=== PATIENT | male | born 1940 | race Caucasian/White ===

== ENCOUNTER 2017-04-08 10:11 | Inpatient (IN) ==
[2017-04-08] MEDS ORDERED: cefOXitin 2,000 MG in Water for inj. (sterile) 10 ML IVP ONE (10:42)
[2017-04-08] MEDS ORDERED: Lidocaine -MPF 1% 2 ML VIAL ID ONE (10:42)
--- NOTE | 2017-04-08 10:49 | History & Physical Report ---
Date of Encounter: 04/08/17 Time of Encounter: 10:48 24 Hour HP Update - Instructions Instructions: If the History and Physical is less than 30 days old and was completed prior to A.M. admission and or procedure and has NOT been updated on calendar day of procedure please complete this update prior to performing procedure. - Update Patient reports changes in Medical Condition: No Changes in examination, assessment, or condition: No Changes in Medication: No Preop tests/diagnostics Reviewed: Yes Surgery Remains Indicated: Yes Consent for Planned Operative Procedure(s) Verified: Yes - Pre-Operative Checklist Preoperative Checklist Indicated: Yes Prophylactic Antibiotic Ordered: Yes Home Medications Include Beta Joaquín: No
--- NOTE | 2017-04-08 10:55 | Anesthesia Evaluation PreOp ---
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 INSPECTOR History: Denies Any Significant HX Other Medical History: GERD (hiatal hernia) Anesthesia History: No Prior Anesthetic Complications, Past Anesthesia Alcohol Use: occasionally Drug use: none Medications and Allergies Travoprost [Travatan Z] 1 drop OP DAILY 12/31/14 [History] Ezetimibe [Zetia] 10 mg PO DAILY 03/01/17 [History] Fluticasone Propionate Nasal [Flonase] 50 mcg NS DAILY 03/01/17 [History] Timolol Maleate 0.5% [Timolol Maleate 0.5%] 1 drop LEFT EYE BID 03/01/17 [ History] 3 Allergy/AdvReac Type Severity Reaction Status Date / Time Pneumococcal Vaccine Allergy Redness of Verified 04/08/17 10:51 [From Pneumovax 23] Skin - Meds/Allergy Pre-op Review Medications Reviewed: Yes Allergies Reviewed: Yes Beta Blockers on Current Med List: No Anesthesia Results - Labs Laboratory Tests 04/01/17 04/01/17 09:53 09:53 WBC 5.6 Hgb 15.5 Hct 48.1 Plt Count 173 Sodium 138 Potassium 4.4 BUN 13 Creatinine 0.87 - Imaging EKG: report reviewed (04/08/2017 SR, borderline LAD IRBBB 11/13/2013 Sinus rhythm Leftward axis Borderline ECG) Anesthesia Exam O2 Sat Height 1.73 m Height 1.73 m Weight 97.069 kg Weight 97.069 kg O2 Sat by Pulse Oximetry 95 Vital Signs Temp Pulse Resp BP Pulse Ox 97.7 F 58 18 130/92 95 04/08/17 10:44 04/08/17 10:44 04/08/17 10:44 04/08/17 10:44 04/08/17 10:44 Height: 5'8''/1.73 m Weight: 214 lbs/97 kg NPO (# of Hours): 8 Pain Scale: 0 Pain Scale Used: Numeric (1 - 10) - HEENT Pupil (Motor): EOMI Mallampati: II Teeth: Edentulous Denture Type: Upper: Complete, Lower: Complete Oral Opening: Greater than 3 - OPTICAL INSTRUMENT INSPECTOR LOC: Oriented OPTICAL INSTRUMENT INSPECTOR Motor: Normal RUE, Normal LUE, Normal RLE, Normal LLE, Normal Face OPTICAL INSTRUMENT INSPECTOR Sensory: Normal: RUE, LUE, RLE, LLE, Face - Cardiac Rhythm: Regular Murmur: None - Pulmonary Breath Sounds: bilateral Clear Respiratory Effort: Symmetrical Anesthesia Assess/Plan ASA Score: 2 Modified Pushpa Scale for Level of Consciousness: Cooperative, oriented, and tranquil Anesthetic Plan: General Monitoring Plan: Standard Monitors Recovery Plan: PACU
[2017-04-08] MEDS: Ringers Solution, Lactated 1,000 ML IVC SCH ×2 (10:58→16:30)
[2017-04-08] MEDS ORDERED: *HR* Midazolam HCl 2 MG/2 ML VIAL ONE (11:41)
[2017-04-08] MEDS ORDERED: Lidocaine -MPF 2% 2 ML VIAL ONE (11:41)
[2017-04-08] MEDS ORDERED: Ketorolac 30 MG/ML VIAL ONE (11:41)
[2017-04-08] MEDS ORDERED: *HR* Propofol 200 MG/20 ML VIAL IVP ONE (11:41)
[2017-04-08] MEDS ORDERED: Ondansetron 4 MG/2 ML VIAL ONE (11:41)
[2017-04-08] MEDS ORDERED: *HR* FentaNYL (PF) 100 MCG/2 ML VIAL ONE ×2 (11:41→13:26)
[2017-04-08] MEDS ORDERED: *HR* Rocuronium Bromide 50 MG/5 ML VIAL ONE ×2 (11:41→13:42)
[2017-04-08] MEDS ORDERED: Dexamethasone 4 MG/ML VIAL ONE (11:41)
--- NOTE | 2017-04-08 15:15 | Operative Note ---
Date of procedure: 04/08/17 Pre-op diagnosis: large hiatal hernia and esophogeal reflux Post-op diagnosis: same Procedure: Robotic hiatal hernia repair and Clayton fundoplication Anesthesia: CRISTAL Surgeon: Angel Hein Estimated blood loss (cc): 15 Condition: stable Disposition: same day Procedure in Detail: After informed consent this patient was taken the operating room placed supine position. After adequate sedation anesthesia and was prepped and draped. A proper timeout was then performed. Two towel clamps were placed the umbilicus and a Veres needle was inserted. Incision was made between the umbilicus and subxiphoid port just left of the midline. Under direct visualization a 12 mm cannula was then placed into the abdomen. An 8 mm cannula was placed in left upper quadrant to individual 8 mm cannulas were placed in the right upper quadrant at the subxiphoid region and in the midclavicular line. Another 5 mm cannula was placed in the right lower quadrant. Once this port was placed a pretzel retractor was placed underneath of the left lobe of the liver and it was retracted anteriorly. An additional 5 mm cannulas placed in the left lower quadrant. Once all ports were in place robotic was docked over the patient's head. The stomach was delivered out of the hernia. A grasper was then able to identify the pars flaccida and it was opened with a vessel sealer. The right ana was then identified and the peritoneum was incised again with the vessel sealer. Posterior to the stomach a window was created. The esophagus was easily identified with the lighted bougie. The hiatal hernia defect was then sutured with 0 Ethibond sutures in U stitch type fashion utilizing a pledget. At this point the short gastrics were taken down on the greater curvature stomach and fundus. The fundus was then passed through the retroesophageal window. 3 individual 0 Ethibond sutures were placed in U stitch type fashion in the fundus and the body of the stomach to create short floppy [place] was created. The bougie was removed and found to have no blood. Once completed the ports are removed and pneumoperitoneum was evacuated. The 12 mm cannula site was closed with an 0 Vicryl suture. Skin incisions were closed with 4-0 Vicryl suture and Dermabond.
[2017-04-08] MEDS ORDERED: Ondansetron 4 MG/2 ML VIAL IVP PRN ×2 (15:33→17:50)
[2017-04-08] MEDS ORDERED: Albuterol 2.5 MG/3 ML NEBULIZER IH PRN (15:33)
[2017-04-08] MEDS ORDERED: *HR* HYDROmorphone (PF) 1 MG/ML SYRINGE ONE (16:06)
[2017-04-08] MEDS: *HR* HYDROmorphone (PF) 1 MG/ML SYRINGE IVP PRN ×2 (16:08→16:20)
--- NOTE | 2017-04-08 16:35 | Discharge Summary ---
Date of Encounter: 04/08/17 Time of Encounter: 07:00 - Discharge Diagnosis (1) Hiatal hernia Priority: Primary Status: Acute (2) Status post Clayton fundoplication Priority: Secondary Status: Acute - Discharge Medications Prescriptions: Ondansetron ODT [Zofran ODT] 4 mg SL Q4HR #15 tab.rapdis OxyCODONE/APAP 5/325 [Percocet 5/325 MG] 1 each PO Q6HR PRN #28 tablet PRN Reason: Pain Docusate [Colace] 100 mg PO BID PRN #30 capsule PRN Reason: Constipation Lactose-Reduced Food [Ensure Enlive] 237 ml PO TID #90 liquid Home Medications: Travoprost [Travatan Z] 1 drop OP HS 12/31/14 [History] Ezetimibe [Zetia] 10 mg PO DAILY 03/01/17 [History] Fluticasone Propionate Nasal [Flonase] 50 mcg NS DAILY PRN 03/01/17 [History] Timolol Maleate 0.5% 1 drop RIGHT EYE BID 03/01/17 [History] Docusate [Colace] 100 mg PO BID PRN #30 capsule 04/08/17 [Rx] Lactose-Reduced Food [Ensure Enlive] 237 ml PO TID #90 liquid 04/08/17 [Rx] Ondansetron ODT [Zofran ODT] 4 mg SL Q4HR #15 tab.rapdis 04/08/17 [Rx] OxyCODONE/APAP 5/325 [Percocet 5/325 MG] 1 each PO Q6HR PRN #28 tablet 04/08/17 [Rx] Allergies/Adverse Reactions: 3 Allergy/AdvReac Type Severity Reaction Status Date / Time Pneumococcal Vaccine Allergy Redness of Verified 04/08/17 10:51 [From Pneumovax 23] Skin General Surgery Exam Initial Vital Signs Temp Pulse Resp BP Pulse Ox 97.7 F 58 18 130/92 95 04/08/17 10:44 04/08/17 10:44 04/08/17 10:44 04/08/17 10:44 04/08/17 10:44 Date of admission: 04/08/2017 Primary care physician: Rodri Day MD Discharging clinician: Wilman Crow) Anticipated date of discharge: 04/09/17 - Patient Status Disposition: Home, Self-Care Condition: Good Functional capacity at discharge: independent ambulation Overall status at discharge: patient is progressing back to baseline - Discharge Instructions Instructions: Adult Laparoscopic Clayton Fundoplication (DC) Follow Up With: Rodri Day MD [Primary Care Provider] - Kristel Crow CNP [Advanced Practice Nurse] - 04/22/17 8:20 am Forms: Inpatient Work/School Release Additional Instructions: General Instructions After Clayton Surgery 1. No pushing, pulling, or lifting greater than 15 lbs for FOUR weeks. 2. You may shower beginning today, but no tub baths, soaking, or swimming for 2 weeks. 3. You may resume driving when you are off narcotics and are safe to react in a car. 4. Take ibuprofen every 8 hours if needed for discomfort. If this does not relieve the discomfort, you may take oxycodone for breakthrough pain. Take narcotics as directed. Do not take more narcotics then directed and do not share your narcotics with any other person. Do not drink alcohol while on narcotics. 5. Take stool softeners (Colace) or a water based laxative (Miramax) while taking narcotics. You may hold for loose stools. 6. Report any fevers greater than 100.5F, increase abdominal discomfort, drainage that looks like pus, increased redness or pain at the surgical site, or any vomiting. 7. Report any pain in the calves, shortness of breath, or rapid heartbeat. 8. Continue to take your heartburn medications until directed to stop. Do not stop them abruptly as this can cause symptoms of reflux. 9. Do not drink alcohol or carbonated beverages. 10. Do not deviate from the recommended Clayton diet below. Doing so can affect your outcomes. [facility] Diet After Clayton Fundoplication Surgery This diet information is for patients who have recently had Clayton Fundoplication Surgery to correct reflux disease or to repair various types of hernias, such as hiatal hernia and intrathoracic stomach. This diet may also be used for other gastrointestinal surgeries, such as Heller myotomy and repair of achalasia. The diet will help control diarrhea, excess gas and swallowing problems, which may occur after this type of surgery. Important Steps to Keep Your Stomach From Stretching Eat small, frequent meals (six to eight per day). This will help you consume the majority of the nutrients you need without causing your stomach to feel full or distended. Drinking large amounts of fluids with meals can stretch your stomach. You may drink fluids between meals as often as you like, but limit fluids to 1/2 cup (4 fluid ounces) with meals and one cup (8 fluid ounces) with snacks. Sit upright while eating, and stay upright for 30 minutes after each meal. [place] can help food move through your digestive tract. Do not lie down after eating. Sit upright for 2 hours after your last meal or snack of the day. Eat very slowly. Take your time when eating. Take small bites and chew your food well to solar installation helper in swallowing and digestion. Avoid crusty breads and sticky, gummy foods, such as bananas, fresh doughy breads, rolls and doughnuts. These types of foods become sticky and difficult to swallow. Toasted breads tend to be better tolerated. Lastly, if you eat sweets, consume them at the end of your meal to avoid a group of symptoms referred to as dumping syndrome. This describes the rapid emptying of foods from the stomach to the small intestine. Sweetened beverages, candy and desserts move more rapidly and dump quickly into the intestines. This can cause symptoms of nausea, weakness, cold sweats, cramps, diarrhea and dizzy spells. Important Steps to Avoid Gas Do not drink through a straw, chew gum, or chew tobacco. These actions cause you to swallow air, which will produce excess gas in your stomach. Chew with your mouth closed and chew your food thoroughly. Avoid foods that cause stomach gas and distention. The foods include corn, dried beans, peas, lentils, onions, broccoli, cauliflower, and any food item from the cabbage family. Do not drink carbonated drinks, alcohol, citrus, or tomato products. What Will I Be Able To Eat and Drink After Surgery After Clayton Fundoplication Surgery, your diet will be advanced slowly by your surgeon. Generally, you will be on a thin/clear liquid diet for the first 10 days. Then you will advance to the full liquid diet for 4 days and eventually to a Clayton soft diet for 7 days. After any surgery, protein consumption is important for healing. To get enough protein, drink 3-4 [place] Instant Breakfast, Ensure, or equivalent daily. Reminder: Carbonated beverages (such as sodas, energy drinks, flavored carbonated water), and alcohol are not permitted for the 1st 6 to 8 weeks after surgery. After this time you may attempt to reintroduce them in small amounts. Please note: Dairy products such as milk, ice cream, and pudding may cause diarrhea in some people after surgery. You may need to avoid milk products. If so you may substitute them with lactose free beverages, such as soy, rice, lactate, or almond milk. Please be aware that each patient's tolerance to food is different. Your doctor will advance your diet depending on how well you progress after surgery. Thin Liquid Diet The first diet after Clayton Fundoplication Surgery is the thin liquids diet. Follow this diet for postoperative days 1-10 04/09/2017- 04/08/2017. Thin liquids include: Apple, Cranberry, or Grape Juice (no citrus juice) Chicken Broth Beef Broth Flavored Gelatin (Jell-O) Decaffeinated Tea or Coffee Popsicles or Czech Ice Caffeinated Beverages Will Be Permitted Based upon Tolerance and at a later date Dairy if tolerated Thin Milkshakes (strawberry or vanilla flavored- No chocolate) Drink 3-4 [place] instant breakfast, Ensure, or equivalent daily. May be mixed with dairy for thin milkshakes Full Liquid Diet Follow this diet for postoperative days 11-14106/20/2016 - 04/22/2017. Full liquid diet includes anything in the thin liquid diet plus: Milk: Dairy, Soy, Rice, and [place] (No Chocolate) Cream of Wheat, Cream of Rice, Grits Strained Creamed Soups (No Tomato or Broccoli) Vanilla and [place] Flavored Ice Cream Sherbet Vanilla and Butterscotch Pudding (No Chocolate or Coconut) Continue 3-4 [place] Instant Breakfast, Ensure, or an Equivalent Daily. May be mixed with Dairy for Thin Milkshakes. Clayton Soft Diet Follow this diet for postoperative days 15-20 04/23/2017 - 04/28/2017. (If you are consuming enough protein, you may stop the protein supplements). Please note: You will need extra fluids throughout the day to meet your fluid needs. - Diet and Activity Activity: increase activity as tolerated Diet: other (Clayton diet. Do not deviate from this diet.) - Hospital Course Hospital course: Mr. Pool is a 76 year old male who presented on 04/08/2017 for an elective medicine fundoplication. He had an upper G.I. completed on 04/09/2017 which revealed . He is tolerating a thin liquid diet without nausea or vomiting. His vital signs are stable. He has afebrile. He is emulating avoiding without difficulty. We will begin discharge planning to home with the follow-up in the office in approximately 2 weeks. - Time Spent with Patient Total time spent providing and/or coordinating discharge services:
--- NOTE | 2017-04-08 16:49 | Anesthesia Evaluation Post Op ---
Date of Encounter: 04/08/17 Time of Encounter: 16:51 - Vital Signs Vital Signs: Vital Signs - Last 8 Hours Temp Pulse Resp BP Pulse Ox 04/08/17 16:39 97.0 F L 72 14 142/90 92 04/08/17 16:29 60 12 151/96 91 04/08/17 16:19 97.3 F L 65 14 153/95 92 04/08/17 16:09 65 18 158/99 94 04/08/17 15:59 75 18 152/91 95 04/08/17 15:49 97.0 F L 73 16 146/117 93 04/08/17 10:52 97.7 F 58 18 130/92 95 04/08/17 10:44 97.7 F 58 18 130/92 95 Intake and Output 04/08/17 04/08/17 04/08/17 07:59 15:59 23:59 Intake Total 975 / 975 Output Total Balance -5 / -5 975 / 975 Intake: IV Fluids 975 / 975 Lactated Ringers 1,000 ML @ 25 975 / 975 mls/hr IVC .Q24H RODERICK Rx#: [id number] Mefoxin 2,000 MG In Water for inj. (sterile) 10 ML @ 150 mls/ hr IVP PREOP ONE Rx#:[id number] Output: Estimated Blood Loss Other: Weight 97.069 kg Patient Weight 04/08/17 23:59 Weight 97.069 kg - Lungs Lungs: Clear Ascult./Percussion - Airway Airway: Non-obstructed - Cardiovascular Regular Rate, Baseline Rhythm - Mental Status Mental Status: Alert & Oriented, Answers Appropriately - Pain Pain Scale: 5 (TOLERABLE ) Pain Scale used: Numeric (1 - 10) - Nausea Vomiting Nausea Vomiting: Not Present - Hydration Hydration: Ice chips - Discharge PostOp Status: Transfer Patient to floor
[2017-04-08] MEDS ORDERED: Naloxone 0.4 MG/ML INJ IVP PRN (17:50)
[2017-04-08] MEDS ORDERED: Ibuprofen 600 MG TABLET PO PRN (17:50)
[2017-04-08] MEDS ORDERED: *HR* OxyCODONE/APAP 5/325 TABLET PO PRN (17:50)
[2017-04-08] MEDS ORDERED: *HR* Promethazine 25 MG/ML VIAL IVP PRN (17:50)
[2017-04-08] MEDS ORDERED: Fluticasone Propionate Nasal 50 MCG/SPRAY BOTTLE NS PRN (17:50)
[2017-04-08] MEDS: *HR* Morphine 2 MG/ML SYRINGE IVP PRN (18:20)
[2017-04-08] MEDS ORDERED: NON-FORMULARY MEDICATION 1 EACH EACH (Travoprost [Travatan Z] 1 DROP) OP SCH (21:00)
[2017-04-08] MEDS: 0.9 % Sodium Chloride 1,000 ML IVC SCH (22:01)
[2017-04-08] MEDS: Ketorolac 15 MG/ML VIAL IVP PRN (22:01)
[2017-04-08] MEDS: Latanoprost 2.5 ML BOTTLE BOTH EYES SCH (22:02)
[2017-04-09] MEDS: *HR* Morphine 2 MG/ML SYRINGE IVP PRN ×2 (04:17→10:14)
[2017-04-09] MEDS: Pantoprazole 40 MG VIAL IVP SCH (09:00)
[2017-04-09] MEDS: 0.9 % Sodium Chloride 1,000 ML IVC SCH ×2 (09:01→17:07)
[2017-04-09] MEDS: (Ezetimibe [Zetia] 10 MG) PO SCH (09:03)
[2017-04-09] MEDS: Ketorolac 15 MG/ML VIAL IVP PRN ×2 (12:41→18:56)
--- NOTE | 2017-04-09 14:52 | General Surgery Progress Note ---
<Brad Ruiz - Last Filed: 04/09/17 14:50> Date of Encounter: 04/09/17 Time of Encounter: 09:00 - Assessment and Plan (1) Status post Clayton fundoplication Current Visit: Yes Status: Acute Postoperative day #1 following Clayton fundoplication - Patient reports decreased reflux symptoms however is experiencing a large amount of pain, nausea, difficulty swallowing. This is possibly secondary to inflammation in the area however upper GI series morning revealed decreased transit of the contrast indicating possible persisting large hiatal hernia versus inflammation that may resolve. We will allow ice chips today and considering a CT of the chest and abdomen tomorrow for better 3-D evaluation. We will reevaluate in the morning for improvement of symptoms (2) Hiatal hernia Current Visit: Yes Status: Acute As above Subjective Patient reports: still having pain, nausea Narrative: Patient seen and examined at bedside this morning. He admits that he is still experiencing significant abdominal pain and occasional nausea. He denies any episodes of emesis. He does state his reflux is greatly improved. He does however admit that he is having difficulty swallowing his morning medications as well as sips of water. Upper GI series this morning showed persistence of moderate to large sliding scale hernia is retention of contrast in the esophagus for greater than 10 minutes. Objective Vital Signs - Last 8 Hours Temp Pulse Resp BP Pulse Ox 04/09/17 07:30 98.1 F 70 18 129/84 94 Intake and Output 04/08/17 04/09/17 04/09/17 23:59 07:59 15:59 Intake Total 975 / 975 50 / 50 1000 / 1000 Output Total 100 / 100 300 / 300 225 / 225 Balance 875 / 875 -250 / -250 775 / 775 Intake: IV Fluids 975 / 975 1000 / 1000 0.9 % Sodium Chloride 1,000 ML 1000 / 1000 @ 125 mls/hr IVC .Q8H [facility] Rx#: [id number] Lactated Ringers 1,000 ML @ 25 975 / 975 mls/hr IVC .Q24H [facility] Rx#: [id number] Oral 50 / 50 Output: Urine 100 / 100 300 / 300 225 / 225 Other: Weight 97.432 kg Patient Weight 04/09/17 23:59 Weight 97.432 kg - General physical appearance well developed, well nourished, no distress - Respiratory normal expansion, normal respiratory effort, clear to auscultation - Cardiovascular Cardiovascular exam: Present: RRR, no murmurs/rubs/gallops - Abdomen Abdomen: Present: bowel sounds present, soft, tender Abdominal Tenderness: diffusely - Incision Incision: Present: clean and dry, intact. Absent: erythema - VTE Documentation of Mechanical Device: Intermittent pneumatic compression device Consult Discharge Plan - Plan Instructions: Adult Laparoscopic [place] Fundoplication (DC) Additional Instructions: General Instructions After Clayton Surgery 1. No pushing, pulling, or lifting greater than 15 lbs for FOUR weeks. 2. You may shower beginning today, but no tub baths, soaking, or swimming for 2 weeks. 3. You may resume driving when you are off narcotics and are safe to react in a car. 4. Take ibuprofen every 8 hours if needed for discomfort. If this does not relieve the discomfort, you may take oxycodone for breakthrough pain. Take narcotics as directed. Do not take more narcotics then directed and do not share your narcotics with any other person. Do not drink alcohol while on narcotics. 5. Take stool softeners (Colace) or a water based laxative (Miramax) while taking narcotics. You may hold for loose stools. 6. Report any fevers greater than 100.5F, increase abdominal discomfort, drainage that looks like pus, increased redness or pain at the surgical site, or any vomiting. 7. Report any pain in the calves, shortness of breath, or rapid heartbeat. 8. Continue to take your heartburn medications until directed to stop. Do not stop them abruptly as this can cause symptoms of reflux. 9. Do not drink alcohol or carbonated beverages. 10. Do not deviate from the recommended Clayton diet below. Doing so can affect your outcomes. [facility] Diet After [place] Fundoplication Surgery This diet information is for patients who have recently had [place] Fundoplication Surgery to correct reflux disease or to repair various types of hernias, such as hiatal hernia and intrathoracic stomach. This diet may also be used for other gastrointestinal surgeries, such as Heller myotomy and repair of achalasia. The diet will help control diarrhea, excess gas and swallowing problems, which may occur after this type of surgery. Important Steps to Keep Your Stomach From Stretching Eat small, frequent meals (six to eight per day). This will help you consume the majority of the nutrients you need without causing your stomach to feel full or distended. Drinking large amounts of fluids with meals can stretch your stomach. You may drink fluids between meals as often as you like, but limit fluids to 1/2 cup (4 fluid ounces) with meals and one cup (8 fluid ounces) with snacks. Sit upright while eating, and stay upright for 30 minutes after each meal. [place] can help food move through your digestive tract. Do not lie down after eating. Sit upright for 2 hours after your last meal or snack of the day. Eat very slowly. Take your time when eating. Take small bites and chew your food well to shipwright helper in swallowing and digestion. Avoid crusty breads and sticky, gummy foods, such as bananas, fresh doughy breads, rolls and doughnuts. These types of foods become sticky and difficult to swallow. Toasted breads tend to be better tolerated. Lastly, if you eat sweets, consume them at the end of your meal to avoid a group of symptoms referred to as dumping syndrome. This describes the rapid emptying of foods from the stomach to the small intestine. Sweetened beverages, candy and desserts move more rapidly and dump quickly into the intestines. This can cause symptoms of nausea, weakness, cold sweats, cramps, diarrhea and dizzy spells. Important Steps to Avoid Gas Do not drink through a straw, chew gum, or chew tobacco. These actions cause you to swallow air, which will produce excess gas in your stomach. Chew with your mouth closed and chew your food thoroughly. Avoid foods that cause stomach gas and distention. The foods include corn, dried beans, peas, lentils, onions, broccoli, cauliflower, and any food item from the cabbage family. Do not drink carbonated drinks, alcohol, citrus, or tomato products. What Will I Be Able To Eat and Drink After Surgery After [place] Fundoplication Surgery, your diet will be advanced slowly by your surgeon. Generally, you will be on a thin/clear liquid diet for the first 10 days. Then you will advance to the full liquid diet for 4 days and eventually to a [place] soft diet for 7 days. After any surgery, protein consumption is important for healing. To get enough protein, drink 3-4 [place] Instant Breakfast, Ensure, or equivalent daily. Reminder: Carbonated beverages (such as sodas, energy drinks, flavored carbonated water), and alcohol are not permitted for the 1st 6 to 8 weeks after surgery. After this time you may attempt to reintroduce them in small amounts. Please note: Dairy products such as milk, ice cream, and pudding may cause diarrhea in some people after surgery. You may need to avoid milk products. If so you may substitute them with lactose free beverages, such as soy, rice, lactate, or almond milk. Please be aware that each patient's tolerance to food is different. Your doctor will advance your diet depending on how well you progress after surgery. Thin Liquid Diet The first diet after Clayton Fundoplication Surgery is the thin liquids diet. Follow this diet for postoperative days 1-10 04/09/2017- 04/08/2017. Thin liquids include: Apple, Cranberry, or Grape Juice (no citrus juice) Chicken Broth Beef Broth Flavored Gelatin (Jell-O) Decaffeinated Tea or Coffee Popsicles or [place] Ice Caffeinated Beverages Will Be Permitted Based upon Tolerance and at a later date Dairy if tolerated Thin Milkshakes (strawberry or vanilla flavored- No chocolate) Drink 3-4 [place] instant breakfast, Ensure, or equivalent daily. May be mixed with dairy for thin milkshakes Full Liquid Diet Follow this diet for postoperative days 11-14106/20/2016 - 04/22/2017. Full liquid diet includes anything in the thin liquid diet plus: Milk: Dairy, Soy, Rice, and [place] (No Chocolate) Cream of Wheat, Cream of Rice, Grits Strained Creamed Soups (No Tomato or Broccoli) Vanilla and [place] Flavored Ice Cream Sherbet Vanilla and Butterscotch Pudding (No Chocolate or Coconut) Continue 3-4 [place] Instant Breakfast, Ensure, or an Equivalent Daily. May be mixed with Dairy for Thin Milkshakes. [place] Soft Diet Follow this diet for postoperative days 15-20 04/23/2017 - 04/28/2017. (If you are consuming enough protein, you may stop the protein supplements). Please note: You will need extra fluids throughout the day to meet your fluid needs. Referrals: Rodri Day MD [Primary Care Provider] - Kristel Crow CNP [Advanced Practice Nurse] - 04/22/17 8:20 am Prescriptions: Ondansetron ODT [Zofran ODT] 4 mg SL Q4HR #15 tab.rapdis OxyCODONE/APAP 5/325 [Percocet 5/325 MG] 1 each PO Q6HR PRN #28 tablet PRN Reason: Pain Docusate [Colace] 100 mg PO BID PRN #30 capsule PRN Reason: Constipation Lactose-Reduced Food [Ensure Enlive] 237 ml PO TID #90 liquid <Wilman Childers - Last Filed: 04/10/17 08:04> Date of Encounter: 04/09/17 Objective Vital Signs - Last 8 Hours Temp Pulse Resp BP Pulse Ox 04/10/17 04:39 98.6 F 81 20 119/80 94 04/10/17 00:56 98.2 F 84 20 144/81 93 Intake and Output 04/09/17 04/10/17 04/10/17 23:59 07:59 15:59 Intake Total 1000 / 1000 900 / 900 Output Total 225 / 225 300 / 300 Balance 775 / 775 600 / 600 Intake: IV Fluids 1000 / 1000 900 / 900 0.9 % Sodium Chloride 1,000 ML 1000 / 1000 900 / 900 @ 125 mls/hr IVC .Q8H [facility] Rx#: [id number] Oral 0 / 0 0 / 0 Output: Urine 225 / 225 300 / 300 Other: Meal npo Blood Glucose* 98 100 - Labs 04/10/17 03:25 04/10/17 03:25 Diabetes panel 04/10/17 Range/Units 03:25 Sodium 140 (136-145) mEq/L Potassium 4.1 (3.5-4.5) mEq/L Chloride 111 H (98-109) mEq/L Carbon Dioxide 23 (19-29) mEq/L BUN 20 (8-26) mg/dL Creatinine 0.82 (0.72-1.25) mg/dL Glucose 106 H (70-99) mg/dL Calcium 9.9 (8.6-10.8) mg/dL Calcium panel 04/10/17 Range/Units 03:25 Calcium 9.9 (8.6-10.8) mg/dL Pituitary panel 04/10/17 Range/Units 03:25 Sodium 140 (136-145) mEq/L Potassium 4.1 (3.5-4.5) mEq/L Chloride 111 H (98-109) mEq/L Carbon Dioxide 23 (19-29) mEq/L BUN 20 (8-26) mg/dL Creatinine 0.82 (0.72-1.25) mg/dL Glucose 106 H (70-99) mg/dL Calcium 9.9 (8.6-10.8) mg/dL Adrenal panel 04/10/17 Range/Units 03:25 Sodium 140 (136-145) mEq/L Potassium 4.1 (3.5-4.5) mEq/L Chloride 111 H (98-109) mEq/L Carbon Dioxide 23 (19-29) mEq/L BUN 20 (8-26) mg/dL Creatinine 0.82 (0.72-1.25) mg/dL Glucose 106 H (70-99) mg/dL Calcium 9.9 (8.6-10.8) mg/dL - Attending Attestation I examined this patient and my medical decision-making was reviewed with the Resident Physician. I agree with the documented findings, disposition and treatment plan as described except to the extent set forth below. I reviewed the above assessment and evaluation and agree with the above plan. Will consider CT scan of the chest and abdomen within the next 24 hours to better evaluate the surgical repair.
[2017-04-09] MEDS: Latanoprost 2.5 ML BOTTLE BOTH EYES SCH (20:51)
[2017-04-10] MEDS: Ketorolac 15 MG/ML VIAL IVP PRN ×3 (01:03→18:16)
[2017-04-10] MEDS: 0.9 % Sodium Chloride 1,000 ML IVC SCH ×3 (01:11→18:20)
[2017-04-10 04:26] LABS: BUN/Creatinine Ratio 24 (6-26); Blood Urea Nitrogen 20 mg/dL (8-26); Calcium 9.9 mg/dL (8.6-10.8); Carbon Dioxide 23 mEq/L (19-29); Chloride 111 mEq/L (98-109); Glucose 106 mg/dL (70-99); Osmolality,Calculated 293 (280-300); Potassium 4.1 mEq/L (3.5-4.5); Sodium 140 mEq/L (136-145); eGFR For African Americans > 60 (> 60); eGFR For Non-African Americans > 60 (> 60)
[2017-04-10 04:39] LABS: Basophils % 0.2 %; Eosinophils % 0.1 %; Hematocrit 43.3 % (37.5-50.1); Immature Granulocytes % 0.2 % (0-4); Lymphocytes % 8.2 %; Mean Corpuscular HGB Conc 32.3 g/dL (31.6-35.5); Mean Corpuscular Hemoglobin 29.7 pg (28.0-33.3); Mean Corpuscular Volume 91.9 fL (83.0-100.0); Mean Platelet Volume 11.5 fL (9.4-12.4); Monocytes # 1.6 K/mcL (0.0-1.3); Monocytes % 12.8 %; Neutrophils # 9.8 K/mcL (1.6-8.9); Platelet Count 137 K/mcL (140-400); Red Blood Count 4.71 M/mcL (4.19-5.50); Red Cell Distribution Width 14.1 % (11.5-14.5); Segmented Neutrophils % 78.5 %
[2017-04-10] MEDS: Pantoprazole 40 MG VIAL IVP SCH (08:58)
[2017-04-10] MEDS: (Ezetimibe [Zetia] 10 MG) PO SCH (08:59)
--- NOTE | 2017-04-10 10:27 | General Surgery Progress Note ---
<Brad Ruiz - Last Filed: 04/10/17 14:13> Date of Encounter: 04/10/17 Time of Encounter: 09:35 - Assessment and Plan (1) Status post Clayton fundoplication Current Visit: Yes Status: Acute Postoperative day #2 following Clayton fundoplication - Patient reports decreased reflux symptoms however is experiencing a large amount of pain, nausea, difficulty swallowing. This is possibly secondary to inflammation in the area however upper GI series morning revealed decreased transit of the contrast indicating possible persisting large hiatal hernia versus inflammation that may resolve. Reports minimal improvement today. Will obtain CT abd/pelvis/chest to evaluate for possibility of need for further surgical option. Clear liquids as tolerated. (2) Hiatal hernia Current Visit: Yes Status: Acute As above Subjective Patient reports: no new complaints, still having pain, nausea Narrative: Patient seen and examined at bedside this morning. He states that he feels about the same as he did yesterday. He continues to experience diffuse abdominal pain since his surgery. He has been nothing by mouth since she has to morning except for ice chips and he states that he lets the eyes she smells of his mouth and he is able to tolerate swallowing motion with this without any complaints of nausea or vomiting. He has not attempted to initiate any other swallowing. He denies any further symptoms of reflux. He also denies any flatus or bowel movements. Objective Vital Signs - Last 8 Hours Temp Pulse Resp BP Pulse Ox 04/10/17 08:46 98.1 F 84 18 149/88 94 04/10/17 04:39 98.6 F 81 20 119/80 94 Intake and Output 04/09/17 04/10/17 04/10/17 23:59 07:59 15:59 Intake Total 1000 / 1000 900 / 900 900 / 900 Output Total 225 / 225 300 / 300 0 / 0 Balance 775 / 775 600 / 600 900 / 900 Intake: IV Fluids 1000 / 1000 900 / 900 900 / 900 0.9 % Sodium Chloride 1,000 ML 1000 / 1000 900 / 900 900 / 900 @ 125 mls/hr IVC .Q8H [facility] Rx#: [id number] Oral 0 / 0 0 / 0 0 / 0 Output: Urine 225 / 225 300 / 300 0 / 0 Other: Meal npo NPO Blood Glucose* 98 100 - General physical appearance well developed, well nourished, no distress - Respiratory normal expansion, normal respiratory effort, clear to auscultation - Cardiovascular Cardiovascular exam: Present: RRR, no murmurs/rubs/gallops - Abdomen Abdomen: Present: bowel sounds present, soft, tender Abdominal Tenderness: diffusely - Labs 04/10/17 03:25 04/10/17 03:25 Diabetes panel 04/10/17 Range/Units 03:25 Sodium 140 (136-145) mEq/L Potassium 4.1 (3.5-4.5) mEq/L Chloride 111 H (98-109) mEq/L Carbon Dioxide 23 (19-29) mEq/L BUN 20 (8-26) mg/dL Creatinine 0.82 (0.72-1.25) mg/dL Glucose 106 H (70-99) mg/dL Calcium 9.9 (8.6-10.8) mg/dL Calcium panel 04/10/17 Range/Units 03:25 Calcium 9.9 (8.6-10.8) mg/dL Pituitary panel 04/10/17 Range/Units 03:25 Sodium 140 (136-145) mEq/L Potassium 4.1 (3.5-4.5) mEq/L Chloride 111 H (98-109) mEq/L Carbon Dioxide 23 (19-29) mEq/L BUN 20 (8-26) mg/dL Creatinine 0.82 (0.72-1.25) mg/dL Glucose 106 H (70-99) mg/dL Calcium 9.9 (8.6-10.8) mg/dL Adrenal panel 04/10/17 Range/Units 03:25 Sodium 140 (136-145) mEq/L Potassium 4.1 (3.5-4.5) mEq/L Chloride 111 H (98-109) mEq/L Carbon Dioxide 23 (19-29) mEq/L BUN 20 (8-26) mg/dL Creatinine 0.82 (0.72-1.25) mg/dL Glucose 106 H (70-99) mg/dL Calcium 9.9 (8.6-10.8) mg/dL - VTE Documentation of Mechanical Device: Intermittent pneumatic compression device Consult Discharge Plan - Plan Instructions: Adult Laparoscopic [place] Fundoplication (DC) Additional Instructions: General Instructions After Clayton Surgery 1. No pushing, pulling, or lifting greater than 15 lbs for FOUR weeks. 2. You may shower beginning today, but no tub baths, soaking, or swimming for 2 weeks. 3. You may resume driving when you are off narcotics and are safe to react in a car. 4. Take ibuprofen every 8 hours if needed for discomfort. If this does not relieve the discomfort, you may take oxycodone for breakthrough pain. Take narcotics as directed. Do not take more narcotics then directed and do not share your narcotics with any other person. Do not drink alcohol while on narcotics. 5. Take stool softeners (Colace) or a water based laxative (Miramax) while taking narcotics. You may hold for loose stools. 6. Report any fevers greater than 100.5F, increase abdominal discomfort, drainage that looks like pus, increased redness or pain at the surgical site, or any vomiting. 7. Report any pain in the calves, shortness of breath, or rapid heartbeat. 8. Continue to take your heartburn medications until directed to stop. Do not stop them abruptly as this can cause symptoms of reflux. 9. Do not drink alcohol or carbonated beverages. 10. Do not deviate from the recommended [place] diet below. Doing so can affect your outcomes. [place] [facility] Diet After [place] Fundoplication Surgery This diet information is for patients who have recently had [place] Fundoplication Surgery to correct reflux disease or to repair various types of hernias, such as hiatal hernia and intrathoracic stomach. This diet may also be used for other gastrointestinal surgeries, such as Heller myotomy and repair of achalasia. The diet will help control diarrhea, excess gas and swallowing problems, which may occur after this type of surgery. Important Steps to Keep Your Stomach From Stretching Eat small, frequent meals (six to eight per day). This will help you consume the majority of the nutrients you need without causing your stomach to feel full or distended. Drinking large amounts of fluids with meals can stretch your stomach. You may drink fluids between meals as often as you like, but limit fluids to 1/2 cup (4 fluid ounces) with meals and one cup (8 fluid ounces) with snacks. Sit upright while eating, and stay upright for 30 minutes after each meal. [place] can help food move through your digestive tract. Do not lie down after eating. Sit upright for 2 hours after your last meal or snack of the day. Eat very slowly. Take your time when eating. Take small bites and chew your food well to doughnut machine operator helper in swallowing and digestion. Avoid crusty breads and sticky, gummy foods, such as bananas, fresh doughy breads, rolls and doughnuts. These types of foods become sticky and difficult to swallow. Toasted breads tend to be better tolerated. Lastly, if you eat sweets, consume them at the end of your meal to avoid a group of symptoms referred to as dumping syndrome. This describes the rapid emptying of foods from the stomach to the small intestine. Sweetened beverages, candy and desserts move more rapidly and dump quickly into the intestines. This can cause symptoms of nausea, weakness, cold sweats, cramps, diarrhea and dizzy spells. Important Steps to Avoid Gas Do not drink through a straw, chew gum, or chew tobacco. These actions cause you to swallow air, which will produce excess gas in your stomach. Chew with your mouth closed and chew your food thoroughly. Avoid foods that cause stomach gas and distention. The foods include corn, dried beans, peas, lentils, onions, broccoli, cauliflower, and any food item from the cabbage family. Do not drink carbonated drinks, alcohol, citrus, or tomato products. What Will I Be Able To Eat and Drink After Surgery After [place] Fundoplication Surgery, your diet will be advanced slowly by your surgeon. Generally, you will be on a thin/clear liquid diet for the first 10 days. Then you will advance to the full liquid diet for 4 days and eventually to a [place] soft diet for 7 days. After any surgery, protein consumption is important for healing. To get enough protein, drink 3-4 [place] Instant Breakfast, Ensure, or equivalent daily. Reminder: Carbonated beverages (such as sodas, energy drinks, flavored carbonated water), and alcohol are not permitted for the 1st 6 to 8 weeks after surgery. After this time you may attempt to reintroduce them in small amounts. Please note: Dairy products such as milk, ice cream, and pudding may cause diarrhea in some people after surgery. You may need to avoid milk products. If so you may substitute them with lactose free beverages, such as soy, rice, lactate, or almond milk. Please be aware that each patient's tolerance to food is different. Your doctor will advance your diet depending on how well you progress after surgery. Thin Liquid Diet The first diet after [place] Fundoplication Surgery is the thin liquids diet. Follow this diet for postoperative days 1-10 04/09/2017- 04/08/2017. Thin liquids include: Apple, Cranberry, or Grape Juice (no citrus juice) Chicken Broth Beef Broth Flavored Gelatin (Jell-O) Decaffeinated Tea or Coffee Popsicles or [place] Ice Caffeinated Beverages Will Be Permitted Based upon Tolerance and at a later date Dairy if tolerated Thin Milkshakes (strawberry or vanilla flavored- No chocolate) Drink 3-4 [place] instant breakfast, Ensure, or equivalent daily. May be mixed with dairy for thin milkshakes Full Liquid Diet Follow this diet for postoperative days 11-14106/20/2016 - 04/22/2017. Full liquid diet includes anything in the thin liquid diet plus: Milk: Dairy, Soy, Rice, and [place] (No Chocolate) Cream of Wheat, Cream of Rice, Grits Strained Creamed Soups (No Tomato or Broccoli) Vanilla and [place] Flavored Ice Cream Sherbet Vanilla and Butterscotch Pudding (No Chocolate or Coconut) Continue 3-4 [place] Instant Breakfast, Ensure, or an Equivalent Daily. May be mixed with Dairy for Thin Milkshakes. [place] Soft Diet Follow this diet for postoperative days 15-20 04/23/2017 - 04/28/2017. (If you are consuming enough protein, you may stop the protein supplements). Please note: You will need extra fluids throughout the day to meet your fluid needs. Referrals: Rodri Day MD [Primary Care Provider] - Kristel Crow CNP [Advanced Practice Nurse] - 04/22/17 8:20 am Prescriptions: Ondansetron ODT [Zofran ODT] 4 mg SL Q4HR #15 tab.rapdis OxyCODONE/APAP 5/325 [Percocet 5/325 MG] 1 each PO Q6HR PRN #28 tablet PRN Reason: Pain Docusate [Colace] 100 mg PO BID PRN #30 capsule PRN Reason: Constipation Lactose-Reduced Food [Ensure Enlive] 237 ml PO TID #90 liquid <Alvarado,Wilman M - Last Filed: 04/11/17 07:23> Date of Encounter: 04/10/17 Objective Vital Signs - Last 8 Hours Temp Pulse Resp BP Pulse Ox 04/11/17 06:59 97.7 F 77 16 123/71 93 04/11/17 04:20 98.0 F 73 18 138/83 93 04/11/17 00:08 99.5 F 78 18 129/81 92 Intake and Output 04/10/17 04/10/17 04/11/17 15:59 23:59 07:59 Intake Total 900 / 900 1150 / 1150 950 / 950 Output Total 250 / 250 300 / 300 250 / 250 Balance 650 / 650 850 / 850 700 / 700 Intake: IV Fluids 900 / 900 900 / 900 950 / 950 0.9 % Sodium Chloride 1,000 ML 900 / 900 900 / 900 950 / 950 @ 125 mls/hr IVC .Q8H [facility] Rx#: [id number] Oral 0 / 0 250 / 250 Output: Urine 250 / 250 300 / 300 250 / 250 Other: Meal NPO Dinner # Voids 1 Weight 93.128 kg Patient Weight 04/11/17 23:59 Weight 93.128 kg - Labs 04/11/17 04:51 04/11/17 04:51 Diabetes panel 04/11/17 Range/Units 04:51 Sodium 143 (136-145) mEq/L Potassium 4.1 (3.5-4.5) mEq/L Chloride 113 H (98-109) mEq/L Carbon Dioxide 23 (19-29) mEq/L BUN 18 (8-26) mg/dL Creatinine 0.80 (0.72-1.25) mg/dL Glucose 115 H (70-99) mg/dL Calcium 9.7 (8.6-10.8) mg/dL Calcium panel 04/11/17 Range/Units 04:51 Calcium 9.7 (8.6-10.8) mg/dL Pituitary panel 04/11/17 Range/Units 04:51 Sodium 143 (136-145) mEq/L Potassium 4.1 (3.5-4.5) mEq/L Chloride 113 H (98-109) mEq/L Carbon Dioxide 23 (19-29) mEq/L BUN 18 (8-26) mg/dL Creatinine 0.80 (0.72-1.25) mg/dL Glucose 115 H (70-99) mg/dL Calcium 9.7 (8.6-10.8) mg/dL Adrenal panel 04/11/17 Range/Units 04:51 Sodium 143 (136-145) mEq/L Potassium 4.1 (3.5-4.5) mEq/L Chloride 113 H (98-109) mEq/L Carbon Dioxide 23 (19-29) mEq/L BUN 18 (8-26) mg/dL Creatinine 0.80 (0.72-1.25) mg/dL Glucose 115 H (70-99) mg/dL Calcium 9.7 (8.6-10.8) mg/dL - Attending Attestation I have personally performed a face to face evaluation on this patient. I have reviewed and agree with the care plan. History and Exam by me shows: I reviewed the above assessment and evaluation with the resident as mentioned above. Mild discomfort in the epigastric region. Incisions are clean dry and intact. Will allow ice chips and will order a CT scan of the chest and abdomen today. Continue with IV fluid hydration.
--- NOTE | 2017-04-10 13:23 | Electrocardiograph Report ---
[facility] Test Date: 2017-04-08 Pat Name: Jose Daniel Pool Department: 106 Room: Gender: M Financial Internship: BRISA : 1940 Requested By: Jordan Steele Order Number: [id number] Reading MD: Joanne Srinivasan DO Measurements Intervals [place] Rate: 56 P: 199 RI: 363 QRS: -28 QRSD: 118 T: 9 QT: 409 QTc: 400 Interpretive Statements ELECTRONIC ATRIAL PACEMAKER BORDERLINE LEFT AXIS DEVIATION INCOMPLETE RIGHT BUNDLE BRANCH BLOCK ABNORMAL RHYTHM ECG Electronically Signed On 04-10-2017 13:21:33 EST by Joanne Srinivasan DO
[2017-04-10] MEDS: Latanoprost 2.5 ML BOTTLE BOTH EYES SCH (20:09)
[2017-04-11] MEDS: Ketorolac 15 MG/ML VIAL IVP PRN ×2 (00:17→16:50)
[2017-04-11] MEDS: 0.9 % Sodium Chloride 1,000 ML IVC SCH (03:10)
[2017-04-11 05:37] LABS: Basophils % 0.2 %; Eosinophils % 0.4 %; Hematocrit 41.2 % (37.5-50.1); Immature Granulocytes % 0.3 % (0-4); Lymphocytes % 9.3 %; Mean Corpuscular HGB Conc 31.6 g/dL (31.6-35.5); Mean Corpuscular Hemoglobin 29.3 pg (28.0-33.3); Mean Corpuscular Volume 92.8 fL (83.0-100.0); Mean Platelet Volume 10.8 fL (9.4-12.4); Monocytes # 1.2 K/mcL (0.0-1.3); Monocytes % 11.9 %; Platelet Count 126 K/mcL (140-400); Red Blood Count 4.44 M/mcL (4.19-5.50); Segmented Neutrophils % 77.9 %
[2017-04-11 05:53] LABS: BUN/Creatinine Ratio 23 (6-26); Blood Urea Nitrogen 18 mg/dL (8-26); Calcium 9.7 mg/dL (8.6-10.8); Carbon Dioxide 23 mEq/L (19-29); Chloride 113 mEq/L (98-109); Glucose 115 mg/dL (70-99); Osmolality,Calculated 299 (280-300); Potassium 4.1 mEq/L (3.5-4.5); Sodium 143 mEq/L (136-145); eGFR For African Americans > 60 (> 60); eGFR For Non-African Americans > 60 (> 60)
[2017-04-11] MEDS: (Ezetimibe [Zetia] 10 MG) PO SCH (07:33)
[2017-04-11] MEDS: Pantoprazole 40 MG VIAL IVP SCH (07:33)
--- NOTE | 2017-04-11 10:24 | General Surgery Progress Note ---
Addendum entered and electronically signed by Kristel Crow CNP 04/11/17 14: 39: Given that patient is fluid overloaded today, although NPO, will restart IVF at KVO (50 ml) Original Note: <Kristel Crow - Last Filed: 04/11/17 12:01> Date of Encounter: 04/11/17 Time of Encounter: 10:24 - Assessment and Plan (1) Hiatal hernia Current Visit: No Status: Acute Postoperative day #3 following Robotic Clayton fundoplication Denies reflux symptoms currently, but reports feelings of orthopnea, generally not feeling well, and states he has sat in the chair overnight d/t orthopnea. Pain with swallowing remains. Again, this is possibly secondary to inflammation in the area however upper GI series morning revealed decreased transit of the contrast indicating possible persisting large hiatal hernia versus inflammation that may resolve. A CT of the abdomen/pelvis without contrast was completed on 04/10/2017 which revealed a recurrent moderate sized hiatal hernia, no obvious oral contrast extravasation, esophagus is filled with oral contrast suggesting narrowing at the GE junction, bilateral nonobstructing renal calculi, and diverticulosis. Plan: 1. Stop IV fluids; and give a 40 mg Lasix IV one dose now 2. Chest x-ray PA/LAT-reveals large hiatal hernia, small pleural effusions/ atelectasis incentive spirometry; aggressive pulmonary toileting 3. Bilateral venous Doppler's to rule out DVT 4. NPO 5. Review above with Dr. Childers (2) Status post Clayton fundoplication Current Visit: No Status: Acute See above (3) Orthopnea Current Visit: No Status: Acute Report sitting in the chair overnight due to inability to recline. Left lower lobe with mild inspiratory crackles. Right lower extremity with minimal non- pitting edema. He denies chest pain both at rest or with activity. Plan: 1. 2 view CXR 2. Bilateral venous Doppler's rule out DVT 3. Stop IV fluids; 40 mg IV Lasix times one dose now. Subjective Patient reports: shortness of breath (Reports that he has sat in the chair overnight because he is unable to recline. ) Narrative: Mr. Pool reports "I feel worse than I ever have. I have sat in this chair all night because I can't lay down because I feel like I can't get my breath." He feelings of shortness of breath when attempting to recline only. He states he has sat in the chair bedside overnight because he is unable to recline. He reports some swelling in his right lower extremity. He denies CP, cough, n/v/D. He denies any cardiovascular history of SOB history. Objective Vital Signs - Last 8 Hours Temp Pulse Resp BP Pulse Ox 04/11/17 06:59 97.7 F 77 16 123/71 93 04/11/17 04:20 98.0 F 73 18 138/83 93 Intake and Output 04/10/17 04/11/17 04/11/17 23:59 07:59 15:59 Intake Total 1150 / 1150 950 / 950 240 / 240 Output Total 300 / 300 350 / 350 Balance 850 / 850 600 / 600 240 / 240 Intake: IV Fluids 900 / 900 950 / 950 0.9 % Sodium Chloride 1,000 ML 900 / 900 950 / 950 @ 125 mls/hr IVC .Q8H R[facility]ER[facility] Rx#: [id number] Oral 250 / 250 240 / 240 Output: Urine 300 / 300 350 / 350 Other: Meal Dinner Breakfast Weight 93.128 kg Patient Weight 04/11/17 23:59 Weight 93.128 kg - General physical appearance moderate distress (appears SOB after ambulating to the bathroom), moderate pain - Eyes normal ocular movement - ENT atraumatic, normocephalic - Neck Neck exam: trachea midline, other (minimal venous distention sitting upright) - Respiratory other (Crackles left lower lobe. Otherwise clear, resp rate 22) - Cardiovascular Cardiovascular exam: Present: RRR Addtional Comments: 2+ pulses in all four extremities. Minimal edema (non-pitting RLE) - Abdomen Abdomen: Present: soft, distended, tender (expected postoperative). Absent: bowel sounds present (ABSENT) Hernia: none - Incision Incision: Present: clean and dry, intact - Neurologic normal coordination, normal sensation - Musculoskeletal normal posture - Psychiatric oriented to time, oriented to person, oriented to place, speech is normal, memory intact - Labs 04/11/17 04:51 04/11/17 04:51 Diabetes panel 04/11/17 Range/Units 04:51 Sodium 143 (136-145) mEq/L Potassium 4.1 (3.5-4.5) mEq/L Chloride 113 H (98-109) mEq/L Carbon Dioxide 23 (19-29) mEq/L BUN 18 (8-26) mg/dL Creatinine 0.80 (0.72-1.25) mg/dL Glucose 115 H (70-99) mg/dL Calcium 9.7 (8.6-10.8) mg/dL Calcium panel 04/11/17 Range/Units 04:51 Calcium 9.7 (8.6-10.8) mg/dL Pituitary panel 04/11/17 Range/Units 04:51 Sodium 143 (136-145) mEq/L Potassium 4.1 (3.5-4.5) mEq/L Chloride 113 H (98-109) mEq/L Carbon Dioxide 23 (19-29) mEq/L BUN 18 (8-26) mg/dL Creatinine 0.80 (0.72-1.25) mg/dL Glucose 115 H (70-99) mg/dL Calcium 9.7 (8.6-10.8) mg/dL Adrenal panel 04/11/17 Range/Units 04:51 Sodium 143 (136-145) mEq/L Potassium 4.1 (3.5-4.5) mEq/L Chloride 113 H (98-109) mEq/L Carbon Dioxide 23 (19-29) mEq/L BUN 18 (8-26) mg/dL Creatinine 0.80 (0.72-1.25) mg/dL Glucose 115 H (70-99) mg/dL Calcium 9.7 (8.6-10.8) mg/dL - VTE Documentation of Mechanical Device: Intermittent pneumatic compression device Consult Discharge Plan - Plan Instructions: Adult Laparoscopic Clayton Fundoplication (DC) Additional Instructions: General Instructions After Clayton Surgery 1. No pushing, pulling, or lifting greater than 15 lbs for FOUR weeks. 2. You may shower beginning today, but no tub baths, soaking, or swimming for 2 weeks. 3. You may resume driving when you are off narcotics and are safe to react in a car. 4. Take ibuprofen every 8 hours if needed for discomfort. If this does not relieve the discomfort, you may take oxycodone for breakthrough pain. Take narcotics as directed. Do not take more narcotics then directed and do not share your narcotics with any other person. Do not drink alcohol while on narcotics. 5. Take stool softeners (Colace) or a water based laxative (Miramax) while taking narcotics. You may hold for loose stools. 6. Report any fevers greater than 100.5F, increase abdominal discomfort, drainage that looks like pus, increased redness or pain at the surgical site, or any vomiting. 7. Report any pain in the calves, shortness of breath, or rapid heartbeat. 8. Continue to take your heartburn medications until directed to stop. Do not stop them abruptly as this can cause symptoms of reflux. 9. Do not drink alcohol or carbonated beverages. 10. Do not deviate from the recommended Clayton diet below. Doing so can affect your outcomes. [facility] Diet After Clayton Fundoplication Surgery This diet information is for patients who have recently had Clayton Fundoplication Surgery to correct reflux disease or to repair various types of hernias, such as hiatal hernia and intrathoracic stomach. This diet may also be used for other gastrointestinal surgeries, such as Heller myotomy and repair of achalasia. The diet will help control diarrhea, excess gas and swallowing problems, which may occur after this type of surgery. Important Steps to Keep Your Stomach From Stretching Eat small, frequent meals (six to eight per day). This will help you consume the majority of the nutrients you need without causing your stomach to feel full or distended. Drinking large amounts of fluids with meals can stretch your stomach. You may drink fluids between meals as often as you like, but limit fluids to 1/2 cup (4 fluid ounces) with meals and one cup (8 fluid ounces) with snacks. Sit upright while eating, and stay upright for 30 minutes after each meal. [place] can help food move through your digestive tract. Do not lie down after eating. Sit upright for 2 hours after your last meal or snack of the day. Eat very slowly. Take your time when eating. Take small bites and chew your food well to tumbler machine operator helper in swallowing and digestion. Avoid crusty breads and sticky, gummy foods, such as bananas, fresh doughy breads, rolls and doughnuts. These types of foods become sticky and difficult to swallow. Toasted breads tend to be better tolerated. Lastly, if you eat sweets, consume them at the end of your meal to avoid a group of symptoms referred to as dumping syndrome. This describes the rapid emptying of foods from the stomach to the small intestine. Sweetened beverages, candy and desserts move more rapidly and dump quickly into the intestines. This can cause symptoms of nausea, weakness, cold sweats, cramps, diarrhea and dizzy spells. Important Steps to Avoid Gas Do not drink through a straw, chew gum, or chew tobacco. These actions cause you to swallow air, which will produce excess gas in your stomach. Chew with your mouth closed and chew your food thoroughly. Avoid foods that cause stomach gas and distention. The foods include corn, dried beans, peas, lentils, onions, broccoli, cauliflower, and any food item from the cabbage family. Do not drink carbonated drinks, alcohol, citrus, or tomato products. What Will I Be Able To Eat and Drink After Surgery After Clayton Fundoplication Surgery, your diet will be advanced slowly by your surgeon. Generally, you will be on a thin/clear liquid diet for the first 10 days. Then you will advance to the full liquid diet for 4 days and eventually to a Clayton soft diet for 7 days. After any surgery, protein consumption is important for healing. To get enough protein, drink 3-4 [place] Instant Breakfast, Ensure, or equivalent daily. Reminder: Carbonated beverages (such as sodas, energy drinks, flavored carbonated water), and alcohol are not permitted for the 1st 6 to 8 weeks after surgery. After this time you may attempt to reintroduce them in small amounts. Please note: Dairy products such as milk, ice cream, and pudding may cause diarrhea in some people after surgery. You may need to avoid milk products. If so you may substitute them with lactose free beverages, such as soy, rice, lactate, or almond milk. Please be aware that each patient's tolerance to food is different. Your doctor will advance your diet depending on how well you progress after surgery. Thin Liquid Diet The first diet after Clayton Fundoplication Surgery is the thin liquids diet. Follow this diet for postoperative days 1-10 04/09/2017- 04/08/2017. Thin liquids include: Apple, Cranberry, or Grape Juice (no citrus juice) Chicken Broth Beef Broth Flavored Gelatin (Jell-O) Decaffeinated Tea or Coffee Popsicles or [place] Ice Caffeinated Beverages Will Be Permitted Based upon Tolerance and at a later date Dairy if tolerated Thin Milkshakes (strawberry or vanilla flavored- No chocolate) Drink 3-4 [place] instant breakfast, Ensure, or equivalent daily. May be mixed with dairy for thin milkshakes Full Liquid Diet Follow this diet for postoperative days 11-14106/20/2016 - 04/22/2017. Full liquid diet includes anything in the thin liquid diet plus: Milk: Dairy, Soy, Rice, and [place] (No Chocolate) Cream of Wheat, Cream of Rice, Grits Strained Creamed Soups (No Tomato or Broccoli) Vanilla and [place] Flavored Ice Cream Sherbet Vanilla and Butterscotch Pudding (No Chocolate or Coconut) Continue 3-4 [place] Instant Breakfast, Ensure, or an Equivalent Daily. May be mixed with Dairy for Thin Milkshakes. Clayton Soft Diet Follow this diet for postoperative days 15-20 04/23/2017 - 04/28/2017. (If you are consuming enough protein, you may stop the protein supplements). Please note: You will need extra fluids throughout the day to meet your fluid needs. Referrals: Rodri Day MD [Primary Care Provider] - Kristel Crow CNP [Advanced Practice Nurse] - 04/22/17 8:20 am <Wilman Childers - Last Filed: 04/11/17 13:15> Date of Encounter: 04/11/17 Objective Vital Signs - Last 8 Hours Temp Pulse Resp BP Pulse Ox 04/11/17 10:44 98.1 F 77 14 131/89 96 04/11/17 06:59 97.7 F 77 16 123/71 93 Intake and Output 04/10/17 04/11/17 04/11/17 23:59 07:59 15:59 Intake Total 1150 / 1150 950 / 950 1240 / 1240 Output Total 300 / 300 350 / 350 800 / 800 Balance 850 / 850 600 / 600 440 / 440 Intake: IV Fluids 900 / 900 950 / 950 1000 / 1000 0.9 % Sodium Chloride 1,000 ML 900 / 900 950 / 950 1000 / 1000 @ 125 mls/hr IVC .Q8H [facility] Rx#: [id number] Oral 250 / 250 240 / 240 Output: Urine 300 / 300 350 / 350 800 / 800 Other: Meal Dinner Lunch NPO Weight 93.128 kg Patient Weight 04/11/17 23:59 Weight 93.128 kg - Labs 04/11/17 04:51 04/11/17 04:51 Diabetes panel 04/11/17 Range/Units 04:51 Sodium 143 (136-145) mEq/L Potassium 4.1 (3.5-4.5) mEq/L Chloride 113 H (98-109) mEq/L Carbon Dioxide 23 (19-29) mEq/L BUN 18 (8-26) mg/dL Creatinine 0.80 (0.72-1.25) mg/dL Glucose 115 H (70-99) mg/dL Calcium 9.7 (8.6-10.8) mg/dL Calcium panel 04/11/17 Range/Units 04:51 Calcium 9.7 (8.6-10.8) mg/dL Pituitary panel 04/11/17 Range/Units 04:51 Sodium 143 (136-145) mEq/L Potassium 4.1 (3.5-4.5) mEq/L Chloride 113 H (98-109) mEq/L Carbon Dioxide 23 (19-29) mEq/L BUN 18 (8-26) mg/dL Creatinine 0.80 (0.72-1.25) mg/dL Glucose 115 H (70-99) mg/dL Calcium 9.7 (8.6-10.8) mg/dL Adrenal panel 04/11/17 Range/Units 04:51 Sodium 143 (136-145) mEq/L Potassium 4.1 (3.5-4.5) mEq/L Chloride 113 H (98-109) mEq/L Carbon Dioxide 23 (19-29) mEq/L BUN 18 (8-26) mg/dL Creatinine 0.80 (0.72-1.25) mg/dL Glucose 115 H (70-99) mg/dL Calcium 9.7 (8.6-10.8) mg/dL - Attending Attestation I have personally performed a face to face evaluation on this patient. I have reviewed and agree with the care plan. History and Exam by me shows: I reviewed the above assessment and evaluation with a nurse practitioner present. Noted discomfort and patient has been sleeping while sitting up in the chair due to his discomfort. I reviewed the chest x-ray which demonstrated the presence of a hiatal hernia but no evidence of a pneumonia. Laboratory studies are within normal limits. I will ask one of my colleagues to evaluate the patient due to my concern about the need for reexploration, whether by open technique or by laparoscopic (robotic) technique, and the degree of the CT scan findings showing reherniation of the stomach within the chest (part but not all of the stomach). Will continue to monitor his symptoms at this time.
[2017-04-11] MEDS ORDERED: Furosemide 40 MG/4 ML VIAL IVP ONE (11:00)
[2017-04-11] MEDS ORDERED: Furosemide 40 MG/4 ML VIAL IVP STA (11:01)
[2017-04-11] MEDS ORDERED: 0.9 % Sodium Chloride 1,000 ML IVC SCH (14:45)
--- NOTE | 2017-04-11 15:29 | Event Note ---
Date of Encounter: 04/11/17 Time of Encounter: 12:45 Dr. Childers asked me to see the patient in consultation for second opinion. Mr. Pool is a 76-year-old gentleman who underwent robotic repair of hiatal hernia and Clayton fundoplication. I reviewed his preoperative CAT scan. This appeared to be paraesophageal hernia with a good deal of stomach up in the chest. On postoperative day 1 the patient complained of shortness of breath. On postoperative day 2 the patient continued to complain of shoulder pain back pain and right lower quadrant abdominal discomfort. He also had dysphagia. CAT scan was obtained that demonstrated some stomach above the diaphragm with inflammatory fluid inside the previous hernia location. There is no evidence of pneumothorax. There was no evidence of extravasation of contrast. This does not appear to be esophageal perforation or gastric trauma I personally reviewed the CAT scan and chest x-ray. The chest x-ray from today demonstrated no further contrast in the portion of stomach above the diaphragm. The air- fluid level above the diaphragm is visible. On physical examination he has good breath sounds in all 4 quadrants anteriorly and posteriorly. Cardiac sounds are normal. He does have bowel sounds. He has mild right lower quadrant abdominal discomfort just below when the trocar sites. The patient is not complaining of any epigastric pain. He states that he has some shortness of breath as well as bilateral shoulder pain worse on the left than on the right and some back discomfort. Reviewing his vital signs, I do not find anything concerning for sepsis. The patient asked me a series of questions and at this point I do not think that emergent surgical intervention is indicated. Dr. Hein will return this evening or tomorrow and review the films. He may choose conservative measures or early reoperation to address what appears to be an early recurrence of the hiatal hernia. I shared this information with the patient. And certainly I can assist in any way that Dr. Hein directs
[2017-04-11] MEDS: *HR* Heparin 5,000 UNIT/ML VIAL SQ SCH (16:49)
[2017-04-11] MEDS: *HR* Morphine 2 MG/ML SYRINGE IVP PRN (20:14)
[2017-04-11] MEDS: Latanoprost 2.5 ML BOTTLE BOTH EYES SCH (20:15)
--- NOTE | 2017-04-11 21:02 | Anesthesia Evaluation PreOp ---
Date of Encounter: 04/11/17 Time of Encounter: 21:00 - Past History Planned Operation: Robotic Dx Lap/Hiatal Hernia repair Cardiac History: HTN, Hyperlipidemia Pulmonary History: Snore, NILO Dx THUMB SEWER History: Denies Any Significant HX Other Medical History: GERD (Hiatal hernia repair) Anesthesia History: No Prior Anesthetic Complications, Past Anesthesia (Robotic Clayton 04/08/2017,) Alcohol Use: occasionally Drug use: none Medications and Allergies Travoprost [Travatan Z] 1 drop OP HS 12/31/14 [History] Ezetimibe [Zetia] 10 mg PO DAILY 03/01/17 [History] Fluticasone Propionate Nasal [Flonase] 50 mcg NS DAILY PRN 03/01/17 [History] Timolol Maleate 0.5% 1 drop RIGHT EYE BID 03/01/17 [History] Docusate [Colace] 100 mg PO BID PRN #30 capsule 04/08/17 [Rx] Lactose-Reduced Food [Ensure Enlive] 237 ml PO TID #90 liquid 04/08/17 [Rx] Ondansetron ODT [Zofran ODT] 4 mg SL Q4HR #15 tab.rapdis 04/08/17 [Rx] OxyCODONE/APAP 5/325 [Percocet 5/325 MG] 1 each PO Q6HR PRN #28 tablet 04/08/17 [Rx] 3 Allergy/AdvReac Type Severity Reaction Status Date / Time Pneumococcal Vaccine Allergy Redness of Verified 04/08/17 10:51 [From Pneumovax 23] Skin - Meds/Allergy Pre-op Review Medications Reviewed: Yes Allergies Reviewed: Yes Beta Blockers on Current Med List: No Anesthesia Results - Labs 04/11/17 04:51 04/11/17 04:51 Laboratory Results WBC 10.3 K/mcL (4.3-11.1) 04/11/17 04:51 RBC 4.44 M/mcL (4.19-5.50) 04/11/17 04:51 Hgb 13.0 g/dL (12.9-16.9) 04/11/17 04:51 Hct 41.2 % (37.5-50.1) 04/11/17 04:51 MCV 92.8 fL (83.0-100.0) 04/11/17 04:51 MCH 29.3 pg (28.0-33.3) 04/11/17 04:51 MCHC 31.6 g/dL (31.6-35.5) 04/11/17 04:51 RDW 14.0 % (11.5-14.5) 04/11/17 04:51 Plt Count 126 K/mcL (140-400) L 04/11/17 04:51 MPV 10.8 fL (9.4-12.4) 04/11/17 04:51 Immature Gran % 0.3 % (0-4) 04/11/17 04:51 Seg Neutrophils % 77.9 % 04/11/17 04:51 Lymphocytes % 9.3 % 04/11/17 04:51 Monocytes % 11.9 % 04/11/17 04:51 Eosinophils % 0.4 % 04/11/17 04:51 Basophils % 0.2 % 04/11/17 04:51 Neutrophils # 8.0 K/mcL (1.6-8.9) 04/11/17 04:51 Lymphocytes # 1.0 K/mcL (0.6-4.6) 04/11/17 04:51 Monocytes # 1.2 K/mcL (0.0-1.3) 04/11/17 04:51 Eosinophils # 0.0 K/mcL (0.0-0.6) 04/11/17 04:51 Basophils # 0.0 K/mcL (0.0-0.2) 04/11/17 04:51 Sodium 143 mEq/L (136-145) 04/11/17 04:51 Potassium 4.1 mEq/L (3.5-4.5) 04/11/17 04:51 Chloride 113 mEq/L (98-109) H 04/11/17 04:51 Carbon Dioxide 23 mEq/L (19-29) 04/11/17 04:51 BUN 18 mg/dL (8-26) 04/11/17 04:51 Creatinine 0.80 mg/dL (0.72-1.25) 04/11/17 04:51 Est GFR ( Amer) > 60 (> 60) 04/11/17 04:51 Est GFR (Non-Af Amer) > 60 (> 60) 04/11/17 04:51 BUN/Creatinine Ratio 23 (6-26) 04/11/17 04:51 Glucose 115 mg/dL (70-99) H 04/11/17 04:51 POC Glucose 100 (58-89) H 04/10/17 05:46 Calculated Osmolality 299 (280-300) 04/11/17 04:51 Calcium 9.7 mg/dL (8.6-10.8) 04/11/17 04:51 Impressions Upper GI Series 04/09/17 08:00 IMPRESSION: 1. Suspected changes of Clayton fundoplication. No associated leak. 2. Persistence of a moderate to large sliding hiatal hernia. 3. A few tertiary contractions, potentially due to esophageal dysmotility. 4. Retention of contrast in the esophagus and herniated stomach throughout the majority of the procedure with only a small mild passing into the distal stomach after 10 minutes of waiting. Associated lack of visualization of the duodenum. D/ / Felipe Martel MD / Felipe Martel MD Interpreting Provider: Felipe Martel MD Chest CT 04/10/17 00:00 IMPRESSION: There is a recurrent moderate sized hiatal hernia. Postsurgical changes seen at the GE junction. No obvious oral contrast extravasation. Esophagus is filled with oral contrast, suggesting narrowing at the GE junction. Bilateral nonobstructing renal calculi Diverticulosis. No diverticulitis. D/ / Ralph Conner MD / Ralph Conner MD Interpreting Provider: Ralph Conner MD Abdomen/Pelvis CT 04/10/17 11:22 IMPRESSION: There is a recurrent moderate sized hiatal hernia. Postsurgical changes seen at the GE junction. No obvious oral contrast extravasation. Esophagus is filled with oral contrast, suggesting narrowing at the GE junction. Bilateral nonobstructing renal calculi Diverticulosis. No diverticulitis. D/ / Ralph Conner MD / Ralph Conner MD Interpreting Provider: Ralph Conner MD Chest X-Ray 04/11/17 11:01 IMPRESSION: Small effusion and associated atelectasis. Large hiatus hernia. D/ / Ted Ritter / Ted Ritter Interpreting Provider: Ted Ritter Anesthesia Exam Vital Signs Temp Pulse Resp BP Pulse Ox 04/11/17 19:15 97.5 F L 75 18 114/78 94 04/11/17 14:55 99.4 F 81 14 122/79 94 04/11/17 10:44 98.1 F 77 14 131/89 96 04/11/17 06:59 97.7 F 77 16 123/71 93 04/11/17 04:20 98.0 F 73 18 138/83 93 04/11/17 00:08 99.5 F 78 18 129/81 92 Intake and Output 04/11/17 04/11/17 04/11/17 07:59 15:59 23:59 Intake Total 950 / 950 1240 / 1240 0 / 0 Output Total 350 / 350 0 / 0 350 / 350 Balance 600 / 600 -810 / -810 -350 / -350 Intake: IV Fluids 950 / 950 1000 / 1000 0.9 % Sodium Chloride 1,000 ML 950 / 950 1000 / 1000 @ 125 mls/hr IVC .Q8H [facility] Rx#: [id number] Oral 240 / 240 0 / 0 Output: Urine 350 / 350 2049 / 0 350 / 350 Other: Meal Lunch NPO Dinner Percent of Meal Consumed 0% Weight 93.128 kg Patient Weight 04/11/17 23:59 Weight 93.128 kg Height: 5'8" Weight: 205# BMI = 31 - HEENT Pupil (Motor): Pupils equal, EOMI Mallampati: II Teeth: Edentulous Denture Type: Upper: Complete, Lower: Complete Oral Opening: Greater than 3 - THUMB SEWER LOC: Oriented THUMB SEWER Motor: Normal RUE, Normal LUE, Normal RLE, Normal LLE, Normal Face THUMB SEWER Sensory: Normal: RUE, LUE, RLE, LLE, Face - Cardiac Rhythm: Regular Murmur: None - Pulmonary Breath Sounds: bilateral Clear Respiratory Effort: Symmetrical Anesthesia Assess/Plan ASA Score: 2 Modified [place] Scale for Level of Consciousness: Cooperative, oriented, and tranquil Anesthetic Plan: General Monitoring Plan: Standard Monitors Recovery Plan: PACU Anes Supervising Prov Stmt: Pt seen/evaluated, R&B Discussed, questions answered and consent obtained. Carlos Gracia MD
[2017-04-12] MEDS: Ketorolac 15 MG/ML VIAL IVP PRN ×2 (04:15→10:31)
[2017-04-12] MEDS: *HR* Heparin 5,000 UNIT/ML VIAL SQ SCH (05:18)
[2017-04-12 06:20] LABS: Basophils % 0.2 %; Eosinophils # 0.1 K/mcL (0.0-0.6); Eosinophils % 0.7 %; Hematocrit 38.9 % (37.5-50.1); Hemoglobin 12.6 g/dL (12.9-16.9); Immature Granulocytes % 0.2 % (0-4); Lymphocytes # 0.7 K/mcL (0.6-4.6); Lymphocytes % 8.2 %; Mean Corpuscular HGB Conc 32.4 g/dL (31.6-35.5); Mean Corpuscular Hemoglobin 29.3 pg (28.0-33.3); Mean Corpuscular Volume 90.5 fL (83.0-100.0); Mean Platelet Volume 11.3 fL (9.4-12.4); Monocytes # 0.9 K/mcL (0.0-1.3); Neutrophils # 6.9 K/mcL (1.6-8.9); Platelet Count 127 K/mcL (140-400); Red Cell Distribution Width 13.8 % (11.5-14.5); Segmented Neutrophils % 80.7 %
[2017-04-12 06:27] LABS: INR 1.3; Prothrombin Time 13.8 Seconds (9.4-12.1)
[2017-04-12 06:31] LABS: BUN/Creatinine Ratio 29 (6-26); Blood Urea Nitrogen 20 mg/dL (8-26); Calcium 9.8 mg/dL (8.6-10.8); Carbon Dioxide 22 mEq/L (19-29); Chloride 113 mEq/L (98-109); Glucose 104 mg/dL (70-99); Magnesium 1.7 mg/dL (1.6-2.6); Osmolality,Calculated 299 (280-300); Phosphorous 1.9 mg/dL (2.3-4.7); Potassium 3.6 mEq/L (3.5-4.5); Sodium 143 mEq/L (136-145); eGFR For African Americans > 60 (> 60); eGFR For Non-African Americans > 60 (> 60)
[2017-04-12] MEDS: (Ezetimibe [Zetia] 10 MG) PO SCH (07:24)
[2017-04-12] MEDS ORDERED: 0.9 % Sodium Chloride 1,000 ML IVC SCH ×2 (08:46→14:26)
[2017-04-12] MEDS: Pantoprazole 40 MG VIAL IVP SCH (08:58)
[2017-04-12] MEDS: Ipratropium/Albuterol Neb 3 ML IH SCH ×3 (09:14→19:46)
--- NOTE | 2017-04-12 11:18 | Anesthesia Evaluation PreOp ---
Date of Encounter: 04/12/17 Time of Encounter: 16:54 - Past History Planned Operation: Dx laparoscopy, hiatal hernia repair Cardiac History: HTN, Hyperlipidemia, Pacemaker/ICD Pulmonary History: Snore, NILO Dx LEGAL CLERK History: Denies Any Significant HX Other Medical History: GERD (hiatal hernia) Anesthesia History: No Prior Anesthetic Complications, Past Anesthesia (robo annie 4 days ago) Alcohol Use: occasionally Drug use: none Medications and Allergies Travoprost [Travatan Z] 1 drop OP HS 12/31/14 [History] Ezetimibe [Zetia] 10 mg PO DAILY 03/01/17 [History] Fluticasone Propionate Nasal [Flonase] 50 mcg NS DAILY PRN 03/01/17 [History] Timolol Maleate 0.5% 1 drop RIGHT EYE BID 03/01/17 [History] Docusate [Colace] 100 mg PO BID PRN #30 capsule 04/08/17 [Rx] Lactose-Reduced Food [Ensure Enlive] 237 ml PO TID #90 liquid 04/08/17 [Rx] Ondansetron ODT [Zofran ODT] 4 mg SL Q4HR #15 tab.rapdis 04/08/17 [Rx] OxyCODONE/APAP 5/325 [Percocet 5/325 MG] 1 each PO Q6HR PRN #28 tablet 04/08/17 [Rx] 3 Allergy/AdvReac Type Severity Reaction Status Date / Time Pneumococcal Vaccine Allergy Redness of Verified 04/08/17 10:51 [From Pneumovax 23] Skin - Meds/Allergy Pre-op Review Medications Reviewed: Yes Allergies Reviewed: Yes Beta Blockers on Current Med List: No Anesthesia Results - Labs 04/12/17 05:49 04/12/17 05:49 - Imaging EKG: report reviewed (ELECTRONIC ATRIAL PACEMAKER BORDERLINE LEFT AXIS DEVIATION INCOMPLETE RIGHT BUNDLE BRANCH BLOCK ABNORMAL RHYTHM ECG) Chest x-ray: report reviewed (FINDINGS: Lungs are hypoexpanded. Small pleural effusion and left basilar atelectasis. Additional atelectasis associated with large hiatus hernia which contains an air-fluid level. Normal heart size. Aorta is tortuous in course. No pneumothorax. Intact skeleton.) Additional studies: CT abdo: IMPRESSION: There is a recurrent moderate sized hiatal hernia. Postsurgical changes seen at the GE junction. No obvious oral contrast extravasation. Esophagus is filled with oral contrast, suggesting narrowing at the GE junction. Bilateral nonobstructing renal calculi Anesthesia Exam Selected Entries 04/12/17 09:25 04/12/17 11:05 Temperature 98.0 F Pulse Rate 58 Respiratory Rate 16 Blood Pressure 114/70 O2 Sat by Pulse Oximetry 92 Oxygen Delivery Method Room Air Weight: 93kg - HEENT Pupil (Motor): EOMI Mallampati: II Teeth: Edentulous Oral Opening: Greater than 3 - LEGAL CLERK LOC: Oriented LEGAL CLERK Motor: Normal RUE, Normal LUE, Normal RLE, Normal LLE, Normal Face LEGAL CLERK Sensory: Normal: RUE, LUE, RLE, LLE, Face - Cardiac Rhythm: Regular Murmur: None - Pulmonary Breath Sounds: bilateral Clear Respiratory Effort: Symmetrical Anesthesia Assess/Plan ASA Score: 3 Modified [place] Scale for Level of Consciousness: Cooperative, oriented, and tranquil Anesthetic Plan: General Monitoring Plan: Standard Monitors Recovery Plan: PACU (discusse GA, agrees to proceed. Will do RSI)
[2017-04-12] MEDS ORDERED: *HR* Succinylcholine 200 MG/10 ML VIAL IVP ONE (16:44)
[2017-04-12] MEDS ORDERED: Ondansetron 4 MG/2 ML VIAL ONE (16:44)
[2017-04-12] MEDS ORDERED: Lidocaine -MPF 2% 2 ML VIAL ONE (16:44)
[2017-04-12] MEDS ORDERED: *HR* FentaNYL (PF) 100 MCG/2 ML VIAL ONE (16:45)
[2017-04-12] MEDS ORDERED: *HR* Propofol 200 MG/20 ML VIAL IVP ONE (16:45)
[2017-04-12] MEDS ORDERED: EPHEDrine 50 MG/ML VIAL ONE (17:15)
[2017-04-12] MEDS ORDERED: CefOXitin 2,000 MG VIAL ONE (17:45)
[2017-04-12] MEDS ORDERED: *HR* HYDROmorphone 2 MG/ML SYRINGE ONE (17:49)
[2017-04-12] MEDS ORDERED: Dexamethasone 4 MG/ML VIAL ONE (18:59)
[2017-04-12] MEDS ORDERED: *HR* Labetalol 20 MG/4 ML SYRINGE IVP PRN ×2 (19:02→20:59)
--- NOTE | 2017-04-12 19:46 | Operative Note ---
Date of procedure: 04/12/17 Pre-op diagnosis: Recurrent hiatal hernia Post-op diagnosis: same Procedure: Diagnostic laparoscopy with conversion to laparotomy and gastropexy Anesthesia: CRISTAL Surgeon: Angel Hein Estimated blood loss (cc): 100 Condition: stable Disposition: floor Procedure in Detail: After informed consent, the patient was taken the operating room placed in the supine position. After adequate sedation anesthesia the abdomen was prepped and draped. Same incisions were re-created. All ports were placed. The patient's placed in a head up position the robot was docked over the patient's head. Diagnostic laparoscopy was performed robotically. The stomach had slipped through the hiatus. However the hiatus had been repaired on the previous operation was still intact. While attempting to reduce the stomach I was unable to actually feel the tension on the esophagus therefore I made a decision to perform a laparotomy. Once the abdomen had been opened then a Bookwalter retractor is placed on the table. The abdominal wall was retracted. I was able to fully feel around the esophagus realize that all of the hernia sac of been taken down there were no attachments from these esophagus and/or stomach still remaining in the chest. Once the hiatal repair was intact I then performed a gastropexy in zigzag position anteriorly to the diaphragm and to the shoulders of the Clayton wrap. These were performed with 2-0 silk sutures and pledgets. Once this was completed a 19-[place] Robinson drain was placed in the retroesophageal region. An NG was placed and insufflated under saline to ensure there was no hole in the stomach there is no leak during the leak test. At this point the laps were counted and found to be correct and the abdominal wall was closed with looped PDS suture and cephalad to caudal and caudal cephalad motion. Skin was closed with bin.
[2017-04-12] MEDS ORDERED: *HR* HYDROmorphone 20 MG/20 ML PCA IVC PRN (19:56)
[2017-04-12] MEDS: *HR* Promethazine 25 MG/ML VIAL IVP PRN ×2 (19:58→20:04)
[2017-04-12] MEDS: *HR* HYDROmorphone (PF) 1 MG/ML SYRINGE IVP PRN ×2 (19:58→20:04)
--- NOTE | 2017-04-12 20:55 | Anesthesia Evaluation Post Op ---
Date of Encounter: 04/12/17 Time of Encounter: 20:44 - Vital Signs Vital Signs: Vital Signs/O2 Sat/Glucose, Most Current Temp Pulse Resp BP Pulse Ox 04/12/17 20:31 97.1 F L 86 15 141/86 93 04/12/17 20:18 97.1 F L 90 14 131/90 93 04/12/17 20:08 86 20 126/90 93 04/12/17 19:58 96 20 144/94 93 04/12/17 19:48 97.2 F L 86 16 136/84 93 - Lungs Lungs: Clear Ascult./Percussion - Airway Airway: Non-obstructed - Cardiovascular Baseline Rhythm - Mental Status Mental Status: Asleep with brisk response to light stimulation - Pain Pain Scale: 1 Pain Scale used: Garcia-Pool (Faces) (1) - Nausea Vomiting Nausea Vomiting: Not Present - Hydration Hydration: Ice chips, Has not voided - Discharge PostOp Status: Transfer Patient to floor Anes Supervising Prov Stmt: Pt seen/evaluated, VSS and pt has met criteria for discharge to floor. - MD Basil
[2017-04-12] MEDS ORDERED: Naloxone 0.4 MG/ML INJ IVP PRN (20:59)
[2017-04-12] MEDS ORDERED: *HR* Promethazine 25 MG/ML VIAL IVP PRN (20:59)
[2017-04-12] MEDS ORDERED: Fluticasone Propionate Nasal 50 MCG/SPRAY BOTTLE NS PRN (20:59)
[2017-04-12] MEDS ORDERED: Ondansetron 4 MG/2 ML VIAL IVP PRN (20:59)
[2017-04-12] MEDS ORDERED: *HR* HYDROmorphone (PF) 1 MG/ML SYRINGE IVP PRN (20:59)
[2017-04-12] MEDS: 0.9 % Sodium Chloride 1,000 ML IVC SCH (21:27)
[2017-04-12] MEDS: *HR* Morphine 2 MG/ML SYRINGE IVP PRN (21:29)
[2017-04-13] MEDS: Ipratropium/Albuterol Neb 3 ML IH SCH ×6 (00:06→19:43)
[2017-04-13] MEDS: Latanoprost 2.5 ML BOTTLE BOTH EYES SCH ×2 (00:29→21:28)
[2017-04-13] MEDS: *HR* Morphine 2 MG/ML SYRINGE IVP PRN ×3 (00:32→08:53)
[2017-04-13] MEDS: *HR* Heparin 5,000 UNIT/ML VIAL SQ SCH ×2 (05:00→17:32)
[2017-04-13] MEDS: Pantoprazole 40 MG VIAL IVP SCH (09:35)
[2017-04-13] MEDS: EZETIMIBE 10 MG PO SCH (09:59)
[2017-04-13 12:15] LABS: Basophils % 0.1 %; Hematocrit 39.8 % (37.5-50.1); Hemoglobin 12.9 g/dL (12.9-16.9); Immature Granulocytes % 0.4 % (0-4); Lymphocytes # 0.6 K/mcL (0.6-4.6); Lymphocytes % 5.5 %; Mean Corpuscular HGB Conc 32.4 g/dL (31.6-35.5); Mean Corpuscular Hemoglobin 30.1 pg (28.0-33.3); Mean Corpuscular Volume 92.8 fL (83.0-100.0); Mean Platelet Volume 10.8 fL (9.4-12.4); Monocytes # 1.4 K/mcL (0.0-1.3); Monocytes % 13.2 %; Neutrophils # 8.3 K/mcL (1.6-8.9); Platelet Count 140 K/mcL (140-400); Red Blood Count 4.29 M/mcL (4.19-5.50); Red Cell Distribution Width 13.6 % (11.5-14.5); Segmented Neutrophils % 80.8 %
[2017-04-13] MEDS: 0.9 % Sodium Chloride 1,000 ML IVC SCH (12:21)
[2017-04-13] MEDS: Ketorolac 15 MG/ML VIAL IVP SCH ×2 (12:21→17:32)
[2017-04-13] MEDS: Chloraseptic Spray 177 ML BOTTLE MM PRN (12:21)
[2017-04-13 12:43] LABS: BUN/Creatinine Ratio 23 (6-26); Blood Urea Nitrogen 17 mg/dL (8-26); Calcium 9.4 mg/dL (8.6-10.8); Carbon Dioxide 25 mEq/L (19-29); Chloride 114 mEq/L (98-109); Glucose 126 mg/dL (70-99); Osmolality,Calculated 305 (280-300); Potassium 4.4 mEq/L (3.5-4.5); Sodium 146 mEq/L (136-145); eGFR For African Americans > 60 (> 60); eGFR For Non-African Americans > 60 (> 60)
--- NOTE | 2017-04-13 13:59 | General Surgery Progress Note ---
Date of Encounter: 04/13/17 Time of Encounter: 13:00 - Assessment and Plan (1) Hiatal hernia Current Visit: No Status: Acute Postoperative day #4 following Robotic Clayton fundoplication with recurrent hiatal hernia Postoperative day #1 Diagnostic laparoscopy with conversion to laparotomy and gastroplexy Noted the previous Clayton procedure was intact. The stomach had slipped through the hiatus; however, the hiatus that had been repaired on the previous operation was still intact. While attempting to reduce the stomach unable to actually feel the tension on the esophagus therefore the decision was made to perform a laparotomy followed by a gastropexy in zigzag position anteriorly to the diaphragm and to the shoulders of the Clayton wrap. 04/13/2017: surgical incisions are clean, dry, and intact. His DON drain in the right lower quadrant is with a small amount of SS drainage. There is minimal output (less than 20 ML's) in his NG. Plan: 1. Reduce IV fluids; and give a 40 mg Lasix IV one dose now 2. NPO; NG to LIWS 3. Out of bed to chair at least TID 4. Cover abdominal incisions with a dry dressing. Maintain suction in the DON bulb. 5. Serial abdominal exams 6. Repeat a.m. labs 7. Continued G.I. and DVT prophylaxis 8. Add scheduled Toradol, stop morphine. Start hydromorphone 1 mg Q2 hours PRN for breakthrough pain 9. Continue aggressive pulmonary toileting (2) Status post Clayton fundoplication Current Visit: No Status: Acute See above (3) Orthopnea Current Visit: Yes Status: Resolved Report sitting in the chair overnight due to inability to recline. Left lower lobe with mild inspiratory crackles. Right lower extremity with minimal non- pitting edema. He denies chest pain both at rest or with activity. Plan: 1. 2 view CXR 2. Bilateral venous Doppler's rule out DVT 3. Stop IV fluids; 40 mg IV Lasix times one dose now. Subjective Patient reports: still having pain, voiding w/o difficulty, no flatus, no bowel movement, afebrile Narrative: Denies nausea, vomiting, flatus, or worsening abdominal discomfort. He denies shortness of breath. He reports bilateral shoulder discomfort and neck pain. The bedside RN (Karla), is concerned that there is no output from his NG tube and states patient has told her that morphine is "not working." Objective Vital Signs - Last 8 Hours Temp Pulse Resp BP Pulse Ox 04/13/17 11:28 16 98 04/13/17 10:21 98.0 F 78 16 116/75 94 04/13/17 08:05 16 94 04/13/17 06:49 98.0 F 86 19 126/76 95 Intake and Output 04/12/17 04/13/17 04/13/17 23:59 07:59 15:59 Intake Total 0 / 0 0 / 0 1000 / 1000 Output Total 130 / 130 975 / 975 290 / 290 Balance -130 / -130 -975 / -975 710 / 710 Intake: IV Fluids 1000 / 1000 0.9 % Sodium Chloride 1,000 ML 1000 / 1000 @ 70 mls/hr IVC .[id number] [facility] Rx #:[id number] Oral 0 / 0 0 / 0 0 / 0 Output: Urine 0 / 0 975 / 975 250 / 250 Estimated Blood Loss 100 / 100 Wound Drainage 30 / 30 40 / 40 Right Lower Abdomen 30 / 30 40 / 40 Other: Meal npo NPO for breakfast Weight 92.8 kg Blood Glucose* 108 126 120 Patient Weight 04/13/17 23:59 Weight 92.8 kg - General physical appearance no distress, moderate pain - Eyes normal ocular movement - ENT normal nares (Right NG noted), atraumatic, normocephalic - Neck Neck exam: trachea midline, no venous distension - Respiratory normal expansion, normal respiratory effort, clear to auscultation - Cardiovascular Cardiovascular exam: Present: RRR - Abdomen Abdomen: Present: soft, tender (Expected postoperative), wound (DON drain noted, SS output). Absent: bowel sounds present (ABSENT) Hernia: none - Incision Incision: Present: clean and dry, intact - Integumentary no abnormal pigmentation - Neurologic normal coordination, normal sensation - Musculoskeletal normal posture - Psychiatric oriented to time, oriented to person, oriented to place, speech is normal, memory intact - Labs 04/13/17 12:01 04/13/17 12:01 Diabetes panel 04/13/17 Range/Units 12:01 Sodium 146 H (136-145) mEq/L Potassium 4.4 (3.5-4.5) mEq/L Chloride 114 H (98-109) mEq/L Carbon Dioxide 25 (19-29) mEq/L BUN 17 (8-26) mg/dL Creatinine 0.75 (0.72-1.25) mg/dL Glucose 126 H (70-99) mg/dL Calcium 9.4 (8.6-10.8) mg/dL Calcium panel 04/13/17 Range/Units 12:01 Calcium 9.4 (8.6-10.8) mg/dL Pituitary panel 04/13/17 Range/Units 12:01 Sodium 146 H (136-145) mEq/L Potassium 4.4 (3.5-4.5) mEq/L Chloride 114 H (98-109) mEq/L Carbon Dioxide 25 (19-29) mEq/L BUN 17 (8-26) mg/dL Creatinine 0.75 (0.72-1.25) mg/dL Glucose 126 H (70-99) mg/dL Calcium 9.4 (8.6-10.8) mg/dL Adrenal panel 04/13/17 Range/Units 12:01 Sodium 146 H (136-145) mEq/L Potassium 4.4 (3.5-4.5) mEq/L Chloride 114 H (98-109) mEq/L Carbon Dioxide 25 (19-29) mEq/L BUN 17 (8-26) mg/dL Creatinine 0.75 (0.72-1.25) mg/dL Glucose 126 H (70-99) mg/dL Calcium 9.4 (8.6-10.8) mg/dL - VTE Documentation of Mechanical Device: Intermittent pneumatic compression device Consult Discharge Plan - Plan Instructions: Adult Laparoscopic Clayton Fundoplication (DC) Additional Instructions: General Instructions After Clayton Surgery 1. No pushing, pulling, or lifting greater than 15 lbs for FOUR weeks. 2. You may shower beginning today, but no tub baths, soaking, or swimming for 2 weeks. 3. You may resume driving when you are off narcotics and are safe to react in a car. 4. Take ibuprofen every 8 hours if needed for discomfort. If this does not relieve the discomfort, you may take oxycodone for breakthrough pain. Take narcotics as directed. Do not take more narcotics then directed and do not share your narcotics with any other person. Do not drink alcohol while on narcotics. 5. Take stool softeners (Colace) or a water based laxative (Miramax) while taking narcotics. You may hold for loose stools. 6. Report any fevers greater than 100.5F, increase abdominal discomfort, drainage that looks like pus, increased redness or pain at the surgical site, or any vomiting. 7. Report any pain in the calves, shortness of breath, or rapid heartbeat. 8. Continue to take your heartburn medications until directed to stop. Do not stop them abruptly as this can cause symptoms of reflux. 9. Do not drink alcohol or carbonated beverages. 10. Do not deviate from the recommended Clayton diet below. Doing so can affect your outcomes. [facility] Diet After Clayton Fundoplication Surgery This diet information is for patients who have recently had Clayton Fundoplication Surgery to correct reflux disease or to repair various types of hernias, such as hiatal hernia and intrathoracic stomach. This diet may also be used for other gastrointestinal surgeries, such as Heller myotomy and repair of achalasia. The diet will help control diarrhea, excess gas and swallowing problems, which may occur after this type of surgery. Important Steps to Keep Your Stomach From Stretching Eat small, frequent meals (six to eight per day). This will help you consume the majority of the nutrients you need without causing your stomach to feel full or distended. Drinking large amounts of fluids with meals can stretch your stomach. You may drink fluids between meals as often as you like, but limit fluids to 1/2 cup (4 fluid ounces) with meals and one cup (8 fluid ounces) with snacks. Sit upright while eating, and stay upright for 30 minutes after each meal. [place] can help food move through your digestive tract. Do not lie down after eating. Sit upright for 2 hours after your last meal or snack of the day. Eat very slowly. Take your time when eating. Take small bites and chew your food well to hired help in swallowing and digestion. Avoid crusty breads and sticky, gummy foods, such as bananas, fresh doughy breads, rolls and doughnuts. These types of foods become sticky and difficult to swallow. Toasted breads tend to be better tolerated. Lastly, if you eat sweets, consume them at the end of your meal to avoid a group of symptoms referred to as dumping syndrome. This describes the rapid emptying of foods from the stomach to the small intestine. Sweetened beverages, candy and desserts move more rapidly and dump quickly into the intestines. This can cause symptoms of nausea, weakness, cold sweats, cramps, diarrhea and dizzy spells. Important Steps to Avoid Gas Do not drink through a straw, chew gum, or chew tobacco. These actions cause you to swallow air, which will produce excess gas in your stomach. Chew with your mouth closed and chew your food thoroughly. Avoid foods that cause stomach gas and distention. The foods include corn, dried beans, peas, lentils, onions, broccoli, cauliflower, and any food item from the cabbage family. Do not drink carbonated drinks, alcohol, citrus, or tomato products. What Will I Be Able To Eat and Drink After Surgery After Clayton Fundoplication Surgery, your diet will be advanced slowly by your surgeon. Generally, you will be on a thin/clear liquid diet for the first 10 days. Then you will advance to the full liquid diet for 4 days and eventually to a Clayton soft diet for 7 days. After any surgery, protein consumption is important for healing. To get enough protein, drink 3-4 [place] Instant Breakfast, Ensure, or equivalent daily. Reminder: Carbonated beverages (such as sodas, energy drinks, flavored carbonated water), and alcohol are not permitted for the 1st 6 to 8 weeks after surgery. After this time you may attempt to reintroduce them in small amounts. Please note: Dairy products such as milk, ice cream, and pudding may cause diarrhea in some people after surgery. You may need to avoid milk products. If so you may substitute them with lactose free beverages, such as soy, rice, lactate, or almond milk. Please be aware that each patient's tolerance to food is different. Your doctor will advance your diet depending on how well you progress after surgery. Thin Liquid Diet The first diet after Clayton Fundoplication Surgery is the thin liquids diet. Follow this diet for postoperative days 1-10 04/09/2017- 04/08/2017. Thin liquids include: Apple, Cranberry, or Grape Juice (no citrus juice) Chicken Broth Beef Broth Flavored Gelatin (Jell-O) Decaffeinated Tea or Coffee Popsicles or [place] Ice Caffeinated Beverages Will Be Permitted Based upon Tolerance and at a later date Dairy if tolerated Thin Milkshakes (strawberry or vanilla flavored- No chocolate) Drink 3-4 [place] instant breakfast, Ensure, or equivalent daily. May be mixed with dairy for thin milkshakes Full Liquid Diet Follow this diet for postoperative days 11-14106/20/2016 - 04/22/2017. Full liquid diet includes anything in the thin liquid diet plus: Milk: Dairy, Soy, Rice, and [place] (No Chocolate) Cream of Wheat, Cream of Rice, Grits Strained Creamed Soups (No Tomato or Broccoli) Vanilla and [place] Flavored Ice Cream Sherbet Vanilla and Butterscotch Pudding (No Chocolate or Coconut) Continue 3-4 [place] Instant Breakfast, Ensure, or an Equivalent Daily. May be mixed with Dairy for Thin Milkshakes. Clayton Soft Diet Follow this diet for postoperative days 15-20 04/23/2017 - 04/28/2017. (If you are consuming enough protein, you may stop the protein supplements). Please note: You will need extra fluids throughout the day to meet your fluid needs. Referrals: Rodri Day MD [Primary Care Provider] - Kristel Crow CNP [Advanced Practice Nurse] - 04/22/17 8:20 am
[2017-04-13] MEDS: *HR* HYDROmorphone 2 MG/ML SYRINGE IVP PRN (20:51)
[2017-04-14] MEDS: Ipratropium/Albuterol Neb 3 ML IH SCH ×7 (00:10→23:13)
[2017-04-14] MEDS: Chloraseptic Spray 177 ML BOTTLE MM PRN (00:27)
[2017-04-14] MEDS: Ketorolac 15 MG/ML VIAL IVP SCH ×4 (00:27→17:26)
[2017-04-14] MEDS: 0.9 % Sodium Chloride 1,000 ML IVC SCH ×4 (02:21→19:18)
[2017-04-14] MEDS: *HR* Heparin 5,000 UNIT/ML VIAL SQ SCH ×3 (05:48→19:17)
[2017-04-14 06:24] LABS: BUN/Creatinine Ratio 29 (6-26); Blood Urea Nitrogen 21 mg/dL (8-26); Calcium 9.4 mg/dL (8.6-10.8); Carbon Dioxide 23 mEq/L (19-29); Chloride 117 mEq/L (98-109); Glucose 105 mg/dL (70-99); Osmolality,Calculated 311 (280-300); Potassium 4.1 mEq/L (3.5-4.5); Sodium 149 mEq/L (136-145); eGFR For African Americans > 60 (> 60); eGFR For Non-African Americans > 60 (> 60)
[2017-04-14 06:26] LABS: Basophils % 0.1 %; Hematocrit 39.1 % (37.5-50.1); Hemoglobin 12.4 g/dL (12.9-16.9); Immature Granulocytes % 0.6 % (0-4); Lymphocytes # 0.5 K/mcL (0.6-4.6); Lymphocytes % 4.9 %; Mean Corpuscular HGB Conc 31.7 g/dL (31.6-35.5); Mean Corpuscular Hemoglobin 29.8 pg (28.0-33.3); Mean Platelet Volume 11.4 fL (9.4-12.4); Monocytes # 1.1 K/mcL (0.0-1.3); Monocytes % 11.8 %; Platelet Count 132 K/mcL (140-400); Red Blood Count 4.16 M/mcL (4.19-5.50); Red Cell Distribution Width 13.9 % (11.5-14.5); Segmented Neutrophils % 82.6 %
[2017-04-14] MEDS: Pantoprazole 40 MG VIAL IVP SCH (08:12)
[2017-04-14] MEDS: EZETIMIBE 10 MG PO SCH (08:12)
--- NOTE | 2017-04-14 09:46 | General Surgery Progress Note ---
Date of Encounter: 04/14/17 Time of Encounter: 09:15 - Assessment and Plan (1) Hiatal hernia Current Visit: Yes Status: Acute Postoperative day #6 following Robotic Clayton fundoplication with recurrent hiatal hernia Postoperative day #3 Diagnostic laparoscopy with conversion to laparotomy and gastroplexy Noted the previous Clayton procedure was intact. The stomach had slipped through the hiatus; however, the hiatus that had been repaired on the previous operation was still intact. While attempting to reduce the stomach unable to actually feel the tension on the esophagus therefore the decision was made to perform a laparotomy followed by a gastropexy in zigzag position anteriorly to the diaphragm and to the shoulders of the Clayton wrap. 04/14/2017: surgical incisions are intact. The most superior portion of the midline incision is with a small amount of SS drainage. His DON drain in the right lower quadrant is noted to have minimal output recorded. There is no drainage in the DON drain during assessment. There is minimal output in his NG. He does report feelings of hunger and thirst today. He has faint and hypoactive bowel sounds. He has not passed flatus. Plan: 1. Given that BUN and Na are elevated, he is likely a little dry. Will give 500 ml bolus x1. IV fluids at 70 ml/hr. Titration pending Upper GI results 2. D/c NG and obtain Upper GI study. If this is unremarkable, may start clears 3. Out of bed to chair at least TID; personally assisted patient to chair today. Will consult PT/OT for mobilization and DC planning. 4. Cover abdominal incisions with a dry dressing. Maintain suction in the DON bulb. 5. Serial abdominal exams 6. Repeat a.m. labs 7. Continued G.I. and DVT prophylaxis 8. Continue scheduled Toradol and hydromorphone 1 mg Q2 hours PRN for breakthrough pain 9. Continue aggressive pulmonary toileting and scheduled duonebs per RT (2) Status post Clayton fundoplication Current Visit: Yes Status: Acute See above (3) Orthopnea Current Visit: Yes Status: Resolved Report sitting in the chair overnight due to inability to recline. Left lower lobe with mild inspiratory crackles. Right lower extremity with minimal non- pitting edema. He denies chest pain both at rest or with activity. Plan: 1. 2 view CXR 2. Bilateral venous Doppler's rule out DVT 3. Stop IV fluids; 40 mg IV Lasix times one dose now. (4) Hypernatremia Current Visit: Yes Status: Acute Will bolus 500 ml 0.9 x1; repeat am labs Subjective Narrative: Mr. Pool denies feelings of denies feelings of nausea, vomiting, reflux, or worsening abdominal discomfort. He states that he has back pain and needs to get out of bed. He denies fevers, bowel movement, or flatus. He reports that he feels as if he could get out of bed then that would help him pass gas. He is somewhat concerned about his overall nursing care, stating, "I haven't been out of bed because they always tell me they're going to come back and help me and then they don't." I asked him if he would like to speak to the professor of nursing and he said he would like to speak to Gregg. Objective Vital Signs - Last 8 Hours Temp Pulse Resp BP Pulse Ox 04/14/17 08:06 16 90 04/14/17 07:55 98.7 F 83 18 136/81 89 04/14/17 03:47 97.4 F L 81 15 144/84 93 04/14/17 03:37 16 94 Intake and Output 04/13/17 04/14/17 04/14/17 23:59 07:59 15:59 Intake Total 1000 / 1000 486 / 486 Output Total 675 / 675 460 / 460 0 / 0 Balance -675 / -675 540 / 540 486 / 486 Intake: IV Fluids 1000 / 1000 486 / 486 0.9 % Sodium Chloride 1,000 ML 1000 / 1000 486 / 486 @ 70 mls/hr IVC .[id number] [facility] Rx #:[id number] Oral 0 / 0 Output: Urine 655 / 655 300 / 300 Gastric Drainage 150 / 150 Right Nare 150 / 150 Wound Drainage 20 / 20 10 / 10 0 / 0 Right Lower Abdomen 20 / 20 10 / 10 0 / 0 Other: Weight 93.7 kg Blood Glucose* 96 101 Patient Weight 04/14/17 23:59 Weight 93.7 kg - General physical appearance no distress, moderate pain - Eyes normal ocular movement - ENT normal nares (NG right nares noted), atraumatic, normocephalic - Neck Neck exam: trachea midline, no venous distension - Respiratory other (Decreased bilateral breath sounds) - Cardiovascular Cardiovascular exam: Present: RRR - Abdomen Abdomen: Present: bowel sounds present (Faint and hypoactive), soft, tender ( Expected postoperative tenderness), wound (Midline DON drain is within normal limits. There is minimal amount of drainage noted in the medical record. There is no drainage in the DON bulb at time of assessment.) - Incision Incision: Present: intact, serosanguinous (Small amount of SS drainage noted on the dressing at the most superior portion of midline incision.) - Integumentary other (Eccymosis to the abdomen) - Neurologic normal coordination, normal sensation - Musculoskeletal normal posture - Psychiatric oriented to time, oriented to person, oriented to place, speech is normal, memory intact - Labs 04/14/17 05:40 04/14/17 05:40 Diabetes panel 04/13/17 04/14/17 Range/Units 12:01 05:40 Sodium 146 H 149 H (136-145) mEq/L Potassium 4.4 4.1 (3.5-4.5) mEq/L Chloride 114 H 117 H (98-109) mEq/L Carbon Dioxide 25 23 (19-29) mEq/L BUN 17 21 (8-26) mg/dL Creatinine 0.75 0.72 (0.72-1.25) mg/dL Glucose 126 H 105 H (70-99) mg/dL Calcium 9.4 9.4 (8.6-10.8) mg/dL Calcium panel 04/13/17 04/14/17 Range/Units 12:01 05:40 Calcium 9.4 9.4 (8.6-10.8) mg/dL Pituitary panel 04/13/17 04/14/17 Range/Units 12:01 05:40 Sodium 146 H 149 H (136-145) mEq/L Potassium 4.4 4.1 (3.5-4.5) mEq/L Chloride 114 H 117 H (98-109) mEq/L Carbon Dioxide 25 23 (19-29) mEq/L BUN 17 21 (8-26) mg/dL Creatinine 0.75 0.72 (0.72-1.25) mg/dL Glucose 126 H 105 H (70-99) mg/dL Calcium 9.4 9.4 (8.6-10.8) mg/dL Adrenal panel 04/13/17 04/14/17 Range/Units 12:01 05:40 Sodium 146 H 149 H (136-145) mEq/L Potassium 4.4 4.1 (3.5-4.5) mEq/L Chloride 114 H 117 H (98-109) mEq/L Carbon Dioxide 25 23 (19-29) mEq/L BUN 17 21 (8-26) mg/dL Creatinine 0.75 0.72 (0.72-1.25) mg/dL Glucose 126 H 105 H (70-99) mg/dL Calcium 9.4 9.4 (8.6-10.8) mg/dL - VTE Documentation of Mechanical Device: Intermittent pneumatic compression device Consult Discharge Plan - Plan Instructions: Adult Laparoscopic Clayton Fundoplication (DC) Additional Instructions: General Instructions After Clayton Surgery 1. No pushing, pulling, or lifting greater than 15 lbs for FOUR weeks. 2. You may shower beginning today, but no tub baths, soaking, or swimming for 2 weeks. 3. You may resume driving when you are off narcotics and are safe to react in a car. 4. Take ibuprofen every 8 hours if needed for discomfort. If this does not relieve the discomfort, you may take oxycodone for breakthrough pain. Take narcotics as directed. Do not take more narcotics then directed and do not share your narcotics with any other person. Do not drink alcohol while on narcotics. 5. Take stool softeners (Colace) or a water based laxative (Miramax) while taking narcotics. You may hold for loose stools. 6. Report any fevers greater than 100.5F, increase abdominal discomfort, drainage that looks like pus, increased redness or pain at the surgical site, or any vomiting. 7. Report any pain in the calves, shortness of breath, or rapid heartbeat. 8. Continue to take your heartburn medications until directed to stop. Do not stop them abruptly as this can cause symptoms of reflux. 9. Do not drink alcohol or carbonated beverages. 10. Do not deviate from the recommended Clayton diet below. Doing so can affect your outcomes. [facility] Diet After Clayton Fundoplication Surgery This diet information is for patients who have recently had Clayton Fundoplication Surgery to correct reflux disease or to repair various types of hernias, such as hiatal hernia and intrathoracic stomach. This diet may also be used for other gastrointestinal surgeries, such as Heller myotomy and repair of achalasia. The diet will help control diarrhea, excess gas and swallowing problems, which may occur after this type of surgery. Important Steps to Keep Your Stomach From Stretching Eat small, frequent meals (six to eight per day). This will help you consume the majority of the nutrients you need without causing your stomach to feel full or distended. Drinking large amounts of fluids with meals can stretch your stomach. You may drink fluids between meals as often as you like, but limit fluids to 1/2 cup (4 fluid ounces) with meals and one cup (8 fluid ounces) with snacks. Sit upright while eating, and stay upright for 30 minutes after each meal. [place] can help food move through your digestive tract. Do not lie down after eating. Sit upright for 2 hours after your last meal or snack of the day. Eat very slowly. Take your time when eating. Take small bites and chew your food well to hammerer helper in swallowing and digestion. Avoid crusty breads and sticky, gummy foods, such as bananas, fresh doughy breads, rolls and doughnuts. These types of foods become sticky and difficult to swallow. Toasted breads tend to be better tolerated. Lastly, if you eat sweets, consume them at the end of your meal to avoid a group of symptoms referred to as dumping syndrome. This describes the rapid emptying of foods from the stomach to the small intestine. Sweetened beverages, candy and desserts move more rapidly and dump quickly into the intestines. This can cause symptoms of nausea, weakness, cold sweats, cramps, diarrhea and dizzy spells. Important Steps to Avoid Gas Do not drink through a straw, chew gum, or chew tobacco. These actions cause you to swallow air, which will produce excess gas in your stomach. Chew with your mouth closed and chew your food thoroughly. Avoid foods that cause stomach gas and distention. The foods include corn, dried beans, peas, lentils, onions, broccoli, cauliflower, and any food item from the cabbage family. Do not drink carbonated drinks, alcohol, citrus, or tomato products. What Will I Be Able To Eat and Drink After Surgery After Clayton Fundoplication Surgery, your diet will be advanced slowly by your surgeon. Generally, you will be on a thin/clear liquid diet for the first 10 days. Then you will advance to the full liquid diet for 4 days and eventually to a Clayton soft diet for 7 days. After any surgery, protein consumption is important for healing. To get enough protein, drink 3-4 [place] Instant Breakfast, Ensure, or equivalent daily. Reminder: Carbonated beverages (such as sodas, energy drinks, flavored carbonated water), and alcohol are not permitted for the 1st 6 to 8 weeks after surgery. After this time you may attempt to reintroduce them in small amounts. Please note: Dairy products such as milk, ice cream, and pudding may cause diarrhea in some people after surgery. You may need to avoid milk products. If so you may substitute them with lactose free beverages, such as soy, rice, lactate, or almond milk. Please be aware that each patient's tolerance to food is different. Your doctor will advance your diet depending on how well you progress after surgery. Thin Liquid Diet The first diet after Clayton Fundoplication Surgery is the thin liquids diet. Follow this diet for postoperative days 1-10 04/09/2017- 04/08/2017. Thin liquids include: Apple, Cranberry, or Grape Juice (no citrus juice) Chicken Broth Beef Broth Flavored Gelatin (Jell-O) Decaffeinated Tea or Coffee Popsicles or [place] Ice Caffeinated Beverages Will Be Permitted Based upon Tolerance and at a later date Dairy if tolerated Thin Milkshakes (strawberry or vanilla flavored- No chocolate) Drink 3-4 [place] instant breakfast, Ensure, or equivalent daily. May be mixed with dairy for thin milkshakes Full Liquid Diet Follow this diet for postoperative days - - 04/22/2017. Full liquid diet includes anything in the thin liquid diet plus: Milk: Dairy, Soy, Rice, and [place] (No Chocolate) Cream of Wheat, Cream of Rice, Grits Strained Creamed Soups (No Tomato or Broccoli) Vanilla and [place] Flavored Ice Cream Sherbet Vanilla and Butterscotch Pudding (No Chocolate or Coconut) Continue 3-4 [place] Instant Breakfast, Ensure, or an Equivalent Daily. May be mixed with Dairy for Thin Milkshakes. Clayton Soft Diet Follow this diet for postoperative days 15-20 04/23/2017 - 04/28/2017. (If you are consuming enough protein, you may stop the protein supplements). Please note: You will need extra fluids throughout the day to meet your fluid needs. Referrals: Rodri Day MD [Primary Care Provider] - Kristel Crow CNP [Advanced Practice Nurse] - 04/22/17 8:20 am
[2017-04-14] MEDS ORDERED: 0.9 % Sodium Chloride 500 ML IVC ONE (10:40)
[2017-04-14] MEDS ORDERED: Lidocaine -MPF 1% 5 ML AMPUL INFILT ONE (15:16)
[2017-04-14] MEDS ORDERED: D10% in Water 500 ML IVC PRN (15:20)
[2017-04-14] MEDS ORDERED: 0.9 % Sodium Chloride 1,000 ML IVC SCH (15:21)
[2017-04-14] MEDS: *HR* HYDROmorphone 2 MG/ML SYRINGE IVP PRN ×2 (16:18→21:23)
[2017-04-14] MEDS ORDERED: Clinimix E 5%-15% SOLUTION 2,000 ML with MVI, adult with vitamin K 10 ML IVC SCH (17:00)
[2017-04-14] MEDS: Latanoprost 2.5 ML BOTTLE BOTH EYES SCH (21:25)
[2017-04-15] MEDS: Ketorolac 15 MG/ML VIAL IVP SCH ×4 (00:44→17:08)
[2017-04-15] MEDS: Ipratropium/Albuterol Neb 3 ML IH SCH ×6 (03:34→23:29)
[2017-04-15 05:28] LABS: BUN/Creatinine Ratio 37 (6-26); Blood Urea Nitrogen 25 mg/dL (8-26); Calcium 9.5 mg/dL (8.6-10.8); Carbon Dioxide 24 mEq/L (19-29); Chloride 119 mEq/L (98-109); Glucose 134 mg/dL (70-99); Magnesium 2.1 mg/dL (1.6-2.6); Osmolality,Calculated 318 (280-300); Phosphorous 1.3 mg/dL (2.3-4.7); Potassium 3.6 mEq/L (3.5-4.5); Sodium 151 mEq/L (136-145); Triglycerides 142 mg/dL (< 150); eGFR For African Americans > 60 (> 60); eGFR For Non-African Americans > 60 (> 60)
[2017-04-15] MEDS: *HR* Heparin 5,000 UNIT/ML VIAL SQ SCH ×2 (06:50→17:14)
--- NOTE | 2017-04-15 08:42 | General Surgery Progress Note ---
Date of Encounter: 04/15/17 Time of Encounter: 07:45 - Assessment and Plan (1) Status post Clayton fundoplication Current Visit: Yes Status: Acute Postoperative day #7 following Robotic Clayton fundoplication with recurrent hiatal hernia Postoperative day #4 Diagnostic laparoscopy with conversion to laparotomy and gastroplexy Noted the previous Clayton procedure was intact. The stomach had slipped through the hiatus; however, the hiatus that had been repaired on the previous operation was still intact. While attempting to reduce the stomach unable to actually feel the tension on the esophagus therefore the decision was made to perform a laparotomy followed by a gastropexy in zigzag position anteriorly to the diaphragm and to the shoulders of the Clayton wrap. UGI complete 04/14/17- Small contained collection of contrast suggesting a contained perforation along the posterior aspect of the fundus of the stomach just below the level of the fundoplication. Patient NPO except ice chips sparingly TPN therapy- Total fluid rate will be TPN goal, stop MIV when TPN at goal. [employer] System Administrator for management of TPN Add insulin sliding scale coverage for mild hyperglycemia with start of TPN CT of abdomen today Daily wound care- cleanse midline with soap and water and pat dry, pack 2 open areas with 1/4 inch plain gauze, cover with ABD pad X 2 and tape with medipore tape daily. Supportive care and pain control PPI therapy daily PT/OT daily for mobilization Repeat am labs (2) Hypophosphatemia Current Visit: Yes Status: Acute Replace phosphorus Repeat am labs (3) Hypernatremia Current Visit: Yes Status: Acute Repeat am labs (4) Moderate protein-calorie malnutrition Current Visit: Yes Status: Acute Continue TPN (start 04/14/17) Management of TPN per web marketing manager (5) DVT prophylaxis Current Visit: Yes Status: Acute Heparin 5,000 units SQ twice daily for DVT prophylaxis EPCDs to bilateral lower extremities for DVT prophylaxis Subjective Patient reports: still having pain (Incisional pain unchanged per patient), voiding w/o difficulty, flatus (small amounts), no bowel movement, afebrile Objective Vital Signs - Last 8 Hours Temp Pulse Resp BP Pulse Ox 04/15/17 08:10 16 91 04/15/17 07:01 97.3 F L 66 16 113/69 93 04/15/17 03:34 98.1 F 67 18 115/72 97 Intake and Output 04/14/17 04/15/17 04/15/17 23:59 07:59 15:59 Intake Total 346 / 346 513 / 513 Output Total 380 / 380 270 / 270 Balance -34 / -34 243 / 243 Intake: IV Fluids 246 / 246 513 / 513 0.9 % Sodium Chloride 1,000 ML 246 / 246 263 / 263 @ 70 mls/hr IVC .[id number] [facility] Rx #:[id number] Intralipid 20% 250 ML @ 21 mls/ 250 / 250 hr IVPB DAILY@1700 [facility] Rx#: [id number] Oral 100 / 100 0 / 0 Output: Urine 330 / 330 250 / 250 Wound Drainage 50 / 50 20 / 20 Right Lower Abdomen 50 / 50 20 / 20 Other: Blood Glucose* 155 159 - General physical appearance well developed, no distress, moderate pain - Eyes normal ocular movement - ENT dry mucosa, atraumatic, normocephalic - Neck Neck exam: trachea midline - Respiratory clear to auscultation, other (diminished bibasilar breath sounds, conversational dyspnea noted) - Cardiovascular Cardiovascular exam: Present: RRR - Abdomen Abdomen: Present: bowel sounds present, soft, distended, tender (incisional tenderness (more so at the top of his incision)) - Incision Incision: Present: serosanguinous (Cloudy serousang. drainage noted from the top and mid-incision- no surrounding erythema or induration.) - Neurologic CN 2-12 grossly intact - Musculoskeletal other (moderate deconditioning noted) - Psychiatric oriented to person, oriented to place, speech is normal - Labs 04/14/17 05:40 04/15/17 04:15 Diabetes panel 04/15/17 Range/Units 04:15 Sodium 151 H (136-145) mEq/L Potassium 3.6 (3.5-4.5) mEq/L Chloride 119 H (98-109) mEq/L Carbon Dioxide 24 (19-29) mEq/L BUN 25 (8-26) mg/dL Creatinine 0.68 L (0.72-1.25) mg/dL Glucose 134 H (70-99) mg/dL Calcium 9.5 (8.6-10.8) mg/dL Triglycerides 142 (< 150) mg/dL Calcium panel 04/15/17 Range/Units 04:15 Calcium 9.5 (8.6-10.8) mg/dL Phosphorus 1.3 L (2.3-4.7) mg/dL Pituitary panel 04/15/17 Range/Units 04:15 Sodium 151 H (136-145) mEq/L Potassium 3.6 (3.5-4.5) mEq/L Chloride 119 H (98-109) mEq/L Carbon Dioxide 24 (19-29) mEq/L BUN 25 (8-26) mg/dL Creatinine 0.68 L (0.72-1.25) mg/dL Glucose 134 H (70-99) mg/dL Calcium 9.5 (8.6-10.8) mg/dL Adrenal panel 04/15/17 Range/Units 04:15 Sodium 151 H (136-145) mEq/L Potassium 3.6 (3.5-4.5) mEq/L Chloride 119 H (98-109) mEq/L Carbon Dioxide 24 (19-29) mEq/L BUN 25 (8-26) mg/dL Creatinine 0.68 L (0.72-1.25) mg/dL Glucose 134 H (70-99) mg/dL Calcium 9.5 (8.6-10.8) mg/dL - VTE Documentation of Mechanical Device: Intermittent pneumatic compression device Consult Discharge Plan - Plan Instructions: Adult Laparoscopic Clayton Fundoplication (DC) Additional Instructions: General Instructions After Clayton Surgery 1. No pushing, pulling, or lifting greater than 15 lbs for FOUR weeks. 2. You may shower beginning today, but no tub baths, soaking, or swimming for 2 weeks. 3. You may resume driving when you are off narcotics and are safe to react in a car. 4. Take ibuprofen every 8 hours if needed for discomfort. If this does not relieve the discomfort, you may take oxycodone for breakthrough pain. Take narcotics as directed. Do not take more narcotics then directed and do not share your narcotics with any other person. Do not drink alcohol while on narcotics. 5. Take stool softeners (Colace) or a water based laxative (Miramax) while taking narcotics. You may hold for loose stools. 6. Report any fevers greater than 100.5F, increase abdominal discomfort, drainage that looks like pus, increased redness or pain at the surgical site, or any vomiting. 7. Report any pain in the calves, shortness of breath, or rapid heartbeat. 8. Continue to take your heartburn medications until directed to stop. Do not stop them abruptly as this can cause symptoms of reflux. 9. Do not drink alcohol or carbonated beverages. 10. Do not deviate from the recommended Clayton diet below. Doing so can affect your outcomes. [place] [facility] Diet After Clayton Fundoplication Surgery This diet information is for patients who have recently had Clayton Fundoplication Surgery to correct reflux disease or to repair various types of hernias, such as hiatal hernia and intrathoracic stomach. This diet may also be used for other gastrointestinal surgeries, such as Heller myotomy and repair of achalasia. The diet will help control diarrhea, excess gas and swallowing problems, which may occur after this type of surgery. Important Steps to Keep Your Stomach From Stretching Eat small, frequent meals (six to eight per day). This will help you consume the majority of the nutrients you need without causing your stomach to feel full or distended. Drinking large amounts of fluids with meals can stretch your stomach. You may drink fluids between meals as often as you like, but limit fluids to 1/2 cup (4 fluid ounces) with meals and one cup (8 fluid ounces) with snacks. Sit upright while eating, and stay upright for 30 minutes after each meal. [place] can help food move through your digestive tract. Do not lie down after eating. Sit upright for 2 hours after your last meal or snack of the day. Eat very slowly. Take your time when eating. Take small bites and chew your food well to bag machine helper in swallowing and digestion. Avoid crusty breads and sticky, gummy foods, such as bananas, fresh doughy breads, rolls and doughnuts. These types of foods become sticky and difficult to swallow. Toasted breads tend to be better tolerated. Lastly, if you eat sweets, consume them at the end of your meal to avoid a group of symptoms referred to as dumping syndrome. This describes the rapid emptying of foods from the stomach to the small intestine. Sweetened beverages, candy and desserts move more rapidly and dump quickly into the intestines. This can cause symptoms of nausea, weakness, cold sweats, cramps, diarrhea and dizzy spells. Important Steps to Avoid Gas Do not drink through a straw, chew gum, or chew tobacco. These actions cause you to swallow air, which will produce excess gas in your stomach. Chew with your mouth closed and chew your food thoroughly. Avoid foods that cause stomach gas and distention. The foods include corn, dried beans, peas, lentils, onions, broccoli, cauliflower, and any food item from the cabbage family. Do not drink carbonated drinks, alcohol, citrus, or tomato products. What Will I Be Able To Eat and Drink After Surgery After Clayton Fundoplication Surgery, your diet will be advanced slowly by your surgeon. Generally, you will be on a thin/clear liquid diet for the first 10 days. Then you will advance to the full liquid diet for 4 days and eventually to a [place] soft diet for 7 days. After any surgery, protein consumption is important for healing. To get enough protein, drink 3-4 [place] Instant Breakfast, Ensure, or equivalent daily. Reminder: Carbonated beverages (such as sodas, energy drinks, flavored carbonated water), and alcohol are not permitted for the 1st 6 to 8 weeks after surgery. After this time you may attempt to reintroduce them in small amounts. Please note: Dairy products such as milk, ice cream, and pudding may cause diarrhea in some people after surgery. You may need to avoid milk products. If so you may substitute them with lactose free beverages, such as soy, rice, lactate, or almond milk. Please be aware that each patient's tolerance to food is different. Your doctor will advance your diet depending on how well you progress after surgery. Thin Liquid Diet The first diet after Clayton Fundoplication Surgery is the thin liquids diet. Follow this diet for postoperative days 1-10 04/09/2017- 04/08/2017. Thin liquids include: Apple, Cranberry, or Grape Juice (no citrus juice) Chicken Broth Beef Broth Flavored Gelatin (Jell-O) Decaffeinated Tea or Coffee Popsicles or [place] Ice Caffeinated Beverages Will Be Permitted Based upon Tolerance and at a later date Dairy if tolerated Thin Milkshakes (strawberry or vanilla flavored- No chocolate) Drink 3-4 [place] instant breakfast, Ensure, or equivalent daily. May be mixed with dairy for thin milkshakes Full Liquid Diet Follow this diet for postoperative days 11-14106/20/2016 - 04/22/2017. Full liquid diet includes anything in the thin liquid diet plus: Milk: Dairy, Soy, Rice, and [place] (No Chocolate) Cream of Wheat, Cream of Rice, Grits Strained Creamed Soups (No Tomato or Broccoli) Vanilla and [place] Flavored Ice Cream Sherbet Vanilla and Butterscotch Pudding (No Chocolate or Coconut) Continue 3-4 [place] Instant Breakfast, Ensure, or an Equivalent Daily. May be mixed with Dairy for Thin Milkshakes. [place] Soft Diet Follow this diet for postoperative days 15-20 04/23/2017 - 04/28/2017. (If you are consuming enough protein, you may stop the protein supplements). Please note: You will need extra fluids throughout the day to meet your fluid needs. Referrals: Rodri Day MD [Primary Care Provider] - Kristel Crow CNP [Advanced Practice Nurse] - 04/22/17 8:20 am - Attending Attestation For this encounter, I have reviewed the DIRECTOR OF DEMENTIA OPERATIONS or PA documentation, treatment plan, and medical decision making; and I have had face to face time with this patient.
[2017-04-15] MEDS ORDERED: Potassium Phosphate 44 MEQ in 0.9 % Sodium Chloride 250 ML IVPB ONE (08:44)
[2017-04-15] MEDS ORDERED: D5% in Water 1,000 ML IVC PRN (08:53)
[2017-04-15] MEDS ORDERED: *HR* Dextrose 50 % in Water (Syg) 50 ML SYRINGE IVP PRN (08:53)
[2017-04-15] MEDS ORDERED: Dextrose Gel 15 GM PO PRN ×2 (08:53)
[2017-04-15] MEDS: *HR* HYDROmorphone 2 MG/ML SYRINGE IVP PRN ×3 (09:31→20:43)
[2017-04-15] MEDS: Pantoprazole 40 MG VIAL IVP SCH (09:32)
[2017-04-15 10:04] LABS: Basophils % 0.1 %; Eosinophils % 0.4 %; Hematocrit 35.8 % (37.5-50.1); Hemoglobin 11.3 g/dL (12.9-16.9); Immature Granulocytes % 0.5 % (0-4); Lymphocytes # 0.5 K/mcL (0.6-4.6); Lymphocytes % 6.6 %; Mean Corpuscular HGB Conc 31.6 g/dL (31.6-35.5); Mean Corpuscular Hemoglobin 29.7 pg (28.0-33.3); Mean Corpuscular Volume 94.2 fL (83.0-100.0); Monocytes # 0.8 K/mcL (0.0-1.3); Neutrophils # 6.2 K/mcL (1.6-8.9); Platelet Count 126 K/mcL (140-400); Segmented Neutrophils % 81.4 %
[2017-04-15 10:13] LABS: BUN/Creatinine Ratio 37 (6-26); Blood Urea Nitrogen 25 mg/dL (8-26); Calcium 9.4 mg/dL (8.6-10.8); Carbon Dioxide 25 mEq/L (19-29); Chloride 118 mEq/L (98-109); Glucose 139 mg/dL (70-99); Osmolality,Calculated 315 (280-300); Potassium 3.4 mEq/L (3.5-4.5); Sodium 149 mEq/L (136-145); eGFR For African Americans > 60 (> 60); eGFR For Non-African Americans > 60 (> 60)
[2017-04-15] MEDS: EZETIMIBE 10 MG PO SCH (14:36)
[2017-04-15] MEDS: Insulin LISPRO 300 UNITS/3 ML VIAL SQ SCH ×2 (14:40→18:16)
[2017-04-15] MEDS ORDERED: Clinimix E 5%-15% SOLUTION 2,000 ML with MVI, adult with vitamin K 10 ML IVC SCH (17:00)
[2017-04-15] MEDS ORDERED: Piperacillin/Tazobactam 3.375 GM/200 ML BAG IVPB SCH (20:00)
[2017-04-15 20:11] LABS: Basophils % 0.5 %; Eosinophils % 0.7 %; Hematocrit 40.6 % (37.5-50.1); Hemoglobin 12.6 g/dL (12.9-16.9); Immature Granulocytes % 1.7 % (0-4); Lymphocytes # 0.5 K/mcL (0.6-4.6); Mean Corpuscular Hemoglobin 29.3 pg (28.0-33.3); Mean Corpuscular Volume 94.4 fL (83.0-100.0); Mean Platelet Volume 11.3 fL (9.4-12.4); Monocytes # 0.2 K/mcL (0.0-1.3); Monocytes % 4.2 %; Neutrophils # 3.4 K/mcL (1.6-8.9); Platelet Count 158 K/mcL (140-400); Segmented Neutrophils % 81.9 %
[2017-04-15 20:13] LABS: ABG Base Excess 0 mEq/L (-2 to 3); ABG HCO3 26 mEq/L (21-27); ABG Oxygen Saturation 93 % (95-98); ABG PCO2 44 mmHg (35-45); ABG PH 7.37 pH Units (7.32-7.45); ABG PO2 71 mmHg (85-104); ABG TCO2 27 mEq/L (20-26)
[2017-04-15] MEDS ORDERED: 0.9 % Sodium Chloride 1,000 ML IVC SCH (20:15)
[2017-04-15 20:25] LABS: BUN/Creatinine Ratio 36 (6-26); Blood Urea Nitrogen 25 mg/dL (8-26); Carbon Dioxide 24 mEq/L (19-29); Chloride 119 mEq/L (98-109); Glucose 107 mg/dL (70-99); Osmolality,Calculated 313 (280-300); Sodium 149 mEq/L (136-145); eGFR For African Americans > 60 (> 60); eGFR For Non-African Americans > 60 (> 60)
[2017-04-15] MEDS ORDERED: Lidocaine -MPF 2% 2 ML VIAL ONE (21:47)
[2017-04-15] MEDS ORDERED: *HR* FentaNYL (PF) 100 MCG/2 ML VIAL ONE (21:47)
[2017-04-15] MEDS ORDERED: *HR* Succinylcholine 200 MG/10 ML VIAL IVP ONE (21:47)
[2017-04-15] MEDS ORDERED: *HR* Propofol 200 MG/20 ML VIAL IVP ONE (21:47)
[2017-04-15] MEDS ORDERED: *HR* Rocuronium Bromide 50 MG/5 ML VIAL ONE (21:47)
--- NOTE | 2017-04-15 22:07 | Anesthesia Evaluation PreOp ---
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 Other Medical History: GERD (S/P hiatal hernia repair this admission) Anesthesia History: No Prior Anesthetic Complications, Past Anesthesia Alcohol Use: occasionally Drug use: none Medications and Allergies Travoprost [Travatan Z] 1 drop OP HS 12/31/14 [History] Ezetimibe [Zetia] 10 mg PO DAILY 03/01/17 [History] Fluticasone Propionate Nasal [Flonase] 50 mcg NS DAILY PRN 03/01/17 [History] Timolol Maleate 0.5% 1 drop RIGHT EYE BID 03/01/17 [History] Docusate [Colace] 100 mg PO BID PRN #30 capsule 04/08/17 [Rx] Lactose-Reduced Food [Ensure Enlive] 237 ml PO TID #90 liquid 04/08/17 [Rx] Ondansetron ODT [Zofran ODT] 4 mg SL Q4HR #15 tab.rapdis 04/08/17 [Rx] OxyCODONE/APAP 5/325 [Percocet 5/325 MG] 1 each PO Q6HR PRN #28 tablet 04/08/17 [Rx] 3 Allergy/AdvReac Type Severity Reaction Status Date / Time Pneumococcal Vaccine Allergy Redness of Verified 04/08/17 10:51 [From Pneumovax 23] Skin - Meds/Allergy Pre-op Review Medications Reviewed: Yes Allergies Reviewed: Yes Beta Blockers on Current Med List: No Anesthesia Results - Labs 04/15/17 20:01 04/15/17 20:01 - Imaging EKG: report reviewed (04/08/2017 ELECTRONIC ATRIAL PACEMAKER BORDERLINE LEFT AXIS DEVIATION INCOMPLETE RIGHT BUNDLE BRANCH BLOCK ABNORMAL RHYTHM ECG) Anesthesia Exam Vital Signs/O2 Sat/Glucose, Most Recent Temp Pulse Resp BP Pulse Ox 98.0 F 101 21 144/84 96 04/15/17 20:30 04/15/17 21:30 04/15/17 21:30 04/15/17 21:30 04/15/17 21:30 Blood Glucose* 84 Height: 5'8''/1/73 m Weight: 209 lbs/95 kg NPO (# of Hours): 8 - HEENT Pupil (Motor): EOMI Mallampati: II Teeth: Edentulous Denture Type: Upper: Complete, Lower: Complete Oral Opening: Greater than 3 - 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
[2017-04-15] MEDS ORDERED: Dexamethasone 4 MG/ML VIAL ONE (23:10)
[2017-04-15] MEDS ORDERED: Ondansetron 4 MG/2 ML VIAL ONE (23:10)
--- NOTE | 2017-04-15 23:36 | Operative Note ---
Date of procedure: 04/15/17 Pre-op diagnosis: Perforated viscus Post-op diagnosis: same Procedure: Exploratory laparotomy with partial gastrectomy and gastropexy Anesthesia: CRISTAL Surgeon: Angel Hein Estimated blood loss (cc): 25 Specimen: Gastric fundus Condition: stable Disposition: ICU Procedure in Detail: After informed consent, the patient was taken to the operating room placed in a supine position. After adequate sedation and anesthesia the abdomen was prepped and draped. Previous bindu a been removed. The midline suture was removed from the midline. Abdominal wall was opened. A Bookwalter retractor was placed on the table. The abdominal wall was retracted laterally. The fluid in the left upper quadrant resection. There is no foul smell. There is no purulence. The stomach was evaluated. Previous gastropexy sutures were taken down and removed. I was able to identify an area from one of the gastropexy sutures which had torn through the stomach. It was in a position that I did not believe was amenable to a repair without taking down the wrap. Therefore the Clayton fundoplication wrap was taken down. A partial gastrectomy was performed with an echelon stapler utilizing a green load. Once this tissue had been removed it was passed off the table. A repeat gastropexy was performed with 3 sutures along the anterior gastric body and antrum. This was sewn to the anterior abdominal wall. Once this is completed the drain was repositioned underneath the esophagus and in the left upper quadrant. Abdominal wall was then closed with looped PDS suture and cephalad, caudal cephalad motion. Bindu were placed in the skin and packing was placed in the midline. The patient was extubated in the operating room and taken back to the ICU
[2017-04-15] MEDS ORDERED: SUGAMMADEX SODIUM 500 MG/5 ML VIAL IV ONE (23:48)
[2017-04-15] MEDS ORDERED: Albuterol 2.5 MG/3 ML NEBULIZER ONE (23:54)
[2017-04-15] MEDS ORDERED: Racepinephrine Neb 0.5 ML VIAL IH ONE (23:59)
[2017-04-16] MEDS: *HR* HYDROmorphone (PF) 1 MG/ML SYRINGE IVP PRN ×4 (00:25→14:45)
[2017-04-16] MEDS: Insulin LISPRO 300 UNITS/3 ML VIAL SQ SCH ×4 (00:48→18:28)
[2017-04-16] MEDS: Latanoprost 2.5 ML BOTTLE BOTH EYES SCH ×2 (00:48→21:23)
[2017-04-16] MEDS: Ipratropium/Albuterol Neb 3 ML IH SCH ×6 (03:21→20:58)
[2017-04-16] MEDS ORDERED: *HR* Dextrose 50 % in Water (Syg) 50 ML SYRINGE IVP PRN (03:35)
[2017-04-16] MEDS ORDERED: *HR* Labetalol 20 MG/4 ML SYRINGE IVP PRN (03:35)
[2017-04-16] MEDS ORDERED: D5% in Water 1,000 ML IVC PRN (03:35)
[2017-04-16] MEDS ORDERED: D10% in Water 500 ML IVC PRN (03:35)
[2017-04-16] MEDS ORDERED: *HR* Promethazine 25 MG/ML VIAL IVP PRN (03:35)
[2017-04-16] MEDS ORDERED: Fluticasone Propionate Nasal 50 MCG/SPRAY BOTTLE NS PRN (03:35)
[2017-04-16] MEDS ORDERED: Dextrose Gel 15 GM PO PRN ×2 (03:35)
[2017-04-16] MEDS ORDERED: Clinimix E 5%-15% SOLUTION 2,000 ML with MVI, adult with vitamin K 10 ML IVC SCH ×3 (03:35→17:00)
[2017-04-16] MEDS ORDERED: Naloxone 0.4 MG/ML INJ IVP PRN (03:35)
[2017-04-16] MEDS ORDERED: Ondansetron 4 MG/2 ML VIAL IVP PRN (03:35)
[2017-04-16] MEDS ORDERED: Chloraseptic Spray 177 ML BOTTLE MM PRN (03:35)
[2017-04-16] MEDS: 0.9 % Sodium Chloride 1,000 ML IVC SCH ×2 (04:53→18:28)
[2017-04-16] MEDS: Pantoprazole 40 MG VIAL IVP SCH (04:54)
[2017-04-16] MEDS: *HR* Heparin 5,000 UNIT/ML VIAL SQ SCH ×2 (04:54→18:28)
[2017-04-16] MEDS: Piperacillin/Tazobactam 3.375 GM/200 ML BAG IVPB SCH ×3 (04:54→19:48)
[2017-04-16 05:19] LABS: Hematocrit 42.7 % (37.5-50.1); Hemoglobin 12.9 g/dL (12.9-16.9); Lymphocytes # 0.5 K/mcL (0.6-4.6); Mean Corpuscular HGB Conc 30.2 g/dL (31.6-35.5); Mean Corpuscular Hemoglobin 29.1 pg (28.0-33.3); Mean Corpuscular Volume 96.4 fL (83.0-100.0); Mean Platelet Volume 11.3 fL (9.4-12.4); Platelet Count 162 K/mcL (140-400); Red Blood Count 4.43 M/mcL (4.19-5.50); Red Cell Distribution Width 14.1 % (11.5-14.5)
[2017-04-16 05:21] LABS: BUN/Creatinine Ratio 30 (6-26); Blood Urea Nitrogen 24 mg/dL (8-26); Calcium 9.4 mg/dL (8.6-10.8); Carbon Dioxide 24 mEq/L (19-29); Chloride 119 mEq/L (98-109); Glucose 136 mg/dL (70-99); Magnesium 1.7 mg/dL (1.6-2.6); Osmolality,Calculated 318 (280-300); Potassium 4.4 mEq/L (3.5-4.5); Sodium 151 mEq/L (136-145); eGFR For African Americans > 60 (> 60); eGFR For Non-African Americans > 60 (> 60)
[2017-04-16 05:33] LABS: Phosphorous 3.9 mg/dL (2.3-4.7)
[2017-04-16 05:46] LABS: Anisocytosis 1+ (Not Present); Monocytes # 0.8 K/mcL (0.0-1.3); Neutrophils # 11.7 K/mcL (1.6-8.9); Platelet Estimate Normal (Normal); Reactive Lymphocytes Present (Not Present)
--- NOTE | 2017-04-16 10:53 | General Surgery Progress Note ---
<IsauraBrad wells - Last Filed: 04/16/17 11:50> Date of Encounter: 04/16/17 Time of Encounter: 10:53 - Assessment and Plan (1) Status post Clayton fundoplication Current Visit: Yes Status: Acute Postoperative day #8 following Clayton fundoplication Postoperative day #5 for gastroplexy Postoperative day #1 for exploratory lap with partial gastrectomy and gastroplexy NG tube with 100 output yesterday Wound output 250 mL Per operative note, Clayton was taken down Plan: NPO Zofran, protonix, phenegran, dilaudid IVF at 70/hr, TPN at 83.3 (2) Hiatal hernia Current Visit: Yes Status: Acute As above Subjective Patient reports: still having pain, voiding w/o difficulty Narrative: Pt was seen and examined at bedside this morning. He states that he is feeling about the same and is quite sore following surgery yesterday. He is otherwise just tired. Objective Vital Signs - Last 8 Hours Temp Pulse Resp BP Pulse Ox 04/16/17 10:00 94 22 122/87 96 04/16/17 09:00 98 30 120/82 96 04/16/17 08:14 16 98 04/16/17 08:00 98 18 119/71 89 04/16/17 07:00 98.7 F 97 18 113/76 96 04/16/17 06:00 103 18 108/77 93 04/16/17 05:00 108 16 113/79 91 04/16/17 04:05 101 16 109/77 94 04/16/17 03:36 97.9 F 04/16/17 03:23 20 93 04/16/17 03:00 101 18 113/75 95 Intake and Output 04/15/17 04/16/17 04/16/17 23:59 07:59 15:59 Intake Total 200 / 200 Output Total 500 / 500 1105 / 1105 0 / 0 Balance -500 / -500 -905 / -905 0 / 0 Intake: IV Fluids 200 / 200 Zosyn Premix 3.375 GM/200 ML 3. 200 / 200 375 gm In 200 ml @ 50 mls/hr IVPB Q8H [facility] Rx#:[id number] Output: Urine 400 / 400 Estimated Blood Loss 50 / 50 Catheter 825 / 825 Gastric Drainage 100 / 100 0 / 0 0 / 0 Right Nare 0 / 0 0 / 0 Wound Drainage 230 / 230 Right Lower Abdomen 230 / 230 Other: Meal NPO for lunch Stool Size Smear Stool Consistency liquid Stool Color Brown Weight 95 kg 95 kg Blood Glucose* 84 104 Patient Weight 04/16/17 23:59 Weight 95 kg - General physical appearance well developed, well nourished, no distress, moderate pain - Respiratory normal expansion, normal respiratory effort, clear to auscultation - Cardiovascular Cardiovascular exam: Present: RRR, no murmurs/rubs/gallops - Abdomen Abdomen: Present: distended, tender - Labs 04/16/17 05:00 04/16/17 05:00 Diabetes panel 04/15/17 04/16/17 Range/Units 20:01 05:00 Sodium 149 H 151 H (136-145) mEq/L Potassium 4.0 4.4 (3.5-4.5) mEq/L Chloride 119 H 119 H (98-109) mEq/L Carbon Dioxide 24 24 (19-29) mEq/L BUN 25 24 (8-26) mg/dL Creatinine 0.70 L 0.79 (0.72-1.25) mg/dL Glucose 107 H 136 H (70-99) mg/dL Calcium 10.0 9.4 (8.6-10.8) mg/dL Calcium panel 04/15/17 04/16/17 Range/Units 20:01 05:00 Calcium 10.0 9.4 (8.6-10.8) mg/dL Phosphorus 3.9 D (2.3-4.7) mg/dL Pituitary panel 04/15/17 04/16/17 Range/Units 20:01 05:00 Sodium 149 H 151 H (136-145) mEq/L Potassium 4.0 4.4 (3.5-4.5) mEq/L Chloride 119 H 119 H (98-109) mEq/L Carbon Dioxide 24 24 (19-29) mEq/L BUN 25 24 (8-26) mg/dL Creatinine 0.70 L 0.79 (0.72-1.25) mg/dL Glucose 107 H 136 H (70-99) mg/dL Calcium 10.0 9.4 (8.6-10.8) mg/dL Adrenal panel 12/15/17 12/16/17 Range/Units 20:01 05:00 Sodium 149 H 151 H (136-145) mEq/L Potassium 4.0 4.4 (3.5-4.5) mEq/L Chloride 119 H 119 H (98-109) mEq/L Carbon Dioxide 24 24 (19-29) mEq/L BUN 25 24 (8-26) mg/dL Creatinine 0.70 L 0.79 (0.72-1.25) mg/dL Glucose 107 H 136 H (70-99) mg/dL Calcium 10.0 9.4 (8.6-10.8) mg/dL - VTE Documentation of Mechanical Device: Intermittent pneumatic compression device Consult Discharge Plan - Plan Instructions: Adult Laparoscopic Clayton Fundoplication (DC) Additional Instructions: General Instructions After Clayton Surgery 1. No pushing, pulling, or lifting greater than 15 lbs for FOUR weeks. 2. You may shower beginning today, but no tub baths, soaking, or swimming for 2 weeks. 3. You may resume driving when you are off narcotics and are safe to react in a car. 4. Take ibuprofen every 8 hours if needed for discomfort. If this does not relieve the discomfort, you may take oxycodone for breakthrough pain. Take narcotics as directed. Do not take more narcotics then directed and do not share your narcotics with any other person. Do not drink alcohol while on narcotics. 5. Take stool softeners (Colace) or a water based laxative (Miramax) while taking narcotics. You may hold for loose stools. 6. Report any fevers greater than 100.5F, increase abdominal discomfort, drainage that looks like pus, increased redness or pain at the surgical site, or any vomiting. 7. Report any pain in the calves, shortness of breath, or rapid heartbeat. 8. Continue to take your heartburn medications until directed to stop. Do not stop them abruptly as this can cause symptoms of reflux. 9. Do not drink alcohol or carbonated beverages. 10. Do not deviate from the recommended Clayton diet below. Doing so can affect your outcomes. [facility] Diet After Clayton Fundoplication Surgery This diet information is for patients who have recently had Clayton Fundoplication Surgery to correct reflux disease or to repair various types of hernias, such as hiatal hernia and intrathoracic stomach. This diet may also be used for other gastrointestinal surgeries, such as Heller myotomy and repair of achalasia. The diet will help control diarrhea, excess gas and swallowing problems, which may occur after this type of surgery. Important Steps to Keep Your Stomach From Stretching Eat small, frequent meals (six to eight per day). This will help you consume the majority of the nutrients you need without causing your stomach to feel full or distended. Drinking large amounts of fluids with meals can stretch your stomach. You may drink fluids between meals as often as you like, but limit fluids to 1/2 cup (4 fluid ounces) with meals and one cup (8 fluid ounces) with snacks. Sit upright while eating, and stay upright for 30 minutes after each meal. [place] can help food move through your digestive tract. Do not lie down after eating. Sit upright for 2 hours after your last meal or snack of the day. Eat very slowly. Take your time when eating. Take small bites and chew your food well to monorail helper in swallowing and digestion. Avoid crusty breads and sticky, gummy foods, such as bananas, fresh doughy breads, rolls and doughnuts. These types of foods become sticky and difficult to swallow. Toasted breads tend to be better tolerated. Lastly, if you eat sweets, consume them at the end of your meal to avoid a group of symptoms referred to as dumping syndrome. This describes the rapid emptying of foods from the stomach to the small intestine. Sweetened beverages, candy and desserts move more rapidly and dump quickly into the intestines. This can cause symptoms of nausea, weakness, cold sweats, cramps, diarrhea and dizzy spells. Important Steps to Avoid Gas Do not drink through a straw, chew gum, or chew tobacco. These actions cause you to swallow air, which will produce excess gas in your stomach. Chew with your mouth closed and chew your food thoroughly. Avoid foods that cause stomach gas and distention. The foods include corn, dried beans, peas, lentils, onions, broccoli, cauliflower, and any food item from the cabbage family. Do not drink carbonated drinks, alcohol, citrus, or tomato products. What Will I Be Able To Eat and Drink After Surgery After Clayton Fundoplication Surgery, your diet will be advanced slowly by your surgeon. Generally, you will be on a thin/clear liquid diet for the first 10 days. Then you will advance to the full liquid diet for 4 days and eventually to a Clayton soft diet for 7 days. After any surgery, protein consumption is important for healing. To get enough protein, drink 3-4 [place] Instant Breakfast, Ensure, or equivalent daily. Reminder: Carbonated beverages (such as sodas, energy drinks, flavored carbonated water), and alcohol are not permitted for the 1st 6 to 8 weeks after surgery. After this time you may attempt to reintroduce them in small amounts. Please note: Dairy products such as milk, ice cream, and pudding may cause diarrhea in some people after surgery. You may need to avoid milk products. If so you may substitute them with lactose free beverages, such as soy, rice, lactate, or almond milk. Please be aware that each patient's tolerance to food is different. Your doctor will advance your diet depending on how well you progress after surgery. Thin Liquid Diet The first diet after Clayton Fundoplication Surgery is the thin liquids diet. Follow this diet for postoperative days 1-10 04/09/2017- 04/08/2017. Thin liquids include: Apple, Cranberry, or Grape Juice (no citrus juice) Chicken Broth Beef Broth Flavored Gelatin (Jell-O) Decaffeinated Tea or Coffee Popsicles or [place] Ice Caffeinated Beverages Will Be Permitted Based upon Tolerance and at a later date Dairy if tolerated Thin Milkshakes (strawberry or vanilla flavored- No chocolate) Drink 3-4 [place] instant breakfast, Ensure, or equivalent daily. May be mixed with dairy for thin milkshakes Full Liquid Diet Follow this diet for postoperative days 11-14106/20/2016 - 04/22/2017. Full liquid diet includes anything in the thin liquid diet plus: Milk: Dairy, Soy, Rice, and [place] (No Chocolate) Cream of Wheat, Cream of Rice, Grits Strained Creamed Soups (No Tomato or Broccoli) Vanilla and [place] Flavored Ice Cream Sherbet Vanilla and Butterscotch Pudding (No Chocolate or Coconut) Continue 3-4 [place] Instant Breakfast, Ensure, or an Equivalent Daily. May be mixed with Dairy for Thin Milkshakes. Clayton Soft Diet Follow this diet for postoperative days 15-20 04/23/2017 - 04/28/2017. (If you are consuming enough protein, you may stop the protein supplements). Please note: You will need extra fluids throughout the day to meet your fluid needs. Referrals: Rodri Day MD [Primary Care Provider] - Kristel Crow CNP [Advanced Practice Nurse] - 04/22/17 8:20 am <Angel Hein Yeny - Last Filed: 04/16/17 14:44> Date of Encounter: 04/16/17 - Assessment and Plan (1) Status post Clayton fundoplication Current Visit: Yes Status: Acute Patient is now postoperative day 1 from exploratory laparotomy and partial gastrectomy and gastropexy. He is doing much better today as compared to last night. His drain is clear. His pain is under reasonable control. We will add a Dilaudid SCHOOL CROSSING GUARD. We will also plan to perform chest x-ray and acute abdominal series in the morning to evaluate his bowel gas pattern. His NG tube will stay until he has bowel function. Objective Vital Signs - Last 8 Hours Temp Pulse Resp BP Pulse Ox 04/16/17 13:00 91 20 109/71 92 04/16/17 12:00 90 19 110/78 95 04/16/17 11:11 16 100 04/16/17 11:00 99.6 F 101 16 121/73 94 04/16/17 10:00 94 22 122/87 96 04/16/17 09:00 98 30 120/82 96 04/16/17 08:14 16 98 04/16/17 08:00 98 18 119/71 89 04/16/17 07:00 98.7 F 97 18 113/76 96 Intake and Output 04/15/17 04/16/17 04/16/17 23:59 07:59 15:59 Intake Total 200 / 200 200 / 200 Output Total 500 / 500 1105 / 1105 270 / 270 Balance -500 / -500 -905 / -905 -70 / -70 Intake: IV Fluids 200 / 200 200 / 200 Zosyn Premix 3.375 GM/200 ML 3. 200 / 200 200 / 200 375 gm In 200 ml @ 50 mls/hr IVPB Q8H [facility] Rx#:[id number] Output: Urine 400 / 400 Estimated Blood Loss 50 / 50 Catheter 825 / 825 250 / 250 Gastric Drainage 100 / 100 0 / 0 0 / 0 Right Nare 0 / 0 0 / 0 Wound Drainage 230 / 230 20 / 20 Right Lower Abdomen 230 / 230 Other: Meal NPO for lunch Stool Size Smear Stool Consistency liquid Stool Color Brown Weight 95 kg 95 kg Blood Glucose* 84 104 131 Patient Weight 04/16/17 23:59 Weight 95 kg - Labs 04/16/17 05:00 04/16/17 05:00 Diabetes panel 04/15/17 04/16/17 Range/Units 20:01 05:00 Sodium 149 H 151 H (136-145) mEq/L Potassium 4.0 4.4 (3.5-4.5) mEq/L Chloride 119 H 119 H (98-109) mEq/L Carbon Dioxide 24 24 (19-29) mEq/L BUN 25 24 (8-26) mg/dL Creatinine 0.70 L 0.79 (0.72-1.25) mg/dL Glucose 107 H 136 H (70-99) mg/dL Calcium 10.0 9.4 (8.6-10.8) mg/dL Calcium panel 04/15/17 04/16/17 Range/Units 20:01 05:00 Calcium 10.0 9.4 (8.6-10.8) mg/dL Phosphorus 3.9 D (2.3-4.7) mg/dL Pituitary panel 04/15/17 04/16/17 Range/Units 20:01 05:00 Sodium 149 H 151 H (136-145) mEq/L Potassium 4.0 4.4 (3.5-4.5) mEq/L Chloride 119 H 119 H (98-109) mEq/L Carbon Dioxide 24 24 (19-29) mEq/L BUN 25 24 (8-26) mg/dL Creatinine 0.70 L 0.79 (0.72-1.25) mg/dL Glucose 107 H 136 H (70-99) mg/dL Calcium 10.0 9.4 (8.6-10.8) mg/dL Adrenal panel 04/15/17 04/16/17 Range/Units 20:01 05:00 Sodium 149 H 151 H (136-145) mEq/L Potassium 4.0 4.4 (3.5-4.5) mEq/L Chloride 119 H 119 H (98-109) mEq/L Carbon Dioxide 24 24 (19-29) mEq/L BUN 25 24 (8-26) mg/dL Creatinine 0.70 L 0.79 (0.72-1.25) mg/dL Glucose 107 H 136 H (70-99) mg/dL Calcium 10.0 9.4 (8.6-10.8) mg/dL
[2017-04-16] MEDS: EZETIMIBE 10 MG PO SCH (11:26)
[2017-04-16] MEDS ORDERED: *HR* HYDROmorphone 20 MG/20 ML PCA IVC PRN (13:46)
[2017-04-16] MEDS ORDERED: Clinimix 5%-20% SOLUTION 2,000 ML with MVI, adult with vitamin K 10 ML, Potassium Pho... IVC SCH (17:00)
[2017-04-17] MEDS: Insulin LISPRO 300 UNITS/3 ML VIAL SQ SCH ×5 (00:08→23:25)
[2017-04-17] MEDS: Ipratropium/Albuterol Neb 3 ML IH SCH ×7 (00:32→23:46)
[2017-04-17] MEDS: Piperacillin/Tazobactam 3.375 GM/200 ML BAG IVPB SCH ×3 (03:00→19:21)
[2017-04-17] MEDS: *HR* HYDROmorphone (PF) 1 MG/ML SYRINGE IVP PRN ×4 (03:00→23:43)
[2017-04-17 03:44] LABS: Basophils % 0.3 %; Hematocrit 39.2 % (37.5-50.1); Lymphocytes # 0.4 K/mcL (0.6-4.6); Lymphocytes % 2.6 %; Mean Corpuscular HGB Conc 30.6 g/dL (31.6-35.5); Mean Corpuscular Hemoglobin 30.1 pg (28.0-33.3); Mean Corpuscular Volume 98.2 fL (83.0-100.0); Mean Platelet Volume 11.9 fL (9.4-12.4); Monocytes # 0.6 K/mcL (0.0-1.3); Neutrophils # 14.4 K/mcL (1.6-8.9); Platelet Count 114 K/mcL (140-400); Red Blood Count 3.99 M/mcL (4.19-5.50); Red Cell Distribution Width 14.5 % (11.5-14.5); Segmented Neutrophils % 92.1 %
[2017-04-17 03:46] LABS: Basophils # 0.1 K/mcL (0.0-0.2)
[2017-04-17 03:56] LABS: BUN/Creatinine Ratio 31 (6-26); Blood Urea Nitrogen 23 mg/dL (8-26); Calcium 9.5 mg/dL (8.6-10.8); Carbon Dioxide 25 mEq/L (19-29); Chloride 122 mEq/L (98-109); Glucose 150 mg/dL (70-99); Magnesium 2.3 mg/dL (1.6-2.6); Osmolality,Calculated 323 (280-300); Phosphorous 1.4 mg/dL (2.3-4.7); Potassium 3.8 mEq/L (3.5-4.5); Sodium 153 mEq/L (136-145); eGFR For African Americans > 60 (> 60); eGFR For Non-African Americans > 60 (> 60)
[2017-04-17 04:04] LABS: Platelet Estimate Slight Decrease (Normal); Toxic Granulation Present (Not Present)
[2017-04-17] MEDS ORDERED: Magnesium Sulfate 2 GM in D5% in Water 100 ML IVPB ONE (05:25)
[2017-04-17] MEDS ORDERED: Potassium Phosphate 44 MEQ in 0.9 % Sodium Chloride 250 ML IVPB ONE (05:26)
[2017-04-17] MEDS: *HR* Heparin 5,000 UNIT/ML VIAL SQ SCH ×2 (05:43→17:28)
[2017-04-17] MEDS: Pantoprazole 40 MG VIAL IVP SCH (05:44)
[2017-04-17] MEDS ORDERED: D5% in Water 500 ML IVC SCH (05:45)
[2017-04-17] MEDS ORDERED: Fluconazole 100 MG/50 ML 100 MG/50 ML BAG IVPB SCH (07:00)
[2017-04-17] MEDS: EZETIMIBE 10 MG PO SCH (08:32)
[2017-04-17] MEDS: *HR* FentaNYL (PF) 100 MCG/2 ML VIAL IVP PRN ×4 (08:34→14:39)
--- NOTE | 2017-04-17 10:24 | General Surgery Progress Note ---
Date of Encounter: 04/17/17 Time of Encounter: 07:55 - Assessment and Plan (1) Status post Clayton fundoplication Current Visit: Yes Status: Acute Postoperative day #9 following Clayton fundoplication Postoperative day #6 for gastroplexy Postoperative day #2 for exploratory lap with partial gastrectomy and gastroplexy NG tube with 500 output yesterday Wound output 40 mL Plan: NPO Zofran, protonix, phenegran, fentanyl IVF at 70/hr, TPN at 83.3 (2) Hiatal hernia Current Visit: Yes Status: Acute As above Subjective Patient reports: still having pain, flatus, bowel movement, diarrhea Narrative: Patient seen and examined at bedside this morning. He states that he feels "terrible" and is experiencing increased pain from yesterday all over his body. He has been experiencing flatus and multiple bowel movements which are loose in nature and normal color. Family notes at bedside that he appears more confused from yesterday. Objective Vital Signs - Last 8 Hours Temp Pulse Resp BP Pulse Ox 04/17/17 10:00 95 34 139/71 95 04/17/17 09:00 96 30 136/89 95 04/17/17 08:00 91 15 126/79 92 04/17/17 07:42 16 94 04/17/17 07:00 90 24 129/79 95 04/17/17 05:41 93 14 138/86 95 04/17/17 05:00 85 14 112/70 95 04/17/17 04:26 100.6 F H 04/17/17 04:19 17 96 04/17/17 04:00 84 14 109/77 95 04/17/17 02:49 103 18 150/132 95 04/17/17 02:43 103 Intake and Output 04/16/17 04/17/17 04/17/17 23:59 07:59 15:59 Intake Total 400 / 400 250 / 250 Output Total 515 / 515 590 / 590 0 / 0 Balance -115 / -115 -340 / -340 0 / 0 Intake: IV Fluids 400 / 400 250 / 250 Intralipid 20% 250 ML @ 21 mls/ 250 / 250 hr IVPB DAILY@1700 [facility] Rx#: [id number] Zosyn Premix 3.375 GM/200 ML 3. 400 / 400 375 gm In 200 ml @ 50 mls/hr IVPB Q8H [facility] Rx#:[id number] Oral 0 / 0 0 / 0 Output: Catheter 475 / 475 550 / 550 Gastric Drainage 0 / 0 0 / 0 0 / 0 Right Nare 0 / 0 0 / 0 0 / 0 Wound Drainage 40 / 40 40 / 40 Right Lower Abdomen 40 / 40 40 / 40 Other: Weight 98.9 kg 98.9 kg Blood Glucose* 138 172 Patient Weight 04/17/17 23:59 Weight 98.9 kg - General physical appearance well developed, well nourished, no distress - Respiratory normal expansion, normal respiratory effort wheezing: bilateral - Cardiovascular Cardiovascular exam: Present: RRR, no murmurs/rubs/gallops - Abdomen Abdomen: Present: bowel sounds present, tympanic, distended, tender Abdominal Tenderness: diffusely - Incision Incision: Present: intact, serosanguinous - Labs 04/17/17 03:30 04/17/17 03:30 Diabetes panel 04/17/17 Range/Units 03:30 Sodium 153 H (136-145) mEq/L Potassium 3.8 (3.5-4.5) mEq/L Chloride 122 H (98-109) mEq/L Carbon Dioxide 25 (19-29) mEq/L BUN 23 (8-26) mg/dL Creatinine 0.74 (0.72-1.25) mg/dL Glucose 150 H (70-99) mg/dL Calcium 9.5 (8.6-10.8) mg/dL Calcium panel 04/17/17 Range/Units 03:30 Calcium 9.5 (8.6-10.8) mg/dL Phosphorus 1.4 L D (2.3-4.7) mg/dL Pituitary panel 04/17/17 Range/Units 03:30 Sodium 153 H (136-145) mEq/L Potassium 3.8 (3.5-4.5) mEq/L Chloride 122 H (98-109) mEq/L Carbon Dioxide 25 (19-29) mEq/L BUN 23 (8-26) mg/dL Creatinine 0.74 (0.72-1.25) mg/dL Glucose 150 H (70-99) mg/dL Calcium 9.5 (8.6-10.8) mg/dL Adrenal panel 04/17/17 Range/Units 03:30 Sodium 153 H (136-145) mEq/L Potassium 3.8 (3.5-4.5) mEq/L Chloride 122 H (98-109) mEq/L Carbon Dioxide 25 (19-29) mEq/L BUN 23 (8-26) mg/dL Creatinine 0.74 (0.72-1.25) mg/dL Glucose 150 H (70-99) mg/dL Calcium 9.5 (8.6-10.8) mg/dL - VTE Documentation of Mechanical Device: Intermittent pneumatic compression device Consult Discharge Plan - Plan Instructions: Adult Laparoscopic Clayton Fundoplication (DC) Additional Instructions: General Instructions After Clayton Surgery 1. No pushing, pulling, or lifting greater than 15 lbs for FOUR weeks. 2. You may shower beginning today, but no tub baths, soaking, or swimming for 2 weeks. 3. You may resume driving when you are off narcotics and are safe to react in a car. 4. Take ibuprofen every 8 hours if needed for discomfort. If this does not relieve the discomfort, you may take oxycodone for breakthrough pain. Take narcotics as directed. Do not take more narcotics then directed and do not share your narcotics with any other person. Do not drink alcohol while on narcotics. 5. Take stool softeners (Colace) or a water based laxative (Miramax) while taking narcotics. You may hold for loose stools. 6. Report any fevers greater than 100.5F, increase abdominal discomfort, drainage that looks like pus, increased redness or pain at the surgical site, or any vomiting. 7. Report any pain in the calves, shortness of breath, or rapid heartbeat. 8. Continue to take your heartburn medications until directed to stop. Do not stop them abruptly as this can cause symptoms of reflux. 9. Do not drink alcohol or carbonated beverages. 10. Do not deviate from the recommended Clayton diet below. Doing so can affect your outcomes. [place] [facility] Diet After Clayton Fundoplication Surgery This diet information is for patients who have recently had Clayton Fundoplication Surgery to correct reflux disease or to repair various types of hernias, such as hiatal hernia and intrathoracic stomach. This diet may also be used for other gastrointestinal surgeries, such as Heller myotomy and repair of achalasia. The diet will help control diarrhea, excess gas and swallowing problems, which may occur after this type of surgery. Important Steps to Keep Your Stomach From Stretching Eat small, frequent meals (six to eight per day). This will help you consume the majority of the nutrients you need without causing your stomach to feel full or distended. Drinking large amounts of fluids with meals can stretch your stomach. You may drink fluids between meals as often as you like, but limit fluids to 1/2 cup (4 fluid ounces) with meals and one cup (8 fluid ounces) with snacks. Sit upright while eating, and stay upright for 30 minutes after each meal. [place] can help food move through your digestive tract. Do not lie down after eating. Sit upright for 2 hours after your last meal or snack of the day. Eat very slowly. Take your time when eating. Take small bites and chew your food well to solar installation helper in swallowing and digestion. Avoid crusty breads and sticky, gummy foods, such as bananas, fresh doughy breads, rolls and doughnuts. These types of foods become sticky and difficult to swallow. Toasted breads tend to be better tolerated. Lastly, if you eat sweets, consume them at the end of your meal to avoid a group of symptoms referred to as dumping syndrome. This describes the rapid emptying of foods from the stomach to the small intestine. Sweetened beverages, candy and desserts move more rapidly and dump quickly into the intestines. This can cause symptoms of nausea, weakness, cold sweats, cramps, diarrhea and dizzy spells. Important Steps to Avoid Gas Do not drink through a straw, chew gum, or chew tobacco. These actions cause you to swallow air, which will produce excess gas in your stomach. Chew with your mouth closed and chew your food thoroughly. Avoid foods that cause stomach gas and distention. The foods include corn, dried beans, peas, lentils, onions, broccoli, cauliflower, and any food item from the cabbage family. Do not drink carbonated drinks, alcohol, citrus, or tomato products. What Will I Be Able To Eat and Drink After Surgery After Clayton Fundoplication Surgery, your diet will be advanced slowly by your surgeon. Generally, you will be on a thin/clear liquid diet for the first 10 days. Then you will advance to the full liquid diet for 4 days and eventually to a [place] soft diet for 7 days. After any surgery, protein consumption is important for healing. To get enough protein, drink 3-4 [place] Instant Breakfast, Ensure, or equivalent daily. Reminder: Carbonated beverages (such as sodas, energy drinks, flavored carbonated water), and alcohol are not permitted for the 1st 6 to 8 weeks after surgery. After this time you may attempt to reintroduce them in small amounts. Please note: Dairy products such as milk, ice cream, and pudding may cause diarrhea in some people after surgery. You may need to avoid milk products. If so you may substitute them with lactose free beverages, such as soy, rice, lactate, or almond milk. Please be aware that each patient's tolerance to food is different. Your doctor will advance your diet depending on how well you progress after surgery. Thin Liquid Diet The first diet after Clayton Fundoplication Surgery is the thin liquids diet. Follow this diet for postoperative days 1-10 04/09/2017- 04/08/2017. Thin liquids include: Apple, Cranberry, or Grape Juice (no citrus juice) Chicken Broth Beef Broth Flavored Gelatin (Jell-O) Decaffeinated Tea or Coffee Popsicles or Czech Ice Caffeinated Beverages Will Be Permitted Based upon Tolerance and at a later date Dairy if tolerated Thin Milkshakes (strawberry or vanilla flavored- No chocolate) Drink 3-4 [place] instant breakfast, Ensure, or equivalent daily. May be mixed with dairy for thin milkshakes Full Liquid Diet Follow this diet for postoperative days 11-14106/20/2016 - 04/22/2017. Full liquid diet includes anything in the thin liquid diet plus: Milk: Dairy, Soy, Rice, and [place] (No Chocolate) Cream of Wheat, Cream of Rice, Grits Strained Creamed Soups (No Tomato or Broccoli) Vanilla and [place] Flavored Ice Cream Sherbet Vanilla and Butterscotch Pudding (No Chocolate or Coconut) Continue 3-4 [place] Instant Breakfast, Ensure, or an Equivalent Daily. May be mixed with Dairy for Thin Milkshakes. Clayton Soft Diet Follow this diet for postoperative days 15-20 04/23/2017 - 04/28/2017. (If you are consuming enough protein, you may stop the protein supplements). Please note: You will need extra fluids throughout the day to meet your fluid needs. Referrals: Rodri Day MD [Primary Care Provider] - Kristel Crow CNP [Advanced Practice Nurse] - 04/22/17 8:20 am
[2017-04-17] MEDS ORDERED: Clinimix 5%-20% SOLUTION 2,000 ML with MVI, adult with vitamin K 10 ML, Potassium Pho... IVC SCH ×2 (11:39→17:00)
[2017-04-17] MEDS ORDERED: Ipratropium/Albuterol Neb 3 ML IH PRN (12:15)
[2017-04-17] MEDS ORDERED: Furosemide 20 MG/2 ML VIAL IVP ONE ×2 (15:59→22:00)
--- NOTE | 2017-04-17 16:39 | Anesthesia Evaluation Post Op ---
Date of Encounter: 04/17/17 Time of Encounter: 16:37 - Vital Signs Vital Signs: Vital Signs/O2 Sat/Glucose, Most Recent Temp Pulse Resp BP Pulse Ox 100.6 F H 103 16 183/97 95 04/17/17 04:26 04/17/17 14:00 04/17/17 15:41 04/17/17 14:00 04/17/17 15:41 Blood Glucose* 172 - Lungs Lungs: Wheezes - Airway Airway: Non-obstructed - Cardiovascular Regular Rate - Mental Status Mental Status: Confused - Nausea Vomiting Nausea Vomiting: Not Present - Hydration Hydration: NPO (receiving TPN), Fuentes catheter
--- NOTE | 2017-04-17 16:56 | Event Note ---
Date of Encounter: 04/17/17 Time of Encounter: 16:00 Resident physician called the patient's bedside at 1505 for patient with elevated heart rate and suspected atrial fibrillation with rapid ventricular response. EKG was reviewed by resident confirmed diagnosis of atrial fibrillation RVR. He received a bolus of Cardizem 10 mg and converted back to normal sinus rhythm with a rate in the 90s.
[2017-04-17] MEDS ORDERED: Clinimix E 5%-15% SOLUTION 2,000 ML with MVI, adult with vitamin K 10 ML IVC SCH ×2 (17:00)
[2017-04-17] MEDS: Clinimix 5%-20% SOLUTION 2,000 ML with MVI, adult with vitamin K 10 ML, Potassium Pho... IVC SCH (17:28)
[2017-04-17] MEDS: dilTIAZem HCl 100 MG in D5% in Water 50 ML IVC SCH (19:08)
[2017-04-17] MEDS: Latanoprost 2.5 ML BOTTLE BOTH EYES SCH (19:22)
[2017-04-18 02:42] LABS: Basophils % 0.2 %; Eosinophils % 0.3 %; Hematocrit 37.7 % (37.5-50.1); Hemoglobin 11.4 g/dL (12.9-16.9); Immature Granulocytes % 1.3 % (0-4); Lymphocytes # 0.6 K/mcL (0.6-4.6); Lymphocytes % 4.8 %; Mean Corpuscular HGB Conc 30.2 g/dL (31.6-35.5); Mean Corpuscular Hemoglobin 29.4 pg (28.0-33.3); Mean Corpuscular Volume 97.2 fL (83.0-100.0); Mean Platelet Volume 12.6 fL (9.4-12.4); Monocytes # 0.5 K/mcL (0.0-1.3); Monocytes % 4.1 %; Neutrophils # 11.6 K/mcL (1.6-8.9); Nucleated Red Blood Cells 0.2 /100 WBC (0); Platelet Count 112 K/mcL (140-400); Red Blood Count 3.88 M/mcL (4.19-5.50); Red Cell Distribution Width 14.7 % (11.5-14.5); Segmented Neutrophils % 89.3 %
[2017-04-18 02:52] LABS: BUN/Creatinine Ratio 25 (6-26); Blood Urea Nitrogen 18 mg/dL (8-26); Calcium 9.3 mg/dL (8.6-10.8); Carbon Dioxide 25 mEq/L (19-29); Chloride 118 mEq/L (98-109); Glucose 186 mg/dL (70-99); Magnesium 2.1 mg/dL (1.6-2.6); Osmolality,Calculated 317 (280-300); Phosphorous 1.5 mg/dL (2.3-4.7); Potassium 3.3 mEq/L (3.5-4.5); Sodium 150 mEq/L (136-145); eGFR For African Americans > 60 (> 60); eGFR For Non-African Americans > 60 (> 60)
[2017-04-18] MEDS: *HR* HYDROmorphone (PF) 1 MG/ML SYRINGE IVP PRN ×8 (02:58→22:28)
[2017-04-18] MEDS: Piperacillin/Tazobactam 3.375 GM/200 ML BAG IVPB SCH ×3 (02:59→20:01)
[2017-04-18] MEDS: Ipratropium/Albuterol Neb 3 ML IH SCH ×5 (04:02→20:29)
[2017-04-18 04:27] LABS: Platelet Estimate Decreased (Normal); Toxic Granulation Present (Not Present)
[2017-04-18] MEDS: Pantoprazole 40 MG VIAL IVP SCH (05:12)
[2017-04-18] MEDS: Insulin LISPRO 300 UNITS/3 ML VIAL SQ SCH ×4 (05:12→23:22)
[2017-04-18] MEDS: *HR* Heparin 5,000 UNIT/ML VIAL SQ SCH ×2 (05:12→17:33)
--- NOTE | 2017-04-18 08:30 | General Surgery Progress Note ---
Date of Encounter: 04/18/17 Time of Encounter: 08:27 - Assessment and Plan (1) Status post Clayton fundoplication Current Visit: Yes Status: Acute POD #10 following robotic medicine fundoplication POD #7 diagnostic laparotomy with gastroplexy (Clayton fundoplication noted to be intact at that time) POD #3 exploratory laparotomy with partial gastrectomy and gastroplexy NG tube with 75 ML in the last 24 hours, DON drain with 125 ML's in the last 24 hours, Fuentes with 1150 ML's output today. His WBC is downtrending 15.6>>13.0 and without bandemia. Noted toxic granulation present (currently on Zosyn), his creatinine is 0.73, BUN is 18, sodium 150, K 3.3 and diflucan Acute abdominal series on 04/17/2017 reveals hyper aeration with basilar atelectasis and not obstructed bowel gas pattern within the midline skin bin. Negative chest CTA 04/15, negative Adriane duplex 04/11 his vital signs include (heart rate 84 and regular rate and rhythm, BP 111/67) he has hypoxic requiring 10 L-low oxygen mask which has decreased to 4 L at this time. Acute confusion and restless. States, "I can't breathe." Given these findings, a Critical care consult placed. Spoke with Dr. Rea. CC will manage patient's fluid and pulmonary status at this time. Plan: Continue supportive care and discomfort management. Out of bed to chair at least 3 times daily with assistance and abdominal splinting. Critical care consult as detailed above (management of pulmonary status, a fib, and fluid status) Plans for upper G.I. on 04/19/2017 Continue supportive care and discomfort management Continue G.I. and DVT prophylaxis (2) Hiatal hernia Current Visit: Yes Status: Acute See above (3) Hypernatremia Current Visit: Yes Status: Acute Management per critical care (4) Orthopnea Current Visit: Yes Status: Resolved Report sitting in the chair overnight due to inability to recline. Left lower lobe with mild inspiratory crackles. Right lower extremity with minimal non- pitting edema. He denies chest pain both at rest or with activity. Plan: 1. 2 view CXR 2. Bilateral venous Doppler's rule out DVT 3. Stop IV fluids; 40 mg IV Lasix times one dose now. (5) New onset atrial fibrillation Current Visit: Yes Status: Acute Management for critical care (6) Shortness of breath Current Visit: Yes Status: Acute Consulted Pulmonary/CC. noted recommendations for intermittent BiPAP, aggressive diuresis (Lasix 40 mg BID) free water per PIV, aggressive pulmonary toileting, out of bed to chair at least TID. Noted patient has conned out of bed this afternoon per RN and PCT. Subjective Narrative: Received page from Alea bedside RN that patient was restless, stating SOB, confused, and edematous. at bedside. Is tearful. States, "He says he can't breath, he is restless, I just don't know what to do. Are you sure you can take care of him here or should we go to [place]." Objective Vital Signs - Last 8 Hours Temp Pulse Resp BP Pulse Ox 04/18/17 07:31 84 04/18/17 07:17 98.7 F 04/18/17 07:00 86 24 111/67 92 04/18/17 05:45 71 22 118/68 96 04/18/17 05:00 70 26 115/68 96 04/18/17 04:02 18 134/97 98 04/18/17 04:00 98.3 F 73 33 135/84 95 04/18/17 02:57 73 28 140/70 95 04/18/17 02:51 69 04/18/17 02:00 71 29 128/74 95 04/18/17 01:00 70 25 127/68 95 Intake and Output 04/17/17 04/18/17 04/18/17 23:59 07:59 15:59 Intake Total 200 / 200 0 / 0 Output Total 1320 / 1320 1250 / 1250 Balance -1120 / -1120 -1250 / -1250 Intake: IV Fluids 200 / 200 Zosyn Premix 3.375 GM/200 ML 3. 200 / 200 375 gm In 200 ml @ 50 mls/hr IVPB Q8H [facility] Rx#:[id number] Oral 0 / 0 0 / 0 Output: Catheter 1300 / 1300 1150 / 1150 Gastric Drainage 0 / 0 75 / 75 Right Nare 0 / 0 0 / 0 Wound Drainage 20 / 20 25 / 25 Right Lower Abdomen 20 / 20 25 / 25 Other: Weight 99.7 kg Blood Glucose* 164 172 Patient Weight 12/18/17 23:59 Weight 99.7 kg - General physical appearance moderate distress, other (Restless) - Eyes other (does not follow commands for assessment) - ENT normal nares, atraumatic, normocephalic - Neck Neck exam: trachea midline, other (+ JVD) - Respiratory other (Decreased, of course, inspiratory wheezing bilateral) - Cardiovascular Cardiovascular exam: Present: RRR, murmurs - Abdomen Abdomen: Present: soft, distended (3rd spacing edema noted), tender, wound (DON drain is without drainage.). Absent: bowel sounds present (Absent) Hernia: none - Incision Incision: Present: draining, open (Open areas with packing in place. The remaining areas are clean and dry. No surrounding erythema noted.) - Integumentary no abnormal pigmentation - Neurologic confused, disoriented - Musculoskeletal other (Confused; reclined in bed) - Psychiatric other (Acutely confused) - Labs 04/18/17 02:35 04/18/17 02:35 Diabetes panel 04/18/17 Range/Units 02:35 Sodium 150 H (136-145) mEq/L Potassium 3.3 L (3.5-4.5) mEq/L Chloride 118 H (98-109) mEq/L Carbon Dioxide 25 (19-29) mEq/L BUN 18 (8-26) mg/dL Creatinine 0.73 (0.72-1.25) mg/dL Glucose 186 H (70-99) mg/dL Calcium 9.3 (8.6-10.8) mg/dL Calcium panel 04/18/17 Range/Units 02:35 Calcium 9.3 (8.6-10.8) mg/dL Phosphorus 1.5 L (2.3-4.7) mg/dL Pituitary panel 04/18/17 Range/Units 02:35 Sodium 150 H (136-145) mEq/L Potassium 3.3 L (3.5-4.5) mEq/L Chloride 118 H (98-109) mEq/L Carbon Dioxide 25 (19-29) mEq/L BUN 18 (8-26) mg/dL Creatinine 0.73 (0.72-1.25) mg/dL Glucose 186 H (70-99) mg/dL Calcium 9.3 (8.6-10.8) mg/dL Adrenal panel 04/18/17 Range/Units 02:35 Sodium 150 H (136-145) mEq/L Potassium 3.3 L (3.5-4.5) mEq/L Chloride 118 H (98-109) mEq/L Carbon Dioxide 25 (19-29) mEq/L BUN 18 (8-26) mg/dL Creatinine 0.73 (0.72-1.25) mg/dL Glucose 186 H (70-99) mg/dL Calcium 9.3 (8.6-10.8) mg/dL - VTE Documentation of Mechanical Device: Intermittent pneumatic compression device Consult Discharge Plan - Plan Instructions: Adult Laparoscopic Clayton Fundoplication (DC) Additional Instructions: General Instructions After Clayton Surgery 1. No pushing, pulling, or lifting greater than 15 lbs for FOUR weeks. 2. You may shower beginning today, but no tub baths, soaking, or swimming for 2 weeks. 3. You may resume driving when you are off narcotics and are safe to react in a car. 4. Take ibuprofen every 8 hours if needed for discomfort. If this does not relieve the discomfort, you may take oxycodone for breakthrough pain. Take narcotics as directed. Do not take more narcotics then directed and do not share your narcotics with any other person. Do not drink alcohol while on narcotics. 5. Take stool softeners (Colace) or a water based laxative (Miramax) while taking narcotics. You may hold for loose stools. 6. Report any fevers greater than 100.5F, increase abdominal discomfort, drainage that looks like pus, increased redness or pain at the surgical site, or any vomiting. 7. Report any pain in the calves, shortness of breath, or rapid heartbeat. 8. Continue to take your heartburn medications until directed to stop. Do not stop them abruptly as this can cause symptoms of reflux. 9. Do not drink alcohol or carbonated beverages. 10. Do not deviate from the recommended Clayton diet below. Doing so can affect your outcomes. [place] [facility] Diet After Clayton Fundoplication Surgery This diet information is for patients who have recently had Clayton Fundoplication Surgery to correct reflux disease or to repair various types of hernias, such as hiatal hernia and intrathoracic stomach. This diet may also be used for other gastrointestinal surgeries, such as Heller myotomy and repair of achalasia. The diet will help control diarrhea, excess gas and swallowing problems, which may occur after this type of surgery. Important Steps to Keep Your Stomach From Stretching Eat small, frequent meals (six to eight per day). This will help you consume the majority of the nutrients you need without causing your stomach to feel full or distended. Drinking large amounts of fluids with meals can stretch your stomach. You may drink fluids between meals as often as you like, but limit fluids to 1/2 cup (4 fluid ounces) with meals and one cup (8 fluid ounces) with snacks. Sit upright while eating, and stay upright for 30 minutes after each meal. [place] can help food move through your digestive tract. Do not lie down after eating. Sit upright for 2 hours after your last meal or snack of the day. Eat very slowly. Take your time when eating. Take small bites and chew your food well to front office help in swallowing and digestion. Avoid crusty breads and sticky, gummy foods, such as bananas, fresh doughy breads, rolls and doughnuts. These types of foods become sticky and difficult to swallow. Toasted breads tend to be better tolerated. Lastly, if you eat sweets, consume them at the end of your meal to avoid a group of symptoms referred to as dumping syndrome. This describes the rapid emptying of foods from the stomach to the small intestine. Sweetened beverages, candy and desserts move more rapidly and dump quickly into the intestines. This can cause symptoms of nausea, weakness, cold sweats, cramps, diarrhea and dizzy spells. Important Steps to Avoid Gas Do not drink through a straw, chew gum, or chew tobacco. These actions cause you to swallow air, which will produce excess gas in your stomach. Chew with your mouth closed and chew your food thoroughly. Avoid foods that cause stomach gas and distention. The foods include corn, dried beans, peas, lentils, onions, broccoli, cauliflower, and any food item from the cabbage family. Do not drink carbonated drinks, alcohol, citrus, or tomato products. What Will I Be Able To Eat and Drink After Surgery After Clayton Fundoplication Surgery, your diet will be advanced slowly by your surgeon. Generally, you will be on a thin/clear liquid diet for the first 10 days. Then you will advance to the full liquid diet for 4 days and eventually to a [place] soft diet for 7 days. After any surgery, protein consumption is important for healing. To get enough protein, drink 3-4 [place] Instant Breakfast, Ensure, or equivalent daily. Reminder: Carbonated beverages (such as sodas, energy drinks, flavored carbonated water), and alcohol are not permitted for the 1st 6 to 8 weeks after surgery. After this time you may attempt to reintroduce them in small amounts. Please note: Dairy products such as milk, ice cream, and pudding may cause diarrhea in some people after surgery. You may need to avoid milk products. If so you may substitute them with lactose free beverages, such as soy, rice, lactate, or almond milk. Please be aware that each patient's tolerance to food is different. Your doctor will advance your diet depending on how well you progress after surgery. Thin Liquid Diet The first diet after Clayton Fundoplication Surgery is the thin liquids diet. Follow this diet for postoperative days 1-10 04/09/2017- 04/08/2017. Thin liquids include: Apple, Cranberry, or Grape Juice (no citrus juice) Chicken Broth Beef Broth Flavored Gelatin (Jell-O) Decaffeinated Tea or Coffee Popsicles or [place] Ice Caffeinated Beverages Will Be Permitted Based upon Tolerance and at a later date Dairy if tolerated Thin Milkshakes (strawberry or vanilla flavored- No chocolate) Drink 3-4 [place] instant breakfast, Ensure, or equivalent daily. May be mixed with dairy for thin milkshakes Full Liquid Diet Follow this diet for postoperative days - - 04/22/2017. Full liquid diet includes anything in the thin liquid diet plus: Milk: Dairy, Soy, Rice, and [place] (No Chocolate) Cream of Wheat, Cream of Rice, Grits Strained Creamed Soups (No Tomato or Broccoli) Vanilla and [place] Flavored Ice Cream Sherbet Vanilla and Butterscotch Pudding (No Chocolate or Coconut) Continue 3-4 [place] Instant Breakfast, Ensure, or an Equivalent Daily. May be mixed with Dairy for Thin Milkshakes. [place] Soft Diet Follow this diet for postoperative days 15-20 04/23/2017 - 04/28/2017. (If you are consuming enough protein, you may stop the protein supplements). Please note: You will need extra fluids throughout the day to meet your fluid needs. Referrals: Rodri Day MD [Primary Care Provider] - Kristel Crow CNP [Advanced Practice Nurse] - 04/22/17 8:20 am
[2017-04-18] MEDS ORDERED: Potassium Chloride 40 MEQ, Lidocaine 1% 2 ML in D5% in Water 500 ML IVPB ONE (08:39)
[2017-04-18 08:48] LABS: ABG Base Excess 4 mEq/L (-2 to 3); ABG HCO3 31 mEq/L (21-27); ABG Oxygen Saturation 94 % (95-98); ABG PCO2 58 mmHg (35-45); ABG PH 7.34 pH Units (7.32-7.45); ABG PO2 77 mmHg (85-104); ABG TCO2 33 mEq/L (20-26)
[2017-04-18 09:15] LABS: Albumin/Globulin Ratio 0.4 (1.1-2.2); Globulin 3.7 g/dL (2.4-3.5); Total Protein 5.3 g/dL (6.0-8.3)
[2017-04-18 09:17] LABS: Albumin 1.6 g/dL (3.5-5.0)
--- NOTE | 2017-04-18 09:41 | Pulmonology Consult Note ---
<Brad Ruiz - Last Filed: 04/18/17 13:40> Date of Encounter: 04/18/17 Time of Encounter: 09:37 Assessment and Plan (1) Hypernatremia Current Visit: Yes Status: Acute Na of 150 this morning, decreased from 153 yesterday Possible etiologies are volume depletion vs third spacing Free water deficit of 0.8 L Plan: D5 Free water at 50 mL/hr with goal of 145 Na. Monitor with AM labs. (2) Acute respiratory failure Current Visit: Yes Status: Acute Pt currently tolerating 4L via oxymask No reported home O2 usage. Likely secondary to fluid overload with continuous fluid replacement since his surgery ABG shows respiratory acidosis with partial metabolic compensation CXR on 04/17/17 showing hyperaeration with bilateral atelectasis Received 20 lasix last evening -1250 mL since yesterday Plan Lasix 40 IV BID, strict I/Os Monitor fluid status Intermittent BiPAP at 10/15 for encouraging fluid back into vasculature. Encourage seated position Qualifiers: Respiratory failure complication: hypercapnia Qualified Code(s): J96.02 - Acute respiratory failure with hypercapnia (3) Status post Clayton fundoplication Current Visit: Yes Status: Acute Postoperative day #10 following Clayton fundoplication Postoperative day #7 for gastroplexy Postoperative day #3 for exploratory lap with partial gastrectomy and gastroplexy Plan: Further management per general surgery (4) Hypokalemia Current Visit: Yes Status: Acute K of 3.3 Likely related to decreased oral intake Mg of 2.1 Plan 40 mEq replacement this AM Will continue to monitor with AM labs Electrolyte protocol added (5) Moderate protein-calorie malnutrition Current Visit: Yes Status: Acute Pt remains NPO per surgical team Albumin 1.6, total serum protein 5.3 this AM ext js developer following TPN at 65/ hr (6) New onset atrial fibrillation Current Visit: Yes Status: Acute Pt went into AFIb RVR yesterday afternoon then reverted back to NSR with 1 dose of 10mg Cardizem Currently remains in NSR Likely secondary to pulmonary disease as above. (7) Peritonitis Current Visit: Yes Status: Acute In the setting of multiple recent abdominal surgeries. WBC of 13.0, downtrending from 15.6 Plan Continue zosyn, fluconazole management per surgical team (8) DVT prophylaxis Current Visit: Yes Status: Acute - Heparin 5000 units q12 hours History of Present Illness Consult date: 04/18/17 Requesting physician: Angel Hein Reason for consult: hypoxemia, other (hypernatremia, confusion) Chief complaint: Post operative following clayton fundoplication and gastroplexy History of present illness: Mr. Pool is a 76-year-old man who is postoperative day #10 following Clayton fundoplication which is complicated by gastropexy 2 most recently on 04/16/17. Neurology critical care was consulted due to increased confusion, shortness of breath, hypernatremia following his surgeries. Patient as well as is present at bedside reports that at baseline patient is alert and oriented 3. Patient is well-known to this interviewer who is following him on the surgical service for the past week. Patient has been certainly is having increased right -sided pain. Patient's states that he has been calling out saying that the staff and his family are "doing things to him". During time of interview, patient is alert and appears more calm. Past Med Surg Social Fam HX - Past Medical History Medical history: glaucoma, hyperlipidemia, kidney stones Psychiatric history: no psych history - Past Surgical History Surgical History: prostatectomy - Social History Smoking Status: Never smoker Smokeless Tobacco Status: No Alcohol use: occasionally Drug use: none Medications and Allergies Travoprost [Travatan Z] 1 drop OP HS 12/31/14 [History] Ezetimibe [Zetia] 10 mg PO DAILY 03/01/17 [History] Fluticasone Propionate Nasal [Flonase] 50 mcg NS DAILY PRN 03/01/17 [History] Timolol Maleate 0.5% 1 drop RIGHT EYE BID 03/01/17 [History] Docusate [Colace] 100 mg PO BID PRN #30 capsule 04/08/17 [Rx] Lactose-Reduced Food [Ensure Enlive] 237 ml PO TID #90 liquid 04/08/17 [Rx] Ondansetron ODT [Zofran ODT] 4 mg SL Q4HR #15 tab.rapdis 04/08/17 [Rx] OxyCODONE/APAP 5/325 [Percocet 5/325 MG] 1 each PO Q6HR PRN #28 tablet 04/08/17 [Rx] 3 Allergy/AdvReac Type Severity Reaction Status Date / Time Pneumococcal Vaccine Allergy Redness of Verified 04/08/17 10:51 [From Pneumovax 23] Skin All Systems: A 10-system review of systems was performed and is negative for pertinent findings except as documented above in the HPI. - Constitutional Constitutional: lethargy, no anorexia, no chills, no fever(s), no weakness - Cardiovascular Cardiovascular: dyspnea, no chest pain, no dyspnea on exertion, no edema - Respiratory Respiratory: dyspnea, no cough, no dyspnea on exertion - Gastrointestinal Gastrointestinal: abdominal pain, no diarrhea Physical Examination Vital Signs: Vital Signs, Last 4 Hours Temp Pulse Resp BP Pulse Ox 04/18/17 07:31 84 04/18/17 07:17 98.7 F 04/18/17 07:00 86 24 111/67 92 04/18/17 05:45 71 22 118/68 96 General appearance: no acute distress, lethargic, agitated Gastrointestinal: absent bowel sounds, soft, tender Integumentary: normal normal mental status Results - Laboratory Findings CBC and BMP: 04/18/17 02:35 04/18/17 02:35 ABG ABG pH 7.34 pH Units (7.32-7.45) 04/18/17 08:42 ABG pCO2 58 mmHg (35-45) H 04/18/17 08:42 ABG pO2 77 mmHg (85-104) L 04/18/17 08:42 ABG O2 Saturation 94 % (95-98) L 04/18/17 08:42 PT/INR, D-dimer PT 13.8 Seconds (9.4-12.1) H 04/12/17 05:49 Abnormal lab findings: Abnormal lab results WBC 13.0 K/mcL (4.3-11.1) H 04/18/17 02:35 RBC 3.88 M/mcL (4.19-5.50) L 04/18/17 02:35 Hgb 11.4 g/dL (12.9-16.9) L 04/18/17 02:35 MCHC 30.2 g/dL (31.6-35.5) L 04/18/17 02:35 RDW 14.7 % (11.5-14.5) H 04/18/17 02:35 Plt Count 112 K/mcL (140-400) L 04/18/17 02:35 MPV 12.6 fL (9.4-12.4) H 04/18/17 02:35 Band Neutrophils % 8.0 % (0-4) H 04/16/17 05:00 Neutrophils # 11.6 K/mcL (1.6-8.9) H 04/18/17 02:35 Nucleated RBCs/100 WBC 0.2 /100 WBC (0) H 04/18/17 02:35 Reactive Lymphocytes Present (Not Present) A 04/16/17 05:00 Toxic Granulation Present (Not Present) A 04/18/17 02:35 Platelet Estimate Decreased (Normal) L 04/18/17 02:35 Anisocytosis 1+ (Not Present) A 04/16/17 05:00 PT 13.8 Seconds (9.4-12.1) H 04/12/17 05:49 ABG pCO2 58 mmHg (35-45) H 04/18/17 08:42 ABG pO2 77 mmHg (85-104) L 04/18/17 08:42 ABG HCO3 31 mEq/L (21-27) H 04/18/17 08:42 ABG Total CO2 33 mEq/L (20-26) H 04/18/17 08:42 ABG O2 Saturation 94 % (95-98) L 04/18/17 08:42 ABG Base Excess 4 mEq/L (-2 to 3) H 04/18/17 08:42 Sodium 150 mEq/L (136-145) H 04/18/17 02:35 Potassium 3.3 mEq/L (3.5-4.5) L 04/18/17 02:35 Chloride 118 mEq/L (98-109) H 04/18/17 02:35 Glucose 186 mg/dL (70-99) H 04/18/17 02:35 POC Glucose 172 (58-89) H 04/18/17 05:11 Calculated Osmolality 317 (280-300) H 04/18/17 02:35 Phosphorus 1.5 mg/dL (2.3-4.7) L 04/18/17 02:35 Serum Total Protein 5.3 g/dL (6.0-8.3) L 04/18/17 08:55 Albumin 1.6 g/dL (3.5-5.0) L 04/18/17 08:55 Globulin 3.7 g/dL (2.4-3.5) H 04/18/17 08:55 Albumin/Globulin Ratio 0.4 (1.1-2.2) L 04/18/17 08:55 Prealbumin 6.0 mg/dL (18.0-45.0) L 04/15/17 04:15 - Clinical Findings Intake & Output: Intake & Output 04/17/17 04/18/17 04/18/17 23:59 07:59 15:59 Intake Total 200 / 200 0 / 0 Output Total 1320 / 1320 1250 / 1250 Balance -1120 / -1120 -1250 / -1250 Weight 99.7 kg Consult Discharge Plan - Plan Instructions: Adult Laparoscopic Clayton Fundoplication (DC) Additional Instructions: General Instructions After Clayton Surgery 1. No pushing, pulling, or lifting greater than 15 lbs for FOUR weeks. 2. You may shower beginning today, but no tub baths, soaking, or swimming for 2 weeks. 3. You may resume driving when you are off narcotics and are safe to react in a car. 4. Take ibuprofen every 8 hours if needed for discomfort. If this does not relieve the discomfort, you may take oxycodone for breakthrough pain. Take narcotics as directed. Do not take more narcotics then directed and do not share your narcotics with any other person. Do not drink alcohol while on narcotics. 5. Take stool softeners (Colace) or a water based laxative (Miramax) while taking narcotics. You may hold for loose stools. 6. Report any fevers greater than 100.5F, increase abdominal discomfort, drainage that looks like pus, increased redness or pain at the surgical site, or any vomiting. 7. Report any pain in the calves, shortness of breath, or rapid heartbeat. 8. Continue to take your heartburn medications until directed to stop. Do not stop them abruptly as this can cause symptoms of reflux. 9. Do not drink alcohol or carbonated beverages. 10. Do not deviate from the recommended Clayton diet below. Doing so can affect your outcomes. [facility] Diet After Clayton Fundoplication Surgery This diet information is for patients who have recently had Clayton Fundoplication Surgery to correct reflux disease or to repair various types of hernias, such as hiatal hernia and intrathoracic stomach. This diet may also be used for other gastrointestinal surgeries, such as Heller myotomy and repair of achalasia. The diet will help control diarrhea, excess gas and swallowing problems, which may occur after this type of surgery. Important Steps to Keep Your Stomach From Stretching Eat small, frequent meals (six to eight per day). This will help you consume the majority of the nutrients you need without causing your stomach to feel full or distended. Drinking large amounts of fluids with meals can stretch your stomach. You may drink fluids between meals as often as you like, but limit fluids to 1/2 cup (4 fluid ounces) with meals and one cup (8 fluid ounces) with snacks. Sit upright while eating, and stay upright for 30 minutes after each meal. [place] can help food move through your digestive tract. Do not lie down after eating. Sit upright for 2 hours after your last meal or snack of the day. Eat very slowly. Take your time when eating. 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 Avoid crusty breads and sticky, gummy foods, such as bananas, fresh doughy breads, rolls and doughnuts. These types of foods become sticky and difficult to swallow. Toasted breads tend to be better tolerated. Lastly, if you eat sweets, consume them at the end of your meal to avoid a group of symptoms referred to as dumping syndrome. This describes the rapid emptying of foods from the stomach to the small intestine. Sweetened beverages, candy and desserts move more rapidly and dump quickly into the intestines. This can cause symptoms of nausea, weakness, cold sweats, cramps, diarrhea and dizzy spells. Important Steps to Avoid Gas Do not drink through a straw, chew gum, or chew tobacco. These actions cause you to swallow air, which will produce excess gas in your stomach. Chew with your mouth closed and chew your food thoroughly. Avoid foods that cause stomach gas and distention. The foods include corn, dried beans, peas, lentils, onions, broccoli, cauliflower, and any food item from the cabbage family. Do not drink carbonated drinks, alcohol, citrus, or tomato products. What Will I Be Able To Eat and Drink After Surgery After Clayton Fundoplication Surgery, your diet will be advanced slowly by your surgeon. Generally, you will be on a thin/clear liquid diet for the first 10 days. Then you will advance to the full liquid diet for 4 days and eventually to a Clayton soft diet for 7 days. After any surgery, protein consumption is important for healing. To get enough protein, drink 3-4 [place] Instant Breakfast, Ensure, or equivalent daily. Reminder: Carbonated beverages (such as sodas, energy drinks, flavored carbonated water), and alcohol are not permitted for the 1st 6 to 8 weeks after surgery. After this time you may attempt to reintroduce them in small amounts. Please note: Dairy products such as milk, ice cream, and pudding may cause diarrhea in some people after surgery. You may need to avoid milk products. If so you may substitute them with lactose free beverages, such as soy, rice, lactate, or almond milk. Please be aware that each patient's tolerance to food is different. Your doctor will advance your diet depending on how well you progress after surgery. Thin Liquid Diet The first diet after Clayton Fundoplication Surgery is the thin liquids diet. Follow this diet for postoperative days 1-10 04/09/2017- 04/08/2017. Thin liquids include: Apple, Cranberry, or Grape Juice (no citrus juice) Chicken Broth Beef Broth Flavored Gelatin (Jell-O) Decaffeinated Tea or Coffee Popsicles or Hungarian Ice Caffeinated Beverages Will Be Permitted Based upon Tolerance and at a later date Dairy if tolerated Thin Milkshakes (strawberry or vanilla flavored- No chocolate) Drink 3-4 [place] instant breakfast, Ensure, or equivalent daily. May be mixed with dairy for thin milkshakes Full Liquid Diet Follow this diet for postoperative days 11-14106/20/2016 - 04/22/2017. Full liquid diet includes anything in the thin liquid diet plus: Milk: Dairy, Soy, Rice, and [place] (No Chocolate) Cream of Wheat, Cream of Rice, Grits Strained Creamed Soups (No Tomato or Broccoli) Vanilla and [place] Flavored Ice Cream Sherbet Vanilla and Butterscotch Pudding (No Chocolate or Coconut) Continue 3-4 [place] Instant Breakfast, Ensure, or an Equivalent Daily. May be mixed with Dairy for Thin Milkshakes. Clayton Soft Diet Follow this diet for postoperative days 15-20 04/23/2017 - 04/28/2017. (If you are consuming enough protein, you may stop the protein supplements). Please note: You will need extra fluids throughout the day to meet your fluid needs. Referrals: Rodri Day MD [Primary Care Provider] - Kristel Crow CNP [Advanced Practice Nurse] - 04/22/17 8:20 am <Parul Rea - Last Filed: 04/18/17 21:38> Date of Encounter: 04/18/17 All Systems: A 10-system review of systems was performed and is negative for pertinent findings except as documented above in the HPI. Physical Examination Vital Signs: Vital Signs, Last 4 Hours Temp Pulse Resp BP Pulse Ox 04/18/17 18:00 72 16 150/82 95 04/18/17 16:00 97.5 F L 72 13 135/83 95 04/18/17 15:26 18 97 Results - Laboratory Findings CBC and BMP: 04/18/17 02:35 04/18/17 20:55 ABG ABG pH 7.34 pH Units (7.32-7.45) 04/18/17 08:42 ABG pCO2 58 mmHg (35-45) H 04/18/17 08:42 ABG pO2 77 mmHg (85-104) L 04/18/17 08:42 ABG O2 Saturation 94 % (95-98) L 04/18/17 08:42 PT/INR, D-dimer PT 13.8 Seconds (9.4-12.1) H 04/12/17 05:49 Abnormal lab findings: Abnormal lab results WBC 13.0 K/mcL (4.3-11.1) H 04/18/17 02:35 RBC 3.88 M/mcL (4.19-5.50) L 04/18/17 02:35 Hgb 11.4 g/dL (12.9-16.9) L 04/18/17 02:35 MCHC 30.2 g/dL (31.6-35.5) L 04/18/17 02:35 RDW 14.7 % (11.5-14.5) H 04/18/17 02:35 Plt Count 112 K/mcL (140-400) L 04/18/17 02:35 MPV 12.6 fL (9.4-12.4) H 04/18/17 02:35 Band Neutrophils % 8.0 % (0-4) H 04/16/17 05:00 Neutrophils # 11.6 K/mcL (1.6-8.9) H 04/18/17 02:35 Nucleated RBCs/100 WBC 0.2 /100 WBC (0) H 04/18/17 02:35 Reactive Lymphocytes Present (Not Present) A 04/16/17 05:00 Toxic Granulation Present (Not Present) A 04/18/17 02:35 Platelet Estimate Decreased (Normal) L 04/18/17 02:35 Anisocytosis 1+ (Not Present) A 04/16/17 05:00 PT 13.8 Seconds (9.4-12.1) H 04/12/17 05:49 ABG pCO2 58 mmHg (35-45) H 04/18/17 08:42 ABG pO2 77 mmHg (85-104) L 04/18/17 08:42 ABG HCO3 31 mEq/L (21-27) H 04/18/17 08:42 ABG Total CO2 33 mEq/L (20-26) H 04/18/17 08:42 ABG O2 Saturation 94 % (95-98) L 04/18/17 08:42 ABG Base Excess 4 mEq/L (-2 to 3) H 04/18/17 08:42 Sodium 150 mEq/L (136-145) H 04/18/17 02:35 Potassium 3.3 mEq/L (3.5-4.5) L 04/18/17 02:35 Chloride 118 mEq/L (98-109) H 04/18/17 02:35 Glucose 186 mg/dL (70-99) H 04/18/17 02:35 POC Glucose 147 (58-89) H 04/18/17 17:24 Calculated Osmolality 317 (280-300) H 04/18/17 02:35 Phosphorus 1.5 mg/dL (2.3-4.7) L 04/18/17 02:35 Serum Total Protein 5.3 g/dL (6.0-8.3) L 04/18/17 08:55 Albumin 1.6 g/dL (3.5-5.0) L 04/18/17 08:55 Globulin 3.7 g/dL (2.4-3.5) H 04/18/17 08:55 Albumin/Globulin Ratio 0.4 (1.1-2.2) L 04/18/17 08:55 Prealbumin 6.0 mg/dL (18.0-45.0) L 04/15/17 04:15 Urine Glucose (UA) 100 mg/dL (Normal) H 04/18/17 13:49 Urine Blood Moderate (Negative) H 04/18/17 13:49 Urine Microscopic RBC 15-30 per hpf (0-3) H 04/18/17 13:49 Ur Squamous Epith Cells Moderate per lpf (None-Few) H 04/18/17 13:49 - Clinical Findings Intake & Output: Intake & Output 04/18/17 04/18/17 04/18/17 07:59 15:59 23:59 Intake Total 450 / 450 522 / 522 Output Total 1250 / 1250 2650 / 2650 0 / 0 Balance -800 / -800 -2128 / -2128 0 / 0 Weight 99.7 kg - Attending Attestation I saw the patient with the resident agree with History and Physical exam findings. 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 SOLE SCOURER: Patient is conscious oriented x3 following commands on my exam NECK : No JVD appreciated Pulmonary : Patient has hypoxic respiratory failure the V/Q mismatch is most likely due to postoperative bibasilar atelectasis , encourage him to sit and do incentive spirometry , to continue the antibiotics Cardiac : Hemodynamically stable , to continue diuresis Nutrition/GI: To encourage PO PPI prophylaxis Renal : Labs reviewed , hypernatremia will correct the free water deficit Heme onc : No acute issues ID : Peritonitis antibiotics according to surgery Musculo skeletal / skin issues : No acute issues Disposition : to remain the ICU disposition according to surgery Code status: Full Code Family/POA:
[2017-04-18] MEDS: Fluconazole 200 MG/100 ML 100 MG/50 ML BAG IVPB SCH (10:32)
[2017-04-18] MEDS: Furosemide 40 MG/4 ML VIAL IVP SCH ×2 (10:33→17:33)
[2017-04-18] MEDS: EZETIMIBE 10 MG PO SCH (10:33)
[2017-04-18] MEDS: D5% in Water 1,000 ML IVC SCH (10:51)
[2017-04-18 14:34] LABS: Bilirubin,Urine Negative (Negative); Blood,Urine Moderate (Negative); Clarity,Urine Clear (Clear); Color,Urine Yellow (Yellow); Glucose,Urine (UA) 100 mg/dL (Normal); Ketones,Urine Negative (Negative); Leukocyte Esterase,Urine Negative (Negative); Nitrite,Urine Negative (Negative); Protein,Urine Negative (Neg-Trace); Specific Gravity,Urine 1.016 (1.010-1.025); Urobilinogen,Urine Normal (Normal)
[2017-04-18 14:37] LABS: Bacteria,Urine None Seen per hpf (None-Few); Hyaline Casts,Urine None Seen per lpf (None-Few); RBC,Urine 15-30 per hpf (0-3); Squamous Epithelial Cell,Urine Moderate per lpf (None-Few); WBC,Urine 0-3 per hpf (0-3)
[2017-04-18] MEDS ORDERED: Clinimix 5%-20% SOLUTION 2,000 ML with MVI, adult with vitamin K 10 ML, Potassium Pho... IVC SCH (17:00)
--- NOTE | 2017-04-18 17:01 | Electrocardiograph Report ---
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
[2017-04-18] MEDS: Clinimix 5%-20% SOLUTION 2,000 ML with MVI, adult with vitamin K 10 ML, Potassium Pho... IVC SCH (17:59)
[2017-04-18] MEDS: dilTIAZem HCl 100 MG in D5% in Water 50 ML IVC SCH (19:57)
[2017-04-18] MEDS: Latanoprost 2.5 ML BOTTLE BOTH EYES SCH (20:05)
[2017-04-18 21:16] LABS: BUN/Creatinine Ratio 21 (6-26); Blood Urea Nitrogen 15 mg/dL (8-26); Calcium 9.4 mg/dL (8.6-10.8); Carbon Dioxide 34 mEq/L (19-29); Chloride 109 mEq/L (98-109); Glucose 196 mg/dL (70-99); Osmolality,Calculated 310 (280-300); Potassium 3.1 mEq/L (3.5-4.5); Sodium 147 mEq/L (136-145); eGFR For African Americans > 60 (> 60); eGFR For Non-African Americans > 60 (> 60)
[2017-04-18] MEDS: Potassium Phosphate 44 MEQ in 0.9 % Sodium Chloride 250 ML IVPB PRN (22:28)
[2017-04-19] MEDS: Ipratropium/Albuterol Neb 3 ML IH SCH ×7 (00:25→23:43)
[2017-04-19] MEDS: *HR* HYDROmorphone (PF) 1 MG/ML SYRINGE IVP PRN ×9 (00:32→21:43)
[2017-04-19] MEDS: Piperacillin/Tazobactam 3.375 GM/200 ML BAG IVPB SCH ×3 (03:36→19:44)
[2017-04-19] MEDS: D5% in Water 1,000 ML IVC SCH (05:16)
[2017-04-19] MEDS: Pantoprazole 40 MG VIAL IVP SCH (05:16)
[2017-04-19] MEDS: dilTIAZem HCl 100 MG in D5% in Water 50 ML IVC SCH ×2 (05:16→23:41)
[2017-04-19] MEDS: *HR* Heparin 5,000 UNIT/ML VIAL SQ SCH (05:16)
[2017-04-19] MEDS: Insulin LISPRO 300 UNITS/3 ML VIAL SQ SCH ×4 (05:19→23:36)
[2017-04-19 06:42] LABS: Basophils % 0.4 %; Eosinophils # 0.2 K/mcL (0.0-0.6); Hematocrit 36.7 % (37.5-50.1); Hemoglobin 11.2 g/dL (12.9-16.9); Lymphocytes # 0.6 K/mcL (0.6-4.6); Lymphocytes % 7.7 %; Mean Corpuscular HGB Conc 30.5 g/dL (31.6-35.5); Mean Corpuscular Volume 95.1 fL (83.0-100.0); Mean Platelet Volume 13.2 fL (9.4-12.4); Monocytes # 0.6 K/mcL (0.0-1.3); Monocytes % 7.9 %; Neutrophils # 6.2 K/mcL (1.6-8.9); Red Blood Count 3.86 M/mcL (4.19-5.50); Red Cell Distribution Width 14.5 % (11.5-14.5)
[2017-04-19 06:43] LABS: Platelet Count 99 K/mcL (140-400)
--- NOTE | 2017-04-19 08:44 | Pulmonology Progress Note ---
<KinseysammyDakota - Last Filed: 04/19/17 14:42> Date of Encounter: 04/19/17 Time of Encounter: 08:00 Assessment and Plan (1) Hypernatremia Current Visit: Yes Status: Acute Current Na 144 down from 150 yesterday Likely secondary to Dehydration Stopped D5 Free Water as Na now at goal Plan: Continue to monitor with AM labs (2) Acute respiratory failure Current Visit: Yes Status: Acute Pt improved respirations on 4L via oxymask Likely secondary to volume overload ABG showed respiratory acidosis with partial metabolic compensation CXR on 04/17 showed hyperaeration with bilateral atelectasis Pt out 4,608 since yesterday Pt's R foot is noticeably cooler than Left, pulses intact, but primary team ordering dopplers to investigate. Plan: Continue Lasix 40mg IV BID Continue strict Is&Os Encourage seated position Continue intermittent BiPAP Qualifiers: Respiratory failure complication: hypercapnia Qualified Code(s): J96.02 - Acute respiratory failure with hypercapnia (3) Status post Clayton fundoplication Current Visit: Yes Status: Acute Postoperative day #11 following Clayton fundoplication Postoperative day #8 for gastroplexy Postoperative day #4 for exploratory lap with partial gastrectomy and gastroplexy Pt had Upper GI series today which showed no leak Plan: Further management per general surgery (4) Hypokalemia Current Visit: Yes Status: Acute K of 3.4 today up rom 3.1 yesterday Likely 2/2 decreased PO Plan: Continue to monitor Continue electrolyte protocol (5) Moderate protein-calorie malnutrition Current Visit: Yes Status: Acute Pt NPO per surgery team Pt on TPN Nutrition following Plan: Continue management per surgery and nutrition (6) New onset atrial fibrillation Current Visit: Yes Status: Acute Pt went into A fib c RVR on 04/17 then reverted to NSR after 1 dose of Cardizem 10mg Pt has remained in NSR since. Likely 2/2 pulmonary disease. Plan: Continue to monitor (7) Peritonitis Current Visit: Yes Status: Acute s/p multiple abd surgeries WBC down to 7.6 today from a high of 15.6 Plan: Management per surgery Continue zyosyn, diflucan (8) Hypophosphatemia Current Visit: Yes Status: Acute Pt on electrolyte protocol Phis 2.2 today up from 1.5 yesterday Plan: Replete per protocol continue to monitor (9) DVT prophylaxis Current Visit: Yes Status: Acute Heparin 5,000 units q 12H GI PPx: PPI Subjective Principal diagnosis: Hypernatremia, Acute respiratory failure Interval history: Mr. Pool is a 76-year-old man who is postoperative day #10 following Clayton fundoplication which is complicated by gastropexy 2 most recently on 04/16/17. Course complicated by hypernatremia, respiratory failure. Patient with improved mentation today. Patient reports breathing is improved as well. Na back within normal range today. Discontinued IV fluids. Objective PUL Vital signs: Last Vital Signs Temp 98.5 F 04/19/17 07:26 Pulse 64 04/19/17 07:00 Resp 12 04/19/17 07:00 BP 118/75 04/19/17 07:00 Pulse Ox 96 04/19/17 07:00 General appearance: no acute distress Eyes: nonicteric ENT: oropharynx moist Neck: supple Effort: mildly labored Auscultation: left: diminished breath sounds (base) Cardiovascular: regular rate and rhythm Gastrointestinal: normoactive bowel sounds, soft, tender Integumentary: normal Extremities: cool (R foot), edema (b/l) normal mental status, non-focal exam Results - Laboratory Findings CBC and BMP: 04/19/17 06:20 04/19/17 13:27 ABG ABG pH 7.34 pH Units (7.32-7.45) 04/18/17 08:42 ABG pCO2 58 mmHg (35-45) H 04/18/17 08:42 ABG pO2 77 mmHg (85-104) L 04/18/17 08:42 ABG O2 Saturation 94 % (95-98) L 04/18/17 08:42 PT/INR, D-dimer PT 13.8 Seconds (9.4-12.1) H 04/12/17 05:49 Abnormal lab findings: Abnormal lab results RBC 3.86 M/mcL (4.19-5.50) L 04/19/17 06:20 Hgb 11.2 g/dL (12.9-16.9) L 04/19/17 06:20 Hct 36.7 % (37.5-50.1) L 04/19/17 06:20 MCHC 30.5 g/dL (31.6-35.5) L 04/19/17 06:20 Plt Count 99 K/mcL (140-400) L 04/19/17 06:20 MPV 13.2 fL (9.4-12.4) H 04/19/17 06:20 Band Neutrophils % 8.0 % (0-4) H 04/16/17 05:00 Nucleated RBCs/100 WBC 0.2 /100 WBC (0) H 04/18/17 02:35 Reactive Lymphocytes Present (Not Present) A 04/16/17 05:00 Toxic Granulation Present (Not Present) A 04/18/17 02:35 Platelet Estimate Decreased (Normal) L 04/18/17 02:35 Anisocytosis 1+ (Not Present) A 04/16/17 05:00 PT 13.8 Seconds (9.4-12.1) H 04/12/17 05:49 ABG pCO2 58 mmHg (35-45) H 04/18/17 08:42 ABG pO2 77 mmHg (85-104) L 04/18/17 08:42 ABG HCO3 31 mEq/L (21-27) H 04/18/17 08:42 ABG Total CO2 33 mEq/L (20-26) H 04/18/17 08:42 ABG O2 Saturation 94 % (95-98) L 04/18/17 08:42 ABG Base Excess 4 mEq/L (-2 to 3) H 04/18/17 08:42 Sodium 147 mEq/L (136-145) H 04/18/17 20:55 Potassium 3.1 mEq/L (3.5-4.5) L 04/18/17 20:55 Carbon Dioxide 34 mEq/L (19-29) H 04/18/17 20:55 Glucose 196 mg/dL (70-99) H 04/18/17 20:55 POC Glucose 176 (58-89) H 04/19/17 05:19 Calculated Osmolality 310 (280-300) H 04/18/17 20:55 Phosphorus 2.2 mg/dL (2.3-4.7) L 04/19/17 06:20 Serum Total Protein 5.3 g/dL (6.0-8.3) L 04/18/17 08:55 Albumin 1.6 g/dL (3.5-5.0) L 04/18/17 08:55 Globulin 3.7 g/dL (2.4-3.5) H 04/18/17 08:55 Albumin/Globulin Ratio 0.4 (1.1-2.2) L 04/18/17 08:55 Prealbumin 6.0 mg/dL (18.0-45.0) L 04/15/17 04:15 Urine Glucose (UA) 100 mg/dL (Normal) H 04/18/17 13:49 Urine Blood Moderate (Negative) H 04/18/17 13:49 Urine Microscopic RBC 15-30 per hpf (0-3) H 04/18/17 13:49 Ur Squamous Epith Cells Moderate per lpf (None-Few) H 04/18/17 13:49 - Clinical Findings Intake & Output: Intake & Output 04/18/17 04/19/17 04/19/17 23:59 07:59 15:59 Intake Total 200 / 200 1550 / 1550 Output Total 2815 / 2815 665 / 665 Balance -2615 / -2615 885 / 885 - VTE Documentation of Mechanical Device: Intermittent pneumatic compression device Consult Discharge Plan - Plan Instructions: Adult Laparoscopic Clayton Fundoplication (DC) Additional Instructions: General Instructions After Clayton Surgery 1. No pushing, pulling, or lifting greater than 15 lbs for FOUR weeks. 2. You may shower beginning today, but no tub baths, soaking, or swimming for 2 weeks. 3. You may resume driving when you are off narcotics and are safe to react in a car. 4. Take ibuprofen every 8 hours if needed for discomfort. If this does not relieve the discomfort, you may take oxycodone for breakthrough pain. Take narcotics as directed. Do not take more narcotics then directed and do not share your narcotics with any other person. Do not drink alcohol while on narcotics. 5. Take stool softeners (Colace) or a water based laxative (Miramax) while taking narcotics. You may hold for loose stools. 6. Report any fevers greater than 100.5F, increase abdominal discomfort, drainage that looks like pus, increased redness or pain at the surgical site, or any vomiting. 7. Report any pain in the calves, shortness of breath, or rapid heartbeat. 8. Continue to take your heartburn medications until directed to stop. Do not stop them abruptly as this can cause symptoms of reflux. 9. Do not drink alcohol or carbonated beverages. 10. Do not deviate from the recommended Clayton diet below. Doing so can affect your outcomes. [facility] Diet After Clayton Fundoplication Surgery This diet information is for patients who have recently had Clayton Fundoplication Surgery to correct reflux disease or to repair various types of hernias, such as hiatal hernia and intrathoracic stomach. This diet may also be used for other gastrointestinal surgeries, such as Heller myotomy and repair of achalasia. The diet will help control diarrhea, excess gas and swallowing problems, which may occur after this type of surgery. Important Steps to Keep Your Stomach From Stretching Eat small, frequent meals (six to eight per day). This will help you consume the majority of the nutrients you need without causing your stomach to feel full or distended. Drinking large amounts of fluids with meals can stretch your stomach. You may drink fluids between meals as often as you like, but limit fluids to 1/2 cup (4 fluid ounces) with meals and one cup (8 fluid ounces) with snacks. Sit upright while eating, and stay upright for 30 minutes after each meal. [place] can help food move through your digestive tract. Do not lie down after eating. Sit upright for 2 hours after your last meal or snack of the day. Eat very slowly. Take your time when eating. Take small bites and chew your food well to technician helper instrument in swallowing and digestion. Avoid crusty breads and sticky, gummy foods, such as bananas, fresh doughy breads, rolls and doughnuts. These types of foods become sticky and difficult to swallow. Toasted breads tend to be better tolerated. Lastly, if you eat sweets, consume them at the end of your meal to avoid a group of symptoms referred to as dumping syndrome. This describes the rapid emptying of foods from the stomach to the small intestine. Sweetened beverages, candy and desserts move more rapidly and dump quickly into the intestines. This can cause symptoms of nausea, weakness, cold sweats, cramps, diarrhea and dizzy spells. Important Steps to Avoid Gas Do not drink through a straw, chew gum, or chew tobacco. These actions cause you to swallow air, which will produce excess gas in your stomach. Chew with your mouth closed and chew your food thoroughly. Avoid foods that cause stomach gas and distention. The foods include corn, dried beans, peas, lentils, onions, broccoli, cauliflower, and any food item from the cabbage family. Do not drink carbonated drinks, alcohol, citrus, or tomato products. What Will I Be Able To Eat and Drink After Surgery After Clayton Fundoplication Surgery, your diet will be advanced slowly by your surgeon. Generally, you will be on a thin/clear liquid diet for the first 10 days. Then you will advance to the full liquid diet for 4 days and eventually to a Clayton soft diet for 7 days. After any surgery, protein consumption is important for healing. To get enough protein, drink 3-4 [place] Instant Breakfast, Ensure, or equivalent daily. Reminder: Carbonated beverages (such as sodas, energy drinks, flavored carbonated water), and alcohol are not permitted for the 1st 6 to 8 weeks after surgery. After this time you may attempt to reintroduce them in small amounts. Please note: Dairy products such as milk, ice cream, and pudding may cause diarrhea in some people after surgery. You may need to avoid milk products. If so you may substitute them with lactose free beverages, such as soy, rice, lactate, or almond milk. Please be aware that each patient's tolerance to food is different. Your doctor will advance your diet depending on how well you progress after surgery. Thin Liquid Diet The first diet after Clayton Fundoplication Surgery is the thin liquids diet. Follow this diet for postoperative days 1-10 04/09/2017- 04/08/2017. Thin liquids include: Apple, Cranberry, or Grape Juice (no citrus juice) Chicken Broth Beef Broth Flavored Gelatin (Jell-O) Decaffeinated Tea or Coffee Popsicles or [place] Ice Caffeinated Beverages Will Be Permitted Based upon Tolerance and at a later date Dairy if tolerated Thin Milkshakes (strawberry or vanilla flavored- No chocolate) Drink 3-4 [place] instant breakfast, Ensure, or equivalent daily. May be mixed with dairy for thin milkshakes Full Liquid Diet Follow this diet for postoperative days 11- - 04/22/2017. Full liquid diet includes anything in the thin liquid diet plus: Milk: Dairy, Soy, Rice, and [place] (No Chocolate) Cream of Wheat, Cream of Rice, Grits Strained Creamed Soups (No Tomato or Broccoli) Vanilla and [place] Flavored Ice Cream Sherbet Vanilla and Butterscotch Pudding (No Chocolate or Coconut) Continue 3-4 [place] Instant Breakfast, Ensure, or an Equivalent Daily. May be mixed with Dairy for Thin Milkshakes. Clayton Soft Diet Follow this diet for postoperative days 15-20 04/23/2017 - 04/28/2017. (If you are consuming enough protein, you may stop the protein supplements). Please note: You will need extra fluids throughout the day to meet your fluid needs. Referrals: Rodri Day MD [Primary Care Provider] - Kristel Crow CNP [Advanced Practice Nurse] - 04/22/17 8:20 am <Parul Rea - Last Filed: 04/19/17 23:06> Date of Encounter: 04/19/17 Objective PUL Vital signs: Last Vital Signs Temp 98.7 F 04/19/17 20:00 Pulse 78 04/19/17 22:00 Resp 22 04/19/17 22:00 BP 138/75 04/19/17 22:00 Pulse Ox 94 04/19/17 22:00 Results - Laboratory Findings CBC and BMP: 04/19/17 06:20 04/19/17 13:27 ABG ABG pH 7.34 pH Units (7.32-7.45) 04/18/17 08:42 ABG pCO2 58 mmHg (35-45) H 04/18/17 08:42 ABG pO2 77 mmHg (85-104) L 04/18/17 08:42 ABG O2 Saturation 94 % (95-98) L 04/18/17 08:42 PT/INR, D-dimer PT 13.8 Seconds (9.4-12.1) H 04/12/17 05:49 Abnormal lab findings: Abnormal lab results RBC 3.86 M/mcL (4.19-5.50) L 04/19/17 06:20 Hgb 11.2 g/dL (12.9-16.9) L 04/19/17 06:20 Hct 36.7 % (37.5-50.1) L 04/19/17 06:20 MCHC 30.5 g/dL (31.6-35.5) L 04/19/17 06:20 Plt Count 99 K/mcL (140-400) L 04/19/17 06:20 MPV 13.2 fL (9.4-12.4) H 04/19/17 06:20 Band Neutrophils % 8.0 % (0-4) H 04/16/17 05:00 Nucleated RBCs/100 WBC 0.2 /100 WBC (0) H 04/18/17 02:35 Reactive Lymphocytes Present (Not Present) A 04/16/17 05:00 Toxic Granulation Present (Not Present) A 04/18/17 02:35 Platelet Estimate Decreased (Normal) L 04/18/17 02:35 Anisocytosis 1+ (Not Present) A 04/16/17 05:00 PT 13.8 Seconds (9.4-12.1) H 04/12/17 05:49 ABG pCO2 58 mmHg (35-45) H 04/18/17 08:42 ABG pO2 77 mmHg (85-104) L 04/18/17 08:42 ABG HCO3 31 mEq/L (21-27) H 04/18/17 08:42 ABG Total CO2 33 mEq/L (20-26) H 04/18/17 08:42 ABG O2 Saturation 94 % (95-98) L 04/18/17 08:42 ABG Base Excess 4 mEq/L (-2 to 3) H 04/18/17 08:42 Potassium 3.4 mEq/L (3.5-5.1) L 04/19/17 13:27 Carbon Dioxide 33 mEq/L (23-29) H 04/19/17 13:27 Creatinine 0.68 mg/dL (0.70-1.30) L 04/19/17 13:27 Glucose 201 mg/dL (70-105) H 04/19/17 13:27 POC Glucose 162 (58-89) H 04/19/17 18:06 Calculated Osmolality 305 (280-300) H 04/19/17 13:27 Phosphorus 2.2 mg/dL (2.3-4.7) L 04/19/17 06:20 Serum Total Protein 5.3 g/dL (6.0-8.3) L 04/18/17 08:55 Albumin 1.6 g/dL (3.5-5.0) L 04/18/17 08:55 Globulin 3.7 g/dL (2.4-3.5) H 04/18/17 08:55 Albumin/Globulin Ratio 0.4 (1.1-2.2) L 04/18/17 08:55 Prealbumin 6.0 mg/dL (18.0-45.0) L 04/15/17 04:15 Urine Glucose (UA) 100 mg/dL (Normal) H 04/18/17 13:49 Urine Blood Moderate (Negative) H 04/18/17 13:49 Urine Microscopic RBC 15-30 per hpf (0-3) H 04/18/17 13:49 Ur Squamous Epith Cells Moderate per lpf (None-Few) H 04/18/17 13:49 - Clinical Findings Intake & Output: Intake & Output 04/19/17 04/19/17 04/19/17 07:59 15:59 23:59 Intake Total 1810 / 1810 860 / 860 Output Total 665 / 665 2515 / 2515 2465 / 2465 Balance 1145 / 1145 -2515 / -2515 -1605 / -1605 - Attending Attestation I saw the patient with the resident agree with History and Physical exam findings. Labs and Radiology were reviewed CERTIFIED [place]: Patient is conscious following commands today oriented times x 2 NECK : No JVD appreciated Pulmonary : Patient has hypoxic respiratory failure the V/Q mismatch is most likely due to postoperative bibasilar atelectasis , encourage him to sit and do incentive spirometry , to continue the antibiotics Cardiac : Hemodynamically stable , to continue diuresis Nutrition/GI: To encourage PO according to surgery but nowon TPN PPI prophylaxis Renal : Labs reviewed , hypernatremia corrected as we corrected free water deficit Heme onc : No acute issues ID : Peritonitis antibiotics according to surgery Musculo skeletal / skin issues : No acute issues Disposition : to remain the ICU disposition according to surgery Code status: Full Code Family/POA:
[2017-04-19] MEDS: Furosemide 40 MG/4 ML VIAL IVP SCH ×2 (09:35→17:48)
[2017-04-19] MEDS: Fluconazole 200 MG/100 ML 100 MG/50 ML BAG IVPB SCH (09:35)
--- NOTE | 2017-04-19 09:42 | General Surgery Progress Note ---
Date of Encounter: 04/19/17 Time of Encounter: 08:45 - Assessment and Plan (1) Status post Clayton fundoplication Current Visit: Yes Status: Acute POD #11 following robotic medicine fundoplication POD #8 diagnostic laparotomy with gastroplexy (Clayton fundoplication noted to be intact at that time) POD #4 exploratory laparotomy with partial gastrectomy and gastroplexy NG tube with no output in the last 24 hours, DON drain with 55 ML's in the last 24 hours, Fuentes with ~7L output in 24 hours. His WBC is normalized 15.6>>13.0>> 7.6. Noted toxic granulation resolved (currently on Zosyn 04/16/2017), and Diflucan (04/17/2017)his creatinine is 0.73, BUN is 18, sodium 150, K 3.3 and diflucan Acute abdominal series on 04/17/2017 reveals hyper aeration with basilar atelectasis and not obstructed bowel gas pattern within the midline skin bin. Negative chest CTA 04/15, negative Adriane duplex 04/11; UGI 04/18/2017 reveals after injection of gastric acid and there was no evidence of beak. A small amount of contrast reflux into the esophagus. A small amount of contrast was seen entering the proximal duodenum. Vital signs are stable. His heart rate is 67, his respirations have improved. He's on an oxygen mask at 2 L with fats in the 97%. He is noted to have a cool right lower extremity. Bilateral pedal pulses are intact. Plan: Continue supportive care and discomfort management. Out of bed to chair at least 3 times daily with assistance and abdominal splinting. Critical care following. We appreciate your input and (management of pulmonary status, a fib, and fluid status) Repeat bilateral venous Doppler's Aggressive pulmonary toileting Continue G.I. and DVT prophylaxis (2) Hiatal hernia Current Visit: Yes Status: Acute See above (3) Hypernatremia Current Visit: Yes Status: Acute Management per critical care; labs for 04/19 pending (4) New onset atrial fibrillation Current Visit: Yes Status: Acute Management for critical care; currently in SR (5) Shortness of breath Current Visit: Yes Status: Acute Fluid status per CC. Out of bed at least TID Aggressive pulmonary toileting (6) Orthopnea Current Visit: Yes Status: Resolved Report sitting in the chair overnight due to inability to recline. Left lower lobe with mild inspiratory crackles. Right lower extremity with minimal non- pitting edema. He denies chest pain both at rest or with activity. Plan: 1. 2 view CXR 2. Bilateral venous Doppler's rule out DVT 3. Stop IV fluids; 40 mg IV Lasix times one dose now. Subjective Patient reports: still having pain, voiding w/o difficulty (per Fuentes catheter) , no flatus, no bowel movement, afebrile Narrative: Per chart review, patient was confused and restless this a.m. at approximately 0530. He was pulling out lines and removed his abdominal binder. He would not permit the RN to replace the abdominal binder. He was medicated for pain control and became less restless however he still did not permit the replacement of the abdominal binder. He is drowsy but reports that he remains in "[facility], and I don't want the binder on because my belly hurts." Objective Vital Signs - Last 8 Hours Temp Pulse Resp BP Pulse Ox 04/19/17 09:00 67 12 97 04/19/17 08:00 60 10 121/73 98 04/19/17 07:26 98.5 F 04/19/17 07:00 64 12 118/75 96 04/19/17 06:00 67 12 109/74 95 04/19/17 05:00 70 12 146/90 95 04/19/17 04:00 72 15 136/89 94 04/19/17 03:30 70 04/19/17 03:00 73 16 116/74 92 04/19/17 02:00 68 12 128/84 97 Intake and Output 04/18/17 04/19/17 04/19/17 23:59 07:59 15:59 Intake Total 200 / 200 1550 / 1550 Output Total 2815 / 2815 665 / 665 Balance -2615 / -2615 885 / 885 Intake: IV Fluids 200 / 200 1550 / 1550 Dextrose 5% 1,000 ML @ 50 mls/ 1000 / 1000 hr IVC .Q20H [facility] Rx#:[id number] Intralipid 20% 250 ML @ 21 mls/ 250 / 250 hr IVPB DAILY@1700 [facility] Rx#: [id number] Zosyn Premix 3.375 GM/200 ML 3. 200 / 200 300 / 300 375 gm In 200 ml @ 50 mls/hr IVPB Q8H [facility] Rx#:[id number] Oral 0 / 0 Output: Catheter 2800 / 2800 650 / 650 Gastric Drainage 0 / 0 0 / 0 Right Nare 0 / 0 0 / 0 Wound Drainage Right Lower Abdomen Other: Blood Glucose* 171 - General physical appearance no distress - ENT atraumatic, normocephalic - Neck Neck exam: trachea midline, no venous distension - Respiratory other (Decreased bilateral breath sounds. Course breath sounds.) - Cardiovascular Cardiovascular exam: Present: RRR, murmurs Addtional Comments: 2+ bilateral pedal pulses noted however there is a significant temp difference in the right lower extremity (cool), but without discoloration or significant difference in edema. 2+ pitting edema noted BLLE. - Abdomen Abdomen: Present: bowel sounds present, soft, distended, tender Hernia: none Additional Comments: Abdominal binder is off. Patient refuses replacement but is willing to trial a larger size. He is noted to have active bowel sounds in all 4 quadrants. He has just returned from his upper G.I. and his NG tube has not been replaced to suction at this time. He is noted to have continued 3rd spacing in his abdomen but is improved since yesterday. His incisions are overall intact with the exception of previously mechanically opened areas with gauze packing in place. His abdominal dressing is where moderate amount of SS drainage in the superior regions. His DON drain is maintaining suction and without drainage noted at this time. - Incision Incision: Present: open (see abd assessment above) - Integumentary no rash - Neurologic normal sensation, other (drwosy, but oriented X3) - Musculoskeletal normal posture - Psychiatric oriented to time, oriented to person, oriented to place - Labs 04/19/17 06:20 04/18/17 20:55 Diabetes panel 04/18/17 Range/Units 20:55 Sodium 147 H (136-145) mEq/L Potassium 3.1 L (3.5-4.5) mEq/L Chloride 109 (98-109) mEq/L Carbon Dioxide 34 H (19-29) mEq/L BUN 15 (8-26) mg/dL Creatinine 0.72 (0.72-1.25) mg/dL Glucose 196 H (70-99) mg/dL Calcium 9.4 (8.6-10.8) mg/dL Calcium panel 04/18/17 04/19/17 Range/Units 20:55 06:20 Calcium 9.4 (8.6-10.8) mg/dL Phosphorus 2.2 L (2.3-4.7) mg/dL Pituitary panel 04/18/17 Range/Units 20:55 Sodium 147 H (136-145) mEq/L Potassium 3.1 L (3.5-4.5) mEq/L Chloride 109 (98-109) mEq/L Carbon Dioxide 34 H (19-29) mEq/L BUN 15 (8-26) mg/dL Creatinine 0.72 (0.72-1.25) mg/dL Glucose 196 H (70-99) mg/dL Calcium 9.4 (8.6-10.8) mg/dL Adrenal panel 04/18/17 Range/Units 20:55 Sodium 147 H (136-145) mEq/L Potassium 3.1 L (3.5-4.5) mEq/L Chloride 109 (98-109) mEq/L Carbon Dioxide 34 H (19-29) mEq/L BUN 15 (8-26) mg/dL Creatinine 0.72 (0.72-1.25) mg/dL Glucose 196 H (70-99) mg/dL Calcium 9.4 (8.6-10.8) mg/dL - VTE Documentation of Mechanical Device: Intermittent pneumatic compression device Consult Discharge Plan - Plan Instructions: Adult Laparoscopic Clayton Fundoplication (DC) Additional Instructions: General Instructions After Clayton Surgery 1. No pushing, pulling, or lifting greater than 15 lbs for FOUR weeks. 2. You may shower beginning today, but no tub baths, soaking, or swimming for 2 weeks. 3. You may resume driving when you are off narcotics and are safe to react in a car. 4. Take ibuprofen every 8 hours if needed for discomfort. If this does not relieve the discomfort, you may take oxycodone for breakthrough pain. Take narcotics as directed. Do not take more narcotics then directed and do not share your narcotics with any other person. Do not drink alcohol while on narcotics. 5. Take stool softeners (Colace) or a water based laxative (Miramax) while taking narcotics. You may hold for loose stools. 6. Report any fevers greater than 100.5F, increase abdominal discomfort, drainage that looks like pus, increased redness or pain at the surgical site, or any vomiting. 7. Report any pain in the calves, shortness of breath, or rapid heartbeat. 8. Continue to take your heartburn medications until directed to stop. Do not stop them abruptly as this can cause symptoms of reflux. 9. Do not drink alcohol or carbonated beverages. 10. Do not deviate from the recommended Clayton diet below. Doing so can affect your outcomes. [place] [facility] Diet After Clayton Fundoplication Surgery This diet information is for patients who have recently had Clayton Fundoplication Surgery to correct reflux disease or to repair various types of hernias, such as hiatal hernia and intrathoracic stomach. This diet may also be used for other gastrointestinal surgeries, such as Heller myotomy and repair of achalasia. The diet will help control diarrhea, excess gas and swallowing problems, which may occur after this type of surgery. Important Steps to Keep Your Stomach From Stretching Eat small, frequent meals (six to eight per day). This will help you consume the majority of the nutrients you need without causing your stomach to feel full or distended. Drinking large amounts of fluids with meals can stretch your stomach. You may drink fluids between meals as often as you like, but limit fluids to 1/2 cup (4 fluid ounces) with meals and one cup (8 fluid ounces) with snacks. Sit upright while eating, and stay upright for 30 minutes after each meal. [place] can help food move through your digestive tract. Do not lie down after eating. Sit upright for 2 hours after your last meal or snack of the day. Eat very slowly. Take your time when eating. Take small bites and chew your food well to still operator helper in swallowing and digestion. Avoid crusty breads and sticky, gummy foods, such as bananas, fresh doughy breads, rolls and doughnuts. These types of foods become sticky and difficult to swallow. Toasted breads tend to be better tolerated. Lastly, if you eat sweets, consume them at the end of your meal to avoid a group of symptoms referred to as dumping syndrome. This describes the rapid emptying of foods from the stomach to the small intestine. Sweetened beverages, candy and desserts move more rapidly and dump quickly into the intestines. This can cause symptoms of nausea, weakness, cold sweats, cramps, diarrhea and dizzy spells. Important Steps to Avoid Gas Do not drink through a straw, chew gum, or chew tobacco. These actions cause you to swallow air, which will produce excess gas in your stomach. Chew with your mouth closed and chew your food thoroughly. Avoid foods that cause stomach gas and distention. The foods include corn, dried beans, peas, lentils, onions, broccoli, cauliflower, and any food item from the cabbage family. Do not drink carbonated drinks, alcohol, citrus, or tomato products. What Will I Be Able To Eat and Drink After Surgery After Clayton Fundoplication Surgery, your diet will be advanced slowly by your surgeon. Generally, you will be on a thin/clear liquid diet for the first 10 days. Then you will advance to the full liquid diet for 4 days and eventually to a Clayton soft diet for 7 days. After any surgery, protein consumption is important for healing. To get enough protein, drink 3-4 [place] Instant Breakfast, Ensure, or equivalent daily. Reminder: Carbonated beverages (such as sodas, energy drinks, flavored carbonated water), and alcohol are not permitted for the 1st 6 to 8 weeks after surgery. After this time you may attempt to reintroduce them in small amounts. Please note: Dairy products such as milk, ice cream, and pudding may cause diarrhea in some people after surgery. You may need to avoid milk products. If so you may substitute them with lactose free beverages, such as soy, rice, lactate, or almond milk. Please be aware that each patient's tolerance to food is different. Your doctor will advance your diet depending on how well you progress after surgery. Thin Liquid Diet The first diet after Clayton Fundoplication Surgery is the thin liquids diet. Follow this diet for postoperative days 1-10 04/09/2017- 04/08/2017. Thin liquids include: Apple, Cranberry, or Grape Juice (no citrus juice) Chicken Broth Beef Broth Flavored Gelatin (Jell-O) Decaffeinated Tea or Coffee Popsicles or Bengali Ice Caffeinated Beverages Will Be Permitted Based upon Tolerance and at a later date Dairy if tolerated Thin Milkshakes (strawberry or vanilla flavored- No chocolate) Drink 3-4 [place] instant breakfast, Ensure, or equivalent daily. May be mixed with dairy for thin milkshakes Full Liquid Diet Follow this diet for postoperative days 11-14106/20/2016 - 04/22/2017. Full liquid diet includes anything in the thin liquid diet plus: Milk: Dairy, Soy, Rice, and [place] (No Chocolate) Cream of Wheat, Cream of Rice, Grits Strained Creamed Soups (No Tomato or Broccoli) Vanilla and [place] Flavored Ice Cream Sherbet Vanilla and Butterscotch Pudding (No Chocolate or Coconut) Continue 3-4 [place] Instant Breakfast, Ensure, or an Equivalent Daily. May be mixed with Dairy for Thin Milkshakes. Clayton Soft Diet Follow this diet for postoperative days 15-20 04/23/2017 - 04/28/2017. (If you are consuming enough protein, you may stop the protein supplements). Please note: You will need extra fluids throughout the day to meet your fluid needs. Referrals: Rodri Day MD [Primary Care Provider] - Kristel Crow CNP [Advanced Practice Nurse] - 04/22/17 8:20 am
--- NOTE | 2017-04-19 10:24 | Electrocardiograph Report ---
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
[2017-04-19] MEDS: Potassium Phosphate 44 MEQ in 0.9 % Sodium Chloride 250 ML IVPB PRN (11:06)
[2017-04-19 14:22] LABS: BUN/Creatinine Ratio 24 (6-26); Blood Urea Nitrogen 16 mg/dL (8-23); Calcium 9.3 mg/dL (8.6-10.3); Carbon Dioxide 33 mEq/L (23-29); Chloride 106 mEq/L (98-107); Glucose 201 mg/dL (70-105); Osmolality,Calculated 305 (280-300); Potassium 3.4 mEq/L (3.5-5.1); Sodium 144 mEq/L (136-145); eGFR For African Americans > 60 (> 60); eGFR For Non-African Americans > 60 (> 60)
[2017-04-19 16:23] LABS: Magnesium 2.5 mg/dL (1.6-2.6)
[2017-04-19] MEDS ORDERED: Clinimix 5%-20% SOLUTION 2,000 ML with MVI, adult with vitamin K 10 ML, Potassium Pho... IVC SCH (17:00)
[2017-04-19] MEDS ORDERED: Heparin 25,000 UNIT/500 ML D5W 25,000 UNIT/500 ML BAG IVC SCH (17:45)
[2017-04-19] MEDS: Latanoprost 2.5 ML BOTTLE BOTH EYES SCH (19:48)
[2017-04-20] MEDS: *HR* HYDROmorphone (PF) 1 MG/ML SYRINGE IVP PRN ×2 (00:46→06:36)
[2017-04-20] MEDS: Potassium Phosphate 44 MEQ in 0.9 % Sodium Chloride 250 ML IVPB PRN (01:59)
[2017-04-20] MEDS ORDERED: *HR* Heparin 5,000 UNIT/ML VIAL ONE (02:40)
[2017-04-20] MEDS: Ipratropium/Albuterol Neb 3 ML IH SCH ×5 (03:24→20:21)
[2017-04-20] MEDS: Piperacillin/Tazobactam 3.375 GM/200 ML BAG IVPB SCH ×3 (03:48→20:20)
[2017-04-20 04:22] LABS: BUN/Creatinine Ratio 27 (6-26); Blood Urea Nitrogen 17 mg/dL (8-23); Calcium 9.1 mg/dL (8.6-10.3); Carbon Dioxide 29 mEq/L (23-29); Chloride 106 mEq/L (98-107); Glucose 172 mg/dL (70-105); Osmolality,Calculated 296 (280-300); Potassium 3.8 mEq/L (3.5-5.1); Sodium 140 mEq/L (136-145); eGFR For African Americans > 60 (> 60); eGFR For Non-African Americans > 60 (> 60)
[2017-04-20] MEDS: Insulin LISPRO 300 UNITS/3 ML VIAL SQ SCH ×3 (05:49→19:02)
[2017-04-20] MEDS: Pantoprazole 40 MG VIAL IVP SCH (05:50)
--- NOTE | 2017-04-20 08:36 | Pulmonology Progress Note ---
<Dakota Grey - Last Filed: 04/20/17 17:59> Date of Encounter: 04/20/17 Time of Encounter: 08:36 Assessment and Plan (1) Hypernatremia Current Visit: Yes Status: Resolved Current Na 144 down from 150 yesterday Likely secondary to Dehydration Stopped D5 Free Water as Na now at goal Plan: Continue to monitor with AM labs (2) Acute respiratory failure Current Visit: Yes Status: Acute Pt improved respirations on 2L via oxymask Likely secondary to volume overload ABG showed respiratory acidosis with partial metabolic compensation CXR on 04/17 showed hyperaeration with bilateral atelectasis Pt out cumulative -75 Doppler showed L Pop and gastroc DVTs Per primary team patient stable for transfer out of ICU and I agree Plan: Continue Lasix 40mg IV BID Continue strict Is&Os Encourage seated position Continue intermittent BiPAP Qualifiers: Respiratory failure complication: hypercapnia Qualified Code(s): J96.02 - Acute respiratory failure with hypercapnia (3) Status post Clayton fundoplication Current Visit: Yes Status: Acute Postoperative day #12 following Clayton fundoplication Postoperative day #9 for gastroplexy Postoperative day #5 for exploratory lap with partial gastrectomy and gastroplexy Pt had Upper GI series yesterday which showed no leak Plan: Further management per general surgery (4) Hypokalemia Current Visit: Yes Status: Acute K of 3.5 today up from 3.4 yesterday Likely 2/2 decreased PO Plan: Continue to monitor Continue electrolyte protocol (5) Moderate protein-calorie malnutrition Current Visit: Yes Status: Acute Pt NPO per surgery team Pt on TPN Nutrition following Plan: Continue management per surgery and nutrition (6) New onset atrial fibrillation Current Visit: Yes Status: Acute Pt went into A fib c RVR on 04/17 then reverted to NSR after 1 dose of Cardizem 10mg Pt has remained in NSR since. Likely 2/2 pulmonary disease. Plan: Continue to monitor (7) Peritonitis Current Visit: Yes Status: Acute s/p multiple abd surgeries WBC down to 7.6 from a high of 15.6 Plan: Management per surgery Continue zyosyn, diflucan (8) Hypophosphatemia Current Visit: Yes Status: Acute Pt on electrolyte protocol Plan: Replete per protocol continue to monitor (9) Acute deep vein thrombosis (DVT) of left lower extremity Current Visit: Yes Status: Acute DVT found in Left Pop and Gastroc Veins on Doppler yesterday Started on Heparin Drip Yesterday afternoon. Plan: Continue Heparin Drip Qualifiers: Affected thrombotic vein of extremity: popliteal Qualified Code(s): I82.432 - Acute embolism and thrombosis of left popliteal vein (10) DVT prophylaxis Current Visit: Yes Status: Acute Heparin Drip GI PPx: PPI Subjective Principal diagnosis: Hypernatremia, Acute respiratory failure Interval history: Mr. Pool is a 76-year-old man who is postoperative day #10 following Clayton fundoplication which is complicated by gastropexy 2 most recently on 04/16/17. Course complicated by hypernatremia, respiratory failure. Patient with improved mentation today. Patient reports breathing is improved as well. Na back within normal range today. Discontinued IV fluids. Objective PUL Vital signs: Last Vital Signs Temp 97.9 F 04/20/17 07:46 Pulse 70 04/20/17 07:46 Resp 18 04/20/17 07:51 BP 124/79 04/20/17 07:51 Pulse Ox 96 04/20/17 07:51 Results - Laboratory Findings CBC and BMP: 04/20/17 12:20 04/20/17 12:20 ABG ABG pH 7.34 pH Units (7.32-7.45) 04/18/17 08:42 ABG pCO2 58 mmHg (35-45) H 04/18/17 08:42 ABG pO2 77 mmHg (85-104) L 04/18/17 08:42 ABG O2 Saturation 94 % (95-98) L 04/18/17 08:42 PT/INR, D-dimer PT 13.8 Seconds (9.4-12.1) H 04/12/17 05:49 Abnormal lab findings: Abnormal lab results RBC 3.86 M/mcL (4.19-5.50) L 04/19/17 06:20 Hgb 11.2 g/dL (12.9-16.9) L 04/19/17 06:20 Hct 36.7 % (37.5-50.1) L 04/19/17 06:20 MCHC 30.5 g/dL (31.6-35.5) L 04/19/17 06:20 Plt Count 99 K/mcL (140-400) L 04/19/17 06:20 MPV 13.2 fL (9.4-12.4) H 04/19/17 06:20 Band Neutrophils % 8.0 % (0-4) H 04/16/17 05:00 Nucleated RBCs/100 WBC 0.2 /100 WBC (0) H 04/18/17 02:35 Reactive Lymphocytes Present (Not Present) A 04/16/17 05:00 Toxic Granulation Present (Not Present) A 04/18/17 02:35 Platelet Estimate Decreased (Normal) L 04/18/17 02:35 Anisocytosis 1+ (Not Present) A 04/16/17 05:00 PT 13.8 Seconds (9.4-12.1) H 04/12/17 05:49 APTT 52.4 Seconds (26.0-36.0) H 04/20/17 01:58 ABG pCO2 58 mmHg (35-45) H 04/18/17 08:42 ABG pO2 77 mmHg (85-104) L 04/18/17 08:42 ABG HCO3 31 mEq/L (21-27) H 04/18/17 08:42 ABG Total CO2 33 mEq/L (20-26) H 04/18/17 08:42 ABG O2 Saturation 94 % (95-98) L 04/18/17 08:42 ABG Base Excess 4 mEq/L (-2 to 3) H 04/18/17 08:42 Creatinine 0.63 mg/dL (0.70-1.30) L 04/20/17 03:40 BUN/Creatinine Ratio 27 (6-26) H 04/20/17 03:40 Glucose 172 mg/dL (70-105) H 04/20/17 03:40 POC Glucose 166 (58-89) H 04/20/17 05:31 Phosphorus 2.2 mg/dL (2.7-4.5) L 04/19/17 22:55 Serum Total Protein 5.3 g/dL (6.0-8.3) L 04/18/17 08:55 Albumin 1.6 g/dL (3.5-5.0) L 04/18/17 08:55 Globulin 3.7 g/dL (2.4-3.5) H 04/18/17 08:55 Albumin/Globulin Ratio 0.4 (1.1-2.2) L 04/18/17 08:55 Prealbumin 6.0 mg/dL (18.0-45.0) L 04/15/17 04:15 Urine Glucose (UA) 100 mg/dL (Normal) H 04/18/17 13:49 Urine Blood Moderate (Negative) H 04/18/17 13:49 Urine Microscopic RBC 15-30 per hpf (0-3) H 04/18/17 13:49 Ur Squamous Epith Cells Moderate per lpf (None-Few) H 04/18/17 13:49 - Clinical Findings Intake & Output: Intake & Output 04/19/17 04/20/17 04/20/17 23:59 07:59 15:59 Intake Total 1160 / 1160 516 / 516 Output Total 2465 / 2465 1275 / 1275 Balance -1305 / -1305 -759 / -759 - VTE Documentation of Mechanical Device: Intermittent pneumatic compression device Consult Discharge Plan - Plan Instructions: Adult Laparoscopic Clayton Fundoplication (DC) Additional Instructions: General Instructions After Clayton Surgery 1. No pushing, pulling, or lifting greater than 15 lbs for FOUR weeks. 2. You may shower beginning today, but no tub baths, soaking, or swimming for 2 weeks. 3. You may resume driving when you are off narcotics and are safe to react in a car. 4. Take ibuprofen every 8 hours if needed for discomfort. If this does not relieve the discomfort, you may take oxycodone for breakthrough pain. Take narcotics as directed. Do not take more narcotics then directed and do not share your narcotics with any other person. Do not drink alcohol while on narcotics. 5. Take stool softeners (Colace) or a water based laxative (Miramax) while taking narcotics. You may hold for loose stools. 6. Report any fevers greater than 100.5F, increase abdominal discomfort, drainage that looks like pus, increased redness or pain at the surgical site, or any vomiting. 7. Report any pain in the calves, shortness of breath, or rapid heartbeat. 8. Continue to take your heartburn medications until directed to stop. Do not stop them abruptly as this can cause symptoms of reflux. 9. Do not drink alcohol or carbonated beverages. 10. Do not deviate from the recommended Clayton diet below. Doing so can affect your outcomes. [facility] Diet After Clayton Fundoplication Surgery This diet information is for patients who have recently had Clayton Fundoplication Surgery to correct reflux disease or to repair various types of hernias, such as hiatal hernia and intrathoracic stomach. This diet may also be used for other gastrointestinal surgeries, such as Heller myotomy and repair of achalasia. The diet will help control diarrhea, excess gas and swallowing problems, which may occur after this type of surgery. Important Steps to Keep Your Stomach From Stretching Eat small, frequent meals (six to eight per day). This will help you consume the majority of the nutrients you need without causing your stomach to feel full or distended. Drinking large amounts of fluids with meals can stretch your stomach. You may drink fluids between meals as often as you like, but limit fluids to 1/2 cup (4 fluid ounces) with meals and one cup (8 fluid ounces) with snacks. Sit upright while eating, and stay upright for 30 minutes after each meal. [place] can help food move through your digestive tract. Do not lie down after eating. Sit upright for 2 hours after your last meal or snack of the day. Eat very slowly. Take your time when eating. Take small bites and chew your food well to service station helper in swallowing and digestion. Avoid crusty breads and sticky, gummy foods, such as bananas, fresh doughy breads, rolls and doughnuts. These types of foods become sticky and difficult to swallow. Toasted breads tend to be better tolerated. Lastly, if you eat sweets, consume them at the end of your meal to avoid a group of symptoms referred to as dumping syndrome. This describes the rapid emptying of foods from the stomach to the small intestine. Sweetened beverages, candy and desserts move more rapidly and dump quickly into the intestines. This can cause symptoms of nausea, weakness, cold sweats, cramps, diarrhea and dizzy spells. Important Steps to Avoid Gas Do not drink through a straw, chew gum, or chew tobacco. These actions cause you to swallow air, which will produce excess gas in your stomach. Chew with your mouth closed and chew your food thoroughly. Avoid foods that cause stomach gas and distention. The foods include corn, dried beans, peas, lentils, onions, broccoli, cauliflower, and any food item from the cabbage family. Do not drink carbonated drinks, alcohol, citrus, or tomato products. What Will I Be Able To Eat and Drink After Surgery After Clayton Fundoplication Surgery, your diet will be advanced slowly by your surgeon. Generally, you will be on a thin/clear liquid diet for the first 10 days. Then you will advance to the full liquid diet for 4 days and eventually to a Clayton soft diet for 7 days. After any surgery, protein consumption is important for healing. To get enough protein, drink 3-4 [place] Instant Breakfast, Ensure, or equivalent daily. Reminder: Carbonated beverages (such as sodas, energy drinks, flavored carbonated water), and alcohol are not permitted for the 1st 6 to 8 weeks after surgery. After this time you may attempt to reintroduce them in small amounts. Please note: Dairy products such as milk, ice cream, and pudding may cause diarrhea in some people after surgery. You may need to avoid milk products. If so you may substitute them with lactose free beverages, such as soy, rice, lactate, or almond milk. Please be aware that each patient's tolerance to food is different. Your doctor will advance your diet depending on how well you progress after surgery. Thin Liquid Diet The first diet after Clayton Fundoplication Surgery is the thin liquids diet. Follow this diet for postoperative days 1-10 04/09/2017- 04/08/2017. Thin liquids include: Apple, Cranberry, or Grape Juice (no citrus juice) Chicken Broth Beef Broth Flavored Gelatin (Jell-O) Decaffeinated Tea or Coffee Popsicles or [place] Ice Caffeinated Beverages Will Be Permitted Based upon Tolerance and at a later date Dairy if tolerated Thin Milkshakes (strawberry or vanilla flavored- No chocolate) Drink 3-4 [place] instant breakfast, Ensure, or equivalent daily. May be mixed with dairy for thin milkshakes Full Liquid Diet Follow this diet for postoperative days 11-14106/20/2016 - 04/22/2017. Full liquid diet includes anything in the thin liquid diet plus: Milk: Dairy, Soy, Rice, and [place] (No Chocolate) Cream of Wheat, Cream of Rice, Grits Strained Creamed Soups (No Tomato or Broccoli) Vanilla and [place] Flavored Ice Cream Sherbet Vanilla and Butterscotch Pudding (No Chocolate or Coconut) Continue 3-4 [place] Instant Breakfast, Ensure, or an Equivalent Daily. May be mixed with Dairy for Thin Milkshakes. Clayton Soft Diet Follow this diet for postoperative days 15-20 04/23/2017 - 04/28/2017. (If you are consuming enough protein, you may stop the protein supplements). Please note: You will need extra fluids throughout the day to meet your fluid needs. Referrals: Rodri Day MD [Primary Care Provider] - (SENT WEB REQUEST ON 04-20-17 @ [phone]) Kristel Crow CNP [Advanced Practice Nurse] - 04/22/17 8:20 am <Parul Rea - Last Filed: 04/20/17 21:15> Date of Encounter: 04/20/17 Objective PUL Vital signs: Last Vital Signs Temp 97.8 F 04/20/17 19:35 Pulse 57 04/20/17 19:35 Resp 16 04/20/17 20:21 BP 120/78 04/20/17 19:35 Pulse Ox 97 04/20/17 20:21 Results - Laboratory Findings CBC and BMP: 04/20/17 12:20 04/20/17 12:20 ABG ABG pH 7.34 pH Units (7.32-7.45) 04/18/17 08:42 ABG pCO2 58 mmHg (35-45) H 04/18/17 08:42 ABG pO2 77 mmHg (85-104) L 04/18/17 08:42 ABG O2 Saturation 94 % (95-98) L 04/18/17 08:42 PT/INR, D-dimer PT 13.8 Seconds (9.4-12.1) H 04/12/17 05:49 Abnormal lab findings: Abnormal lab results WBC 11.3 K/mcL (4.3-11.1) H 04/20/17 12:20 MPV 14.0 fL (9.4-12.4) H 04/20/17 12:20 Band Neutrophils % 8.0 % (0-4) H 04/16/17 05:00 Neutrophils # 9.3 K/mcL (1.6-8.9) H 04/20/17 12:20 Nucleated RBCs/100 WBC 0.2 /100 WBC (0) H 04/18/17 02:35 Reactive Lymphocytes Present (Not Present) A 04/16/17 05:00 Toxic Granulation Present (Not Present) A 04/18/17 02:35 Platelet Estimate Decreased (Normal) L 04/18/17 02:35 Anisocytosis 1+ (Not Present) A 04/16/17 05:00 PT 13.8 Seconds (9.4-12.1) H 04/12/17 05:49 APTT 84.2 Seconds (26.0-36.0) H 04/20/17 15:57 ABG pCO2 58 mmHg (35-45) H 04/18/17 08:42 ABG pO2 77 mmHg (85-104) L 04/18/17 08:42 ABG HCO3 31 mEq/L (21-27) H 04/18/17 08:42 ABG Total CO2 33 mEq/L (20-26) H 04/18/17 08:42 ABG O2 Saturation 94 % (95-98) L 04/18/17 08:42 ABG Base Excess 4 mEq/L (-2 to 3) H 04/18/17 08:42 Creatinine 0.63 mg/dL (0.70-1.30) L 04/20/17 03:40 BUN/Creatinine Ratio 27 (6-26) H 04/20/17 03:40 Glucose 172 mg/dL (70-105) H 04/20/17 03:40 POC Glucose 176 (58-89) H 04/20/17 12:11 Phosphorus 2.6 mg/dL (2.7-4.5) L 04/20/17 12:20 Serum Total Protein 5.3 g/dL (6.0-8.3) L 04/18/17 08:55 Albumin 1.6 g/dL (3.5-5.0) L 04/18/17 08:55 Globulin 3.7 g/dL (2.4-3.5) H 04/18/17 08:55 Albumin/Globulin Ratio 0.4 (1.1-2.2) L 04/18/17 08:55 Prealbumin 6.0 mg/dL (18.0-45.0) L 04/15/17 04:15 Urine Glucose (UA) 100 mg/dL (Normal) H 04/18/17 13:49 Urine Blood Moderate (Negative) H 04/18/17 13:49 Urine Microscopic RBC 15-30 per hpf (0-3) H 04/18/17 13:49 Ur Squamous Epith Cells Moderate per lpf (None-Few) H 04/18/17 13:49 - Clinical Findings Intake & Output: Intake & Output 04/20/17 04/20/17 04/20/17 07:59 15:59 23:59 Intake Total 816 / 816 694 / 694 300 / 300 Output Total 1275 / 1275 2235 / 2235 160 / 160 Balance -459 / -459 -1541 / -1541 140 / 140 - Attending Attestation I saw the patient with the resident agree with History and Physical exam findings. Labs and Radiology were reviewed GRINDER TENDER: Patient is conscious following commands today oriented times x 2 has episodic confusion NECK : No JVD appreciated Pulmonary : Patient has hypoxic respiratory failure the V/Q mismatch is most likely due to postoperative bibasilar atelectasis , encourage him to sit and do incentive spirometry , to continue diuresis and deescalate antibiotics according to primary team Cardiac : Hemodynamically stable , to continue diuresis Nutrition/GI: To encourage PO according to surgery but nowon TPN PPI prophylaxis Renal : Labs reviewed , hypernatremia corrected as we corrected free water deficit Heme onc : No acute issues ID : Peritonitis antibiotics according to surgery Musculo skeletal / skin issues : No acute issues Disposition : to remain the ICU disposition according to surgery Code status: Full Code Family/POA: Will sign off will call with questions Thank you for the Consultation .
--- NOTE | 2017-04-20 09:20 | General Surgery Progress Note ---
Date of Encounter: 04/20/17 Time of Encounter: 08:45 - Assessment and Plan (1) Status post Clayton fundoplication Current Visit: Yes Status: Acute POD #12 following robotic medicine fundoplication POD #9 diagnostic laparotomy with gastroplexy (Clayton fundoplication noted to be intact at that time) POD #5 exploratory laparotomy with partial gastrectomy and gastroplexy WBC for today pending. Acute abdominal series on 04/17/2017 reveals hyper aeration with basilar atelectasis and not obstructed bowel gas pattern within the midline skin bin. Negative chest CTA 04/15, negative [place] duplex 04/11; UGI 04/18/2017 reveals after injection of gastric acid and there was no evidence of beak. A small amount of contrast reflux into the esophagus. A small amount of contrast was seen entering the proximal duodenum. Vital signs are stable. He's on an oxygen mask at 2 L with fats in the 97%. Overall he is oriented. Episodes of confusion noted. Bilateral pedal pulses are intact. Diursis of ~12L in the last 48-72 hours. Weight shows increase of ~2KG. This does not correlate. Plan: minimize stimulation; sitter at bedside Keep abdominal binder in place at all times DC NG bedside swallow exam; if okay he may start limited clear liquids (no carbonation ) DC Garcia catheter transfer to step down continue supportive care in [facility] comfort management. Out of bed at least 3 times daily with assistants, abdominal splinting, and ambulate with assistance continue therapeutic heparin continue aggressive pulmonary toileting continue G.I. prophylaxis Standing scale weight now, and daily standing scale weights only (2) Acute deep vein thrombosis (DVT) of left lower extremity Current Visit: Yes Status: Acute Positive DVT in the left PopV AND Gastroc V while on DVT prophylaxis Plan: Therapeutic heparin Continue to monitor Qualifiers: Affected thrombotic vein of extremity: popliteal Qualified Code(s): I82.432 - Acute embolism and thrombosis of left popliteal vein (3) Confusion Current Visit: Yes Status: Acute Intermittent episodes of confusion Plan: 1. Limit narcotic use. Add scheduled Toradol and Ofirmev 2. Limit stimulation. DC NG and Garcia catheter 3. Protect/secure lines. Keep PICC line wrapped and abdominal binder in place at all times. Sitter at bedside. 4. Frequent reorientation as necessary. (4) Hiatal hernia Current Visit: Yes Status: Acute See above (5) Hypernatremia Current Visit: Yes Status: Resolved Management per critical care; Resolved. Diuresed 6L over the last 24 hours d/c garcia catheter (6) New onset atrial fibrillation Current Visit: Yes Status: Acute Management for critical care; currently in SR; on therapeutic heparin (7) Shortness of breath Current Visit: Yes Status: Acute Fluid status per CC. Out of bed at least TID Aggressive pulmonary toileting (8) Orthopnea Current Visit: Yes Status: Resolved Resolved at this time Subjective Patient reports: no new complaints, feels better, still having pain, pain is less, voiding w/o difficulty, flatus, bowel movement, afebrile Narrative: TaraRN notes episodes of confusion and pulling outlines. She reports frequent loose stools this a.m. Patient states he is at [facility] and has had 3 surgeries the admission. He states the month as June. He denies abdominal pain or nausea. He request update NG tube and Garcia catheter removed. Objective Vital Signs - Last 8 Hours Temp Pulse Resp BP Pulse Ox 04/20/17 07:51 18 124/79 96 04/20/17 07:46 97.9 F 70 23 124/79 93 04/20/17 06:00 75 16 147/92 93 04/20/17 05:00 80 18 140/86 93 04/20/17 04:00 98.1 F 78 22 147/86 90 04/20/17 03:24 18 93 04/20/17 03:00 68 20 135/85 95 04/20/17 02:00 74 16 125/90 93 Intake and Output 04/19/17 04/20/17 04/20/17 23:59 07:59 15:59 Intake Total 1160 / 1160 516 / 516 Output Total 2465 / 2465 1275 / 1275 Balance -1305 / -1305 -759 / -759 Intake: IV Fluids 1160 / 1160 516 / 516 Heparin 25,000 UNIT/500 ML D5W 216 / 216 25,000 unit In 500 ml @ 14 UNIT /KG/HR 27.916 mls/hr IVC . [id number] [facility] Rx#:[id number] Diflucan Premix 200 MG/100 ML 50 / 50 100 mg In 50 ml @ 50 mls/hr IVPB DAILY [facility] Rx#:[id number] Magnesium Sulfate Premix 2gm/ 50 / 50 50mL 2 gm In 50 ml @ 50 mls/hr IVPB Q6H PRN Rx#:[id number] Zosyn Premix 3.375 GM/200 ML 3. 400 / 400 375 gm In 200 ml @ 50 mls/hr IVPB Q8H [facility] Rx#:[id number] Potassium Chloride 10 mEq/100mL 400 / 400 300 / 300 10 meq In 100 ml @ 100 mls/hr IVPB Q1H PRN Rx#:[id number] Potassium Phosphate 44 MEQ In 0 260 / 260 .9 % Sodium Chloride 250 ML @ 40 mls/hr IVPB Q10H PRN Rx#: [id number] Output: Catheter 2400 / 2400 1175 / 1175 Gastric Drainage 60 / 60 90 / 90 Wound Drainage 10 10 Right Lower Abdomen Other: Stool Size Large Stool Consistency loose liquid Stool Color Yellow Green # Bowel Movements 1 Blood Glucose* 162 166 - General physical appearance no distress - Eyes normal ocular movement - ENT atraumatic, normocephalic - Neck Neck exam: trachea midline, no venous distension - Respiratory other (Decreased bilateral breath sounds. 2 L per oxygen mask.) - Cardiovascular Cardiovascular exam: Present: RRR, murmurs - Abdomen Abdomen: Present: bowel sounds present, soft, tender (Expected postoperative tenderness), wound (Right DON with minimal serous drainage) Hernia: none Additional Comments: Abdominal binder in place - Incision Incision: Present: clean and dry, intact (Intact overall the exception of previously opened areas which have 0.5 to 1 cm of packing within. There is no surrounding erythema noted.) - Integumentary no rash - Neurologic normal sensation - Musculoskeletal normal posture - Psychiatric oriented to person, oriented to place - Labs 04/19/17 06:20 04/20/17 03:40 Diabetes panel 04/19/17 04/20/17 04/20/17 Range/Units 13:27 01:58 03:40 Sodium 144 140 (136-145) mEq/L Potassium 3.4 L 3.5 3.8 (3.5-5.1) mEq/L Chloride 106 106 (98-107) mEq/L Carbon Dioxide 33 H 29 (23-29) mEq/L BUN 16 17 (8-23) mg/dL Creatinine 0.68 L 0.63 L (0.70-1.30) mg/dL Glucose 201 H 172 H (70-105) mg/dL Calcium 9.3 9.1 (8.6-10.3) mg/dL Calcium panel 04/19/17 04/19/17 04/20/17 Range/Units 13:27 22:55 03:40 Calcium 9.3 9.1 (8.6-10.3) mg/dL Phosphorus 2.2 L (2.7-4.5) mg/dL Pituitary panel 04/19/17 04/20/17 04/20/17 Range/Units 13:27 01:58 03:40 Sodium 144 140 (136-145) mEq/L Potassium 3.4 L 3.5 3.8 (3.5-5.1) mEq/L Chloride 106 106 (98-107) mEq/L Carbon Dioxide 33 H 29 (23-29) mEq/L BUN 16 17 (8-23) mg/dL Creatinine 0.68 L 0.63 L (0.70-1.30) mg/dL Glucose 201 H 172 H (70-105) mg/dL Calcium 9.3 9.1 (8.6-10.3) mg/dL Adrenal panel 04/19/17 04/20/17 04/20/17 Range/Units 13:27 01:58 03:40 Sodium 144 140 (136-145) mEq/L Potassium 3.4 L 3.5 3.8 (3.5-5.1) mEq/L Chloride 106 106 (98-107) mEq/L Carbon Dioxide 33 H 29 (23-29) mEq/L BUN 16 17 (8-23) mg/dL Creatinine 0.68 L 0.63 L (0.70-1.30) mg/dL Glucose 201 H 172 H (70-105) mg/dL Calcium 9.3 9.1 (8.6-10.3) mg/dL - VTE Documentation of Mechanical Device: Intermittent pneumatic compression device Consult Discharge Plan - Plan Instructions: Adult Laparoscopic Clayton Fundoplication (DC) Additional Instructions: General Instructions After Clayton Surgery 1. No pushing, pulling, or lifting greater than 15 lbs for FOUR weeks. 2. You may shower beginning today, but no tub baths, soaking, or swimming for 2 weeks. 3. You may resume driving when you are off narcotics and are safe to react in a car. 4. Take ibuprofen every 8 hours if needed for discomfort. If this does not relieve the discomfort, you may take oxycodone for breakthrough pain. Take narcotics as directed. Do not take more narcotics then directed and do not share your narcotics with any other person. Do not drink alcohol while on narcotics. 5. Take stool softeners (Colace) or a water based laxative (Miramax) while taking narcotics. You may hold for loose stools. 6. Report any fevers greater than 100.5F, increase abdominal discomfort, drainage that looks like pus, increased redness or pain at the surgical site, or any vomiting. 7. Report any pain in the calves, shortness of breath, or rapid heartbeat. 8. Continue to take your heartburn medications until directed to stop. Do not stop them abruptly as this can cause symptoms of reflux. 9. Do not drink alcohol or carbonated beverages. 10. Do not deviate from the recommended Clayton diet below. Doing so can affect your outcomes. [facility] Diet After Clayton Fundoplication Surgery This diet information is for patients who have recently had Clayton Fundoplication Surgery to correct reflux disease or to repair various types of hernias, such as hiatal hernia and intrathoracic stomach. This diet may also be used for other gastrointestinal surgeries, such as Heller myotomy and repair of achalasia. The diet will help control diarrhea, excess gas and swallowing problems, which may occur after this type of surgery. Important Steps to Keep Your Stomach From Stretching Eat small, frequent meals (six to eight per day). This will help you consume the majority of the nutrients you need without causing your stomach to feel full or distended. Drinking large amounts of fluids with meals can stretch your stomach. You may drink fluids between meals as often as you like, but limit fluids to 1/2 cup (4 fluid ounces) with meals and one cup (8 fluid ounces) with snacks. Sit upright while eating, and stay upright for 30 minutes after each meal. [place] can help food move through your digestive tract. Do not lie down after eating. Sit upright for 2 hours after your last meal or snack of the day. Eat very slowly. Take your time when eating. Take small bites and chew your food well to facility maintenance helper in swallowing and digestion. Avoid crusty breads and sticky, gummy foods, such as bananas, fresh doughy breads, rolls and doughnuts. These types of foods become sticky and difficult to swallow. Toasted breads tend to be better tolerated. Lastly, if you eat sweets, consume them at the end of your meal to avoid a group of symptoms referred to as dumping syndrome. This describes the rapid emptying of foods from the stomach to the small intestine. Sweetened beverages, candy and desserts move more rapidly and dump quickly into the intestines. This can cause symptoms of nausea, weakness, cold sweats, cramps, diarrhea and dizzy spells. Important Steps to Avoid Gas Do not drink through a straw, chew gum, or chew tobacco. These actions cause you to swallow air, which will produce excess gas in your stomach. Chew with your mouth closed and chew your food thoroughly. Avoid foods that cause stomach gas and distention. The foods include corn, dried beans, peas, lentils, onions, broccoli, cauliflower, and any food item from the cabbage family. Do not drink carbonated drinks, alcohol, citrus, or tomato products. What Will I Be Able To Eat and Drink After Surgery After Clayton Fundoplication Surgery, your diet will be advanced slowly by your surgeon. Generally, you will be on a thin/clear liquid diet for the first 10 days. Then you will advance to the full liquid diet for 4 days and eventually to a Clayton soft diet for 7 days. After any surgery, protein consumption is important for healing. To get enough protein, drink 3-4 Orrum Instant Breakfast, Ensure, or equivalent daily. Reminder: Carbonated beverages (such as sodas, energy drinks, flavored carbonated water), and alcohol are not permitted for the 1st 6 to 8 weeks after surgery. After this time you may attempt to reintroduce them in small amounts. Please note: Dairy products such as milk, ice cream, and pudding may cause diarrhea in some people after surgery. You may need to avoid milk products. If so you may substitute them with lactose free beverages, such as soy, rice, lactate, or almond milk. Please be aware that each patient's tolerance to food is different. Your doctor will advance your diet depending on how well you progress after surgery. Thin Liquid Diet The first diet after Clayton Fundoplication Surgery is the thin liquids diet. Follow this diet for postoperative days 1-10 04/09/2017- 04/08/2017. Thin liquids include: Apple, Cranberry, or Grape Juice (no citrus juice) Chicken Broth Beef Broth Flavored Gelatin (Jell-O) Decaffeinated Tea or Coffee Popsicles or Korean Ice Caffeinated Beverages Will Be Permitted Based upon Tolerance and at a later date Dairy if tolerated Thin Milkshakes (strawberry or vanilla flavored- No chocolate) Drink 3-4 Orrum instant breakfast, Ensure, or equivalent daily. May be mixed with dairy for thin milkshakes Full Liquid Diet Follow this diet for postoperative days 11-14106/20/2016 - 04/22/2017. Full liquid diet includes anything in the thin liquid diet plus: Milk: Dairy, Soy, Rice, and [place] (No Chocolate) Cream of Wheat, Cream of Rice, Grits Strained Creamed Soups (No Tomato or Broccoli) Vanilla and Beacon Flavored Ice Cream Sherbet Vanilla and Butterscotch Pudding (No Chocolate or Coconut) Continue 3-4 Orrum Instant Breakfast, Ensure, or an Equivalent Daily. May be mixed with Dairy for Thin Milkshakes. Clayton Soft Diet Follow this diet for postoperative days 15-20 04/23/2017 - 04/28/2017. (If you are consuming enough protein, you may stop the protein supplements). Please note: You will need extra fluids throughout the day to meet your fluid needs. Referrals: Rodri Day MD [Primary Care Provider] - Kristel Crow CNP [Advanced Practice Nurse] - 04/22/17 8:20 am
[2017-04-20] MEDS ORDERED: *HR* HYDROmorphone (PF) 1 MG/ML SYRINGE IVP PRN ×2 (10:05→11:10)
[2017-04-20] MEDS ORDERED: Acetaminophen IV 1,000 MG/100 ML INFUS..BTL IVPB SCH (10:15)
[2017-04-20] MEDS: Fluconazole 200 MG/100 ML 100 MG/50 ML BAG IVPB SCH (10:26)
[2017-04-20] MEDS: Furosemide 40 MG/4 ML VIAL IVP SCH (10:27)
[2017-04-20] MEDS ORDERED: D10% in Water 500 ML IVC PRN (11:10)
[2017-04-20] MEDS ORDERED: Fluticasone Propionate Nasal 50 MCG/SPRAY BOTTLE NS PRN (11:10)
[2017-04-20] MEDS ORDERED: *HR* Promethazine 25 MG/ML VIAL IVP PRN (11:10)
[2017-04-20] MEDS ORDERED: Naloxone 0.4 MG/ML INJ IVP PRN (11:10)
[2017-04-20] MEDS ORDERED: Clinimix 5%-20% SOLUTION 2,000 ML with MVI, adult with vitamin K 10 ML, Potassium Pho... IVC SCH (11:10)
[2017-04-20] MEDS ORDERED: Ondansetron 4 MG/2 ML VIAL IVP PRN (11:10)
[2017-04-20] MEDS ORDERED: Potassium Phosphate 44 MEQ in 0.9 % Sodium Chloride 250 ML IVPB PRN (11:10)
[2017-04-20] MEDS ORDERED: D5% in Water 1,000 ML IVC PRN (11:10)
[2017-04-20] MEDS ORDERED: Dextrose Gel 15 GM PO PRN ×2 (11:10)
[2017-04-20] MEDS ORDERED: Ipratropium/Albuterol Neb 3 ML IH PRN (11:10)
[2017-04-20] MEDS ORDERED: *HR* Dextrose 50 % in Water (Syg) 50 ML SYRINGE IVP PRN (11:10)
[2017-04-20] MEDS: Heparin 25,000 UNIT/500 ML D5W 25,000 UNIT/500 ML BAG IVC SCH (11:46)
[2017-04-20] MEDS: dilTIAZem HCl 100 MG in D5% in Water 50 ML IVC SCH (11:49)
[2017-04-20] MEDS: Ketorolac 15 MG/ML VIAL IVP SCH ×2 (11:57→18:58)
[2017-04-20] MEDS ORDERED: Ketorolac 15 MG/ML VIAL IVP SCH (12:00)
[2017-04-20 12:46] LABS: Basophils % 0.4 %; Eosinophils # 0.2 K/mcL (0.0-0.6); Hematocrit 42.2 % (37.5-50.1); Immature Granulocytes % 1.2 % (0-4); Lymphocytes # 0.7 K/mcL (0.6-4.6); Lymphocytes % 6.1 %; Mean Corpuscular Hemoglobin 29.2 pg (28.0-33.3); Mean Corpuscular Volume 91.3 fL (83.0-100.0); Monocytes # 0.9 K/mcL (0.0-1.3); Neutrophils # 9.3 K/mcL (1.6-8.9); Platelet Count 145 K/mcL (140-400); Red Blood Count 4.62 M/mcL (4.19-5.50); Red Cell Distribution Width 14.4 % (11.5-14.5); Segmented Neutrophils % 82.3 %
[2017-04-20 12:58] LABS: Phosphorous 2.6 mg/dL (2.7-4.5); Potassium 3.8 mEq/L (3.5-5.1)
[2017-04-20 13:12] LABS: Basophils # 0.1 K/mcL (0.0-0.2); Hemoglobin 13.5 g/dL (12.9-16.9)
[2017-04-20] MEDS ORDERED: Clinimix E 5%-15% SOLUTION 2,000 ML, Parenteral Amino Acid 10% 200 ML with MVI, adult ... IVC SCH (17:00)
[2017-04-20] MEDS: Acetaminophen IV 1,000 MG/100 ML INFUS..BTL IVPB SCH (18:18)
[2017-04-20] MEDS: Latanoprost 2.5 ML BOTTLE BOTH EYES SCH (20:19)
[2017-04-21] MEDS: Acetaminophen IV 1,000 MG/100 ML INFUS..BTL IVPB SCH ×4 (00:25→18:02)
[2017-04-21] MEDS: Ketorolac 15 MG/ML VIAL IVP SCH ×4 (00:25→17:08)
[2017-04-21] MEDS: Insulin LISPRO 300 UNITS/3 ML VIAL SQ SCH ×4 (00:26→17:10)
[2017-04-21] MEDS: Ipratropium/Albuterol Neb 3 ML IH SCH ×7 (00:41→23:25)
[2017-04-21] MEDS: Heparin 25,000 UNIT/500 ML D5W 25,000 UNIT/500 ML BAG IVC SCH ×2 (03:52→20:24)
[2017-04-21] MEDS: Piperacillin/Tazobactam 3.375 GM/200 ML BAG IVPB SCH ×3 (04:02→20:23)
[2017-04-21 05:02] LABS: BUN/Creatinine Ratio 39 (6-26); Blood Urea Nitrogen 28 mg/dL (8-23); Calcium 9.3 mg/dL (8.6-10.3); Carbon Dioxide 28 mEq/L (23-29); Chloride 106 mEq/L (98-107); Glucose 200 mg/dL (70-105); Magnesium 2.5 mg/dL (1.6-2.6); Osmolality,Calculated 305 (280-300); Phosphorous 2.8 mg/dL (2.7-4.5); Potassium 3.3 mEq/L (3.5-5.1); Sodium 142 mEq/L (136-145); eGFR For African Americans > 60 (> 60); eGFR For Non-African Americans > 60 (> 60)
[2017-04-21] MEDS: Pantoprazole 40 MG VIAL IVP SCH (05:33)
[2017-04-21] MEDS: dilTIAZem HCl 100 MG in D5% in Water 50 ML IVC SCH ×2 (07:50→20:32)
[2017-04-21 08:14] LABS: Basophils % 0.3 %; Eosinophils # 0.3 K/mcL (0.0-0.6); Eosinophils % 2.7 %; Hematocrit 37.4 % (37.5-50.1); Hemoglobin 12.1 g/dL (12.9-16.9); Immature Granulocytes % 1.6 % (0-4); Lymphocytes # 0.8 K/mcL (0.6-4.6); Lymphocytes % 7.3 %; Mean Corpuscular HGB Conc 32.4 g/dL (31.6-35.5); Mean Corpuscular Hemoglobin 29.6 pg (28.0-33.3); Mean Corpuscular Volume 91.4 fL (83.0-100.0); Mean Platelet Volume 13.9 fL (9.4-12.4); Monocytes # 0.9 K/mcL (0.0-1.3); Monocytes % 7.8 %; Neutrophils # 8.8 K/mcL (1.6-8.9); Platelet Count 136 K/mcL (140-400); Red Blood Count 4.09 M/mcL (4.19-5.50); Red Cell Distribution Width 14.3 % (11.5-14.5); Segmented Neutrophils % 80.3 %
--- NOTE | 2017-04-21 09:57 | General Surgery Progress Note ---
Date of Encounter: 04/21/17 Time of Encounter: 09:30 - Assessment and Plan (1) Status post Clayton fundoplication Current Visit: Yes Status: Acute POD #13 following robotic medicine fundoplication POD #10 diagnostic laparotomy with gastroplexy (Clayton fundoplication noted to be intact at that time) POD #6 exploratory laparotomy with partial gastrectomy and gastroplexy Overall significant improvement today. WBC normal today. Hgb stable. PLT slightly decreased (136), no overt signs of bleeding noted. Vital signs are stable. O2 per nasal cannula in the 97%. Diursis of ~12L since Tuesday. Standing scale weight noted of 93.7 KG (down 3.4 kg since admission) Plan: 1. Aggressive mobilization a) Keep abdominal binder in place at all times (except may be removed when seated on shower chair for shower). Splint abdomen with pillow or bear when getting out of bed. b) out of bed to chair for all meals. c)Ambulate TID with assistants. d) Please do not use a bedpan or urinal in the bed. Ambulate patient to the bathroom or bedside commode. e) Continue PT/OT for mobilization and d/c planning f) patient to shower daily with assistance (may sit on shower chair) 2. Continue supportive care and discomfort management a) Clear liquid diet; ensure clear TID with trays b) strict I/O per urinal c) continue scheduled IV Toradol and Ofirmev. Please limit use of narcotics given recent confusion. d) Standing scale weight now, and daily standing scale weights only e) Wean O2 as tolerated to keep sats >92% f) Aggressive pulmonary toileting per RT (IS Q1 hour, scheduled duonebs) g) Continue IV ATBX (Diflucan day 4 of 14, Zosyn day 7 14) h) Continue daily wound care: Remove packing; Wash with soap & water; Repack areas with 1/4 plain gauze; Cover with a dry dressing, and tape to secure. 3. Continue GI prophylaxis 4. Continue therapeutic heparin for acute DVT 5. D/c planning-possibly to rehab Tuesday pending clinical course Imaging history: Acute abdominal series on 04/17/2017 reveals hyper aeration with basilar atelectasis and not obstructed bowel gas pattern within the midline skin bin. Negative chest CTA 04/15, negative [place] duplex 04/11; UGI 04/18/2017 reveals after injection of gastric acid and there was no evidence of beak. A small amount of contrast reflux into the esophagus. A small amount of contrast was seen entering the proximal duodenum. (2) Acute deep vein thrombosis (DVT) of left lower extremity Current Visit: Yes Status: Acute Positive DVT in the left PopV AND Gastroc V while on DVT prophylaxis Plan: Therapeutic heparin No EPCDs on LLE. OK for ALLEGRA jack bilateral since AC has previously been initiated Continue to monitor Qualifiers: Affected thrombotic vein of extremity: popliteal Qualified Code(s): I82.432 - Acute embolism and thrombosis of left popliteal vein (3) Confusion Current Visit: Yes Status: Acute Intermittent episodes of confusion; currently alert and oriented and without a sitter. Plan: 1. Limit narcotic use. Add scheduled Toradol and Ofirmev 2. Limit stimulation. DC NG and Garcia catheter 3. Protect/secure lines. Keep PICC line wrapped and abdominal binder in place at all times. Sitter at bedside if needed. 4. Frequent reorientation as necessary. (4) Hiatal hernia Current Visit: Yes Status: Acute See above (5) Hypernatremia Current Visit: Yes Status: Resolved Management per critical care; Resolved. Diuresed 6L over the last 24 hours d/c garcia catheter (6) New onset atrial fibrillation Current Visit: Yes Status: Acute Management critical care; Noted 1 episode of a-fib with RVR on 04/17; felt to like be 2/2 pulmonary status as he as remained in SR since; on therapeutic heparin [id number] score of 2 which is moderate risk (for hypertension and age). If he returns to a-fib this admission, would recommend anticoagulation at discharge and follow-up with a top case assembler. (7) Shortness of breath Current Visit: Yes Status: Acute Fluid status per CC. Out of bed at least TID Aggressive pulmonary toileting (8) Orthopnea Current Visit: Yes Status: Resolved Resolved at this time Subjective Patient reports: no new complaints, feels better, still having pain, pain is less, voiding w/o difficulty, flatus, bowel movement, afebrile Narrative: States discomfort is controlled on current regimen (scheduled acetaminophen and Toradol, Limited narcotics). Objective Vital Signs - Last 8 Hours Temp Pulse Resp BP Pulse Ox 12/21/17 08:06 97.0 F L 68 24 129/85 97 04/21/17 08:03 58 04/21/17 07:54 18 95 04/21/17 04:21 58 04/21/17 03:45 97.1 F L 58 24 127/78 94 Intake and Output 04/20/17 04/21/17 04/21/17 23:59 07:59 15:59 Intake Total 300 / 300 1000 / 1000 Output Total 160 / 160 310 / 310 0 / 0 Balance 140 / 140 690 / 690 0 / 0 Intake: IV Fluids 300 / 300 1000 / 1000 Heparin 25,000 UNIT/500 ML D5W 0 / 0 500 / 500 25,000 unit In 500 ml @ 14 UNIT /KG/HR 27.916 mls/hr IVC . [id number] R[facility] Rx#:[id number] Ofirmev 1,000 mg/100 ml 1,000 100 / 100 100 / 100 mg In 100 ml @ 400 mls/hr IVPB Q6H R[facility] Rx#:[id number] Zosyn Premix 3.375 GM/200 ML 3. 200 / 200 200 / 200 375 gm In 200 ml @ 50 mls/hr IVPB Q8H R[facility] Rx#:[id number] Potassium Chloride 10 mEq/100mL 200 / 200 10 meq In 100 ml @ 100 mls/hr IVPB Q1H PRN Rx#:[id number] Output: Urine 150 / 150 300 / 300 Wound Drainage 10 / 10 10 / 10 0 / 0 Right Lower Abdomen 10 / 10 10 / 10 0 / 0 Other: Stool Consistency loose Stool Characteristics Normal for Patient Stool Color Brown Green Weight 93.7 kg Blood Glucose* 173 178 Patient Weight 04/21/17 23:59 Weight 93.7 kg - General physical appearance no distress, no pain, other (On the bed mtz. Urinal is in position also.) - Eyes normal ocular movement - ENT atraumatic, normocephalic - Neck Neck exam: trachea midline, no venous distension - Respiratory normal expansion, normal respiratory effort, clear to auscultation, other (O2 per nasal cannula noted.) - Cardiovascular Cardiovascular exam: Present: RRR, murmurs - Abdomen Abdomen: Present: bowel sounds present, soft, tender (Expected postoperative), wound (DON train with small amount of SS drainage) Hernia: none Additional Comments: Abdominal binder is in place. Noted to have small amount of SS drainage in the superior portion. - Incision Incision: Present: intact (Intact overall with the exception of areas with [place] present. No surrounding erythema. No other signs of dehiscence noted.) - Integumentary no growths, no abnormal pigmentation - Neurologic normal coordination, normal sensation - Musculoskeletal normal posture - Psychiatric oriented to time, oriented to person, oriented to place, speech is normal, memory intact, other (Per bedside RN. Sitter was stopped overnight.) - Labs 04/21/17 07:58 04/21/17 04:15 Diabetes panel 04/20/17 04/21/17 Range/Units 12: 04:15 Sodium 142 (136-145) mEq/L Potassium 3.8 3.3 L (3.5-5.1) mEq/L Chloride 106 (98-107) mEq/L Carbon Dioxide 28 (23-29) mEq/L BUN 28 H (8-23) mg/dL Creatinine 0.71 (0.70-1.30) mg/dL Glucose 200 H (70-105) mg/dL Calcium 9.3 (8.6-10.3) mg/dL Calcium panel 04/20/17 04/21/17 Range/Units 12:20 04:15 Calcium 9.3 (8.6-10.3) mg/dL Phosphorus 2.6 L 2.8 (2.7-4.5) mg/dL Pituitary panel 04/20/17 04/21/17 Range/Units 12:20 04:15 Sodium 142 (136-145) mEq/L Potassium 3.8 3.3 L (3.5-5.1) mEq/L Chloride 106 (98-107) mEq/L Carbon Dioxide 28 (23-29) mEq/L BUN 28 H (8-23) mg/dL Creatinine 0.71 (0.70-1.30) mg/dL Glucose 200 H (70-105) mg/dL Calcium 9.3 (8.6-10.3) mg/dL Adrenal panel 04/20/17 04/21/17 Range/Units 12: 04:15 Sodium 142 (136-145) mEq/L Potassium 3.8 3.3 L (3.5-5.1) mEq/L Chloride 106 (98-107) mEq/L Carbon Dioxide 28 (23-29) mEq/L BUN 28 H (8-23) mg/dL Creatinine 0.71 (0.70-1.30) mg/dL Glucose 200 H (70-105) mg/dL Calcium 9.3 (8.6-10.3) mg/dL - VTE Documentation of Mechanical Device: Intermittent pneumatic compression device Consult Discharge Plan - Plan Instructions: Adult Laparoscopic Clayton Fundoplication (DC) Additional Instructions: General Instructions After Clayton Surgery 1. No pushing, pulling, or lifting greater than 15 lbs for FOUR weeks. 2. You may shower beginning today, but no tub baths, soaking, or swimming for 2 weeks. 3. You may resume driving when you are off narcotics and are safe to react in a car. 4. Take ibuprofen every 8 hours if needed for discomfort. If this does not relieve the discomfort, you may take oxycodone for breakthrough pain. Take narcotics as directed. Do not take more narcotics then directed and do not share your narcotics with any other person. Do not drink alcohol while on narcotics. 5. Take stool softeners (Colace) or a water based laxative (Miramax) while taking narcotics. You may hold for loose stools. 6. Report any fevers greater than 100.5F, increase abdominal discomfort, drainage that looks like pus, increased redness or pain at the surgical site, or any vomiting. 7. Report any pain in the calves, shortness of breath, or rapid heartbeat. 8. Continue to take your heartburn medications until directed to stop. Do not stop them abruptly as this can cause symptoms of reflux. 9. Do not drink alcohol or carbonated beverages. 10. Do not deviate from the recommended Clayton diet below. Doing so can affect your outcomes. [facility] Diet After Clayton Fundoplication Surgery This diet information is for patients who have recently had Clayton Fundoplication Surgery to correct reflux disease or to repair various types of hernias, such as hiatal hernia and intrathoracic stomach. This diet may also be used for other gastrointestinal surgeries, such as Heller myotomy and repair of achalasia. The diet will help control diarrhea, excess gas and swallowing problems, which may occur after this type of surgery. Important Steps to Keep Your Stomach From Stretching Eat small, frequent meals (six to eight per day). This will help you consume the majority of the nutrients you need without causing your stomach to feel full or distended. Drinking large amounts of fluids with meals can stretch your stomach. You may drink fluids between meals as often as you like, but limit fluids to 1/2 cup (4 fluid ounces) with meals and one cup (8 fluid ounces) with snacks. Sit upright while eating, and stay upright for 30 minutes after each meal. [place] can help food move through your digestive tract. Do not lie down after eating. Sit upright for 2 hours after your last meal or snack of the day. Eat very slowly. Take your time when eating. Take small bites and chew your food well to driller helper in swallowing and digestion. Avoid crusty breads and sticky, gummy foods, such as bananas, fresh doughy breads, rolls and doughnuts. These types of foods become sticky and difficult to swallow. Toasted breads tend to be better tolerated. Lastly, if you eat sweets, consume them at the end of your meal to avoid a group of symptoms referred to as dumping syndrome. This describes the rapid emptying of foods from the stomach to the small intestine. Sweetened beverages, candy and desserts move more rapidly and dump quickly into the intestines. This can cause symptoms of nausea, weakness, cold sweats, cramps, diarrhea and dizzy spells. Important Steps to Avoid Gas Do not drink through a straw, chew gum, or chew tobacco. These actions cause you to swallow air, which will produce excess gas in your stomach. Chew with your mouth closed and chew your food thoroughly. Avoid foods that cause stomach gas and distention. The foods include corn, dried beans, peas, lentils, onions, broccoli, cauliflower, and any food item from the cabbage family. Do not drink carbonated drinks, alcohol, citrus, or tomato products. What Will I Be Able To Eat and Drink After Surgery After Clayton Fundoplication Surgery, your diet will be advanced slowly by your surgeon. Generally, you will be on a thin/clear liquid diet for the first 10 days. Then you will advance to the full liquid diet for 4 days and eventually to a Clayton soft diet for 7 days. After any surgery, protein consumption is important for healing. To get enough protein, drink 3-4 [place] Instant Breakfast, Ensure, or equivalent daily. Reminder: Carbonated beverages (such as sodas, energy drinks, flavored carbonated water), and alcohol are not permitted for the 1st 6 to 8 weeks after surgery. After this time you may attempt to reintroduce them in small amounts. Please note: Dairy products such as milk, ice cream, and pudding may cause diarrhea in some people after surgery. You may need to avoid milk products. If so you may substitute them with lactose free beverages, such as soy, rice, lactate, or almond milk. Please be aware that each patient's tolerance to food is different. Your doctor will advance your diet depending on how well you progress after surgery. Thin Liquid Diet The first diet after Clayton Fundoplication Surgery is the thin liquids diet. Follow this diet for postoperative days 1-10 04/09/2017- 04/08/2017. Thin liquids include: Apple, Cranberry, or Grape Juice (no citrus juice) Chicken Broth Beef Broth Flavored Gelatin (Jell-O) Decaffeinated Tea or Coffee Popsicles or [place] Ice Caffeinated Beverages Will Be Permitted Based upon Tolerance and at a later date Dairy if tolerated Thin Milkshakes (strawberry or vanilla flavored- No chocolate) Drink 3-4 [place] instant breakfast, Ensure, or equivalent daily. May be mixed with dairy for thin milkshakes Full Liquid Diet Follow this diet for postoperative days 11- - 04/22/2017. Full liquid diet includes anything in the thin liquid diet plus: Milk: Dairy, Soy, Rice, and [place] (No Chocolate) Cream of Wheat, Cream of Rice, Grits Strained Creamed Soups (No Tomato or Broccoli) Vanilla and [place] Flavored Ice Cream Sherbet Vanilla and Butterscotch Pudding (No Chocolate or Coconut) Continue 3-4 [place] Instant Breakfast, Ensure, or an Equivalent Daily. May be mixed with Dairy for Thin Milkshakes. Clayton Soft Diet Follow this diet for postoperative days 15-20 04/23/2017 - 04/28/2017. (If you are consuming enough protein, you may stop the protein supplements). Please note: You will need extra fluids throughout the day to meet your fluid needs. Referrals: Rodri Day MD [Primary Care Provider] - (SENT WEB REQUEST ON 04-20-17 @ 0410) Kristel Crow CNP [Advanced Practice Nurse] - 04/22/17 8:20 am
[2017-04-21] MEDS: Fluconazole 200 MG/100 ML 100 MG/50 ML BAG IVPB SCH (10:44)
[2017-04-21] MEDS: Clinimix E 5%-15% SOLUTION 2,000 ML, Parenteral Amino Acid 10% 200 ML with MVI, adult ... IVC SCH (17:09)
[2017-04-21] MEDS: Latanoprost 2.5 ML BOTTLE BOTH EYES SCH (20:24)
[2017-04-22] MEDS: Acetaminophen IV 1,000 MG/100 ML INFUS..BTL IVPB SCH ×4 (00:30→11:42)
[2017-04-22] MEDS: Ketorolac 15 MG/ML VIAL IVP SCH ×3 (00:31→11:32)
[2017-04-22] MEDS: Insulin LISPRO 300 UNITS/3 ML VIAL SQ SCH ×5 (00:34→16:51)
[2017-04-22] MEDS: Ipratropium/Albuterol Neb 3 ML IH SCH ×5 (04:12→20:30)
[2017-04-22 04:54] LABS: Basophils # 0.1 K/mcL (0.0-0.2); Basophils % 0.5 %; Eosinophils # 0.3 K/mcL (0.0-0.6); Eosinophils % 2.5 %; Hematocrit 35.3 % (37.5-50.1); Hemoglobin 11.2 g/dL (12.9-16.9); Immature Granulocytes % 2.5 % (0-4); Immature Platelets 26.1 % (1.1-6.1); Lymphocytes % 9.6 %; Mean Corpuscular HGB Conc 31.7 g/dL (31.6-35.5); Mean Corpuscular Volume 91.5 fL (83.0-100.0); Mean Platelet Volume 14.4 fL (9.4-12.4); Monocytes # 1.1 K/mcL (0.0-1.3); Monocytes % 10.1 %; Neutrophils # 7.9 K/mcL (1.6-8.9); Platelet Count 173 K/mcL (140-400); Red Blood Count 3.86 M/mcL (4.19-5.50); Red Cell Distribution Width 14.2 % (11.5-14.5); Segmented Neutrophils % 74.8 %
[2017-04-22 05:10] LABS: BUN/Creatinine Ratio 36 (6-26); Blood Urea Nitrogen 25 mg/dL (8-23); Calcium 9.1 mg/dL (8.6-10.3); Carbon Dioxide 27 mEq/L (23-29); Chloride 106 mEq/L (98-107); Glucose 161 mg/dL (70-105); Magnesium 2.2 mg/dL (1.6-2.6); Osmolality,Calculated 292 (280-300); Phosphorous 2.5 mg/dL (2.7-4.5); Potassium 3.6 mEq/L (3.5-5.1); Sodium 137 mEq/L (136-145); eGFR For African Americans > 60 (> 60); eGFR For Non-African Americans > 60 (> 60)
[2017-04-22] MEDS: Pantoprazole 40 MG VIAL IVP SCH (05:39)
[2017-04-22] MEDS: Piperacillin/Tazobactam 3.375 GM/200 ML BAG IVPB SCH ×3 (05:40→11:42)
[2017-04-22 05:59] LABS: Platelet Estimate Normal (Normal)
[2017-04-22] MEDS: Fluconazole 200 MG/100 ML 100 MG/50 ML BAG IVPB SCH (09:24)
[2017-04-22] MEDS ORDERED: Acetaminophen 325 MG TABLET PO PRN (12:11)
--- NOTE | 2017-04-22 12:15 | General Surgery Progress Note ---
Date of Encounter: 04/22/17 Time of Encounter: 11:30 - Assessment and Plan (1) Status post Clayton fundoplication Current Visit: Yes Status: Acute Postoperative day #14 following Robotic Clayton fundoplication with recurrent hiatal hernia Postoperative day #11 diagnostic laparotomy with gastroplexy (Clayton fundoplication noted to be intact at that time) Postoperative day #7 exploratory laparotomy with partial gastrectomy and gastroplexy Advance to full liquids today and may have mashed potatoes, protein supplements TID Wean TPN therapy and stop at 1700 tonight [place] notified of TPN stop Daily wound care- cleanse midline with soap and water and pat dry, pack 2 open areas with 1/4 inch plain gauze, cover with ABD pad X 2 and tape with medipore tape daily. Supportive care and pain control PPI therapy daily- transition to PO PT/OT daily for mobilization D/C IV antibiotics and diflucan Remove DON drain Transition to inpatient rehabilitation- Requesting [facility] for assistance with transition to rehab Repeat am labs (2) Hypophosphatemia Current Visit: Yes Status: Acute Stable 2.5 No intervention at this time (3) Moderate protein-calorie malnutrition Current Visit: Yes Status: Acute Continue TPN (start 04/14/17) Management of TPN per revenue cycle manager (4) Acute deep vein thrombosis (DVT) of left lower extremity Current Visit: Yes Status: Acute Stop heparin gtt at 1700 Start Xarelto 15mg at 1800 tonight Xarelto 15mg BID for 3 weeks and then transition to 20mg daily for 6 months Qualifiers: Affected thrombotic vein of extremity: popliteal Qualified Code(s): I82.432 - Acute embolism and thrombosis of left popliteal vein (5) Shortness of breath Current Visit: Yes Status: Acute Improving Continue IS every 1 hour while awake Duonebs as scheduled Subjective Patient reports: no new complaints, feels better, still having pain, pain is less, tolerating liquids well, voiding w/o difficulty, flatus, bowel movement, diarrhea, afebrile, other (Patient out of bed to chair and states that he feels better today. Walked in the hallway this morning.) Objective Vital Signs - Last 8 Hours Temp Pulse Resp BP Pulse Ox 04/22/17 12:01 97.9 F 63 15 115/90 95 04/22/17 08:39 53 04/22/17 08:21 16 94 04/22/17 07:38 97.6 F 61 15 119/77 92 04/22/17 05:58 64 16 128/82 93 04/22/17 04:28 97.1 F L 63 19 125/84 92 Intake and Output 04/21/17 04/22/17 04/22/17 23:59 07:59 15:59 Intake Total 800 / 800 350 / 350 660 / 660 Output Total 0 / 0 20 / 20 600 / 600 Balance 800 / 800 330 / 330 60 / 60 Intake: IV Fluids 800 / 800 350 / 350 300 / 300 Heparin 25,000 UNIT/500 ML D5W 500 / 500 25,000 unit In 500 ml @ 14 UNIT /KG/HR 27.916 mls/hr IVC . [id number] RODERICK Rx#:[id number] Ofirmev 1,000 mg/100 ml 1,000 100 / 100 100 / 100 100 / 100 mg In 100 ml @ 400 mls/hr IVPB Q6H RODERICK Rx#:[id number] Diflucan Premix 200 MG/100 ML 50 / 50 100 mg In 50 ml @ 50 mls/hr IVPB DAILY R[facility]ERICK Rx#:[id number] Zosyn Premix 3.375 GM/200 ML 3. 200 / 200 200 / 200 200 / 200 375 gm In 200 ml @ 50 mls/hr IVPB Q8H RODERICK Rx#:[id number] Oral 0 / 0 0 / 0 360 / 360 Output: Urine 0 / 0 600 / 600 Wound Drainage 20 / 20 Right Lower Abdomen 20 / 20 Other: Meal Clears Diet Weight 92.1 kg Blood Glucose* 154 158 140 Patient Weight 04/22/17 23:59 Weight 92.1 kg - General physical appearance well developed, no distress, other (Out of bed to chair) - Eyes PERRL, normal ocular movement - ENT normal mucosa, atraumatic, normocephalic - Neck Neck exam: trachea midline - Respiratory normal respiratory effort, clear to auscultation, other (dyspnea on exertion noted (improving); diminished bibasilar breath sounds) - Cardiovascular Cardiovascular exam: Present: RRR - Abdomen Abdomen: Present: bowel sounds present, soft, tender (expected post-operative tenderness), wound (midline with scant amount of serousang. drainage noted on packing; DON drain with small amount of serousang. drainage noted.) - Incision Incision: Present: open (3 open areas with small amount of serousang. drainage noted (midline)) - Neurologic CN 2-12 grossly intact - Musculoskeletal other (moderate physical deconditioning) - Psychiatric oriented to time, oriented to person, oriented to place, speech is normal, memory intact - Labs 04/22/17 04:25 04/22/17 04:25 Diabetes panel 04/22/17 04/22/17 Range/Units 04:25 04:25 Sodium 137 (136-145) mEq/L Potassium 3.6 (3.5-5.1) mEq/L Chloride 106 (98-107) mEq/L Carbon Dioxide 27 (23-29) mEq/L BUN 25 H (8-23) mg/dL Creatinine 0.69 L (0.70-1.30) mg/dL Glucose 161 H (70-105) mg/dL Calcium 9.1 (8.6-10.3) mg/dL Triglycerides 209 H (< 150) mg/dL Calcium panel 04/22/17 04/22/17 Range/Units 04:25 04:25 Calcium 9.1 (8.6-10.3) mg/dL Phosphorus 2.5 L (2.7-4.5) mg/dL Pituitary panel 04/22/17 Range/Units 04:25 Sodium 137 (136-145) mEq/L Potassium 3.6 (3.5-5.1) mEq/L Chloride 106 (98-107) mEq/L Carbon Dioxide 27 (23-29) mEq/L BUN 25 H (8-23) mg/dL Creatinine 0.69 L (0.70-1.30) mg/dL Glucose 161 H (70-105) mg/dL Calcium 9.1 (8.6-10.3) mg/dL Adrenal panel 04/22/17 Range/Units 04:25 Sodium 137 (136-145) mEq/L Potassium 3.6 (3.5-5.1) mEq/L Chloride 106 (98-107) mEq/L Carbon Dioxide 27 (23-29) mEq/L BUN 25 H (8-23) mg/dL Creatinine 0.69 L (0.70-1.30) mg/dL Glucose 161 H (70-105) mg/dL Calcium 9.1 (8.6-10.3) mg/dL - VTE Documentation of Mechanical Device: Graduated compression elastic hosiery Consult Discharge Plan - Plan Instructions: Adult Laparoscopic Clayton Fundoplication (DC) Additional Instructions: General Instructions After Clayton Surgery 1. No pushing, pulling, or lifting greater than 15 lbs for FOUR weeks. 2. You may shower beginning today, but no tub baths, soaking, or swimming for 2 weeks. 3. You may resume driving when you are off narcotics and are safe to react in a car. 4. Take ibuprofen every 8 hours if needed for discomfort. If this does not relieve the discomfort, you may take oxycodone for breakthrough pain. Take narcotics as directed. Do not take more narcotics then directed and do not share your narcotics with any other person. Do not drink alcohol while on narcotics. 5. Take stool softeners (Colace) or a water based laxative (Miramax) while taking narcotics. You may hold for loose stools. 6. Report any fevers greater than 100.5F, increase abdominal discomfort, drainage that looks like pus, increased redness or pain at the surgical site, or any vomiting. 7. Report any pain in the calves, shortness of breath, or rapid heartbeat. 8. Continue to take your heartburn medications until directed to stop. Do not stop them abruptly as this can cause symptoms of reflux. 9. Do not drink alcohol or carbonated beverages. 10. Do not deviate from the recommended Clayton diet below. Doing so can affect your outcomes. [facility] Diet After Clayton Fundoplication Surgery This diet information is for patients who have recently had Clayton Fundoplication Surgery to correct reflux disease or to repair various types of hernias, such as hiatal hernia and intrathoracic stomach. This diet may also be used for other gastrointestinal surgeries, such as Heller myotomy and repair of achalasia. The diet will help control diarrhea, excess gas and swallowing problems, which may occur after this type of surgery. Important Steps to Keep Your Stomach From Stretching Eat small, frequent meals (six to eight per day). This will help you consume the majority of the nutrients you need without causing your stomach to feel full or distended. Drinking large amounts of fluids with meals can stretch your stomach. You may drink fluids between meals as often as you like, but limit fluids to 1/2 cup (4 fluid ounces) with meals and one cup (8 fluid ounces) with snacks. Sit upright while eating, and stay upright for 30 minutes after each meal. [place] can help food move through your digestive tract. Do not lie down after eating. Sit upright for 2 hours after your last meal or snack of the day. Eat very slowly. Take your time when eating. Take small bites and chew your food well to industrial gas servicer helper in swallowing and digestion. Avoid crusty breads and sticky, gummy foods, such as bananas, fresh doughy breads, rolls and doughnuts. These types of foods become sticky and difficult to swallow. Toasted breads tend to be better tolerated. Lastly, if you eat sweets, consume them at the end of your meal to avoid a group of symptoms referred to as dumping syndrome. This describes the rapid emptying of foods from the stomach to the small intestine. Sweetened beverages, candy and desserts move more rapidly and dump quickly into the intestines. This can cause symptoms of nausea, weakness, cold sweats, cramps, diarrhea and dizzy spells. Important Steps to Avoid Gas Do not drink through a straw, chew gum, or chew tobacco. These actions cause you to swallow air, which will produce excess gas in your stomach. Chew with your mouth closed and chew your food thoroughly. Avoid foods that cause stomach gas and distention. The foods include corn, dried beans, peas, lentils, onions, broccoli, cauliflower, and any food item from the cabbage family. Do not drink carbonated drinks, alcohol, citrus, or tomato products. What Will I Be Able To Eat and Drink After Surgery After Clayton Fundoplication Surgery, your diet will be advanced slowly by your surgeon. Generally, you will be on a thin/clear liquid diet for the first 10 days. Then you will advance to the full liquid diet for 4 days and eventually to a Clayton soft diet for 7 days. After any surgery, protein consumption is important for healing. To get enough protein, drink 3-4 [place] Instant Breakfast, Ensure, or equivalent daily. Reminder: Carbonated beverages (such as sodas, energy drinks, flavored carbonated water), and alcohol are not permitted for the 1st 6 to 8 weeks after surgery. After this time you may attempt to reintroduce them in small amounts. Please note: Dairy products such as milk, ice cream, and pudding may cause diarrhea in some people after surgery. You may need to avoid milk products. If so you may substitute them with lactose free beverages, such as soy, rice, lactate, or almond milk. Please be aware that each patient's tolerance to food is different. Your doctor will advance your diet depending on how well you progress after surgery. Thin Liquid Diet The first diet after Clayton Fundoplication Surgery is the thin liquids diet. Follow this diet for postoperative days 1-10 04/09/2017- 04/08/2017. Thin liquids include: Apple, Cranberry, or Grape Juice (no citrus juice) Chicken Broth Beef Broth Flavored Gelatin (Jell-O) Decaffeinated Tea or Coffee Popsicles or Khmer Ice Caffeinated Beverages Will Be Permitted Based upon Tolerance and at a later date Dairy if tolerated Thin Milkshakes (strawberry or vanilla flavored- No chocolate) Drink 3-4 Willis instant breakfast, Ensure, or equivalent daily. May be mixed with dairy for thin milkshakes Full Liquid Diet Follow this diet for postoperative days 11-14106/20/2016 - 04/22/2017. Full liquid diet includes anything in the thin liquid diet plus: Milk: Dairy, Soy, Rice, and [place] (No Chocolate) Cream of Wheat, Cream of Rice, Grits Strained Creamed Soups (No Tomato or Broccoli) Vanilla and [place] Flavored Ice Cream Sherbet Vanilla and Butterscotch Pudding (No Chocolate or Coconut) Continue 3-4 Willis Instant Breakfast, Ensure, or an Equivalent Daily. May be mixed with Dairy for Thin Milkshakes. Clayton Soft Diet Follow this diet for postoperative days 15-20 04/23/2017 - 04/28/2017. (If you are consuming enough protein, you may stop the protein supplements). Please note: You will need extra fluids throughout the day to meet your fluid needs. Referrals: Rodri Day MD [Primary Care Provider] - 05/05/17 3:15 pm () Kristel Crow CNP [Advanced Practice Nurse] - - Attending Attestation For this encounter, I have reviewed the SOAKING TANK WORKER or PA documentation, treatment plan, and medical decision making; and I have had face to face time with this patient.
[2017-04-22] MEDS: Heparin 25,000 UNIT/500 ML D5W 25,000 UNIT/500 ML BAG IVC SCH (13:23)
--- NOTE | 2017-04-22 15:28 | Physician Discharge Referral ---
ExtendedCare Referral Info [facility] Provider in Charge: Dr. Juan Carlos Hein Provider in Charge after Transfer: Other (Dr. Juan Carlos Hein) Institutional Level of Care: Skilled - Diagnosis (1) Status post Clayton fundoplication Priority: Primary Status: Acute (2) Hypophosphatemia Priority: Secondary Status: Acute (3) Moderate protein-calorie malnutrition Priority: Secondary Status: Acute (4) Acute deep vein thrombosis (DVT) of left lower extremity Priority: Secondary Status: Acute (5) Shortness of breath Priority: Secondary Status: Acute Expected Duration of Placement: Less than 30 days Prognosis: Good Aware of Diagnosis: Patient, Family Aware of Prognosis: Patient, Family - Transfer Medications Prescriptions: OxyCODONE/APAP 5/325 [Percocet 5/325 MG] 1 each PO Q4HR PRN #30 tablet PRN Reason: Moderate Pain Rivaroxaban [Xarelto] 15 mg PO Q12H #42 tablet Home Medications: Travoprost [Travatan Z] 1 drop OP HS 12/31/14 [History] Ezetimibe [Zetia] 10 mg PO DAILY 03/01/17 [History] Fluticasone Propionate Nasal [Flonase] 50 mcg NS DAILY PRN 03/01/17 [History] Timolol Maleate 0.5% 1 drop RIGHT EYE BID 03/01/17 [History] Lactose-Reduced Food [Ensure Enlive] 237 ml PO TID #90 liquid 04/08/17 [Rx] Ondansetron ODT [Zofran ODT] 4 mg SL Q4HR #15 tab.rapdis 04/08/17 [Rx] Acetaminophen [Tylenol] 650 mg PO Q6HR PRN tablet 04/22/17 [Rx] Ipratropium/Albuterol Neb [Duoneb] 3 ml IH [id number] inhsol 04/22/17 [Rx] Omeprazole [PriLOSEC] 20 mg PO DAILY@0630 capsule. 04/22/17 [Rx] OxyCODONE/APAP 5/325 [Percocet 5/325 MG] 1 each PO Q4HR PRN #30 tablet 04/22/17 [Rx] Rivaroxaban [Xarelto] 15 mg PO Q12H #42 tablet 04/22/17 [Rx] Rivaroxaban [Xarelto] 20 mg PO DAILY #30 tablet 04/22/17 [Rx] Allergies/Adverse Reactions: 3 Allergy/AdvReac Type Severity Reaction Status Date / Time Pneumococcal Vaccine Allergy Redness of Verified 04/08/17 10:51 [From Pneumovax 23] Skin - Respiratory Orders Oxygen / L per min (2-3 L per nasal cannula; may wean for oxygen greater than or equal to 90%) Smoking Cessation: Smoking cessation has been advised. For more information, call the [place] Tobacco Quit Line at 7-095-JIIA-NOW. - Ancillary Orders May use pressure relief devices daily prn, May go on DONNA w/family/respon libertarian w /meds at nurse discretion PRN, May consult with Dentist, Paste Maker, Health Plan Manager PRN - Advance Directives Code Status: Full Code - Mobility Orders Chair - Rehabiliation Orders Rehab Potential: Good Rehab Orders: Sternal Precautions, ROM Exercises, Evaluation for Physical Therapy, Evaluation for Occupational Therapy - Treatments Skin tear care topically daily PRN per policy - Diet Orders Mechanical Soft (Advance to mechanical soft as tolerated; Do no advance past soft diet until seen in follow-up by Dr. Hein) House Supplement per Dietary: Ensure HP TID with meals CERTIFICATION: I certify that the transfer of the above named patient to an Extended Care Facility is necessary for the continuing treatment of the diagnosis listed. The above information is true and accurate reflection of patient's current condition. Confidential - Redisclosure prohibited without a patient's written consent.
--- NOTE | 2017-04-22 16:40 | Discharge Summary ---
<Kristel Crow - Last Filed: 04/22/17 16:33> Date of Encounter: 04/23/17 Time of Encounter: 06:00 - Discharge Diagnosis (1) Status post Clayton fundoplication Priority: Primary Status: Acute Comments: Clayton taken down on 04/15/2017 (2) Acute deep vein thrombosis (DVT) of left lower extremity Priority: Secondary Status: Acute Qualifiers: Affected thrombotic vein of extremity: popliteal Qualified Code(s): I82.432 - Acute embolism and thrombosis of left popliteal vein (3) Confusion Priority: Secondary Status: Resolved (4) Hiatal hernia Priority: Primary Status: Acute (5) Hypernatremia Priority: Secondary Status: Resolved (6) New onset atrial fibrillation Priority: Secondary Status: Resolved (7) Shortness of breath Priority: Secondary Status: Resolved (8) Orthopnea Priority: Secondary Status: Resolved - Discharge Medications Prescriptions: OxyCODONE/APAP 5/325 [Percocet 5/325 MG] 1 each PO Q4HR PRN #30 tablet PRN Reason: Moderate Pain Rivaroxaban [Xarelto] 15 mg PO Q12H #42 tablet Rivaroxaban [Xarelto] 20 mg PO DAILY #30 tablet Home Medications: Travoprost [Travatan Z] 1 drop OP HS 12/31/14 [History] Ezetimibe [Zetia] 10 mg PO DAILY 03/01/17 [History] Fluticasone Propionate Nasal [Flonase] 50 mcg NS DAILY PRN 03/01/17 [History] Timolol Maleate 0.5% 1 drop RIGHT EYE BID 03/01/17 [History] Lactose-Reduced Food [Ensure Enlive] 237 ml PO TID #90 liquid 04/08/17 [Rx] Ondansetron ODT [Zofran ODT] 4 mg SL Q4HR #15 tab.rapdis 04/08/17 [Rx] Acetaminophen [Tylenol] 650 mg PO Q6HR PRN tablet 04/22/17 [Rx] Ipratropium/Albuterol Neb [Duoneb] 3 ml IH [id number] inhsol 04/22/17 [Rx] Omeprazole [PriLOSEC] 20 mg PO DAILY@0630 capsule. 04/22/17 [Rx] OxyCODONE/APAP 5/325 [Percocet 5/325 MG] 1 each PO Q4HR PRN #30 tablet 04/22/17 [Rx] Rivaroxaban [Xarelto] 15 mg PO Q12H #42 tablet 04/22/17 [Rx] Rivaroxaban [Xarelto] 20 mg PO DAILY #30 tablet 04/22/17 [Rx] Allergies/Adverse Reactions: 3 Allergy/AdvReac Type Severity Reaction Status Date / Time Pneumococcal Vaccine Allergy Redness of Verified 04/08/17 10:51 [From Pneumovax 23] Skin General Surgery Exam Initial Vital Signs Temp Pulse Resp BP Pulse Ox 97.7 F 58 18 130/92 95 04/08/17 10:44 04/08/17 10:44 04/08/17 10:44 04/08/17 10:44 04/08/17 10:44 Date of admission: 04/11/17 10:48 Primary care physician: Rodri Day MD Consults: 04/12/17 08:47 Consult to Respiratory Therapy [CONS] Routine Reason for Consult: Aggressive pulmonary toileting in the setting of atelectasis on chest x-ray and return to a OR today. Time Notified: 08:48 Call Completed: Yes 04/14/17 09:48 Consult to Occupational Therapy [CONS] Routine Comment: Evaluate, develop and implement POC Reason for Consult: Mobilization in DC planning Consult to Physical Therapy [CONS] Routine Comment: Evaluate, develop and implement POC Reason for Consult: Mobilization and DC planning 04/14/17 15:16 Consult to Invasive Line Access Team [CONS] Routine Reason for Consult: Picc Line Insertion Line Type: PICC Time Notified: 15:16 Call Completed: Yes consult to solution engineer [Consult to Nutrition] [CONS] Routine Comment: Total fluid rate will be goal TPN rate Consulting Provider: NUTRITION Reason for Dietary Consult: TPN Start and Manage 04/18/17 08:33 Consult to Critical Care [CONS] Stat Consulting Provider: Pulm Crit Care & Sleep [place] Reason for Consult: SOB and confusion; Spoke with Dr. Rea while in the ICU Time Notified: 08:20 Call Completed: Yes 04/21/17 12:04 Consult to Weekend Receptionist [CONS] Routine Reason for SW Consult: d/c planning. Will likely need rehab placement at d/c (possibly Tuesday) Discharging clinician: Carolyn Clifton Anticipated date of discharge: 04/23/17 - Patient Status Disposition: Transfer Inpatient Rehab Fac Condition: Good Functional capacity at discharge: uses cane/walker (or standby assistance) Overall status at discharge: patient is not back to baseline - Discharge Instructions Instructions: Adult Laparoscopic Clayton Fundoplication (DC), Laparoscopic Gastrectomy (DC) Follow Up With: Rodri Day MD [Primary Care Provider] - 05/05/17 3:15 pm () Kristel Crow CNP [Advanced Practice Nurse] - Forms: Inpatient Work/School Release Additional Instructions: General Instructions After Clayton Surgery 1. No pushing, pulling, or lifting greater than 15 lbs for FOUR weeks. 2. You may shower beginning today, but no tub baths, soaking, or swimming for 2 weeks. 3. You may resume driving when you are off narcotics and are safe to react in a car. 4. Take ibuprofen every 8 hours if needed for discomfort. If this does not relieve the discomfort, you may take oxycodone for breakthrough pain. Take narcotics as directed. Do not take more narcotics then directed and do not share your narcotics with any other person. Do not drink alcohol while on narcotics. 5. Take stool softeners (Colace) or a water based laxative (Miramax) while taking narcotics. You may hold for loose stools. 6. Report any fevers greater than 100.5F, increase abdominal discomfort, drainage that looks like pus, increased redness or pain at the surgical site, or any vomiting. 7. Report any pain in the calves, shortness of breath, or rapid heartbeat. 8. Continue to take your heartburn medications until directed to stop. Do not stop them abruptly as this can cause symptoms of reflux. 9. Do not drink alcohol or carbonated beverages. 10. Do not deviate from the recommended Clayton diet below. Doing so can affect your outcomes. Remain on Full Liquid Diet until seen in follow-up. Drink at least three protein supplements daily such as Boost, Ensure, or [place] Instant Breakfast. - Diet and Activity Activity: as per physical therapy Diet: other - Hospital Course Hospital course: Mr. Pool is a 76 year old male who presented for elective Robotic Clayton on 04/08/2017. His hospital course was complicated by recurrence of hiatal hernia on . He returned to surgery on 04/10/2017 for diagnostic lap with grastropexy (Clayton noted to be intact) and gastric perforation for which he returned to surgery on 04/15/2017 for exploratory laparotomy with partial gastrectomy and gastroplexy and Clayton take down. He was supported with NG tube, garcia, and TPN. His course was further complicated by hypernatremia, fluid overload, and delerium for which he was consulted/managed per critical care and diuresed over 12L. He is ambulating with assistance, voiding without difficulty, tolerating a full-liquid diet, VSS , and a-febrile. We will begin d/c to rehab with a follow-up in the office in 2 weeks. - Time Spent with Patient Total time spent providing and/or coordinating discharge services: Greater than 30 minutes (D/c planning and follow-up) Labs on day of discharge: Labs from last 24 hours 04/22/17 04/22/17 04/22/17 04:25 04:25 04:25 WBC RBC Hgb Hct MCV MCH MCHC RDW Plt Count MPV Immature Gran % Seg Neutrophils % Lymphocytes % Monocytes % Eosinophils % Basophils % Neutrophils # Lymphocytes # Monocytes # Eosinophils # Basophils # Platelet Estimate Immature Plt Fraction APTT 65.3 H Sodium Potassium Chloride Carbon Dioxide BUN Creatinine Est GFR ( Amer) Est GFR (Non-Af Amer) BUN/Creatinine Ratio Glucose POC Glucose Calculated Osmolality Calcium Phosphorus 2.5 L Magnesium 2.2 Triglycerides 209 H 04/22/17 04/22/17 04/22/17 04:25 04:25 00:33 WBC 10.5 RBC 3.86 L Hgb 11.2 L Hct 35.3 L MCV 91.5 MCH 29.0 MCHC 31.7 RDW 14.2 Plt Count 173 MPV 14.4 H Immature Gran % 2.5 Seg Neutrophils % 74.8 Lymphocytes % 9.6 Monocytes % 10.1 Eosinophils % 2.5 Basophils % 0.5 Neutrophils # 7.9 Lymphocytes # 1.0 Monocytes # 1.1 Eosinophils # 0.3 Basophils # 0.1 Platelet Estimate Normal Immature Plt Fraction 26.1 H APTT Sodium 137 Potassium 3.6 Chloride 106 Carbon Dioxide 27 BUN 25 H Creatinine 0.69 L Est GFR ( Amer) > 60 Est GFR (Non-Af Amer) > 60 BUN/Creatinine Ratio 36 H Glucose 161 H POC Glucose 166 H Calculated Osmolality 292 Calcium 9.1 Phosphorus Magnesium Triglycerides 04/21/17 04/21/17 04/21/17 19:27 18:09 16:31 WBC RBC Hgb Hct MCV MCH MCHC RDW Plt Count MPV Immature Gran % Seg Neutrophils % Lymphocytes % Monocytes % Eosinophils % Basophils % Neutrophils # Lymphocytes # Monocytes # Eosinophils # Basophils # Platelet Estimate Immature Plt Fraction APTT 89.0 H Sodium Potassium Chloride Carbon Dioxide BUN Creatinine Est GFR ( Amer) Est GFR (Non-Af Amer) BUN/Creatinine Ratio Glucose POC Glucose 154 H 179 H Calculated Osmolality Calcium Phosphorus Magnesium Triglycerides 04/21/17 04/21/17 11:24 05:38 WBC RBC Hgb Hct MCV MCH MCHC RDW Plt Count MPV Immature Gran % Seg Neutrophils % Lymphocytes % Monocytes % Eosinophils % Basophils % Neutrophils # Lymphocytes # Monocytes # Eosinophils # Basophils # Platelet Estimate Immature Plt Fraction APTT Sodium Potassium Chloride Carbon Dioxide BUN Creatinine Est GFR ( Amer) Est GFR (Non-Af Amer) BUN/Creatinine Ratio Glucose POC Glucose 155 H 178 H Calculated Osmolality Calcium Phosphorus Magnesium Triglycerides - Impressions ITS Impressions Upper GI Series 04/09/17 08:00 IMPRESSION: 1. Suspected changes of Clayton fundoplication. No associated leak. 2. Persistence of a moderate to large sliding hiatal hernia. 3. A few tertiary contractions, potentially due to esophageal dysmotility. 4. Retention of contrast in the esophagus and herniated stomach throughout the majority of the procedure with only a small mild passing into the distal stomach after 10 minutes of waiting. Associated lack of visualization of the duodenum. D/ / Felipe Martel MD / Felipe Martel MD Interpreting Provider: Felipe Martel MD Chest CT 04/10/17 00:00 IMPRESSION: There is a recurrent moderate sized hiatal hernia. Postsurgical changes seen at the GE junction. No obvious oral contrast extravasation. Esophagus is filled with oral contrast, suggesting narrowing at the GE junction. Bilateral nonobstructing renal calculi Diverticulosis. No diverticulitis. D/ / Ralph Conner MD / Ralph Conner MD Interpreting Provider: Ralph Conner MD Abdomen/Pelvis CT 04/10/17 11:22 IMPRESSION: There is a recurrent moderate sized hiatal hernia. Postsurgical changes seen at the GE junction. No obvious oral contrast extravasation. Esophagus is filled with oral contrast, suggesting narrowing at the GE junction. Bilateral nonobstructing renal calculi Diverticulosis. No diverticulitis. D/ / Ralph Conner MD / Ralph Conner MD Interpreting Provider: Ralph Conner MD Chest X-Ray 04/11/17 11:01 IMPRESSION: Small effusion and associated atelectasis. Large hiatus hernia. D/ / Ted Ritter / Ted Ritter Interpreting Provider: Ted Ritter Upper GI Series 04/14/17 12:14 IMPRESSION: Postsurgical changes status post Clayton fundoplication revision and gastropexy. No evidence of obstruction. Small contained collection of contrast suggesting a contained perforation along the posterior aspect of the fundus of the stomach just below the level of the fundoplication. Critical results were called by Dr. Jaden Melara MD to Dr. Hein on 04/14/2017 at 2:53 p.m. D/ / 04/14/2017 14:43:01 Jaden Melara MD / earl Interpreting Provider: Jaden Melara MD Abdomen CT 04/15/17 07:46 IMPRESSION: The small collection of contrast seen on the recent upper gastrointestinal examination is felt to correlate to a portion of the of the so fundoplication wrap. No extraluminal contrast is identified to suggest a leak. Postoperative changes are seen within the subcutaneous soft tissues as well as the soft tissue surrounding the stomach. There is also a rounded masslike density seen which is low in attenuation in the posterior mediastinum to the left of the distal thoracic esophagus. It is uncertain if this could represent a small hiatal hernia which does not contain contrast, or possibly a small postoperative hematoma or seroma. This could be followed up with CT imaging. This is felt postoperative in nature. There are small bilateral pleural effusions with bibasilar airspace disease, left greater than right. These changes could represent postoperative atelectasis, though superimposed pneumonia or aspiration cannot be excluded. D/ / Nino Olson MD / Nino Olson MD Interpreting Provider: Nino Olson MD Abdomen CT 04/15/17 18:57 IMPRESSION: 1. Increased free air in the left upper quadrant since comparison examination. Free fluid in the left upper quadrant. While no definite oral contrast extravasation is identified, increased leak or small perforation of the gastrointestinal tract cannot be confidently excluded. 2. Low-density focus adjacent to the distal esophagus is unchanged since comparison examination. This could reflect postop fluid such as seroma or resolving blood. Alternatively this could reflect a portion of the stomach. This is stable since comparison exam. 3. Bilateral pleural effusions. D/ / 04/15/2017 20:22:12 Kyaw Pa MD / abigail Interpreting Provider: Kyaw Pa MD Chest CTA 04/15/17 20:38 IMPRESSION: 1. No evidence of pulmonary embolus. 2. Small layering bilateral pleural effusions with bibasilar atelectasis. 3. Partially visualized postsurgical changes in the upper abdomen with small amount of free fluid and slight interval increase in free air, which may reflect redistribution or persistent bowel leak or perforation. Findings were discussed with Dr. Quintero at 9:17 pm on 04/15/2017. D/ / Samir Marrero / Samir Marrero Interpreting Provider: Samir Marrero Chest/Abdomen X-ray 04/17/17 08:00 IMPRESSION: 1. Hyperaeration with basilar atelectasis. 2. Nonobstructive bowel gas pattern with midline skin bin. D/ / 04/17/2017 08:31:57 Matt Arciniega MD / tkyer Interpreting Provider: Matt Arciniega MD Upper GI Series 04/19/17 08:00 IMPRESSION: No evidence of leak. D/ / 04/19/2017 09:09:01 Irvin De La Torre MD / michelle Interpreting Provider: Irvin De La Torre MD <[email or web address] L - Last Filed: 04/23/17 14:05> Date of Encounter: 04/23/17 Time of Encounter: 12:00 - Discharge Diagnosis (1) Hiatal hernia Priority: Primary Status: Acute (2) Status post Clayton fundoplication Priority: Secondary Status: Acute (3) Moderate protein-calorie malnutrition Priority: Secondary Status: Acute General Surgery Exam Initial Vital Signs Temp Pulse Resp BP Pulse Ox 97.7 F 58 18 130/92 95 04/08/17 10:44 04/08/17 10:44 04/08/17 10:44 04/08/17 10:44 04/08/17 10:44 - General physical appearance no distress, no pain, chronically ill - Eyes PERRL, normal ocular movement - ENT normal mucosa, normocephalic - Neck trachea midline - Respiratory normal expansion, normal respiratory effort - Cardiovascular Cardiovascular exam: Present: RRR - Abdomen Abdomen general surgery: Present: soft, tender (appropriate post op tenderness) - Incision Incision: Present: intact - Integumentary Integumentary general surgery: Present: warm and dry, no abnormal pigmentation - Neurologic Present: CN 2-12 grossly intact - Musculoskeletal Present: normal posture - Psychiatric Psychiatric general surgery: Present: A&Ox3, speech is normal Date of admission: 04/11/17 10:48 Primary care physician: Rodri Day MD Consults: 04/12/17 08:47 Consult to Respiratory Therapy [CONS] Routine Reason for Consult: Aggressive pulmonary toileting in the setting of atelectasis on chest x-ray and return to a OR today. Time Notified: 08:48 Call Completed: Yes 04/14/17 09:48 Consult to Occupational Therapy [CONS] Routine Comment: Evaluate, develop and implement POC Reason for Consult: Mobilization in DC planning Consult to Physical Therapy [CONS] Routine Comment: Evaluate, develop and implement POC Reason for Consult: Mobilization and DC planning 04/14/17 15:16 Consult to Invasive Line Access Team [CONS] Routine Reason for Consult: Picc Line Insertion Line Type: PICC Time Notified: 15:16 Call Completed: Yes consult to solution engineer [Consult to Nutrition] [CONS] Routine Comment: Total fluid rate will be goal TPN rate Consulting Provider: NUTRITION Reason for Dietary Consult: TPN Start and Manage 04/18/17 08:33 Consult to Critical Care [CONS] Stat Consulting Provider: Pulm Crit Care & Sleep [place] Reason for Consult: SOB and confusion; Spoke with Dr. Rea while in the ICU Time Notified: 08:20 Call Completed: Yes 04/21/17 12:04 Consult to Weekend Receptionist [CONS] Routine Reason for SW Consult: d/c planning. Will likely need rehab placement at d/c (possibly Tuesday) Discharging clinician: Angel Hein - Patient Status Functional capacity at discharge: uses cane/walker Overall status at discharge: patient is not back to baseline - Diet and Activity Activity: as per physical therapy Diet: other (full liquids) - Hospital Course Hospital course: Mr. Pool is a 76 year old male - Time Spent with Patient Total time spent providing and/or coordinating discharge services: Labs on day of discharge: Labs from last 24 hours 04/22/17 04/22/17 04/22/17 20:12 16:36 12:00 POC Glucose 82 111 H 140 H 04/22/17 04/22/17 08:21 05:40 POC Glucose 153 H 158 H - Impressions ITS Impressions Upper GI Series 04/09/17 08:00 IMPRESSION: 1. Suspected changes of Clayton fundoplication. No associated leak. 2. Persistence of a moderate to large sliding hiatal hernia. 3. A few tertiary contractions, potentially due to esophageal dysmotility. 4. Retention of contrast in the esophagus and herniated stomach throughout the majority of the procedure with only a small mild passing into the distal stomach after 10 minutes of waiting. Associated lack of visualization of the duodenum. D/ / Felipe Martel MD / Felipe Martel MD Interpreting Provider: Felipe Martel MD Chest CT 04/10/17 00:00 IMPRESSION: There is a recurrent moderate sized hiatal hernia. Postsurgical changes seen at the GE junction. No obvious oral contrast extravasation. Esophagus is filled with oral contrast, suggesting narrowing at the GE junction. Bilateral nonobstructing renal calculi Diverticulosis. No diverticulitis. D/ / Ralph Conner MD / Ralph Conner MD Interpreting Provider: Ralph Conner MD Abdomen/Pelvis CT 04/10/17 11:22 IMPRESSION: There is a recurrent moderate sized hiatal hernia. Postsurgical changes seen at the GE junction. No obvious oral contrast extravasation. Esophagus is filled with oral contrast, suggesting narrowing at the GE junction. Bilateral nonobstructing renal calculi Diverticulosis. No diverticulitis. D/ / Ralph Conner MD / Ralph Conner MD Interpreting Provider: Ralph Conner MD Chest X-Ray 04/11/17 11:01 IMPRESSION: Small effusion and associated atelectasis. Large hiatus hernia. D/ / Ted Ritter / Ted Ritter Interpreting Provider: Ted Ritter Upper GI Series 04/14/17 12:14 IMPRESSION: Postsurgical changes status post Clayton fundoplication revision and gastropexy. No evidence of obstruction. Small contained collection of contrast suggesting a contained perforation along the posterior aspect of the fundus of the stomach just below the level of the fundoplication. Critical results were called by Dr. Jaden Melara MD to Dr. Hein on 04/14/2017 at 2:53 p.m. D/ : / 04/14/2017 14:43:01 Jaden Melara MD / earl Interpreting Provider: Jaden Melara MD Abdomen CT 04/15/17 07:46 IMPRESSION: The small collection of contrast seen on the recent upper gastrointestinal examination is felt to correlate to a portion of the of the so fundoplication wrap. No extraluminal contrast is identified to suggest a leak. Postoperative changes are seen within the subcutaneous soft tissues as well as the soft tissue surrounding the stomach. There is also a rounded masslike density seen which is low in attenuation in the posterior mediastinum to the left of the distal thoracic esophagus. It is uncertain if this could represent a small hiatal hernia which does not contain contrast, or possibly a small postoperative hematoma or seroma. This could be followed up with CT imaging. This is felt postoperative in nature. There are small bilateral pleural effusions with bibasilar airspace disease, left greater than right. These changes could represent postoperative atelectasis, though superimposed pneumonia or aspiration cannot be excluded. D/ / Nino Olson MD / Nino Olson MD Interpreting Provider: Nino Olson MD Abdomen CT 04/15/17 18:57 IMPRESSION: 1. Increased free air in the left upper quadrant since comparison examination. Free fluid in the left upper quadrant. While no definite oral contrast extravasation is identified, increased leak or small perforation of the gastrointestinal tract cannot be confidently excluded. 2. Low-density focus adjacent to the distal esophagus is unchanged since comparison examination. This could reflect postop fluid such as seroma or resolving blood. Alternatively this could reflect a portion of the stomach. This is stable since comparison exam. 3. Bilateral pleural effusions. D/ / 04/15/2017 20:22:12 Kyaw Pa MD / abigail Interpreting Provider: Kyaw Pa MD Chest CTA 04/15/17 20:38 IMPRESSION: 1. No evidence of pulmonary embolus. 2. Small layering bilateral pleural effusions with bibasilar atelectasis. 3. Partially visualized postsurgical changes in the upper abdomen with small amount of free fluid and slight interval increase in free air, which may reflect redistribution or persistent bowel leak or perforation. Findings were discussed with Dr. Quintero at 9:17 pm on 04/15/2017. D/ / Samir Marrero / Samir Marrero Interpreting Provider: Samir Marrero Chest/Abdomen X-ray 04/17/17 08:00 IMPRESSION: 1. Hyperaeration with basilar atelectasis. 2. Nonobstructive bowel gas pattern with midline skin bin. D/ / 04/17/2017 08:31:57 Matt Arciniega MD / [facility] Interpreting Provider: Matt Arciniega MD Upper GI Series 04/19/17 08:00 IMPRESSION: No evidence of leak. D/ / 04/19/2017 09:09:01 Irvin De La Torre MD / michelle Interpreting Provider: Irvin De La Torre MD - Attending Attestation I have personally performed a face to face evaluation on this patient. I have reviewed and agree with the care plan. History and Exam by me shows:
[2017-04-22] MEDS: Clinimix E 5%-15% SOLUTION 2,000 ML, Parenteral Amino Acid 10% 200 ML with MVI, adult ... IVC SCH (16:52)
[2017-04-22] MEDS: *HR* Rivaroxaban 15 MG TABLET PO SCH (17:00)
[2017-04-22] MEDS: *HR* OxyCODONE/APAP 5/325 TABLET PO PRN (20:16)
[2017-04-22] MEDS: Latanoprost 2.5 ML BOTTLE BOTH EYES SCH (20:20)
[2017-04-22] MEDS ORDERED: Insulin LISPRO 300 UNITS/3 ML VIAL SQ SCH (21:00)
[2017-04-22] MEDS: *HR* HYDROmorphone (PF) 1 MG/ML SYRINGE IVP PRN (22:59)
[2017-04-23] MEDS: Ipratropium/Albuterol Neb 3 ML IH SCH ×4 (01:12→11:37)
[2017-04-23] MEDS: *HR* Rivaroxaban 15 MG TABLET PO SCH (05:01)
[2017-04-23] MEDS: *HR* HYDROmorphone (PF) 1 MG/ML SYRINGE IVP PRN (05:01)
[2017-04-23] MEDS: Insulin LISPRO 300 UNITS/3 ML VIAL SQ SCH ×2 (07:48→11:39)
[2017-04-23] MEDS: *HR* OxyCODONE/APAP 5/325 TABLET PO PRN (07:51)
[2017-04-23 11:40] VITALS: BP 133/78
== END 2017-04-23 15:15 | DRG 326 ==
LOC: SAMDAY 10:11 → 3ANU 17:02 → ICNU 04-15 19:49 → 2NNU 04-20 14:33
PROVIDERS: ADMIT Surgery; ATTEND Surgery

== ENCOUNTER 2017-05-17 17:21 | Inpatient (IN) ==
[2017-05-17] MEDS ORDERED: 0.9 % Sodium Chloride 1,000 ML IVC ONE (17:29)
[2017-05-17] MEDS ORDERED: Ondansetron 4 MG/2 ML VIAL IVP ONE (17:29)
[2017-05-17] MEDS ORDERED: *HR* Morphine 2 MG/ML SYRINGE IVP ONE (17:29)
--- NOTE | 2017-05-17 17:36 | Emergency Department Note ---
Disposition Back Pain HPI - General Chief Complaint: ED General Medical Stated Complaint: Surgery Site Drainage Time Seen by Provider: 05/17/17 17:24 Source: patient Mode of arrival: ambulatory Limitations: no limitations Nursing Notes Reviewed: Yes Vital Signs Reviewed: Yes - Related Data Home Medications Medication Instructions Recorded Confirmed Travoprost [Travatan Z] 1 drop OP HS 12/31/14 04/23/17 Ezetimibe [Zetia] 10 mg PO DAILY 03/01/17 04/23/17 Fluticasone Propionate Nasal 50 mcg NS DAILY PRN 03/01/17 04/23/17 [Flonase] Timolol Maleate 0.5% 1 drop RIGHT EYE BID 03/01/17 04/23/17 Previous Rx's Medication Instructions Recorded Lactose-Reduced Food [Ensure 237 ml PO TID #90 liquid 04/08/17 Enlive] Ondansetron ODT [Zofran ODT] 4 mg SL Q4HR #15 tab.rapdis 04/08/17 Acetaminophen [Tylenol] 650 mg PO Q6HR PRN tablet 04/22/17 Ipratropium/Albuterol Neb [Duoneb] 3 ml IH [id number] inhsol 04/22/17 Omeprazole [PriLOSEC] 20 mg PO DAILY@0630 capsule. 04/22/17 OxyCODONE/APAP 5/325 [Percocet 1 each PO Q4HR PRN #30 tablet 04/22/17 5/325 MG] Rivaroxaban [Xarelto] 15 mg PO Q12H #42 tablet 04/22/17 Rivaroxaban [Xarelto] 20 mg PO DAILY #30 tablet 04/22/17 Allergies Allergy/AdvReac Type Severity Reaction Status Date / Time Pneumococcal Vaccine Allergy Redness of Verified 04/08/17 10:51 [From Pneumovax 23] Skin Past Medical History - Past Medical History Medical history: Reports: glaucoma, hyperlipidemia, kidney stones Surgical history: Reports: prostatectomy Psychiatric history: Reports: no psych history - Social History Smoking Status: Never smoker Smokeless Tobacco Status: No Alcohol use: Reports: occasionally Drug use: Reports: none
--- NOTE | 2017-05-17 17:37 | Emergency Department Note ---
Disposition Clinical Impression: Status post Tapan fundoplication Post op infection Qualifiers: Encounter type: initial encounter Qualified Code(s): T81.4XXA - Infection following a procedure, initial encounter Disposition: Admitted As Inpatient Condition: Fair Time of Disposition: 18:42 Abdominal Pain HPI - General Chief Complaint: ED General Medical Stated Complaint: Surgery Site Drainage Time Seen by Provider: 05/17/17 17:24 Source: patient Mode of arrival: ambulatory Limitations: no limitations Nursing Notes Reviewed: Yes Vital Signs Reviewed: Yes - History of Present Illness HPI Narrative: 76yom s/p tapan fundoplication with Dr. Juan Carlos Hein, his postoperative course was commentated by pneumonia as well as left lower 70 DVT he was started on Xarelto, since then he has had several wound care visits at home after a prolonged stay at the inpatient rehabilitation facility, they have been wound packing and drained changes, but today his abdomen is been draining pus from the upper and lower parts of the wound. This is gotten worse, the patient has low-grade fevers, he has some nausea but no emesis. Pt Subjective Complaint: abdominal pain Onset (ago): day(s) Consistency: intermittent Pain Severity: moderate Pain Scale: 6 Quality: cramping, aching Radiation: none Improves with: nothing Worsens with: nothing Associated symptoms: Reports: nausea, fever, chills. Denies: vomiting, diarrhea , constipation, dysuria, hematemesis, hematochezia - Related Data Home Medications Medication Instructions Recorded Confirmed Travoprost [Travatan Z] 1 drop BOTH EYES HS 12/31/14 05/17/17 Timolol Maleate 0.5% 1 drop RIGHT EYE DAILY 03/01/17 05/17/17 Previous Rx's Medication Instructions Recorded Omeprazole [PriLOSEC] 20 mg PO DAILY@0630 capsule. 04/22/17 Rivaroxaban [Xarelto] 20 mg PO DAILY #30 tablet 04/22/17 Allergies Allergy/AdvReac Type Severity Reaction Status Date / Time Pneumococcal Vaccine Allergy Redness of Verified 05/17/17 17:44 [From Pneumovax 23] Skin All systems ED: reviewed and negative except as stated. Review of Systems: As Per HPI Constitutional: Reports: fever, chills Eyes: Denies: eye pain ENT ED: Denies: ear pain Cardiovascular: Denies: chest pain Abdominal Pain PMH - Past Medical History Medical history: Reports: glaucoma, hyperlipidemia, kidney stones Psychiatric history: Reports: no psych history - Social History Smoking status: Never smoker Alcohol use: Reports: occasionally Drug use: Reports: none Physical Exam - General Limitations: no limitations General appearance: alert - Head Head exam: atraumatic - Eye Eye exam: Present: normal appearance, PERRL - ENT ENT exam: normal exam, normal oropharynx - Neck Neck exam: Present: normal inspection, full ROM - Chest Chest inspection: Present: normal inspection - Abdominal Exam Abdominal exam: Present: soft, guarding, scar, other (midline incision wiht stable,drainage purulent from upper and lower incisionalwound). Absent: diminished bowel sounds - Neurological Exam Neurological exam: Present: alert, oriented X3 - Skin Skin exam: Present: other (post op incision with wound dehiscence and purulent drainage from bottom of wound and indurated possible abscess about 5cm ) Course Course Narrative: 76-year-old with postoperative wound infection, patient appears to have purulent drainage coming from both the lower and upper aspects of his incision, a large fluctuant mass feels like abscess of the lower part of the incision, he has no signs of sepsis, we will get blood cultures lactate wound culture anaerobic and aerobic for the upper and lower wound, plan is for likely admission for postoperative infection. Sick lab work CBC BMP blood cultures lactate wound culture, fluids antiemetics and analgesics as well as CT imaging of the abdomen were ordered Vital Signs Temperature 97.7 F 05/17/17 17:24 Pulse Rate 83 05/17/17 17:24 Respiratory Rate 18 05/17/17 17:24 Blood Pressure 103/76 05/17/17 17:24 O2 Sat by Pulse Oximetry 95 05/17/17 17:24 Temperature 97.9 F 05/17/17 21:51 Pulse Rate 73 05/17/17 21:51 Respiratory Rate 16 05/17/17 21:51 Blood Pressure 107/72 05/17/17 21:51 O2 Sat by Pulse Oximetry 93 05/17/17 21:51 Oxygen Delivery Oxygen Delivery Room Air Abdominal Pain - Lab Data Result diagrams: 05/17/17 17:53 05/17/17 17:53 Lab Results 05/17/17 05/17/17 05/17/17 Range/Units 17:53 17:53 17:53 WBC 8.4 (4.3-11.1) K/mcL RBC 4.51 (4.19-5.50) M/mcL Hgb 13.0 (12.9-16.9) g/dL Hct 39.9 (37.5-50.1) % MCV 88.5 (83.0-100.0) fL MCH 28.8 (28.0-33.3) pg MCHC 32.6 (31.6-35.5) g/dL RDW 14.1 (11.5-14.5) % Plt Count 218 (140-400) K/mcL MPV 11.0 (9.4-12.4) fL Immature Gran % 0.4 (0-4) % Seg Neutrophils % 73.4 % Lymphocytes % 14.0 % Monocytes % 11.4 % Eosinophils % 0.4 % Basophils % 0.4 % Neutrophils # 6.2 (1.6-8.9) K/mcL Lymphocytes # 1.2 (0.6-4.6) K/mcL Monocytes # 1.0 (0.0-1.3) K/mcL Eosinophils # 0.0 (0.0-0.6) K/mcL Basophils # 0.0 (0.0-0.2) K/mcL Sodium 135 L (136-145) mEq/L Potassium 3.9 (3.5-5.1) mEq/L Chloride 103 (98-107) mEq/L Carbon Dioxide 26 (23-29) mEq/L BUN 12 (8-23) mg/dL Creatinine 0.79 (0.70-1.30) mg/dL Est GFR ( Amer) > 60 (> 60) Est GFR (Non-Af Amer) > 60 (> 60) BUN/Creatinine Ratio 15 (6-26) Glucose 110 H (70-105) mg/dL Calculated Osmolality 280 (280-300) Lactic Acid 1.4 (0.5-2.2) mmol/L Calcium 10.2 (8.6-10.3) mg/dL Total Bilirubin 0.4 (0.3-1.0) mg/dL Direct Bilirubin 0.1 (0.0-0.2) mg/dL Indirect Bilirubin 0.3 (0.0-1.2) mg/dL AST 14 (13-39) Units/L ALT 17 (7-52) Units/L Alkaline Phosphatase 106 H (34-104) Units/L Serum Total Protein 6.7 (6.4-8.9) g/dL Albumin 3.0 L (3.5-5.7) g/dL Globulin 3.7 H (2.4-3.5) g/dL Albumin/Globulin Ratio 0.8 L (1.1-2.2) Lipase 26 (11-82) Units/L Urine Color (Yellow) Urine Clarity (Clear) Urine pH (5.0-8.0) pH Units Ur Specific [place] (1.010-1.025) Urine Protein (Neg-Trace) mg/dL Urine Glucose (UA) (Normal) mg/dL Urine Ketones (Negative) mg/dL Urine Blood (Negative) Urine Nitrite (Negative) Urine Bilirubin (Negative) Urine Urobilinogen (Normal) mg/dL Ur Leukocyte Esterase (Negative) Urine Microscopic RBC (0-3) per hpf Urine Microscopic WBC (0-3) per hpf Ur Squamous Epith Cells (None-Few) per lpf Urine Bacteria (None-Few) per hpf Hyaline Casts (None-Few) per lpf Ur Culture Indicated? (NO) 05/17/17 Range/Units 19:36 WBC (4.3-11.1) K/mcL RBC (4.19-5.50) M/mcL Hgb (12.9-16.9) g/dL Hct (37.5-50.1) % MCV (83.0-100.0) fL MCH (28.0-33.3) pg MCHC (31.6-35.5) g/dL RDW (11.5-14.5) % Plt Count (140-400) K/mcL MPV (9.4-12.4) fL Immature Gran % (0-4) % Seg Neutrophils % % Lymphocytes % % Monocytes % % Eosinophils % % Basophils % % Neutrophils # (1.6-8.9) K/mcL Lymphocytes # (0.6-4.6) K/mcL Monocytes # (0.0-1.3) K/mcL Eosinophils # (0.0-0.6) K/mcL Basophils # (0.0-0.2) K/mcL Sodium (136-145) mEq/L Potassium (3.5-5.1) mEq/L Chloride (98-107) mEq/L Carbon Dioxide (23-29) mEq/L BUN (8-23) mg/dL Creatinine (0.70-1.30) mg/dL Est GFR ( Amer) (> 60) Est GFR (Non-Af Amer) (> 60) BUN/Creatinine Ratio (6-26) Glucose (70-105) mg/dL Calculated Osmolality (280-300) Lactic Acid (0.5-2.2) mmol/L Calcium (8.6-10.3) mg/dL Total Bilirubin (0.3-1.0) mg/dL Direct Bilirubin (0.0-0.2) mg/dL Indirect Bilirubin (0.0-1.2) mg/dL AST (13-39) Units/L ALT (7-52) Units/L Alkaline Phosphatase (34-104) Units/L Serum Total Protein (6.4-8.9) g/dL Albumin (3.5-5.7) g/dL Globulin (2.4-3.5) g/dL Albumin/Globulin Ratio (1.1-2.2) Lipase (11-82) Units/L Urine Color Yellow (Yellow) Urine Clarity Clear (Clear) Urine pH 6.0 (5.0-8.0) pH Units Ur Specific [place] > 1.030 H (1.010-1.025) Urine Protein Negative (Neg-Trace) mg/dL Urine Glucose (UA) Normal (Normal) mg/dL Urine Ketones Negative (Negative) mg/dL Urine Blood Large H (Negative) Urine Nitrite Negative (Negative) Urine Bilirubin Negative (Negative) Urine Urobilinogen Normal (Normal) mg/dL Ur Leukocyte Esterase Negative (Negative) Urine Microscopic RBC 50-100 H (0-3) per hpf Urine Microscopic WBC 5-15 H (0-3) per hpf Ur Squamous Epith Cells Many H (None-Few) per lpf Urine Bacteria None Seen (None-Few) per hpf Hyaline Casts Few (None-Few) per lpf Ur Culture Indicated? NO (NO) Attestation Statement - Attestation Attestation: I examined this patient and my medical decision-making was reviewed with the Resident Physician. I agree with the documented findings, disposition and treatment plan as described except to the extent set forth below. 76 yo male presents with concerns of weakness, fatigue, and purulent drainage from surgical site. Pt recently had complicated surgical history with three major abdominal operations within two weeks. Pt now has increased abdominal pain, induration to skin surrounding inferior surgical incision site of abdomen as well as purulent drainage. CT abdomen show fluid collection and likely cellulitis of infection. Zosyn and Vanco started in ED. Pt admitted to Dr. Clifton for further care and evaluation.
[2017-05-17 18:04] LABS: Basophils % 0.4 %; Eosinophils % 0.4 %; Hematocrit 39.9 % (37.5-50.1); Immature Granulocytes % 0.4 % (0-4); Lymphocytes # 1.2 K/mcL (0.6-4.6); Mean Corpuscular HGB Conc 32.6 g/dL (31.6-35.5); Mean Corpuscular Hemoglobin 28.8 pg (28.0-33.3); Mean Corpuscular Volume 88.5 fL (83.0-100.0); Monocytes % 11.4 %; Neutrophils # 6.2 K/mcL (1.6-8.9); Platelet Count 218 K/mcL (140-400); Red Blood Count 4.51 M/mcL (4.19-5.50); Red Cell Distribution Width 14.1 % (11.5-14.5); Segmented Neutrophils % 73.4 %
[2017-05-17 18:24] LABS: Alanine Aminotransferase 17 Units/L (7-52); Albumin/Globulin Ratio 0.8 (1.1-2.2); Alkaline Phosphatase 106 Units/L (34-104); Aspartate Amino Transferase 14 Units/L (13-39); BUN/Creatinine Ratio 15 (6-26); Bilirubin,Direct 0.1 mg/dL (0.0-0.2); Bilirubin,Indirect 0.3 mg/dL (0.0-1.2); Bilirubin,Total 0.4 mg/dL (0.3-1.0); Blood Urea Nitrogen 12 mg/dL (8-23); Calcium 10.2 mg/dL (8.6-10.3); Carbon Dioxide 26 mEq/L (23-29); Chloride 103 mEq/L (98-107); Globulin 3.7 g/dL (2.4-3.5); Glucose 110 mg/dL (70-105); Lipase 26 Units/L (11-82); Osmolality,Calculated 280 (280-300); Potassium 3.9 mEq/L (3.5-5.1); Sodium 135 mEq/L (136-145); Total Protein 6.7 g/dL (6.4-8.9); eGFR For African Americans > 60 (> 60); eGFR For Non-African Americans > 60 (> 60)
[2017-05-17] MEDS ORDERED: *HR* HYDROmorphone (PF) 1 MG/ML SYRINGE IVP ONE (18:58)
[2017-05-17 19:46] LABS: Bilirubin,Urine Negative (Negative); Blood,Urine Large (Negative); Clarity,Urine Clear (Clear); Color,Urine Yellow (Yellow); Glucose,Urine (UA) Normal (Normal); Ketones,Urine Negative (Negative); Leukocyte Esterase,Urine Negative (Negative); Nitrite,Urine Negative (Negative); Protein,Urine Negative (Neg-Trace); Specific Gravity,Urine > 1.030 (1.010-1.025); Urobilinogen,Urine Normal (Normal)
[2017-05-17 19:48] LABS: Bacteria,Urine None Seen per hpf (None-Few); Hyaline Casts,Urine Few per lpf (None-Few); RBC,Urine 50-100 per hpf (0-3); Squamous Epithelial Cell,Urine Many per lpf (None-Few)
[2017-05-17] MEDS ORDERED: Vancomycin 1,500 MG in D5% in Water 250 ML IVPB STA (20:18)
[2017-05-17] MEDS ORDERED: Piperacillin/Tazobactam 3.375 GM in D5% in Water (Mini-Bag+) 100 ML IVPB ONE (20:18)
[2017-05-17] MEDS ORDERED: Piperacillin/Tazobactam 3.375 GM in Water for inj. (sterile) 20 ML 20 ML IVP ONE (20:30)
[2017-05-17] MEDS ORDERED: Ondansetron 4 MG/2 ML VIAL IVP PRN (20:56)
[2017-05-17] MEDS ORDERED: Naloxone 0.4 MG/ML INJ IVP PRN (20:56)
[2017-05-17] MEDS ORDERED: *HR* Morphine 2 MG/ML SYRINGE IVP PRN (20:56)
[2017-05-17] MEDS ORDERED: 0.9 % Sodium Chloride 1,000 ML IVC SCH (21:00)
[2017-05-17] MEDS: *HR* OxyCODONE/APAP 5/325 TABLET PO PRN (22:32)
[2017-05-17] MEDS: Latanoprost 2.5 ML BOTTLE BOTH EYES SCH (22:35)
[2017-05-18] MEDS: Piperacillin/Tazobactam 3.375 GM/200 ML BAG IVPB SCH ×3 (01:52→17:56)
[2017-05-18] MEDS: *HR* OxyCODONE/APAP 5/325 TABLET PO PRN ×3 (06:44→21:12)
[2017-05-18 07:06] LABS: Basophils % 0.5 %; Eosinophils # 0.1 K/mcL (0.0-0.6); Eosinophils % 1.1 %; Hematocrit 37.1 % (37.5-50.1); Hemoglobin 11.9 g/dL (12.9-16.9); Immature Granulocytes % 0.2 % (0-4); Lymphocytes # 1.1 K/mcL (0.6-4.6); Lymphocytes % 17.6 %; Mean Corpuscular HGB Conc 32.1 g/dL (31.6-35.5); Mean Corpuscular Hemoglobin 29.1 pg (28.0-33.3); Mean Corpuscular Volume 90.7 fL (83.0-100.0); Mean Platelet Volume 11.2 fL (9.4-12.4); Monocytes # 0.8 K/mcL (0.0-1.3); Monocytes % 12.3 %; Neutrophils # 4.3 K/mcL (1.6-8.9); Platelet Count 176 K/mcL (140-400); Red Blood Count 4.09 M/mcL (4.19-5.50); Red Cell Distribution Width 14.3 % (11.5-14.5); Segmented Neutrophils % 68.3 %
[2017-05-18 07:32] LABS: BUN/Creatinine Ratio 12 (6-26); Blood Urea Nitrogen 10 mg/dL (8-23); Calcium 9.7 mg/dL (8.6-10.3); Carbon Dioxide 29 mEq/L (23-29); Chloride 104 mEq/L (98-107); Glucose 103 mg/dL (70-105); Osmolality,Calculated 283 (280-300); Potassium 3.6 mEq/L (3.5-5.1); Sodium 137 mEq/L (136-145); eGFR For African Americans > 60 (> 60); eGFR For Non-African Americans > 60 (> 60)
--- NOTE | 2017-05-18 12:31 | General Surg History&Physical ---
Date of Encounter: 05/18/17 Time of Encounter: 12:00 Assessment and Plan (1) Post op infection Current Visit: Yes Status: Acute The assessment and plan as outlined above was discussed with the patient and/or family members who expressed understanding and agreement. All questions were answered. Incision opened and abscess drained Cultures pending Empiric antibiotics Will place wound vac today Will consult renal social worker to set up home health with wound vac management Supportive care and pain control Ambulate hallways TID with assistance Advance to soft diet Qualifiers: Encounter type: initial encounter Qualified Code(s): T81.4XXA - Infection following a procedure, initial encounter (2) Acute deep vein thrombosis (DVT) of left lower extremity Current Visit: No Status: Acute The assessment and plan as outlined above was discussed with the patient and/or family members who expressed understanding and agreement. All questions were answered. Resume home dose of Xarelto for treatment of DVT Qualifiers: Affected thrombotic vein of extremity: unspecified lower extremity proximal vein Qualified Code(s): I82.4Y2 - Acute embolism and thrombosis of unspecified deep veins of left proximal lower extremity History of Present Illness Chief complaint: Abdominal pain and purulent drainage from midline HPI: Mr. Pool is a 76 year old male who is recently status post a robotic-assisted Clayton fundoplication on 04/08/[address] Hein. The patient's postoperative course was complicated by a recurrent hiatal hernia and was taken back to the operating room on 04/10/[address] Hein for diagnostic laparoscopy and gastropexy. His Clayton was noted to be intact at that time. The patient's course was further complicated by gastric perforation and he was taken back to the operating room on 04/15/2017 for exploratory laparotomy with partial gastrectomy and gastropexy and Clayton takedown. The patient was discharged to inpatient rehabilitation and has subsequently returned to home with home health care. The patient has been seen and followed by Dr. Hein in the outpatient surgical office. He was seen last week for a wound check. The patient and his state that home health has been packing the wound daily. He states that he was scheduled to follow-up in the office with Dr. Hein yesterday however he did not come to his appointment due to the inclement weather. The patient states that he has had increasing weakness over the last 2 -3 days. He states that the home health nurse had noted a increase in swelling to the lower portion of his incision and that when he went to the restroom yesterday he had a large amount of purulent drainage from the bottom of the incision. He states that the drainage was foul-smelling and nauseated him. He denies any fevers or chills. He denies any diarrhea or constipation and states that he has not had a bowel movement for 3 days now. He states that he attributes this to decreased oral intake due to decreased appetite over the last 2-3 days. Denies any chest pains or shortness of breath. Denies any difficulty with urination. The patient reported to the emergency department for evaluation and he did have a CAT scan evaluation. His CAT scan shows evidence of abdominal wall cellulitis and fluid collection. He has been admitted to the hospital for further workup and treatment. Past Med Surg Social Fam HX - Past Medical History Source: patient, old records reviewed Medical history: glaucoma, hyperlipidemia, hypertension, kidney stones, other ( prostatitis, osteoarthitis, kidney anomally) Psychiatric history: no psych history - Past Surgical History Surgical History: prostatectomy, other (04/08/17- robotic-assisted Clayton fundoplication; 04/10/17- diagnostic laparoscopy and gastropexy; 04/15/17- exploratory laparotomy with partial gastrectomy, gastropexy, Clayton takedown; colonoscopy (2005, 2014); kidney stone removal; EGD in 2016; tonsillectomy; left ear surgery) - Social History Smoking Status: Never smoker Smokeless Tobacco Status: Yes (40 years ago) Alcohol use: occasionally Drug use: none Occupational status: retired Current living situation: Home - Independent, With Family - Family History Mother Living Status: Hx Family Endocrine Disorder: Yes (Diabetes Mellitus) Hx Family Neurologic Disorders: Yes (Alzheimer's) Father Living Status: Age at : 70 Hx Family Cancer: Yes (prostate cancer) Medications and Allergies Travoprost [Travatan Z] 1 drop BOTH EYES HS 12/31/14 [History] Timolol Maleate 0.5% 1 drop RIGHT EYE DAILY 03/01/17 [History] Omeprazole [PriLOSEC] 20 mg PO DAILY@0630 capsule. 04/22/17 [Rx] Rivaroxaban [Xarelto] 20 mg PO DAILY #30 tablet 04/22/17 [Rx] 3 Allergy/AdvReac Type Severity Reaction Status Date / Time Pneumococcal Vaccine Allergy Redness of Verified 05/17/17 17:44 [From Pneumovax 23] Skin Review of Systems All systems PM: reviewed and no additional remarkable complaints except as stated (in the HPI) All systems PM: A 10-system review of systems was performed and is negative for pertinent findings except as documented above in the HPI. General Surgery Exam Initial Vital Signs Temp Pulse Resp BP Pulse Ox 97.7 F 83 18 103/76 95 05/17/17 17:24 05/17/17 17:24 05/17/17 17:24 05/17/17 17:24 05/17/17 17:24 - General physical appearance well developed, well nourished, no distress, moderate pain - Eyes normal ocular movement - ENT normal mucosa, atraumatic, normocephalic - Neck trachea midline - Respiratory normal respiratory effort, clear to auscultation - Cardiovascular Cardiovascular exam: Present: RRR - Abdomen Abdomen general surgery: Present: bowel sounds present, soft, tender (midline), wound (See incision assessment) - Incision Incision: Present: erythema (minimal noted at bottom of incision), purulent ( large amount of purulent drainage noted from bottom of midline incision (foul smelling); scant amount of serous drainage noted from top opening without odor.) - Integumentary Integumentary general surgery: Present: warm and dry - Neurologic Present: CN 2-12 grossly intact - Psychiatric Psychiatric general surgery: Present: appropriate, oriented to person, oriented to place, oriented to time, speech is normal, memory intact Results - Labs 05/18/17 06:07 05/18/17 06:07 Abnormal lab results RBC 4.09 M/mcL (4.19-5.50) L 05/18/17 06:07 Hgb 11.9 g/dL (12.9-16.9) L 05/18/17 06:07 Hct 37.1 % (37.5-50.1) L 05/18/17 06:07 Alkaline Phosphatase 106 Units/L (34-104) H 05/17/17 17:53 Albumin 3.0 g/dL (3.5-5.7) L 05/17/17 17:53 Globulin 3.7 g/dL (2.4-3.5) H 05/17/17 17:53 Albumin/Globulin Ratio 0.8 (1.1-2.2) L 05/17/17 17:53 Ur Specific [place] > 1.030 (1.010-1.025) H 05/17/17 19:36 Urine Blood Large (Negative) H 05/17/17 19:36 Urine Microscopic RBC 50-100 per hpf (0-3) H 05/17/17 19:36 Urine Microscopic WBC 5-15 per hpf (0-3) H 05/17/17 19:36 Ur Squamous Epith Cells Many per lpf (None-Few) H 05/17/17 19:36 Diabetes panel 05/18/17 Range/Units 06:07 Sodium 137 (136-145) mEq/L Potassium 3.6 (3.5-5.1) mEq/L Chloride 104 (98-107) mEq/L Carbon Dioxide 29 (23-29) mEq/L BUN 10 (8-23) mg/dL Creatinine 0.82 (0.70-1.30) mg/dL Glucose 103 (70-105) mg/dL Calcium 9.7 (8.6-10.3) mg/dL Calcium panel 05/18/17 Range/Units 06:07 Calcium 9.7 (8.6-10.3) mg/dL Pituitary panel 05/18/17 Range/Units 06:07 Sodium 137 (136-145) mEq/L Potassium 3.6 (3.5-5.1) mEq/L Chloride 104 (98-107) mEq/L Carbon Dioxide 29 (23-29) mEq/L BUN 10 (8-23) mg/dL Creatinine 0.82 (0.70-1.30) mg/dL Glucose 103 (70-105) mg/dL Calcium 9.7 (8.6-10.3) mg/dL Adrenal panel 05/18/17 Range/Units 06:07 Sodium 137 (136-145) mEq/L Potassium 3.6 (3.5-5.1) mEq/L Chloride 104 (98-107) mEq/L Carbon Dioxide 29 (23-29) mEq/L BUN 10 (8-23) mg/dL Creatinine 0.82 (0.70-1.30) mg/dL Glucose 103 (70-105) mg/dL Calcium 9.7 (8.6-10.3) mg/dL All other labs normal. - Attending Attestation For this encounter, I have reviewed the ONLINE MARKETING MANAGER or PA documentation, treatment plan, and medical decision making; and I have had face to face time with this patient.
[2017-05-18] MEDS: *HR* Rivaroxaban 10 MG TABLET PO SCH (13:42)
[2017-05-18] MEDS: Pantoprazole 40 MG VIAL IVP SCH (17:59)
[2017-05-18] MEDS: Latanoprost 2.5 ML BOTTLE BOTH EYES SCH (20:53)
[2017-05-19] MEDS: Piperacillin/Tazobactam 3.375 GM/200 ML BAG IVPB SCH ×3 (02:35→17:20)
[2017-05-19] MEDS: Pantoprazole 40 MG VIAL IVP SCH ×2 (05:30→17:20)
[2017-05-19] MEDS: *HR* OxyCODONE/APAP 5/325 TABLET PO PRN ×2 (05:37→14:43)
--- NOTE | 2017-05-19 09:29 | General Surgery Progress Note ---
Date of Encounter: 05/19/17 Time of Encounter: 09:15 - Assessment and Plan (1) Post op infection Current Visit: Yes Status: Acute Continue wound vac therapy (plan for change every MWF per surgery team) Home health to manage wound vac at home (approved) Cultures pending- growing gram negative rods IV antibiotics (Zosyn day #2) Supportive care and pain control Ambulate hallways TID with assistance Continue soft diet Discharge planning in the nex 24-48 hours Qualifiers: Encounter type: initial encounter Qualified Code(s): T81.4XXA - Infection following a procedure, initial encounter (2) Acute deep vein thrombosis (DVT) of left lower extremity Current Visit: No Status: Acute Continue Xarelto Qualifiers: Affected thrombotic vein of extremity: unspecified lower extremity proximal vein Qualified Code(s): I82.4Y2 - Acute embolism and thrombosis of unspecified deep veins of left proximal lower extremity Subjective Patient reports: feels better, still having pain, pain is less, tolerating a regular diet, voiding w/o difficulty, flatus, no bowel movement, afebrile, other (complaint of night sweats last night (no fever noted); reports minimal reflux last evening after start of protonix) Objective Vital Signs - Last 8 Hours Temp Pulse Resp BP Pulse Ox 05/19/17 05:17 97.6 F 57 12 128/79 94 Intake and Output 05/18/17 05/19/17 05/19/17 23:59 07:59 15:59 Intake Total 1216 / 1216 60 / 60 240 / 240 Output Total 465 / 465 150 / 150 Balance 751 / 751 -90 / -90 240 / 240 Intake: IV Fluids 1096 / 1096 0.9 % Sodium Chloride 1,000 ML 896 / 896 @ 40 mls/hr IVC .Q24H [facility] Rx#: [id number] Zosyn Premix 3.375 GM/200 ML 3. 200 / 200 375 gm In 200 ml @ 50 mls/hr IVPB Q8H [facility] Rx#:[id number] Oral 120 / 120 60 / 60 240 / 240 Output: Urine 425 / 425 150 / 150 Wound Drainage 40 / 40 Abdomen 40 / 40 Other: Meal Dinner Breakfast Percent of Meal Consumed 95% 75% Weight 88.9 kg Patient Weight 05/19/17 23:59 Weight 88.9 kg - General physical appearance well developed, well nourished, no distress - Eyes normal ocular movement - ENT normal mucosa, atraumatic, normocephalic - Neck Neck exam: trachea midline - Respiratory normal respiratory effort, clear to auscultation - Cardiovascular Cardiovascular exam: Present: RRR - Abdomen Abdomen: Present: bowel sounds present, soft, tender (midline abdomen (improved) ), wound (Midline with wound vac intact with small amount of purulent drainage noted (wound vac change every MWF)) - Incision Incision: Present: erythema (minimal at bottom of midline incision), purulent ( small amount noted in wound vac cannister) - Neurologic CN 2-12 grossly intact - Psychiatric oriented to time, oriented to person, oriented to place, speech is normal, memory intact - Labs 05/18/17 06:07 05/18/17 06:07 Consult Discharge Plan - Plan Referrals: Rodri Day MD [Primary Care Provider] -
[2017-05-19] MEDS: *HR* Rivaroxaban 10 MG TABLET PO SCH (17:20)
[2017-05-19] MEDS: Latanoprost 2.5 ML BOTTLE BOTH EYES SCH (20:54)
[2017-05-20] MEDS: *HR* OxyCODONE/APAP 5/325 TABLET PO PRN ×3 (02:13→12:52)
[2017-05-20] MEDS: Piperacillin/Tazobactam 3.375 GM/200 ML BAG IVPB SCH ×2 (02:13→11:27)
[2017-05-20] MEDS: Pantoprazole 40 MG VIAL IVP SCH (04:46)
[2017-05-20 10:46] VITALS: BP 120/78
--- NOTE | 2017-05-20 11:00 | Discharge Summary ---
Date of Encounter: 05/20/17 Time of Encounter: 10:45 - Discharge Diagnosis (1) Post op infection Priority: Primary Status: Acute Qualifiers: Encounter type: initial encounter Qualified Code(s): T81.4XXA - Infection following a procedure, initial encounter (2) Acute deep vein thrombosis (DVT) of left lower extremity Priority: Secondary Status: Acute Qualifiers: Affected thrombotic vein of extremity: unspecified lower extremity proximal vein Qualified Code(s): I82.4Y2 - Acute embolism and thrombosis of unspecified deep veins of left proximal lower extremity - Discharge Medications Prescriptions: OxyCODONE/APAP 5/325 [Percocet 5/325 MG] 1 each PO Q4HR PRN #30 tablet PRN Reason: Pain Amoxicillin/Clavulanate [Augmentin] 875 mg PO BIDWM #20 tablet Docusate [Colace] 100 mg PO BID #60 capsule Pantoprazole Sodium [Protonix] 40 mg PO BID #60 granpkt. Polyethylene Glycol 3350 [MiraLAX] 17 gm PO DAILY PRN #10 powd.pack PRN Reason: Constipation Home Medications: Travoprost [Travatan Z] 1 drop BOTH EYES HS 12/31/14 [History] Timolol Maleate 0.5% 1 drop RIGHT EYE DAILY 03/01/17 [History] Omeprazole [PriLOSEC] 20 mg PO DAILY@0630 capsule. 04/22/17 [Rx] Rivaroxaban [Xarelto] 20 mg PO DAILY #30 tablet 04/22/17 [Rx] Amoxicillin/Clavulanate [Augmentin] 875 mg PO BIDWM #20 tablet 05/20/17 [Rx] Docusate [Colace] 100 mg PO BID #60 capsule 05/20/17 [Rx] OxyCODONE/APAP 5/325 [Percocet 5/325 MG] 1 each PO Q4HR PRN #30 tablet 05/20/17 [Rx] Pantoprazole Sodium [Protonix] 40 mg PO BID #60 granpkt. 05/20/17 [Rx] Polyethylene Glycol 3350 [MiraLAX] 17 gm PO DAILY PRN #10 powd.pack 05/20/17 [Rx ] Allergies/Adverse Reactions: 3 Allergy/AdvReac Type Severity Reaction Status Date / Time Pneumococcal Vaccine Allergy Redness of Verified 05/17/17 17:44 [From Pneumovax 23] Skin General Surgery Exam Initial Vital Signs Temp Pulse Resp BP Pulse Ox 97.7 F 83 18 103/76 95 05/17/17 17:24 05/17/17 17:24 05/17/17 17:24 05/17/17 17:24 05/17/17 17:24 - General physical appearance well developed, well nourished, no distress - Eyes normal ocular movement - ENT normal mucosa, atraumatic, normocephalic - Neck trachea midline - Respiratory normal respiratory effort, clear to auscultation - Cardiovascular Cardiovascular exam: Present: RRR - Abdomen Abdomen general surgery: Present: bowel sounds present, soft, tender (expected tenderness), wound (Midline with 2 open areas- wound vac intact with serousang. drainage noted; erythema and induration resolving around bottom of midline incision) - Incision Incision: Present: open (See wound assessment under abdomen) - Integumentary Integumentary general surgery: Present: warm and dry - Neurologic Present: CN 2-12 grossly intact - Musculoskeletal Present: other (moderate deconditioning) - Psychiatric Psychiatric general surgery: Present: appropriate, oriented to person, oriented to place, oriented to time, speech is normal, memory intact Date of admission: 05/19/17 09:25 Primary care physician: Rodri Day MD Discharging clinician: Angel Hein ([facility]) Anticipated date of discharge: 05/20/17 - Patient Status Disposition: Home Health Service Condition: Good Functional capacity at discharge: independent ambulation Overall status at discharge: patient is progressing back to baseline - Discharge Instructions Follow Up With: Rodri Day MD [Primary Care Provider] - Angel Hein DO [Partnered Physician] - 06/02/17 8:20 am ([facility]) Additional Instructions: #1 may shower, no tub bath for 2 weeks #2 wash incisions with soap and water and pat dry daily #3 no lifting, pushing, pulling more than 15 pounds for the next 6 weeks #4 no driving until off narcotics for 24 hours and able to safely react in the car #5 may climb stairs Wound care- wound VAC changes every Tuesday, Tuesday, Tuesday per home health care. Medium black sponge 125 mmHg of continuous suction. - Diet and Activity Activity: other (See additional instructions above) Diet: advance to your usual diet, other - Hospital Course Hospital course: Mr. Pool is a 76 year old male who presented to the hospital with complaints of drainage from his midline incision. He was found to have an abscess draining from the bottom of his midline incision. The patient did have bin removed and old hematoma and abscess were decompressed from the cavity. He was placed on IV antibiotics and wound cultures complete. Cultures grew out Escherichia coli and enterococcus. The patient has been covered with Zosyn and will be transitioned to Augmentin orally. His vital signs remained stable and he has been afebrile throughout his hospitalization. His white cell count has returned to normal. His abdominal pain has significantly improved. He is voiding and ambulating without difficulty. He is tolerating a diet and his appetite has improved as well. We will begin discharge planning to home with home health care. The patient will go home with a wound VAC which will be changed every Tuesday and Tuesday. - Time Spent with Patient Total time spent providing and/or coordinating discharge services: Less than 30 minutes - Attending Attestation For this encounter, I have reviewed the [employer] or PA documentation, treatment plan, and medical decision making; and I have had face to face time with this patient.
--- NOTE | 2017-05-20 11:23 | Physician Discharge Referral ---
Home Health/Hosp Referral Info Transfer to: Home Health Attending Provider: Dr. Juan Carlos Hein Provider in Charge Post Discharge: Other (Dr. Juan Carlos Hein and PCP) - Diagnosis (1) Post op infection Priority: Primary Status: Acute (2) Acute deep vein thrombosis (DVT) of left lower extremity Priority: Secondary Status: Chronic - Respiratory Orders None - Dressing/Wound Care Site: Midline wound Type of Dressing/Treatments w/Frequency: Wound care- wound VAC changes every Tuesday, Tuesday, Tuesday per home health care. Medium black sponge 125 mmHg of continuous suction. - Diet/Nutrition Diet/Nutrition Orders: Mechanical Soft - Activity Activity Orders: Up ad watson - Services Needed Following services are medically necessary services: Senior Living Care Orders: #1 may shower, no tub bath for 2 weeks #2 wash incisions with soap and water and pat dry daily #3 no lifting, pushing, pulling more than 15 pounds for the next 6 weeks #4 no driving until off narcotics for 24 hours and able to safely react in the car #5 may climb stairs Wound care- wound VAC changes every Tuesday, Tuesday, Tuesday per home health care. Medium black sponge 125 mmHg of continuous suction. - Transfer Medications Prescriptions: OxyCODONE/APAP 5/325 [Percocet 5/325 MG] 1 each PO Q4HR PRN #30 tablet PRN Reason: Pain Amoxicillin/Clavulanate [Augmentin] 875 mg PO BIDWM #20 tablet Docusate [Colace] 100 mg PO BID #60 capsule Pantoprazole Sodium [Protonix] 40 mg PO BID #60 granpkt. Polyethylene Glycol 3350 [MiraLAX] 17 gm PO DAILY PRN #10 powd.pack PRN Reason: Constipation Home Medications: Travoprost [Travatan Z] 1 drop BOTH EYES HS 12/31/14 [History] Timolol Maleate 0.5% 1 drop RIGHT EYE DAILY 03/01/17 [History] Omeprazole [PriLOSEC] 20 mg PO DAILY@0630 capsule. 04/22/17 [Rx] Rivaroxaban [Xarelto] 20 mg PO DAILY #30 tablet 04/22/17 [Rx] Amoxicillin/Clavulanate [Augmentin] 875 mg PO BIDWM #20 tablet 05/20/17 [Rx] Docusate [Colace] 100 mg PO BID #60 capsule 05/20/17 [Rx] OxyCODONE/APAP 5/325 [Percocet 5/325 MG] 1 each PO Q4HR PRN #30 tablet 05/20/17 [Rx] Pantoprazole Sodium [Protonix] 40 mg PO BID #60 dariokt. 05/20/17 [Rx] Polyethylene Glycol 3350 [MiraLAX] 17 gm PO DAILY PRN #10 powd.pack 05/20/17 [Rx ] Allergies/Adverse Reactions: 3 Allergy/AdvReac Type Severity Reaction Status Date / Time Pneumococcal Vaccine Allergy Redness of Verified 05/17/17 17:44 [From Pneumovax 23] Skin Certification: Further, I certify that my clinical findings support that this patient is homebound (i.e. absences from home require considerable and taxing effort and are for medical reasons or faith services or infrequently or short duration when for other reasons) because: Homebound Reason: Patient requires assistance of a person or device to safely leave home, Post-surgery restriction and or conditions limit ability to leave home, Leaving home requires considerable and taxing effort due to condition Attestation: My signature below is to certify that this patient is under my care and that I, or nurse practitioner, or a physician's teachers assistant working with me, has a face-to -face encounter with this patient.
== END 2017-05-20 13:33 | disposition home health service (06) | DRG 863 ==
LOC: 3ANU 17:21 → EMEROO 17:21 → 3ANU 21:23
PROVIDERS: ADMIT Surgery; ATTEND Surgery

== ENCOUNTER 2017-11-06 10:38 | Inpatient (IN) ==
[2017-11-06] MEDS ORDERED: Aspirin 81 MG TAB.CHEW PO ONE (11:04)
--- NOTE | 2017-11-06 11:10 | Emergency Department Note ---
Disposition Clinical Impression: Chest pain Qualifiers: Chest pain type: unspecified Qualified Code(s): R07.9 - Chest pain, unspecified Disposition: Admitted As Inpatient Condition: Good Chest Pain HPI - General Chief Complaint: ED Chest Pain Stated Complaint: CP Time Seen by Provider: 11/06/17 10:45 Source: patient Mode of arrival: ambulatory Limitations: no limitations Vital Signs Reviewed: Yes Nursing Notes Reviewed: Yes - History of Present Illness HPI Narrative: Patient presents today for evaluation of chest pain. Patient states chest pain started last night. Describes this the center of his chest pressure with radiation to the right shoulder. Patient states that he was clammy this morning and has had exertional dyspnea required to stop to recover. The patient states that he has not had any previous cardiac evaluation. He does have hypertension and hypercholesterolemia. Patient is on Xarelto secondary to A. fib. The patient is also complaining of a headache as he was mowing on a riding lawnmower when he hit his head on a tree branch. Patient has not had any numbness and tingling throughout the arms or legs. Cranial nerve exam is intact. Pain is worse to the left paraspinal musculature. Due to the patient being on blood thinners he will undergo CT head neck for further evaluation of his trauma as well as his cardiac workup. Severity scale (1-10): 7 - Related Data Home Medications Medication Instructions Recorded Confirmed Travoprost [Travatan Z] 1 drop BOTH EYES HS 12/31/14 11/06/17 Timolol Maleate 0.5% 1 drop RIGHT EYE QAM 03/01/17 11/06/17 Acetaminophen [Tylenol] 325 mg PO Q6HR PRN 10/14/17 11/06/17 Albuterol Sulfate [Ventolin Hfa] 2 puff IH Q4H PRN 10/14/17 11/06/17 Fluticasone Propionate Nasal 50 mcg NS DAILY 10/14/17 11/06/17 [Flonase] Ipratropium/Albuterol Neb [Duoneb] 3 ml IH Q6HR PRN 10/14/17 11/06/17 Metoclopramide HCl [Metoclopramide 5 mg PO DAILY 10/14/17 11/06/17 HCl Odt] Mometasone/Formoterol [Dulera 200 2 puff IH BID 10/14/17 11/06/17 Mcg/5 Mcg Inhaler] Pantoprazole Sodium [Protonix] 40 mg PO DAILY 10/14/17 11/06/17 predniSONE [PredniSONE] 5 mg PO DAILY 11/06/17 11/06/17 Previous Rx's Medication Instructions Recorded Rivaroxaban [Xarelto] 20 mg PO DAILY #30 tablet 04/22/17 Allergies Allergy/AdvReac Type Severity Reaction Status Date / Time Pneumococcal Vaccine Allergy Redness of Verified 05/17/17 17:44 [From Pneumovax 23] Skin Review of Systems: CONSTITUTIONAL: Diaphoresis No weight loss, fever, chills, weakness or fatigue. HEENT: Eyes: No visual changes. Ears, Nose, Throat: No hearing loss, difficulty talking or unable to swallow. SKIN: No rash or itching. CARDIOVASCULAR: Chest pressure RESPIRATORY: Shortness of breath with exertion GASTROINTESTINAL: No anorexia, nausea, vomiting or diarrhea. No abdominal pain or blood. GENITOURINARY: No burning on urination or hematuria. NEUROLOGICAL: Headache No dizziness, syncope, paralysis, ataxia, numbness or tingling in the extremities. No change in bowel or bladder control. MUSCULOSKELETAL: Neck pain No muscle pain, back pain, joint pain or stiffness. Chest Pain PMH - Past Medical History Medical history: Reports: glaucoma, hyperlipidemia, hypertension, kidney stones , other Surgical history: Reports: prostatectomy, tonsilectomy, other Psychiatric history: Reports: no psych history - Social History Smoking Status: Never smoker Alcohol use: Reports: occasionally Drug use: Reports: none Physical Exam General: Well appearing, nontoxic, no acute distress Head: Normocephalic Atraumatic Eyes: PERRL, EOMI ENT: Airway patent, no stridor Neck: supple, no meningismus Chest: Lungs clear to auscultation bilateral Cardiac: Regular rate and rhythm, no murmurs, rubs or gallops Abdomen: soft, nontender, nondistended; no guarding, rebound, or tenderness to percussion Musculoskeletal: No tenderness to the midline of the cervical, thoracic, lumbar spine. Tenderness over the left paraspinal cervical musculature. Calves symmetric, nontender, no palpable cord Skin: Abrasion to the top of his head approximately 1 cm x 1 cm. Neuro: Alert and Oriented to person, place, and time; No focal deficit, CN 2-12 symmetric and intact Course - Reevaluation(s) Reevaluation #1: Patient was given nitroglycerin with resolution of pain but his blood pressure dropped to 70 systolic. Patient was given fluids and his blood pressure recovered without incident. Patient's pain has also returned. Patient will be placed on a nitro drip and titrated to effect. Vital Signs Temperature 97.9 F 11/06/17 10:39 Pulse Rate 96 11/06/17 10:39 Respiratory Rate 18 11/06/17 10:39 Blood Pressure 124/84 11/06/17 10:39 O2 Sat by Pulse Oximetry 95 11/06/17 10:39 Temperature 97.9 F 11/06/17 10:39 Pulse Rate 85 11/06/17 13:30 Respiratory Rate 15 11/06/17 13:01 Blood Pressure 103/77 11/06/17 13:30 O2 Sat by Pulse Oximetry 93 11/06/17 13:01 Oxygen Delivery Oxygen Delivery Room Air Chest Pain - Medical Records Medical records reviewed: Yes I reviewed the patient's medical records. - Lab Data Lab results reviewed: Yes I reviewed the patient's lab results. Result diagrams: 11/06/17 10:55 11/06/17 10:55 Lab Results 11/06/17 11/06/17 11/06/17 Range/Units 10:55 10:55 10:55 WBC 10.4 (4.3-11.1) K/mcL RBC 5.60 H (4.19-5.50) M/mcL Hgb 16.4 (12.9-16.9) g/dL Hct 49.1 (37.5-50.1) % MCV 87.7 (83.0-100.0) fL MCH 29.3 (28.0-33.3) pg MCHC 33.4 (31.6-35.5) g/dL RDW 14.3 (11.5-14.5) % Plt Count 159 (140-400) K/mcL MPV 11.0 (9.4-12.4) fL Immature Gran % 0.2 (0-4) % Seg Neutrophils % 75.6 % Lymphocytes % 8.9 % Monocytes % 15.0 % Eosinophils % 0.1 % Basophils % 0.2 % Neutrophils # 7.8 (1.6-8.9) K/mcL Lymphocytes # 0.9 (0.6-4.6) K/mcL Monocytes # 1.6 H (0.0-1.3) K/mcL Eosinophils # 0.0 (0.0-0.6) K/mcL Basophils # 0.0 (0.0-0.2) K/mcL PT 17.7 H (9.4-12.1) Seconds INR 1.6 APTT 66.1 H (26.0-36.0) Seconds Sodium (136-145) mEq/L Potassium (3.5-5.1) mEq/L Chloride (98-107) mEq/L Carbon Dioxide (23-29) mEq/L BUN (8-23) mg/dL Creatinine (0.70-1.30) mg/dL Est GFR ( Amer) (> 60) Est GFR (Non-Af Amer) (> 60) BUN/Creatinine Ratio (6-26) Glucose (70-105) mg/dL Calculated Osmolality (280-300) Calcium (8.6-10.3) mg/dL Troponin I (< 0.04) ng/mL B-Natriuretic Peptide 91 (Less than 100) pg/mL 11/06/17 Range/Units 10:55 WBC (4.3-11.1) K/mcL RBC (4.19-5.50) M/mcL Hgb (12.9-16.9) g/dL Hct (37.5-50.1) % MCV (83.0-100.0) fL MCH (28.0-33.3) pg MCHC (31.6-35.5) g/dL RDW (11.5-14.5) % Plt Count (140-400) K/mcL MPV (9.4-12.4) fL Immature Gran % (0-4) % Seg Neutrophils % % Lymphocytes % % Monocytes % % Eosinophils % % Basophils % % Neutrophils # (1.6-8.9) K/mcL Lymphocytes # (0.6-4.6) K/mcL Monocytes # (0.0-1.3) K/mcL Eosinophils # (0.0-0.6) K/mcL Basophils # (0.0-0.2) K/mcL PT (9.4-12.1) Seconds INR APTT (26.0-36.0) Seconds Sodium 134 L (136-145) mEq/L Potassium 4.2 (3.5-5.1) mEq/L Chloride 103 (98-107) mEq/L Carbon Dioxide 24 (23-29) mEq/L BUN 11 (8-23) mg/dL Creatinine 0.83 (0.70-1.30) mg/dL Est GFR ( Amer) > 60 (> 60) Est GFR (Non-Af Amer) > 60 (> 60) BUN/Creatinine Ratio 13 (6-26) Glucose 130 H (70-105) mg/dL Calculated Osmolality 279 L (280-300) Calcium 10.6 H (8.6-10.3) mg/dL Troponin I < 0.03 (< 0.04) ng/mL B-Natriuretic Peptide (Less than 100) pg/mL - Radiology Data Radiology results reviewed: Yes I reviewed the patient's radiology results. - EKG Data EKG attestation: Yes I reviewed and interpreted this EKG. EKG results narrative: EKG shows sinus rhyth then secured of 87. MO interval 183. QRS 16. QTC 387. Patient has no significant ST elevations or depressions. Possible right bundle branch block. No previous EKG for comparison. Heart Score - Score History: Highly Suspicious EKG: Non Specific repolarisation Disturbance Age: Greater than 65 Risk Factors: 1-2 risk factors Troponin: Less than normal limit HEART Score Total: 6
[2017-11-06 11:18] LABS: Basophils % 0.2 %; Eosinophils % 0.1 %; Hematocrit 49.1 % (37.5-50.1); Hemoglobin 16.4 g/dL (12.9-16.9); Immature Granulocytes % 0.2 % (0-4); Lymphocytes # 0.9 K/mcL (0.6-4.6); Lymphocytes % 8.9 %; Mean Corpuscular HGB Conc 33.4 g/dL (31.6-35.5); Mean Corpuscular Hemoglobin 29.3 pg (28.0-33.3); Mean Corpuscular Volume 87.7 fL (83.0-100.0); Monocytes # 1.6 K/mcL (0.0-1.3); Neutrophils # 7.8 K/mcL (1.6-8.9); Platelet Count 159 K/mcL (140-400); Red Cell Distribution Width 14.3 % (11.5-14.5); Segmented Neutrophils % 75.6 %
[2017-11-06] MEDS: Nitroglycerin 0.4 MG TAB.SUBL SL PRN ×2 (11:22→11:27)
[2017-11-06 11:26] LABS: INR 1.6; Prothrombin Time 17.7 Seconds (9.4-12.1)
[2017-11-06 11:28] LABS: Activated Partial Thrombo Time 66.1 Seconds (26.0-36.0)
[2017-11-06] MEDS ORDERED: 0.9 % Sodium Chloride 1,000 ML IVC ONE (11:32)
[2017-11-06] MEDS ORDERED: 0.9 % Sodium Chloride 500 ML ONE (11:33)
[2017-11-06 11:39] LABS: BUN/Creatinine Ratio 13 (6-26); Blood Urea Nitrogen 11 mg/dL (8-23); Calcium 10.6 mg/dL (8.6-10.3); Carbon Dioxide 24 mEq/L (23-29); Chloride 103 mEq/L (98-107); Glucose 130 mg/dL (70-105); Osmolality,Calculated 279 (280-300); Potassium 4.2 mEq/L (3.5-5.1); Sodium 134 mEq/L (136-145); Troponin I < 0.03 ng/mL (< 0.04); eGFR For African Americans > 60 (> 60); eGFR For Non-African Americans > 60 (> 60)
[2017-11-06] MEDS: Nitroglycerin 25 MG/250 ML INFUS..BTL IVC SCH (12:55)
[2017-11-06] MEDS ORDERED: Naloxone 0.4 MG/ML INJ IVP PRN (15:43)
[2017-11-06] MEDS ORDERED: Acetaminophen 325 MG TABLET PO PRN (15:43)
[2017-11-06] MEDS ORDERED: Isovue-370 500 ML INFUS..BTL IV ONE (15:43)
--- NOTE | 2017-11-06 16:00 | Internal Med History&Physical ---
Date of Encounter: 11/06/17 Time of Encounter: 15:00 Internal Medicine - H&P: HPI Chief complaint: CP Admitted From: Emergency Dept Plans for Post Hospital Care: Home History of present illness: Mr. Pool is a 77 year old male w/PMH of glaucoma, GERD, HLD, HTN, DVT in right leg during last admission in September, and hx of kidney stones presents from the ED w/CC of CP that began yesterday at 3:00 p.m. as centralized pain in chest that alternated sharp/stabbing w/pressure w/radiation to back of neck, right shoulder , and left shoulder. Came on at rest. Constant all night long. Nitro today helped somewhat. Associated sx: pain w/deep inspiration, nausea, vomiting, exertional SOB, diaphoresis, headache. Pt. denies cardiac hx, hx of AL, or recent cardiac w/u. Hx of atrial fibrillation on Xarelto. Patient denies recent illness, fever, chills, cough, chest congestion, changes in vision, palpitations, abdominal pain, diarrhea, constipation, numbness, tingling, dizziness, lightheadedness, pre-syncope, or syncope. Past Med Surg Social Fam HX - Past Medical History Source: patient, old records reviewed, obtained from family Medical history: atrial fibrillation, GERD, glaucoma, hyperlipidemia, hypertension, kidney stones, other Additional medical history: PROSTATITIS. OA. KIDNEY ANOMALLY. DYSURIA. HIATAL HERNIA. DRINKS A COUPLE BEERS A WEEK. ELEVATED LIVER FX Psychiatric history: no psych history - Past Surgical History Surgical History: prostatectomy, tonsilectomy, other Additional surgical history: 10/14/17 EGD @[facility] W/DR KELLOGG. TONSILLECTOMY 1974. LEFT EAR NON-MALIGNANT TUMOR REMOVED 1969. COLONOSCOPY X2 - 2005, 2014. KIDNEY STONE REMOVAL 2014. EGD 2016. LAP DAVID, LAPAROTOMY W/GASTROPEXY 2016 - Social History Smoking Status: Never smoker Smokeless Tobacco Status: No Alcohol use: occasionally Drug use: none Current living situation: Home, With Family Activity Level: Independent ambulation Recent Out of Country Travel Within the Last 8 Weeks: No Exposure or Possible Exposure to Illness During Travel: No - Family History Mother Race: Family Member Ethnicity: Non- Living Status: Age at : 78 Cause of : Alzheimer's disease Hx Family Endocrine Disorder: Yes (Diabetes Mellitus) Hx Family Neurologic Disorders: Yes (Alzheimer's) Father Race: Family Member Ethnicity: Non- Living Status: Age at : 88 Cause of : Alzheimer's disease Hx Family Cancer: Yes (Prostate) Hx Family Neurologic Disorders: Yes (Alzheimer's) Sister Race: Family Member Ethnicity: Non- Living Status: Age at : 73 Cause of : Cancer Hx Family Cancer: Yes (Lung) Brother Race: Family Member Ethnicity: Non- Living Status: Still Living Hx Family HEENT Disorders: Yes (Brain issues) Internal Medicine - H&P: Meds Travoprost [Travatan Z] 1 drop BOTH EYES HS 12/31/14 [History] Timolol Maleate 0.5% 1 drop RIGHT EYE QAM 03/01/17 [History] Rivaroxaban [Xarelto] 20 mg PO DAILY #30 tablet 04/22/17 [Rx] Acetaminophen [Tylenol] 325 mg PO Q6HR PRN 10/14/17 [History] Albuterol Sulfate [Ventolin Hfa] 2 puff IH Q4H PRN 10/14/17 [History] Fluticasone Propionate Nasal [Flonase] 50 mcg NS DAILY 10/14/17 [History] Ipratropium/Albuterol Neb [Duoneb] 3 ml IH Q6HR PRN 10/14/17 [History] Metoclopramide HCl [Metoclopramide HCl Odt] 5 mg PO DAILY 10/14/17 [History] Mometasone/Formoterol [Dulera 200 Mcg/5 Mcg Inhaler] 2 puff IH BID 10/14/17 [ History] Pantoprazole Sodium [Protonix] 40 mg PO DAILY 10/14/17 [History] predniSONE [PredniSONE] 5 mg PO DAILY 11/06/17 [History] 3 Allergy/AdvReac Type Severity Reaction Status Date / Time No Known Allergies Allergy Verified 11/06/17 14:56 All Systems PM: A 10-system review of systems was performed and is negative for pertinent findings except as documented above in the HPI. - Constitutional Constitutional: as per HPI, weakness, no chills, no fever(s), no night sweats - EENT Eyes: no change in vision, no discharge, no pain, no photophobia Ears: no ear discharge, no ear pain, no tinnitus Nose, mouth and throat: no dysphagia, no nasal discharge, no neck pain, no sore throat - Breasts Breasts: as per HPI - Cardiovascular Cardiovascular ROS IM: as per HPI, chest pain, diaphoresis, dyspnea, dyspnea on exertion, irregular heart rhythm (Hx of atrial fibrillation), no lightheadedness , no palpitations, no syncope - Respiratory Respiratory: as per HPI, dyspnea, dyspnea on exertion, pain on inspiration, no cough, no wheezing, no excessive phlegm production - Gastrointestinal Gastrointestinal: nausea, vomiting, no abdominal pain, no diarrhea, no hematemesis, no hematochezia, no melena - Genitourinary Genitourinary ROS male: as per HPI - Musculoskeletal Musculoskeletal ROS IM: no numbness, no tingling - Integumentary Integumentary IM: no rash, no unusual bruising - Neurological Neurological ROS: no confusion, no convulsions, no focal weakness, no numbness, no tingling, no tremor(s) - Psychiatric Psychiatric: as per HPI - Endocrine Endocrine IM: as per HPI - Hematologic/Lymphatic Hematologic/Lymphatic: no easy bruising - Allergic/Immunologic Allergic/Immunologic: as per HPI - Constitutional Vitals: Temp Pulse Resp BP Pulse Ox 98.0 F 85 14 115/69 93 11/06/17 14:46 11/06/17 15:36 11/06/17 14:46 11/06/17 15:36 11/06/17 14:46 General appearance: Present: cooperative, A&O X 3, pleasant, no acute distress, obese, answers questions appropriately - Head Head exam: Present: atraumatic, normocephalic - Eye Eye exam: Present: PERRL, conjuntiva pink, sclera anicteric Pupils: Present: PERRL - ENT ENT exam: Present: normal exam - Neck Neck exam general surgery: Present: normal inspection, supple, trachea midline. Absent: lymphadenopathy - Respiratory Respiratory exam: Present: CTAB. Absent: accessory muscle use, rales, rhonchi, wheezes - Cardiovascular Cardiovascular exam: Present: RRR, +S1, +S2. Absent: diastolic murmur, gallop, rubs, systolic murmur - GI/Abdominal GI/Abdominal exam: Present: normal bowel sounds, soft, no peritoneal signs. Absent: distended, tenderness - Rectal Rectal exam: Present: deferred - Additional comments: exam deferred. - Extremities Exam Extremities exam: Present: warm, radial pulses palpable and symmetrical. Absent : calf tenderness, cyanotic, pedal edema - Back Exam Back exam: Present: normal inspection - Neurological Exam Neurological exam: Present: alert, CN II-XII intact, oriented X3, no focal deficits. Absent: pronater drift, facial droop, speech deficit - Psychiatric Psychiatric exam: Present: normal affect, normal mood - Skin Skin exam: Present: dry, intact Internal Med - H&P Results - Labs CBC & Chem 7: 11/06/17 10:55 11/06/17 10:55 - EKG Data EKG shows normal: sinus rhythm - EKG Data Prior EKG available for review: yes EKG comments: 11/06/17 16:10 EKG dated 04/23/17 shows sinus bradycardia and borderline left axis deviation.. EKG dated 11/06/17 shows sinus rhythm with borderline left axis deviation, incomplete RBBB, nonspecific ST elevation. - Diagnostic Studies CT scan - head Additional comments: Impressions Head CT 11/06/17 11:06 IMPRESSION: No evidence of acute intracranial abnormality. D/ / 11/06/2017 13:46:05 Harman Burciaga MD / earl Interpreting Provider: Harman Burciaga MD Chest x-ray Additional comments: Impressions Chest X-Ray 11/06/17 11:04 IMPRESSION: No acute process. Stable cardiomegaly D/ / Felipe Damian MD / Felipe Damian MD Interpreting Provider: Felipe Damian MD Other Images Additional comments: Impressions Cervical Spine CT 11/06/17 11:06 IMPRESSION: Multilevel degenerative changes of the cervical spine with no definite radiographic findings to suggest presence of acute fracture. D/ / 11/06/2017 13:35:31 Harman Burciaga MD / earl Interpreting Provider: Harman Burciaga MD - Assessment and plan (1) Chest pain Current Visit: Yes Status: Acute Assessment and plan: Acute CP that began yesterday @ 3 p.m. as centralized pain in chest that alternated sharp/stabbing w/pressure w/radiation to back of neck, right shoulder , and left shoulder. Came on at rest. Constant all night long. Nitro today helped somewhat. Associated sx: pain w/deep inspiration, nausea, vomiting, exertional SOB, diaphoresis, headache. Pt. denies cardiac hx, hx of AL, or recent cardiac w/u. Hx of atrial fibrillation on Xarelto. Pt. has hx of DVT of LLE found during admission last month. Concern is for possible PE now d/t pain w /inspiration. CTA of chest ordered stat. Pt. reports CP of 5/10 on 15 mcgs of nitro drip. Will transfer pt. from to . Stat EKG shows sinus rhythm with borderline left axis deviation, moderate intraventricular conduction delay, and ST elevations, probably early repolarization. Stat troponin ordered. Initial troponin <0.03. Will trend. Echocardiogram. Continuous cardiac telemetry. Supplemental O2 w/titration and SpO2 monitoring. Will hold pts. Xarelto and start low-dose heparin drip d/t pts. severe CP. Pt. is not able to take statins d/t adverse rxns. Lipid panel in a.m. labs. Cardiology consult ordered and discussed w/Dr. Moss and I appreciate the consult and recommendations as always. Pt. discussed w/Dr. Chambers who agrees w/plan of care. Pt. is high risk for cardiac event and further morbidity based on current sx that are unresolved w/nitro, CP requiring IV nitro and heparin drips w/titration, previous DVT and current SOB/dyspnea, new EKG showing ST elevations, hx; and risk factors of obesity, HTN, and HLD. Inpatient. Qualifiers: Chest pain type: unspecified Qualified Code(s): R07.9 - Chest pain, unspecified (2) Shortness of breath Current Visit: Yes Status: Acute Assessment and plan: Acute SOB w/CP sx. Denies home O2 use. Supplemental O2 w/titration and SpO2 monitoring. (3) Nausea and vomiting Current Visit: Yes Status: Acute Assessment and plan: Acute nausea and vomiting today w/CP. Zofran 4 mg Q6HR PRN for N/V. Qualifiers: Vomiting type: cyclical vomiting Vomiting Intractability: non-intractable Qualified Code(s): G43.A0 - Cyclical vomiting, not intractable (4) Acute deep vein thrombosis (DVT) of left lower extremity Current Visit: Yes Status: Acute Assessment and plan: Hx of acute DVT in LLE during last admission last month. Hold pts. Xarelto and start low-dose heparin drip d/t CP. Qualifiers: Affected thrombotic vein of extremity: unspecified lower extremity proximal vein Qualified Code(s): I82.4Y2 - Acute embolism and thrombosis of unspecified deep veins of left proximal lower extremity (5) Hyponatremia Current Visit: Yes Status: Acute Assessment and plan: Acute on chronic hyponatermia w/sodium of 134 on admission. Pt. received 1L 0.9 NS fluid bolus in ED. Will re-check sodium level @ 00:00. Monitor f/u labs. Continuous cardiac telemetry. (6) HLD (hyperlipidemia) Current Visit: Yes Status: Chronic Assessment and plan: Hx of chronic HLD. Lipid panel in a.m. labs. Pt. reports he cannot take statins d/t rxn. Qualifiers: Hyperlipidemia type: pure hypercholesterolemia Qualified Code(s): E78.00 - Pure hypercholesterolemia, unspecified; E78.0 - Pure hypercholesterolemia (7) HTN (hypertension) Current Visit: Yes Status: Chronic Assessment and plan: Hx of chronic HTN. Monitor pt. and VS. Pt. not currently on HTN medication. Hydralazine 10 mg IVP every 6 hour when necessary with parameters. Qualifiers: Hypertension type: essential hypertension Qualified Code(s): I10 - Essential (primary) hypertension (8) DVT prophylaxis Current Visit: Yes Status: Acute Assessment and plan: Continue patient's Xarelto for DVT prophylaxis. Monitor pt. for signs of bleeding. - Time Spent With Patient Total time spent is greater than 50% in coordination of care (as documented) at patient's floor/unit and/or counseling patient: Greater than 35 minutes
[2017-11-06] MEDS ORDERED: Ondansetron 4 MG/2 ML VIAL IVP PRN (16:13)
[2017-11-06] MEDS ORDERED: *HR* Heparin 5,000 UNIT/ML VIAL IVP PRN (16:39)
[2017-11-06] MEDS ORDERED: *HR* Heparin 5,000 UNIT/ML VIAL IVP ONE (16:39)
[2017-11-06] MEDS: Levalbuterol Neb 1.25 MG/3 ML IH SCH ×2 (17:51→21:46)
[2017-11-06 19:02] LABS: Hematocrit 43.4 % (37.5-50.1); Hemoglobin 14.5 g/dL (12.9-16.9); Mean Corpuscular HGB Conc 33.4 g/dL (31.6-35.5); Mean Corpuscular Hemoglobin 29.4 pg (28.0-33.3); Mean Corpuscular Volume 87.9 fL (83.0-100.0); Mean Platelet Volume 11.2 fL (9.4-12.4); Platelet Count 149 K/mcL (140-400); Red Blood Count 4.94 M/mcL (4.19-5.50); Red Cell Distribution Width 14.2 % (11.5-14.5)
[2017-11-06 19:09] LABS: INR 1.5; Prothrombin Time 16.8 Seconds (9.4-12.1)
[2017-11-06 19:11] LABS: Activated Partial Thrombo Time 51.2 Seconds (26.0-36.0)
[2017-11-06] MEDS: Heparin 25,000 UNIT/500 ML D5W 25,000 UNIT/500 ML BAG IVC SCH (20:06)
[2017-11-06] MEDS: *HR* HYDROcodone/Acet 5/325 mg TABLET PO PRN (20:14)
[2017-11-06] MEDS: Latanoprost 2.5 ML BOTTLE BOTH EYES SCH (20:17)
[2017-11-06] MEDS: Budesonide/Formoterol 160/4.5 MDI IH SCH (21:46)
[2017-11-07 02:21] LABS: Basophils % 0.2 %; Eosinophils % 0.1 %; Hematocrit 40.9 % (37.5-50.1); Hemoglobin 13.8 g/dL (12.9-16.9); Immature Granulocytes % 0.4 % (0-4); Lymphocytes # 0.8 K/mcL (0.6-4.6); Lymphocytes % 8.1 %; Mean Corpuscular HGB Conc 33.7 g/dL (31.6-35.5); Mean Corpuscular Hemoglobin 29.6 pg (28.0-33.3); Mean Corpuscular Volume 87.8 fL (83.0-100.0); Mean Platelet Volume 11.4 fL (9.4-12.4); Monocytes # 1.7 K/mcL (0.0-1.3); Monocytes % 16.4 %; Neutrophils # 7.6 K/mcL (1.6-8.9); Platelet Count 137 K/mcL (140-400); Red Blood Count 4.66 M/mcL (4.19-5.50); Red Cell Distribution Width 14.3 % (11.5-14.5); Segmented Neutrophils % 74.8 %
[2017-11-07 02:40] LABS: Alanine Aminotransferase 8 Units/L (7-52); Albumin 3.5 g/dL (3.5-5.7); Albumin/Globulin Ratio 1.3 (1.1-2.2); Alkaline Phosphatase 76 Units/L (34-104); Aspartate Amino Transferase 9 Units/L (13-39); BUN/Creatinine Ratio 14 (6-26); Bilirubin,Total 0.8 mg/dL (0.3-1.0); Blood Urea Nitrogen 11 mg/dL (8-23); Calcium 9.7 mg/dL (8.6-10.3); Carbon Dioxide 21 mEq/L (23-29); Chloride 105 mEq/L (98-107); Chol/HDL Ratio 3.9 (0-4.9); Cholesterol 189 mg/dL (< 200); Globulin 2.6 g/dL (2.4-3.5); Glucose 155 mg/dL (70-105); HDL Cholesterol 49 mg/dL (40-59); LDL Cholesterol,Calculated 115 mg/dL (0-99); Magnesium 1.9 mg/dL (1.6-2.6); Osmolality,Calculated 277 (280-300); Potassium 3.9 mEq/L (3.5-5.1); Sodium 132 mEq/L (136-145); Total Protein 6.1 g/dL (6.4-8.9); Triglycerides 127 mg/dL (< 150); eGFR For African Americans > 60 (> 60); eGFR For Non-African Americans > 60 (> 60)
[2017-11-07] MEDS: *HR* HYDROcodone/Acet 5/325 mg TABLET PO PRN ×2 (02:51→16:12)
[2017-11-07] MEDS: Levalbuterol Neb 1.25 MG/3 ML IH SCH ×4 (04:50→22:53)
[2017-11-07 07:54] LABS: Estimated Average Glucose 120 mg/dl; Hemoglobin A1C 5.8 %
[2017-11-07] MEDS: Fluticasone Propionate Nasal 50 MCG/SPRAY BOTTLE NS SCH (08:24)
[2017-11-07] MEDS ORDERED: predniSONE 5 MG TABLET PO SCH (09:00)
--- NOTE | 2017-11-07 09:59 | Cardiology Consult Note ---
Date of Encounter: 11/07/17 Time of Encounter: 09:56 Assessment and Plan (1) Chest pain Current Visit: Yes Status: Acute Possible pericarditis with some supporting EKG findings. ECHO to evaluate for SHD and possible ischemic work up pending results of ECHO. Will titrate of nitro drip after ECHO results. Qualifiers: Chest pain type: chest pain on breathing Qualified Code(s): R07.1 - Chest pain on breathing; R07.81 - Pleurodynia Discussion w patient/family: The assessment and plan as outlined above was discussed with the patient and/or family members who expressed understanding and agreement. All questions were answered. Thank you for involving us in the care of your patient. Please call with any questions. History of Present Illness Consult date: 11/07/17 Consult reason: Chest Pain Chief complaint: Pain in my chest with breathing History of present illness: Mr. Pool is a 77 year old male with no significant cardiac history presents with sharp stabbing RSCP radiating to the right shoulder. Pain is non exertional and started tuesday am. Pain is worse with deep breathing and slightly better with leaning forward. EKG with CA depressions suggestive of possible pericarditis. Negative troponins x 3. Currently on Nitro drip and heparin off Xarelto (started for DVTs in the past). No previous hx of new onset exertional SOB or exertional CP. He did complain of SOB started after HH surgery 05/2017 but is improving. Past Med Surg Social Fam HX - Past Medical History Medical history: atrial fibrillation, GERD, glaucoma, hyperlipidemia, hypertension, kidney stones, other Additional medical history: PROSTATITIS. OA. KIDNEY ANOMALLY. DYSURIA. HIATAL HERNIA. DRINKS A COUPLE BEERS A WEEK. ELEVATED LIVER FX Psychiatric history: no psych history - Past Surgical History Surgical History: prostatectomy, tonsilectomy, other Additional surgical history: 10/14/17 EGD @[facility] W/DR KELLOGG. TONSILLECTOMY 1974. LEFT EAR NON-MALIGNANT TUMOR REMOVED 1969. COLONOSCOPY X2 - 2005, 2014. KIDNEY STONE REMOVAL 2014. EGD 2016. LAP DAVID, LAPAROTOMY W/GASTROPEXY 2016 - Social History Smoking Status: Never smoker Smokeless Tobacco Status: No Alcohol use: occasionally Drug use: none - Family History Mother Race: Family Member Ethnicity: Non- Living Status: Age at : 78 Cause of : Alzheimer's disease Hx Family Endocrine Disorder: Yes (Diabetes Mellitus) Hx Family Neurologic Disorders: Yes (Alzheimer's) Father Race: Family Member Ethnicity: Non- Living Status: Age at : 88 Cause of : Alzheimer's disease Hx Family Cancer: Yes (Prostate) Hx Family Neurologic Disorders: Yes (Alzheimer's) Sister Race: Family Member Ethnicity: Non- Living Status: Age at : 73 Cause of : Cancer Hx Family Cancer: Yes (Lung) Brother Race: Family Member Ethnicity: Non- Living Status: Still Living Hx Family HEENT Disorders: Yes (Brain issues) Medications and Allergies Travoprost [Travatan Z] 1 drop BOTH EYES HS 12/31/14 [History] Timolol Maleate 0.5% 1 drop RIGHT EYE QAM 03/01/17 [History] Rivaroxaban [Xarelto] 20 mg PO DAILY #30 tablet 04/22/17 [Rx] Acetaminophen [Tylenol] 325 mg PO Q6HR PRN 10/14/17 [History] Albuterol Sulfate [Ventolin Hfa] 2 puff IH Q4H PRN 10/14/17 [History] Fluticasone Propionate Nasal [Flonase] 50 mcg NS DAILY 10/14/17 [History] Ipratropium/Albuterol Neb [Duoneb] 3 ml IH Q6HR PRN 10/14/17 [History] Metoclopramide HCl [Metoclopramide HCl Odt] 5 mg PO DAILY 10/14/17 [History] Mometasone/Formoterol [Dulera 200 Mcg/5 Mcg Inhaler] 2 puff IH BID 10/14/17 [ History] Pantoprazole Sodium [Protonix] 40 mg PO DAILY 10/14/17 [History] predniSONE [PredniSONE] 5 mg PO DAILY 11/06/17 [History] 3 Allergy/AdvReac Type Severity Reaction Status Date / Time No Known Allergies Allergy Verified 11/06/17 14:56 All Systems Review: The remainder of the systems were reviewed and are negative Physical Examination Vital Signs, Last 4 Hours Temp Pulse Resp BP Pulse Ox 11/07/17 07:17 99.1 F 90 21 104/68 91 General: Conversant, No Apparent Distress HEENT: Atraumatic, Normocephaly, Mucus Membranes Moist Neck: No JVD, Normal carotid pulses Cardiac: Reg Rate and Rhythm, Normal S1 and S2, No Murmur Lungs: Normal Breath Sounds, No Wheeze, Rales, Rhonchi Neuro: Alert and responsive, No focal deficits noted Abdomen: Soft, Non-Tender Skin: No rashes noted on visualized skin Musculoskeletal: No Chest Wall Tenderness Extremities: No Clubbing, No Cyanosis, No Edema, Normal Pulses Results 11/07/17 01:50 11/07/17 01:50 Lab Results 11/06/17 11/06/17 11/06/17 18:12 18:12 18:12 WBC 10.1 Hgb 14.5 D Hct 43.4 Plt Count 149 INR 1.5 APTT 51.2 H Sodium Potassium Chloride Carbon Dioxide BUN Creatinine Glucose Calcium Magnesium Total Bilirubin AST ALT Alkaline Phosphatase Troponin I < 0.03 11/06/17 11/07/17 11/07/17 22:51 01:50 01:50 WBC 10.1 Hgb 13.8 Hct 40.9 Plt Count 137 L INR APTT Sodium 132 L Potassium 3.9 Chloride 105 Carbon Dioxide 21 L BUN 11 Creatinine 0.81 Glucose 155 H Calcium 9.7 Magnesium 1.9 Total Bilirubin 0.8 AST 9 L ALT 8 Alkaline Phosphatase 76 Troponin I < 0.03 11/07/17 11/07/17 01:50 01:50 WBC Hgb Hct Plt Count INR APTT 87.3 H D Sodium 131 L Potassium Chloride Carbon Dioxide BUN Creatinine Glucose Calcium Magnesium Total Bilirubin AST ALT Alkaline Phosphatase Troponin I Consult Discharge Plan - Plan Referrals: Rodri Day MD [Primary Care Provider] - (sent web request on 11-07-17 @ [phone])
[2017-11-07] MEDS: Budesonide/Formoterol 160/4.5 MDI IH SCH ×2 (10:43→22:53)
[2017-11-07] MEDS: Nitroglycerin 25 MG/250 ML INFUS..BTL IVC SCH (12:57)
[2017-11-07] MEDS ORDERED: *HR* Rivaroxaban 10 MG TABLET PO SCH (17:00)
--- NOTE | 2017-11-07 19:03 | Electrocardiograph Report ---
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
--- NOTE | 2017-11-07 19:05 | Electrocardiograph Report ---
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
--- NOTE | 2017-11-07 19:47 | Internal Med Progress Note ---
Date of Encounter: 11/07/17 Time of Encounter: 11:00 - Assessment and plan (1) Pericardial effusion Current Visit: Yes Status: Acute Assessment and plan: Patient presented with chest pain found to have small to moderate pericardial effusion on echocardiogram. Patient also found to have atypical septal motion consistent with bundle branch block with mild left ventricular diastolic dysfunction and LVEF of 55% Cardiology following and appreciate recommendations. (2) Chest pain Current Visit: Yes Status: Acute Assessment and plan: Secondary to the above. Patient on nitroglycerin drip per cardiology recommendations Qualifiers: Chest pain type: chest pain on breathing Qualified Code(s): R07.1 - Chest pain on breathing; R07.81 - Pleurodynia (3) Acute deep vein thrombosis (DVT) of left lower extremity Current Visit: Yes Status: Acute Assessment and plan: Hx of acute DVT in LLE during last admission last month. Hold pts. Xarelto and start low-dose heparin drip d/t CP. Qualifiers: Affected thrombotic vein of extremity: unspecified lower extremity proximal vein Qualified Code(s): I82.4Y2 - Acute embolism and thrombosis of unspecified deep veins of left proximal lower extremity (4) DVT prophylaxis Current Visit: Yes Status: Acute - Time Spent With Patient Total time spent is greater than 50% in coordination of care (as documented) at patient's floor/unit and/or counseling patient: - Subjective Interval history: Patient presents with chest pain with negative cardiac biomarkers but found to have pericardial effusion on echocardiogram - Constitutional Vitals: Temp Pulse Resp BP Pulse Ox 98.3 F 85 18 120/73 92 11/07/17 19:14 11/07/17 19:14 11/07/17 19:14 11/07/17 19:14 11/07/17 19:14 General appearance: Present: cooperative, A&O X 3, pleasant, no acute distress, obese, answers questions appropriately - Respiratory Respiratory exam: Present: CTAB. Absent: accessory muscle use, rales, rhonchi, wheezes - Cardiovascular Cardiovascular exam: Present: RRR, +S1, +S2. Absent: diastolic murmur, gallop, rubs, systolic murmur Internal Medicine: Result - Labs CBC & Chem 7: 11/07/17 01:50 11/07/17 01:50 Labs: Short CBC 11/07/17 Range/Units 01:50 WBC 10.1 (4.3-11.1) K/mcL Hgb 13.8 (12.9-16.9) g/dL Hct 40.9 (37.5-50.1) % Plt Count 137 L (140-400) K/mcL Neutrophils # 7.6 (1.6-8.9) K/mcL BMP 11/07/17 11/07/17 01:50 01:50 Sodium 132 L 131 L Potassium 3.9 Chloride 105 Carbon Dioxide 21 L BUN 11 Creatinine 0.81 Glucose 155 H Calcium 9.7 Cardiac Enzymes 11/06/17 Range/Units 22:51 Troponin I < 0.03 (< 0.04) ng/mL Liver Function 11/07/17 Range/Units 01:50 Total Bilirubin 0.8 (0.3-1.0) mg/dL AST 9 L (13-39) Units/L ALT 8 (7-52) Units/L Alkaline Phosphatase 76 (34-104) Units/L Albumin 3.5 (3.5-5.7) g/dL - ABG Interpretation ABG results: PT/INR, D-dimer PT 16.8 Seconds (9.4-12.1) H 11/06/17 18:12 - Impressions Impressions Echocardiogram 11/07/17 10:00 Impressions: Technically sub-optimal due to poor echocardiographic windows. LVEF 55%. Normal LV chamber size, wall thickness and function. Atypical septal motion consistent with bundle branch block. Mild left ventricular diastolic dysfunction. Normal right ventricular structure and function. No evidence of pulmonary hypertension. There is a small to moderate pericardial effusion present. Echogenic material adherent to the epicardium. No tamponade. No significant valvular dysfunction. Left Ventricular Wall Motion: Rest Echo Findings All wall segments showed normal motion. Findings: Study Quality * Technically sub-optimal due to poor echocardiographic windows. ECG Findings * Sinus rhythm with BBB. Left Ventricle * LVEF 55%. * Normal LV chamber size, wall thickness and function. * Atypical septal motion consistent with bundle branch block. * Mild left ventricular diastolic dysfunction. Right Ventricle * Normal right ventricular structure and function. Left Atrium * Mildly dilated left atrium. Right Atrium * Normal right atrial size. Aortic Valve * Aortic valve not well visualized. * No aortic regurgitation. * No aortic stenosis. Mitral Valve * Normal mitral valve structure and function. * No mitral regurgitation. * No mitral stenosis. Tricuspid Valve * Normal tricuspid valve structure and function. * Trace tricuspid regurgitation. * No evidence of pulmonary hypertension. Pulmonic Valve * Pulmonic valve is not well visualized. * No pulmonic regurgitation. Aorta * Normally sized aortic root. Pericardium * There is a small to moderate pericardial effusion present. Echogenic material adherent to the epicardium. No tamponade. IVC * The IVC is not well evaluated. Pulmonary Artery * Normal visualized portions of the main pulmonary artery. Consult Discharge Plan - Plan Referrals: Rodri Day MD [Primary Care Provider] - (sent web request on 11-07-17 @ [phone]) Keyana Sol [Partnered Physician] - (office will call patient at home with follow up appointment)
[2017-11-07] MEDS: Latanoprost 2.5 ML BOTTLE BOTH EYES SCH (21:07)
[2017-11-08] MEDS: *HR* HYDROcodone/Acet 5/325 mg TABLET PO PRN ×2 (00:35→18:34)
[2017-11-08] MEDS: Heparin 25,000 UNIT/500 ML D5W 25,000 UNIT/500 ML BAG IVC SCH ×2 (00:36→20:36)
[2017-11-08 04:06] LABS: Basophils % 0.2 %; Eosinophils % 0.5 %; Hematocrit 40.1 % (37.5-50.1); Hemoglobin 13.1 g/dL (12.9-16.9); Immature Granulocytes % 0.5 % (0-4); Lymphocytes % 11.6 %; Mean Corpuscular HGB Conc 32.7 g/dL (31.6-35.5); Mean Corpuscular Hemoglobin 28.7 pg (28.0-33.3); Mean Corpuscular Volume 87.7 fL (83.0-100.0); Mean Platelet Volume 11.5 fL (9.4-12.4); Monocytes # 1.3 K/mcL (0.0-1.3); Monocytes % 14.8 %; Neutrophils # 6.4 K/mcL (1.6-8.9); Platelet Count 129 K/mcL (140-400); Red Blood Count 4.57 M/mcL (4.19-5.50); Red Cell Distribution Width 14.4 % (11.5-14.5); Segmented Neutrophils % 72.4 %
[2017-11-08] MEDS: Levalbuterol Neb 1.25 MG/3 ML IH SCH ×4 (04:39→21:58)
[2017-11-08 04:54] LABS: Alanine Aminotransferase 7 Units/L (7-52); Albumin 3.4 g/dL (3.5-5.7); Albumin/Globulin Ratio 1.1 (1.1-2.2); Alkaline Phosphatase 73 Units/L (34-104); Aspartate Amino Transferase 7 Units/L (13-39); BUN/Creatinine Ratio 14 (6-26); Bilirubin,Total 0.6 mg/dL (0.3-1.0); Blood Urea Nitrogen 11 mg/dL (8-23); Calcium 9.8 mg/dL (8.6-10.3); Carbon Dioxide 23 mEq/L (23-29); Chloride 103 mEq/L (98-107); Globulin 3.1 g/dL (2.4-3.5); Glucose 131 mg/dL (70-105); Osmolality,Calculated 275 (280-300); Sodium 132 mEq/L (136-145); Total Protein 6.5 g/dL (6.4-8.9); eGFR For African Americans > 60 (> 60); eGFR For Non-African Americans > 60 (> 60)
[2017-11-08] MEDS: Fluticasone Propionate Nasal 50 MCG/SPRAY BOTTLE NS SCH (07:46)
[2017-11-08] MEDS: Budesonide/Formoterol 160/4.5 MDI IH SCH ×2 (10:33→21:58)
[2017-11-08 10:37] LABS: Activated Partial Thrombo Time 47.7 Seconds (26.0-36.0)
[2017-11-08] MEDS: Nitroglycerin 25 MG/250 ML INFUS..BTL IVC SCH (11:02)
[2017-11-08 11:13] LABS: Heparin anti-factor XA UFH 0.07 IU/mL (0.30-0.70)
--- NOTE | 2017-11-08 16:42 | Internal Med Progress Note ---
Date of Encounter: 11/08/17 Time of Encounter: 16:39 - Assessment and plan (1) Chest pain Current Visit: Yes Status: Acute Assessment and plan: Cardiology consulted; appreciate input. Continue IV heparin. Continue SQ nitroglycerin. Continue tylenol and norco. Will await further recommendations from cardiology. Qualifiers: Chest pain type: chest pain on breathing Qualified Code(s): R07.1 - Chest pain on breathing; R07.81 - Pleurodynia (2) Pericardial effusion Current Visit: Yes Status: Acute Assessment and plan: Patient presented with chest pain found to have small to moderate pericardial effusion on echocardiogram. Patient also found to have atypical septal motion consistent with bundle branch block with mild left ventricular diastolic dysfunction and LVEF of 55%. Cardiology consulted; appreciate input. Will await further recommendations. (3) S/P partial gastrectomy Current Visit: Yes Status: Chronic Assessment and plan: Following with GI outpatient. Not sure his chest pain is related to this. Will increase omeprazole to 40 mg PO QD and continue home reglan. If cardiology workup negative, can pursue this further as outpatient. (4) Acute deep vein thrombosis (DVT) of left lower extremity Current Visit: Yes Status: Chronic Assessment and plan: Holding home xarelto for now while continuing IV heparin. Qualifiers: Affected thrombotic vein of extremity: unspecified lower extremity proximal vein Qualified Code(s): I82.4Y2 - Acute embolism and thrombosis of unspecified deep veins of left proximal lower extremity (5) DVT prophylaxis Current Visit: Yes Status: Acute Assessment and plan: Continue IV heparin as per above. - Time Spent With Patient Total time spent is greater than 50% in coordination of care (as documented) at patient's floor/unit and/or counseling patient: less than 15 minutes - Subjective Interval history: Patient had no acute events overnight. He still has some pain in middle chest radiating to right shoulder, but it is much improved. He states that SL nitro helps with the pain. is in room today and states that he has significant GI history. He had hiatal hernia surgery few months ago. He recently had EGD with some gastroparesis and had a outpatient GI follow up yesterday that he missed. He denies fever, chills, SOB, heartburn, nausea, vomiting, abdominal pain, or changes in bowels. He has no other complaints at this time. - Constitutional Vitals: Temp Pulse Resp BP Pulse Ox 100.0 F H 84 16 116/83 97 11/08/17 16:09 11/08/17 16:09 11/08/17 16:15 11/08/17 16:09 11/08/17 16:15 General appearance: Present: cooperative, A&O X 3, pleasant, no acute distress, obese, answers questions appropriately - Respiratory Respiratory exam: Present: CTAB. Absent: accessory muscle use, rales, rhonchi, wheezes Additional comments: Normal WOB - Cardiovascular Cardiovascular exam: Present: RRR, +S1, +S2. Absent: diastolic murmur, gallop, rubs, systolic murmur Additional comments: No BLE edema - GI/Abdominal GI/Abdominal exam: Present: normal bowel sounds, soft. Absent: distended, hepatomegaly, mass, splenomegaly, tenderness - Psychiatric Psychiatric exam: Present: normal affect, normal mood. Absent: agitated, anxious, depressed - Skin Skin exam: Present: dry, intact, warm. Absent: cyanosis, rash Internal Medicine: Result - Labs CBC & Chem 7: 11/08/17 03:36 11/08/17 03:36 Labs: Short CBC 11/08/17 Range/Units 03:36 WBC 8.8 (4.3-11.1) K/mcL Hgb 13.1 (12.9-16.9) g/dL Hct 40.1 (37.5-50.1) % Plt Count 129 L (140-400) K/mcL Neutrophils # 6.4 (1.6-8.9) K/mcL BMP 11/08/17 03:36 Sodium 132 L Potassium 4.0 Chloride 103 Carbon Dioxide 23 BUN 11 Creatinine 0.77 Glucose 131 H Calcium 9.8 Liver Function 11/08/17 Range/Units 03:36 Total Bilirubin 0.6 (0.3-1.0) mg/dL AST 7 L (13-39) Units/L ALT 7 (7-52) Units/L Alkaline Phosphatase 73 (34-104) Units/L Albumin 3.4 L (3.5-5.7) g/dL - ABG Interpretation ABG results: PT/INR, D-dimer PT 16.8 Seconds (9.4-12.1) H 11/06/17 18:12 Consult Discharge Plan - Plan Referrals: Rodri Day MD [Primary Care Provider] - 11/14/17 2:15 pm () Keyana Sol [Partnered Physician] - (office will call patient at home with follow up appointment)
[2017-11-08] MEDS: *HR* Heparin 5,000 UNIT/ML VIAL IVP PRN (18:28)
[2017-11-08] MEDS: Latanoprost 2.5 ML BOTTLE BOTH EYES SCH (23:03)
[2017-11-09 00:47] LABS: Basophils % 0.3 %; Eosinophils # 0.1 K/mcL (0.0-0.6); Eosinophils % 1.5 %; Hemoglobin 12.9 g/dL (12.9-16.9); Immature Granulocytes % 0.3 % (0-4); Lymphocytes % 13.6 %; Mean Corpuscular HGB Conc 33.1 g/dL (31.6-35.5); Mean Corpuscular Hemoglobin 29.1 pg (28.0-33.3); Mean Corpuscular Volume 87.8 fL (83.0-100.0); Monocytes # 0.9 K/mcL (0.0-1.3); Monocytes % 13.2 %; Neutrophils # 5.1 K/mcL (1.6-8.9); Platelet Count 141 K/mcL (140-400); Red Blood Count 4.44 M/mcL (4.19-5.50); Red Cell Distribution Width 14.3 % (11.5-14.5); Segmented Neutrophils % 71.1 %
[2017-11-09 00:54] LABS: Heparin anti-factor XA UFH 0.29 IU/mL (0.30-0.70)
[2017-11-09 01:08] LABS: Alanine Aminotransferase 11 Units/L (7-52); Albumin 3.2 g/dL (3.5-5.7); Alkaline Phosphatase 72 Units/L (34-104); Aspartate Amino Transferase 12 Units/L (13-39); BUN/Creatinine Ratio 15 (6-26); Bilirubin,Total 0.4 mg/dL (0.3-1.0); Blood Urea Nitrogen 11 mg/dL (8-23); Calcium 9.8 mg/dL (8.6-10.3); Carbon Dioxide 23 mEq/L (23-29); Chloride 103 mEq/L (98-107); Globulin 3.2 g/dL (2.4-3.5); Glucose 118 mg/dL (70-105); Osmolality,Calculated 276 (280-300); Potassium 3.8 mEq/L (3.5-5.1); Sodium 133 mEq/L (136-145); Total Protein 6.4 g/dL (6.4-8.9); eGFR For African Americans > 60 (> 60); eGFR For Non-African Americans > 60 (> 60)
[2017-11-09 01:49] LABS: Activated Partial Thrombo Time 74.2 Seconds (26.0-36.0)
[2017-11-09] MEDS: *HR* Heparin 5,000 UNIT/ML VIAL IVP PRN (02:23)
[2017-11-09] MEDS: Levalbuterol Neb 1.25 MG/3 ML IH SCH ×4 (03:42→21:57)
[2017-11-09] MEDS: *HR* HYDROcodone/Acet 5/325 mg TABLET PO PRN ×3 (06:16→21:55)
[2017-11-09] MEDS: Fluticasone Propionate Nasal 50 MCG/SPRAY BOTTLE NS SCH (08:10)
--- NOTE | 2017-11-09 08:17 | Electrocardiograph Report ---
[place] [id number] Test Date: 2017-11-06 Pat Name: Jose Daniel Pool Department: 103 Room: 2N09 Gender: M Enamel Buffer: : 1940 Requested By: Donte Spaulding Order Number: [id number] Reading MD: Mac William Measurements Intervals [place] Rate: 87 P: 11 [place]: 183 QRS: -30 QRSD: 116 T: 43 QT: 343 QTc: 387 Interpretive Statements SINUS RHYTHM BORDERLINE LEFT AXIS DEVIATION INCOMPLETE RIGHT BUNDLE BRANCH BLOCK Poor R wave progression Electronically Signed On 11-09-2017 8:15:41 EDT by Mac William
[2017-11-09] MEDS: Budesonide/Formoterol 160/4.5 MDI IH SCH ×2 (10:44→21:57)
[2017-11-09] MEDS ORDERED: Ondansetron 4 MG/2 ML VIAL IVP STA (12:19)
--- NOTE | 2017-11-09 12:20 | Internal Med Progress Note ---
Date of Encounter: 11/09/17 Time of Encounter: 12:18 - Assessment and plan (1) Chest pain Current Visit: Yes Status: Acute Assessment and plan: Somewhat improved. Cardiology consulted; appreciate input. Spoke with pet groomer Dr. Sol in person today. He thinks this is likely pericarditis and not ACS. Will start colchicine 0.6 mg PO BID. Discontinue IV heparin and restart home xarelto. Continue SQ nitroglycerin PRN. Continue tylenol and norco PRN. Qualifiers: Chest pain type: other chest pain Qualified Code(s): R07.89 - Other chest pain; R07.8 - Other chest pain (2) Pericardial effusion Current Visit: Yes Status: Acute Assessment and plan: Likely secondary to pericarditis. Management as per above. (3) S/P partial gastrectomy Current Visit: Yes Status: Chronic Assessment and plan: Keep follow up with GI outpatient. Not sure his chest pain is related to this. Continue omeprazole and home reglan. Continue zofran IV PRN nausea/vomiting. (4) Acute deep vein thrombosis (DVT) of left lower extremity Current Visit: Yes Status: Chronic Assessment and plan: Restarted home xarelto. Qualifiers: Affected thrombotic vein of extremity: unspecified lower extremity proximal vein Qualified Code(s): I82.4Y2 - Acute embolism and thrombosis of unspecified deep veins of left proximal lower extremity (5) DVT prophylaxis Current Visit: Yes Status: Acute Assessment and plan: Restarted home xarelto. - Time Spent With Patient Total time spent is greater than 50% in coordination of care (as documented) at patient's floor/unit and/or counseling patient: less than 15 minutes - Subjective Interval history: Patient had no acute events overnight. He states that pain in middle chest radiating to right shoulder is a little improved. He denies fever, chills, SOB , heartburn, vomiting, abdominal pain, or changes in bowels. His only other complaints at this time are nausea and a "hoarse voice." - Constitutional Vitals: Temp Pulse Resp BP Pulse Ox 97.8 F 74 16 123/81 92 11/09/17 11:15 11/09/17 11:55 11/09/17 11:15 11/09/17 11:15 11/09/17 11:15 General appearance: Present: cooperative, A&O X 3, pleasant, no acute distress, obese, answers questions appropriately - Respiratory Respiratory exam: Present: CTAB. Absent: accessory muscle use, rales, rhonchi, wheezes Additional comments: Normal WOB - Cardiovascular Cardiovascular exam: Present: RRR, +S1, +S2. Absent: diastolic murmur, gallop, rubs, systolic murmur Additional comments: No BLE edema - GI/Abdominal GI/Abdominal exam: Present: normal bowel sounds, soft. Absent: distended, hepatomegaly, mass, splenomegaly, tenderness - Psychiatric Psychiatric exam: Present: normal affect, normal mood. Absent: agitated, anxious, depressed - Skin Skin exam: Present: dry, intact, warm. Absent: cyanosis, rash Internal Medicine: Result - Labs CBC & Chem 7: 11/09/17 00:23 11/09/17 00:23 Labs: Short CBC 11/09/17 Range/Units 00:23 WBC 7.1 (4.3-11.1) K/mcL Hgb 12.9 (12.9-16.9) g/dL Hct 39.0 (37.5-50.1) % Plt Count 141 (140-400) K/mcL Neutrophils # 5.1 (1.6-8.9) K/mcL BMP 11/09/17 00:23 Sodium 133 L Potassium 3.8 Chloride 103 Carbon Dioxide 23 BUN 11 Creatinine 0.71 Glucose 118 H Calcium 9.8 Liver Function 11/09/17 Range/Units 00:23 Total Bilirubin 0.4 (0.3-1.0) mg/dL AST 12 L (13-39) Units/L ALT 11 (7-52) Units/L Alkaline Phosphatase 72 (34-104) Units/L Albumin 3.2 L (3.5-5.7) g/dL - ABG Interpretation ABG results: PT/INR, D-dimer PT 16.8 Seconds (9.4-12.1) H 11/06/17 18:12 - VTE Contraindication No Overlap Therapy: Admin of oral Factor Xa Inhibitor Consult Discharge Plan - Plan Referrals: Rodri Day MD [Primary Care Provider] - 11/14/17 2:15 pm () Keyana Sol [Partnered Physician] - (office will call patient at home with follow up appointment)
[2017-11-09] MEDS: Colchicine 0.6 MG TABLET PO SCH ×2 (12:55→21:48)
[2017-11-09] MEDS ORDERED: *HR* Rivaroxaban 10 MG TABLET PO SCH (17:00)
[2017-11-09] MEDS: Latanoprost 2.5 ML BOTTLE BOTH EYES SCH (21:48)
[2017-11-10] MEDS: Levalbuterol Neb 1.25 MG/3 ML IH SCH (03:40)
[2017-11-10 03:47] LABS: Basophils % 0.3 %; Eosinophils # 0.2 K/mcL (0.0-0.6); Eosinophils % 2.9 %; Hemoglobin 12.5 g/dL (12.9-16.9); Immature Granulocytes % 0.3 % (0-4); Lymphocytes % 16.6 %; Mean Corpuscular HGB Conc 32.1 g/dL (31.6-35.5); Mean Corpuscular Hemoglobin 28.3 pg (28.0-33.3); Mean Corpuscular Volume 88.2 fL (83.0-100.0); Mean Platelet Volume 10.9 fL (9.4-12.4); Monocytes # 0.9 K/mcL (0.0-1.3); Monocytes % 14.8 %; Neutrophils # 3.8 K/mcL (1.6-8.9); Platelet Count 166 K/mcL (140-400); Red Blood Count 4.42 M/mcL (4.19-5.50); Red Cell Distribution Width 14.3 % (11.5-14.5); Segmented Neutrophils % 65.1 %
[2017-11-10 04:07] LABS: BUN/Creatinine Ratio 14 (6-26); Blood Urea Nitrogen 11 mg/dL (8-23); Calcium 10.1 mg/dL (8.6-10.3); Carbon Dioxide 27 mEq/L (23-29); Chloride 104 mEq/L (98-107); Glucose 110 mg/dL (70-105); Osmolality,Calculated 280 (280-300); Potassium 4.3 mEq/L (3.5-5.1); Sodium 135 mEq/L (136-145); eGFR For African Americans > 60 (> 60); eGFR For Non-African Americans > 60 (> 60)
[2017-11-10] MEDS: Colchicine 0.6 MG TABLET PO SCH (09:44)
[2017-11-10] MEDS: Fluticasone Propionate Nasal 50 MCG/SPRAY BOTTLE NS SCH (09:45)
[2017-11-10] MEDS ORDERED: Ipratropium/Albuterol Neb 3 ML IH PRN (10:10)
--- NOTE | 2017-11-10 10:18 | Discharge Summary ---
- NOTES TO OUTPATIENT PROVIDER Notes to Outpatient Provider: Follow up with PCP in 2-3 days after discharge. Recheck BMP at that time. Follow up with cardiology Dr. Sol in 4 weeks. Repeat limited ECHO scheduled at [place] in 2 weeks; results to be forwards to cardiology Dr. Sol. Continue colchicine for 3 months for first episode of pericarditis. Date of Encounter: 11/10/17 Time of Encounter: 10:16 - Discharge Diagnosis (1) Chest pain Priority: Primary Status: Resolved Qualifiers: Chest pain type: other chest pain Qualified Code(s): R07.89 - Other chest pain; R07.8 - Other chest pain (2) Pericarditis Priority: Secondary Status: Acute Qualifiers: Pericarditis type: unspecified type Chronicity: acute Qualified Code(s): I30.9 - Acute pericarditis, unspecified (3) Pericardial effusion Priority: Secondary Status: Acute (4) S/P partial gastrectomy Priority: Secondary Status: Chronic (5) Acute deep vein thrombosis (DVT) of left lower extremity Priority: Secondary Status: Chronic Qualifiers: Affected thrombotic vein of extremity: unspecified lower extremity proximal vein Qualified Code(s): I82.4Y2 - Acute embolism and thrombosis of unspecified deep veins of left proximal lower extremity (6) DVT prophylaxis Priority: Secondary Status: Acute Hospital course: Mr. Pool is a 77 year old male admitted for chest pain. He was admitted to step down unit with telemetry. Cardiac enzymes trended negative. He was started on nitro and heparin drips. Cardiology was consulted. EKG findings suggestive of pericarditis. ECHO showed small to moderate pericardial effusion with echogenic material adherent to epicardium; no tamponade. Cardiology felt this was pericarditis and not ACS. Nitro and heparin drips were discontinued. Home xarelto was restarted. He was started on colchicine for pericarditis. He improved greatly the next day after starting. Pain today is nearly resolved. He will follow up with activities aide Dr. Sol in 4 weeks. He recommended continuing colchicine for 3 months given that it is his first episode of pericarditis. He will have repeat limited ECHO here in 2 weeks, with results forwarded to activities aide. He will follow up with PCP in 2-3 days after discharge. Repeat BMP can be rechecked at that time. Patient has met maximum benefit of this hospitalization and will be discharged home in stable condition. Discharge discussed with: patient, nurse, creative consultant (Stringing Machine Tender Dr. Sol), other (Pharmacist) - Time Spent with Patient Total time spent providing and/or coordinating discharge services: Greater than 30 minutes - Discharge Medications Prescriptions: Colchicine [Colcrys] 0.6 mg PO BID 90 Days #60 tablet Home Medications: Travoprost [Travatan Z] 1 drop BOTH EYES HS 12/31/14 [History] Timolol Maleate 0.5% 1 drop RIGHT EYE QAM 03/01/17 [History] Rivaroxaban [Xarelto] 20 mg PO DAILY #30 tablet 04/22/17 [Rx] Acetaminophen [Tylenol] 325 mg PO Q6HR PRN 10/14/17 [History] Albuterol Sulfate [Ventolin Hfa] 2 puff IH Q4H PRN 10/14/17 [History] Fluticasone Propionate Nasal [Flonase] 50 mcg NS DAILY 10/14/17 [History] Ipratropium/Albuterol Neb [Duoneb] 3 ml IH Q6HR PRN 10/14/17 [History] Metoclopramide HCl [Metoclopramide HCl Odt] 5 mg PO DAILY 10/14/17 [History] Mometasone/Formoterol [Dulera 200 Mcg/5 Mcg Inhaler] 2 puff IH BID 10/14/17 [ History] Pantoprazole Sodium [Protonix] 40 mg PO DAILY 10/14/17 [History] predniSONE [PredniSONE] 5 mg PO DAILY 11/06/17 [History] Colchicine [Colcrys] 0.6 mg PO BID 90 Days #60 tablet 11/10/17 [Rx] Allergies/Adverse Reactions: 3 Allergy/AdvReac Type Severity Reaction Status Date / Time No Known Allergies Allergy Verified 11/06/17 14:56 Date of admission: 11/06/17 17:34 Primary care physician: Rodri Day MD Consults: Cardiology Discharging clinician: Tyler Way Anticipated date of discharge: 11/10/17 - Constitutional Vitals: Temp Pulse Resp BP Pulse Ox 97.9 F 70 18 113/75 93 11/10/17 06:50 11/10/17 06:50 11/10/17 06:50 11/10/17 06:50 11/10/17 06:50 General appearance: Present: cooperative, A&O X 3, pleasant, no acute distress, obese, answers questions appropriately - Respiratory Respiratory exam: Present: CTAB. Absent: accessory muscle use, rales, rhonchi, wheezes Additional comments: Normal WOB - Cardiovascular Cardiovascular exam: Present: RRR, +S1, +S2. Absent: diastolic murmur, gallop, rubs, systolic murmur Additional comments: No BLE edema - GI/Abdominal GI/Abdominal exam: Present: normal bowel sounds, soft. Absent: distended, hepatomegaly, mass, splenomegaly, tenderness - Psychiatric Psychiatric exam: Present: normal affect, normal mood. Absent: agitated, anxious, depressed - Skin Skin exam: Present: dry, intact, warm. Absent: cyanosis, rash - Patient Status Disposition: Home, Self-Care Condition: Good Overall status at discharge: patient is progressing back to baseline - Discharge Instructions Follow Up With: Rodri Day MD [Primary Care Provider] - 11/14/17 2:15 pm () Keyana Sol [Partnered Physician] - (office will call patient at home with follow up appointment) Additional Instructions: Follow up with PCP in 2-3 days after discharge. Recheck BMP at that time. Follow up with cardiology Dr. Sol in 4 weeks. Repeat limited ECHO scheduled at [place] in 2 weeks; results to be forwards to cardiology Dr. Sol. Continue colchicine for 3 months for first episode of pericarditis. - Diet and Activity Activity: resume usual activities as tolerated Diet: low fat, low cholesterol, low salt diet, other (Cardiac Diet) - VTE Contraindication No Overlap Therapy: Admin of oral Factor Xa Inhibitor
[2017-11-10] MEDS: Budesonide/Formoterol 160/4.5 MDI IH SCH (11:11)
[2017-11-10 11:45] VITALS: BP 119/82
== END 2017-11-10 13:40 | disposition home or self-care (01) | DRG 315 ==
LOC: 3BNU 10:38 → EMEROO 10:38 → 3BNU 14:44 → 2NNU 17:24 → SUATTDRO 17:34
PROVIDERS: ADMIT Student in an Organized Health Care Education/Training Program; ATTEND Hospitalist